=== PATIENT | female | born 1945 | race Caucasian/White ===

== ENCOUNTER → 2019-05-29 | Outpatient (CLI) | payer MEDICARE, BC ==
[~2019-05-29] MED LIST: AMLODIPINE BESY10 MG PO; ASPIRIN325 M2 PO; CALCIUM WITH V PO; CARAFATE; CETIRIZINE HCL10 MG PO; DEXILANT; DEXILANT30 MG PO; ETODOLAC PO; ETODOLAC300 MG PO; EYE PROMISE RESTORE; FIBER PO; FUROSEMIDE 40 MG; FUROSEMIDE40 MG PO; KLOR-CON 88 MEQ PO; LEVOTHYROXINE100 MCG PO; LEVOTHYROXINE88 MCG PO; METOCLOPRAMIDE10 MG PO; OMEPRAZOLE; OMEPRAZOLE40 MG; OMEPRAZOLE40 MG PO; PANTOPRAZOLE SO40 MG PO; TEMAZEPAM15 MG PO; TRIAMTERENE-HC1 EAC3 PO; ULTRAM50 MG PO; VENLAFAXINE HCL75 MG PO; VITAMIN C PO; Z ATROVENT IH; Z IRON PO; Z LEVOXYL PO; Z.0.CHLORDIAZEPOXI1 PO; Z.0.EVISTA60 MG PO; Z.0.GLUCOSAMINE1000 PO; Z.0.LEVOCETIRIZINE D PO; Z.0.LEVOXYL100 MCG PO; Z.0.LOVAZA1 GM PO; Z.0.NEXIUM40 MG PO; Z.0.PRAVASTATIN SOD4 PO; Z.0.VALIUM10 MG PO; Z.0.VESICARE10 MG PO; [UNRECOGNIZED DRUG - OTHER]
--- NOTE | 2019-06-03 08:07 | Diagnostic Imaging Report ---
Exam: Bone mineral density study. History: Osteopenia. Comparison: None Discussion: Evaluation of the left hip was performed utilizing DEXA Hologic bone densitometer. The study is technically adequate. The spine was not imaged due to patient's hardware/postsurgical change in the lumbar spine Left hip total bone mineral density: 0.923gm/cm2, T-score is -0.2, Z-score is 1.7. Left hip femoral neck bone mineral density: 0.758gm/cm2, T-score is -0.8, Z-score is 1.3. Impression: 1. Normal bone mineral density of the left hip, fracture risk is not increased. The BMD change versus baseline is 3.2% and the BMD change versus previous -2.6% . Least significant change (LSC) for bone mineral density as provided by coroner/medical examiner is 0.023 g/cm2 for lumbar spine and 0.027 g/cm2 for total hip. 10 -year fracture risk per WHO Fracture Risk Assessment Tool (FRAX) for: Not reported because all T-scores at or above -1.0. Patient treated for osteoporosis The patient's fracture risk is compared to an age-matched control. Medical evaluation for secondary causes of low bone bone mineral density may be appropriate. Correlate clinically for the necessity and timing of the next bone mineral density study. Signed by: Dr. Sebastián Lynn M.D. on 06/03/2019 8:04 AM
== END ==
LOC: DX 12:50
PROVIDERS: ATTEND Family Medicine
DX: M85.88 Other specified disorders of bone density and structure, other site (principal)
CPT/HCPCS: 77080

== ENCOUNTER 2019-07-25 19:22 | Emergency (ER) | payer MEDICARE, BC ==
[~2019-07-25] VITALS: Ht 144.8 cm; Wt 64.0 kg
--- OUTSIDE RECORDS SUMMARY | 2019-07-25 19:27 | XMS REPORT ---
Author Author [facility] Address Unknown Phone Unavailable Care Team Providers Care Cigarette Making Examiner Name Role Phone Jerry NATHAN Unavailable Unavailable Payers Payer Name Policy Type Policy Number Effective Date Expiration Date Problems This patient has no known problems. Allergies, Adverse Reactions, Alerts Allergy Name Allergy Type Status Severity Reaction(s) Onset Date Inactive Date Treating Clinician Comments codeine DA Active 2018-09-14 00:00:00 hydrocodone DA Active [place] 2018-09-14 00:00:00 acetaminophen DA Active [place] 2018-09-14 00:00:00 hydrocodone DA Active [place] 2018-07-06 00:00:00 acetaminophen DA Active [place] 2018-07-06 00:00:00 codeine DA Active 2017-11-24 00:00:00 Medications This patient has no known medications. Results Test Description Test Time Test Comments Text Results Atomic Results Result Comments BONE DXA DUAL ENERGY 2019-06-03 08:02:00 [facility] [address] [place] [address] Patient Name: CECE CRAMER MR #: [id number] : 1945 Age/Sex: 74/F Req #: [id number] [facility] Physician: Ordered by: MARIUSZ NATHAN MD Report #: [id number] Location: DX Room/Bed: Procedure: [id number] DX/BONE DXA DUAL ENERGY Exam Date: Exam Time: REPORT STATUS: Signed Exam: Bone mineral density study. History: Osteopenia. C omparison: None Discussion: Evaluation of the left hip was performed utilizing DEXA Hologic bone densitometer. The study is technically adequate. The spine was not imaged due to patient's hardware/postsurgical change in the lumbar spine Left hip total bone mineral density: 0.923gm/cm2, T-score is -0.2, Z-score is 1.7. Left hip femoral neck bone mineral density: 0.758gm/cm2, T-score is -0.8, Z-score is 1.3. Impression: 1. Normal bone mineral density of the left hip, fracture risk is not increased. The BMD change versus baseline is 3.2% and the BMD ziegler e versus previous -2.6% . Least significant change (LSC) for bone mineral density as provided by cash management coordinator is 0.023 g/cm2 for lumbar spine and 0.027 g/cm2 for total hip. 10 -year fracture risk per WHO Fracture Risk Assessment Tool (FRAX) for: Not reported because all T-scores at or above - 1.0. Patient treated for osteoporosis The patient's fracture risk is compared to an age-matched control. Medical evaluation for secondary causes of low bone bone mineral density may be appropriate. Correlate clinically for the necessity and timing of the next bone mineral density study. Signed by: Dr. Shell Lynn M.D. on 06/03/2019 8:04 AM Dictated By: SHELL LYNN MD, MD 3 Transcribed By: BELTRAN on 06/03/19803 COPY TO: MARIUSZ NATHAN MD SURGICAL SPECIMENS 2018-09-20 12:29:00 RUN DATE: 09/20/18 [facility] *LIVE* PAGE 1 RUN TIME: 1229 Specimen Inquiry RUN USER: INTERFACE PATIENT: CECE CRAMER LOC: KATIE U #: [id number] AGE/SX: 73/F ROOM: [facility] RE09/15/18REG DR: Oswaldo Kelley MD : 41 BED: 1 DIS: 09/19/18 STATUS: DIS IN TLOC: SPEC #: [id number] RECD: 09/18/18 STATUS: JENA REQ #: [id number] CHANEL: 09/18/[address]: Oswaldo Kelley MD ENTERED: 09/20/18 SP TYPE: SURG SPEC OTHR DR: No Primary or Family Physician Self Referred Carla Diana MD, Altaf MD Rungta, Manish MD Subramanyam, Kalyanam MDORDERED: GM LEVEL 4 CODES: [id number] - STOMACH, NOS COPIES TO: No Primary or Family Physician Self Referred Carla Diana MD [address] [facility] [address] [place] [address] Oswaldo Kelley MD [address] [facility] [address] [place] [address] [place] [address] [place], [place] [id number] [email or web address] Francisco Mckay MD [address] [place] [address] [address] [place] [address] Rajesh Hinojosa MD [address] [place] [address] [address] [place] [address] PROCEDURES: LEVEL 4 (Incomplete) CONTINUED ON NEXT PAGE RUN DATE: 09/20/18 [facility] *LIVE* PAGE 2 RUN TIME: 1229 Specimen Inquiry RUN USER: INTERFACE SPEC #: [id number] PATIENT: CECE CRAMER ZULMA #[id number] (Continued) TISSUES: 1. STOMACH, NOS - Stomach, antrum, bx. FINAL DIAGNOSIS Stomach, antrum, bx.: Mild chronic gastritis, no Helicobacter organisms seen. GROSS AND MICROSCOPIC GROSS EXAMINATION: Received is/are the specimen/s designated with the appropriate dimensions and block designation: 1. Stomach, antrum, bx.: 2 segments of pink-gonzales tissue, measuring up to 0.3 cm. in greatest dimension each. MICROSCOPIC EXAMINATION: Sections of the "Stomach, antrum, bx." reveal changes of mild chronic gastritis. The lamina propria contains a mild inflammatory infiltrate. The Alcian blue/PAS stain does not show goblet cell metaplasia. The immunostain for Helicobacter organisms is negative. (When special stains have been reviewed, the appropriate positive/negative controls have been reviewed and are appropriately positive/negative). POST-OP DIAGNOSIS Grade 4 esophagitis, hiatal hernia, nodular gastropathy antrum PRE-OP DIAGNOSIS Anemia Signed SIGNATURE ON FILE Korin Pang MD 09/20/18 1229 END OF REPORT
[2019-07-25 20:25] LABS: BASOPHILS % 0.6 % (0.0-1.0); EOSINOPHILS % 0.6 % (0.0-6.0); HEMATOCRIT 34.1 % (34.2-44.1); HEMOGLOBIN 11.3 g/dL (12.0-16.0); LYMPHOCYTES # (AUTO) 0.9 (1.0-3.2); LYMPHOCYTES % 19.5 % (18.0-39.1); MEAN CORPUSCULAR HEMOGLOBIN 37.2 pg (28-32); MEAN CORPUSCULAR HGB CONC 33.1 g/dL (31-35); MEAN CORPUSCULAR VOLUME 112.2 fL (81-99); MONOCYTES # (AUTO) 0.3 (0.2-0.8); MONOCYTES % 6.1 % (4.4-11.3); NEUTROPHILS # (AUTO) 3.4 (2.1-6.9); NEUTROPHILS % 72.8 % (38.7-80.0); PLATELET COUNT 417 x10e3/uL (140-360); RED BLOOD COUNT 3.04 x10e6/uL (3.6-5.1); RED CELL DISTRIBUTION WIDTH 16.9 % (11.7-14.4)
[2019-07-25 20:40] LABS: CALCIUM 9.8 mg/dL (8.4-10.2); CREATININE, SERUM 1.14 mg/dL (0.57-1.11)
[2019-07-25 20:43] LABS: BILIRUBIN,URINE NEGATIVE (NEGATIVE); CLARITY,URINE SL CLOUDY (CLEAR); COLOR,URINE YELLOW (YELLOW); KETONES,URINE NEGATIVE (NEGATIVE); LEUKOCYTE ESTERASE ,URINE SMALL (NEGATIVE); NITRITE,URINE NEGATIVE (NEGATIVE); PROTEIN,URINE DIPSTICK TRACE (NEGATIVE); URINE UROBILINOGEN 0.2 mg/dL (0.2 - 1)
[2019-07-25 20:56] LABS: BACTERIA,URINE MANY /HPF; WBC,URINE (MAN) 0-5 /HPF (0-5)
[2019-07-25 21:41] VITALS: BP 124/56
== END 2019-07-25 21:20 | disposition home or self-care (01) ==
LOC: ER 19:22
DX: R30.0 Dysuria (principal); N30.91 Cystitis, unspecified with hematuria; I10 Essential (primary) hypertension; E03.9 Hypothyroidism, unspecified; K21.9 Gastro-esophageal reflux disease without esophagitis; F32.9 Major depressive disorder, single episode, unspecified
CPT/HCPCS: 36415; 80048; 81001; 85025; 99283

== ENCOUNTER 2019-12-02 01:07 | Emergency (ER) | payer MEDICARE, BC ==
[~2019-12-02] VITALS: Ht 144.8 cm; Wt 64.0 kg
[2019-12-02] MEDS ORDERED: SODIUM CHLORIDE 0.9% 1000ML 1,000 ML IV STA ×2 (01:40→01:46)
[2019-12-02] MEDS ORDERED: CALCIUM GLUCONATE 10% INJ 4.65 MEQ in SODIUM CHLORIDE 0.9% 50ML 50 ML IV ONE (01:45)
[2019-12-02] MEDS ORDERED: GLUCAGON FOR INJ 1 MG VIAL IV ONE (01:45)
[2019-12-02 01:54] LABS: ALANINE AMINOTRANSFERASE 14 IU/L (0-55); ALBUMIN 3.1 g/dL (3.5-5.0); ALBUMIN/GLOBULIN RATIO 1.1 (0.8-2.0); ALKALINE PHOSPHATASE 62 IU/L (40-150); ANION GAP 13.9 mmol/L (8-16); BLOOD UREA NITROGEN 18 mg/dL (7-26); BUN/CREATININE RATIO 12 (6-25); CALCIUM 8.7 mg/dL (8.4-10.2); CARBON DIOXIDE 25 mmol/L (22-29); CHLORIDE 103 mmol/L (98-107); CREATINE KINASE 49 IU/L (29-168); EST GLOMERULAR FILTRATION RATE 34 ML/MIN (60-); GLUCOSE 116 mg/dL (74-118); POTASSIUM 4.9 mmol/L (3.5-5.1); SODIUM 137 mmol/L (136-145)
[2019-12-02 02:05] LABS: BASOPHILS % 0.3 % (0.0-1.0); EOSINOPHILS % 0.5 % (0.0-6.0); HEMATOCRIT 28.6 % (34.2-44.1); HEMOGLOBIN 9.3 g/dL (12.0-16.0); LYMPHOCYTES # (AUTO) 0.9 (1.0-3.2); LYMPHOCYTES % 23.4 % (18.0-39.1); MEAN CORPUSCULAR HEMOGLOBIN 39.7 pg (28-32); MEAN CORPUSCULAR HGB CONC 32.5 g/dL (31-35); MEAN CORPUSCULAR VOLUME 122.2 fL (81-99); MONOCYTES # (AUTO) 0.4 (0.2-0.8); MONOCYTES % 9.1 % (4.4-11.3); NEUTROPHILS # (AUTO) 2.6 (2.1-6.9); NEUTROPHILS % 66.4 % (38.7-80.0); PLATELET COUNT 229 x10e3/uL (140-360); RED BLOOD COUNT 2.34 x10e6/uL (3.6-5.1); RED CELL DISTRIBUTION WIDTH 14.6 % (11.7-14.4)
[2019-12-02 02:41] LABS: BILIRUBIN,URINE NEGATIVE (NEGATIVE); CLARITY,URINE CLEAR (CLEAR); COLOR,URINE YELLOW (YELLOW); KETONES,URINE NEGATIVE (NEGATIVE); LEUKOCYTE ESTERASE ,URINE NEGATIVE (NEGATIVE); NITRITE,URINE NEGATIVE (NEGATIVE); PROTEIN,URINE DIPSTICK 1+ (NEGATIVE); URINE UROBILINOGEN 0.2 mg/dL (0.2 - 1)
--- NOTE | 2019-12-02 03:01 | Diagnostic Imaging Report ---
EXAMINATION: Head CT without contrast. HISTORY:Generalized weakness. COMPARISON:None. TECHNIQUE: Multidetector axial images were obtained from the foramen magnum to the vertex without contrast. The images were reconstructed using brain and bone algorithms. Thin section brain images were reformatted into coronal and sagittal planes. Dose modulation, iterative reconstruction, and/or weight based adjustment of the mA/kV was utilized to reduce the radiation dose to as low as reasonably achievable. Intravenous contrast: None IMAGE QUALITY: Suboptimal evaluation particularly at the level of skull base and posterior fossa structures due to streak artifacts. FINDINGS: Skull/scalp: No lytic or blastic. lesions. No surgical changes. Parenchyma: Nonspecific bilateral frontoparietal confluent periventricular, subcortical and deep white matter hypodensities are likely related to small vessel ischemic changes. No acute hemorrhage, mass or acute major vascular territorial infarct. Arteries: No density suggestive of thrombosis. Atherosclerotic calcification in bilateral carotid siphon and V4 segment of left vertebral artery. Dural sinuses: No abnormal density suggestive of thrombosis. Ventricles: No hydrocephalus or displacement. Extra-axial spaces: No abnormal density. Brain volume: Normal for age. Craniocervical junction: No mass, Chiari malformation, or basilar invagination. Sella: No mass. Paranasal/mastoid sinuses: Imaged portions unremarkable. IMPRESSION: No acute intracranial abnormality. Severe supratentorial white matter microvascular ischemic changes. Signed by: Dr. Beverly Díaz M.D. on 12/02/2019 2:58 AM
[2019-12-02 03:06] LABS: BACTERIA,URINE MANY /HPF; EPITHELIAL CELLS,URINE FEW /LPF
[2019-12-02 03:07] LABS: CALCIUM CARBONATE CRYSTALS,UR FEW; CALCIUM OXALATE CRYSTALS,UR FEW (FEW)
[2019-12-02 03:08] LABS: MUCUS,URINE MODERATE (RARE)
--- NOTE | 2019-12-02 03:20 | NUR ---
CENTRAL PLACED TO RT IJ BY ER , DR. WEINBERG AT THIS TIME. PT TOLERATED WELL. NAD NOTED AT THIS TIME.
[2019-12-02] MEDS ORDERED: NOREPINEPHRINE 8 MG/D5W 250 ML 250 ML ONE (03:22)
--- NOTE | 2019-12-02 03:28 | Diagnostic Imaging Report ---
EXAMINATION: CHEST SINGLE (NOT PORTABLE) INDICATION: Pain. Weakness. COMPARISON: None FINDINGS: TUBES and LINES: None. LUNGS: Lungs are well inflated. There are bibasilar atelectasis. There is no evidence of pneumonia or pulmonary edema. PLEURA: No pleural effusion or pneumothorax. HEART AND MEDIASTINUM: Cardiac size is mildly enlarged. There are atherosclerotic calcifications within the aorta. BONES AND SOFT TISSUES: No acute osseous lesion. Soft tissues are unremarkable. UPPER ABDOMEN: No free air under the diaphragm. IMPRESSION: No acute thoracic abnormality. Signed by: Dr. Anne Marie Menjivar M.D. on 12/02/2019 3:24 AM
[2019-12-02] MEDS ORDERED: NOREPINEPHRINE INJ 4MG/4ML 8 MG in DEXTROSE 5% 250ML 250 ML IV SCH (03:45)
--- NOTE | 2019-12-02 04:02 | Diagnostic Imaging Report ---
EXAMINATION: CHEST SINGLE (PORTABLE) INDICATION: CVC placement. COMPARISON: 12/02/2019 at 2:46 AM. FINDINGS: TUBES and LINES: Interval placement of a right internal jugular central venous catheter with distal tip projected on the cavoatrial junction. LUNGS: There are bibasilar atelectasis. There is no evidence of pneumonia or pulmonary edema. PLEURA: No pleural effusion or pneumothorax. HEART AND MEDIASTINUM: Cardiac size is mildly enlarged. There are atherosclerotic calcifications within the aorta. BONES AND SOFT TISSUES: No acute osseous lesion. Soft tissues are unremarkable. UPPER ABDOMEN: No free air under the diaphragm. IMPRESSION: Interval placement of a right internal jugular central venous catheter with distal tip projected on the cavoatrial junction. Signed by: Dr. Anne Marie Menjivar M.D. on 12/02/2019 4:00 AM
[2019-12-02 05:49] VITALS: BP 148/82
[2019-12-02] MEDS ORDERED: PIPER-TAZ 3.375 GM 50 ML IV SCH (06:00)
== END 2019-12-02 04:55 | disposition short-term general hospital (02) ==
LOC: ER 01:07
DX: R53.1 Weakness (principal); R65.21 Severe sepsis with septic shock; I95.0 Idiopathic hypotension; I50.9 Heart failure, unspecified; N17.9 Acute kidney failure, unspecified; N30.90 Cystitis, unspecified without hematuria; R00.1 Bradycardia, unspecified
CPT/HCPCS: 36415; 36555; 70450; 71045 ×2; 80053; 81001; 82550; 82553; 83605; 83880; 84484; 85025; 86850; 86900; 87040; 93005; 99285; J0610; J1610; J2543; J7030

== ENCOUNTER 2020-09-05 20:26 | Inpatient (IN) | payer MEDICARE, BC ==
[~2020-09-05] VITALS: Ht 144.8 cm; Wt 67.9 kg
--- NOTE | 2020-09-05 20:40 | Emergency Department Note ---
History of Present Illnes History of Present Illness Chief Complaint: General Medicine Complaints History of Present Illness This is a 75 year old female presents to the ED for evaluation of dysuria of one week duration with Left facial swelling and dyspnea. Arrival Mode: Car Onset (how long ago): week(s) Radiation: Reports non-radiation Severity: moderate Onset quality: gradual Duration (how long): week(s) (1) Timing of current episode: constant Progression: unchanged Chronicity: new Context: Denies recent illness, Denies recent surgery, Denies recent immobilization, Denies recent travel, Denies trauma/injury, Denies new medications, Denies hx of DVT/PE, Denies non-compliance w/ medications, Denies other Relieving factors: none Exacerbating factors: none Associated symptoms: Reports shortness of breath Treatments prior to arrival: none Past Medical/Family History Physician Review I have reviewed the patient's past medical and family history. Any updates have been documented here. Past Medical History Recent Fever: No Clinical Suspicion of Infectio: No New/Unexplained Change in Ment: No Past Medical History: Hypertension, Hypothyroidism, UTI's, Migraines, Anemia, Depression, GERD, Hyperlipedemia, Chronic Back Pain Other Medical History: HYPOTENTION 2015 - GI BLEED MULTIPLE BLOOD TRANSFUSIONS HIATAL HERNIA NEUROPATHY OVERACTIVE BLADDER Past Surgical History: Cholecysctectomy Other Surgery: BACK SURGERY RIGHT KNEE REPLACEMENT Social History Smoking Cessation: Never Smoker Alcohol Use: None Any Illegal Drug Use: No Other Last Tetanus: Y Review of Systems Review of Systems Constitutional: Reports no symptoms EENTM: Reports no symptoms Cardiovascular: Reports no symptoms Respiratory: Reports no symptoms Gastrointestinal: Reports no symptoms Genitourinary: Reports dysuria Musculoskeletal: Reports no symptoms Integumentary: Reports no symptoms Neurological: Reports weakness Psychological: Reports no symptoms Endocrine: Reports no symptoms Hematological/Lymphatic: Reports no symptoms Physical Exam Related Data Allergies: Coded Allergies: codeine (Verified Allergy, Mild, RASH, 08/10/15) pseudoephedrine (Verified Allergy, Unknown, 07/25/19) Triage Vital Signs Vital Signs Date Time Temp Pulse Resp B/P (MAP) Pulse Ox O2 Delivery O2 Flow Rate FiO2 09/05/20 20:56 98.5 81 24 111/57 100 Room Air 09/07/20 03:05 2.0 Vital signs reviewed: Yes Physical Exam CONSTITUTIONAL Constitutional: Present obese, Present ill appearing HENT HENT: Present normocephalic, Present atraumatic, Present oropharynx clear/moist, Present nose normal HENT L/R: Present left ext ear normal, Present right ext ear normal EYES Eyes: Reports PERRL, Reports conjunctivae normal NECK Neck: Present ROM normal PULMONARY Pulmonary: Present effort normal, Present breath sounds normal CARDIOVASCULAR Cardiovascular: Present regular rhythm, Present heart sounds normal, Present capillary refill normal, Present normal rate GASTROINTESTINAL Abdominal: Present soft, Present nontender, Present bowel sounds normal GENITOURINARY Genitourinary: Present exam deferred SKIN Skin: Present warm, Present dry MUSCULOSKELETAL Musculoskeletal: Present ROM normal NEUROLOGICAL Neurological: Present alert, Present oriented x 3, Present no gross motor or sensory deficits PSYCHOLOGICAL Psychological: Present mood/affect normal, Present judgement normal Results Laboratory Lab results reviewed: Yes Imaging Imaging results reviewed: Yes Procedures 12 Lead ECG Interpretation ECG Interpretation : ECG: ECG 1 Wrapper Hands Sprayer: Interpreted by ED physician Date: Sep 05, 2020 Time: 21:15 Prior ECG tracings: reviewed Rhythm: sinus rhythm Rate: normal BPM: 76 ST segments normal: Yes T waves normal: No T waves flattening: V1, V2 Clinical Impression: non-specific ECG Critical Care Time Total Critical Care Time (min): 31 Critcal care necessary due to: sepsis Critcal care time spent by me: develop tx plan w patient/surrogate, evaluation patient response to tx, examination of patient, obtaining hx from patient/surrogate, order/perform tx or interventions, order/review laboratory studies, order/review radiographic studies, re-evaluation of patient condition Assessment & Plan Medical Decision Making MDM Diff Dx : CVA, ACS ,Sepsis, UTI, electrolyte abl, CHF, PNA, COPD Assessment & Plan Final Impression: (1) Severe sepsis (2) Weakness (3) Anemia (4) UTI (urinary tract infection) Depart Disposition: ADMITTED Home Meds Active Scripts Ferrous Sulfate (FERROUS SULFATE) 325 Mg Tablet, 325 MG PO DAILY for 30 Days Prov:ISHA LEE CHARTING CLERK 09/10/20 Docusate Sodium (COLACE) 100 Mg Cap, 100 MG PO DAILY for 30 Days, CAP Prov:ISHA LEE CHARTING CLERK 09/10/20 Ascorbic Acid (ASCORBIC ACID) 500 Mg Tablet, 500 MG PO DAILY for 30 Days Prov:ISHA LEE CHARTING CLERK 09/10/20 Metoprolol Succinate (TOPROL XL) 25 Mg Tab.er.24h, 50 MG PO Q12H for 30 Days Prov:ISHA LEE CHARTING CLERK 09/09/20 Albuterol Sulf* (PROAIR HFA INHALER*) 8.5 Gm Inh, 2 INH INH Q4HR PRN for WHEEZING, #1 INH Prov:ISHA LEE CHARTING CLERK 09/09/20 Reported Medications Donepezil HCl (Donepezil HCl) 23 Mg Tablet, 23 MG PO HS 09/06/20 Pantoprazole Sodium* (PROTONIX) 40 Mg Tablet.dr, 40 MG PO DAILY 09/06/20 Pramipexole Di-Hcl (PRAMIPEXOLE DIHYDROCHLORIDE) 0.125 Mg Tablet, 0.125 MG PO HS 09/06/20 Hydroxyurea (HYDROXYUREA) 500 Mg Capsule, 1000 MG PO DAILY 09/06/20 Potassium Chloride (K-Tab ER) 8 Meq Tablet.er, 16 MEQ PO BID 09/06/20 Mirabegron (MYRBETRIQ) 25 Mg Tab.er.24h, 25 MG PO DAILY 09/06/20 Venlafaxine Hcl (VENLAFAXINE HCL ER) 75 Mg Cap.er.24h, 225 MG PO DAILY 09/06/20 Sucralfate (SUCRALFATE) 1 Gm Tablet, 1 GM PO TID 09/06/20 Dicyclomine Hcl (DICYCLOMINE HCL) 20 Mg Tablet, 20 MG PO QID 09/06/20 Levothyroxine Sodium (LEVOTHYROXINE SODIUM) 112 Mcg Tablet, 112 MCG PO BROOKS Y@0600 09/06/20 Escitalopram Oxalate (ESCITALOPRAM OXALATE) 20 Mg Tablet, 20 MG PO DAILY 09/06/20 Ondansetron (ONDANSETRON ODT) 8 Mg Tab.rapdis, 8 MG PO Q8H PRN for NAUSEA 09/06/20 Quetiapine Fumarate (QUETIAPINE FUMARATE) 25 Mg Tablet, 25 MG PO HS 09/06/20 Oxycodone Hcl/Acetaminophen (PERCOCET 7.5-325 MG TABLET) 1 Each Tablet, 1 TAB PO Q12H PRN for MODERATE PAIN (4-6), TAB 09/06/20 Tizanidine Hcl (TIZANIDINE HCL) 4 Mg Tablet, 4 MG PO BID PRN for MUSCLE SPASMS 09/06/20 Gabapentin (GABAPENTIN) 300 Mg Capsule, 300 MG PO TID 09/06/20 Bupropion Hcl (BUPROPION XL) 150 Mg Tab.er.24h, 150 MG PO DAILY 09/06/20 Fluticasone/Umeclidin/Vilanter (Trelegy Ellipta 100-62.5-25) 1 Each Blst.w.dev, 1 INH INH DAILY 09/06/20 Pravastatin Sodium (Pravastatin Sodium) 40 Mg Tablet, 40 MG PO BEDTIME 05/16/12 Raloxifene Hcl (Evista) 60 Mg Tablet, 60 MG PO DAILY 05/16/12 Discontinued Reported Medications Metoprolol Succinate (METOPROLOL SUCCINATE) 25 Mg Tab.er.24h, 25 MG PO Q12H 09/06/20 Amlodipine Besylate (AMLODIPINE BESYLATE) 10 Mg Tablet, 10 MG PO DAILY, #30 TAB 09/06/16 Ketoprofen (Frotek) 1 Gm Cream.pack, 1 APPLIC TOP QID PRN for MILD PAIN (1-3) 09/06/20 Clobetasol Propionate (CLOBETASOL PROPIONATE) 15 Gm Oint...g., 1 APPLIC TOP Q12H 09/06/20 Cetirizine Hcl (CETIRIZINE HCL) 10 Mg Tablet, 1 TAB PO DAILY 09/06/16 Venlafaxine Hcl (VENLAFAXINE HCL) 75 Mg Tab, 2 TAB PO HS, #30 TAB 09/06/16 Tramadol Hcl (ULTRAM) 50 Mg Tablet, 50 MG PO Q12H for PAIN, TAB 09/06/16 Potassium Chloride (KLOR-CON 8) 8 Meq Tablet.er, 1 TAB PO DAILY 09/06/16 Metoclopramide Hcl (METOCLOPRAMIDE HCL) 10 Mg Tablet, 10 MG PO TID, TAB 09/06/16 Temazepam (TEMAZEPAM) 15 Mg Capsule, 1 CAP PO HS 09/06/16 Levothyroxine Sodium (LEVOTHYROXINE SODIUM) 88 Mcg Tablet, 88 MCG PO UD, #30 TAB EVERY OTHER DAY ( THREE DAYS A WEEK) - ALTERNATE WITH LEVOTHYROXINE 100MG 09/06/16 Levothyroxine Sodium (LEVOTHYROXINE SODIUM) 100 Mcg Tablet, 100 MCG PO UD EVERY OTHER DAY, ALTERNATE WITH 88MCG LEVOTHYROXINE 08/11/15 Omeprazole (OMEPRAZOLE) 40 Mg Capsule.dr, 40 MG PO QID 08/10/15 [place]-3 Acid Ethyl Esters (Lovaza) 1 Gm Capsule, 1 GM PO BID 05/16/12 Glucosamine Sulfate 2KCL (GLUCOSAMINE) 1,000 Mg Tablet, PO DAILY 05/16/12 DAMARIS WEINBERG DO Sep 05, 2020 20:40
[2020-09-05] MEDS ORDERED: ASPIRIN 81 MG CHEW TAB PO ONE (20:45)
[2020-09-05 21:36] LABS: LYMPHOCYTES # (AUTO) 0.4 (1.0-3.2); LYMPHOCYTES % 7.3 % (18.0-39.1); MEAN CORPUSCULAR HEMOGLOBIN 42.6 pg (28-32); MEAN CORPUSCULAR HGB CONC 32.4 g/dL (31-35); MEAN CORPUSCULAR VOLUME 131.4 fL (81-99); MONOCYTES # (AUTO) 0.3 (0.2-0.8); MONOCYTES % 6.1 % (4.4-11.3); NEUTROPHILS # (AUTO) 4.8 (2.1-6.9); NEUTROPHILS % 86.1 % (38.7-80.0); PLATELET COUNT 345 x10e3/uL (140-360); RED BLOOD COUNT 1.69 x10e6/uL (3.6-5.1); RED CELL DISTRIBUTION WIDTH 15.1 % (11.7-14.4)
[2020-09-05 21:39] LABS: HEMATOCRIT 22.2 % (34.2-44.1)
[2020-09-05 21:41] LABS: HEMOGLOBIN 7.2 g/dL (12.0-16.0)
--- NOTE | 2020-09-05 21:41 | NUR ---
RADIOLOGY AT BEDSIDE FOR PORTABLE CHEST XRAY.
[2020-09-05 21:57] LABS: ALBUMIN 3.5 g/dL (3.5-5.0); ALBUMIN/GLOBULIN RATIO 0.8 (0.8-2.0); ANION GAP 16.9 mmol/L (8-16); CALCIUM 9.6 mg/dL (8.4-10.2); CREATININE, SERUM 1.42 mg/dL (0.57-1.11); POTASSIUM 4.9 mmol/L (3.5-5.1)
[2020-09-05] MEDS ORDERED: SODIUM CHLORIDE 0.9% 1000ML 1,000 ML IV STA (22:00)
--- NOTE | 2020-09-05 22:03 | Diagnostic Imaging Report ---
EXAMINATION: CHEST SINGLE (PORTABLE) INDICATION: Weakness, short of breath COMPARISON: Chest x-ray 12/02/2019 FINDINGS: TUBES and LINES: None. LUNGS: Normal lung volumes. Lungs are clear. No consolidations. PLEURA: No pleural effusion or pneumothorax. HEART AND MEDIASTINUM: The cardiomediastinal silhouette is unremarkable. BONES AND SOFT TISSUES: No acute osseous lesion. Soft tissues are unremarkable. UPPER ABDOMEN: No free air under the diaphragm. Cholecystectomy clips. IMPRESSION: No acute thoracic radiographic abnormality. Signed by: Td Lucas DO on 09/05/2020 10:00 PM
[2020-09-05 22:04] LABS: CREATINE KINASE MB 2.6 ng/mL (0-5.0)
[2020-09-05] MEDS ORDERED: SODIUM CHLORIDE 0.9% 1000ML 2,000 ML ONE (22:09)
[2020-09-05] MEDS ORDERED: SODIUM CHLORIDE 0.9% 250ML 250 ML IV ONE (22:15)
[2020-09-05] MEDS ORDERED: MORPHINE SULFATE INJ 4 MG/ML INJ 1ML IV PRN (22:15)
--- OUTSIDE RECORDS SUMMARY | 2020-09-05 22:50 | XMS REPORT | Clinical Summary ---
Author Author [facility] Address Unknown Phone Unavailable Care Team Providers Care Cattle Sticker Name Role Phone [place] PCP Alvin Barlow 29 Unavailable Allergies Comments Active Allergy Reactions Severity Noted Date Codeine Itching 08/05/2013 Medications End Date Status Medication Sig Dispensed Refills Start Date Active pravastatin (PRAVACHOL) Take 40 mg by 0 10 MG tablet mouth daily . Active potassium chloride Take 10 mEq 0 (KLOR-CON) 10 MEQ CR by mouth tablet daily. Active CYANOCOBALAMIN, VITAMIN Take by mouth 0 B-12, (VITAMIN B-12 ORAL) daily. Active pantoprazole (PROTONIX) Take 20 mg by 0 20 MG tablet mouth 2 (two) times daily . Active ergocalciferol (VITAMIN Take 5,000 0 D2) 1,250 mcg (50,000 Units by unit) capsule mouth nightly. Active melatonin 3 mg Tab tablet Take 5 mg by 0 mouth nightly. Active pramipexole (MIRAPEX) Take 0.125 mg 0 0.125 MG tablet by mouth nightly. Active ondansetron (ZOFRAN) 8 MG Take by mouth 0 tablet daily with dinner. Active sucralfate (CARAFATE) 1 Take 1 g by 0 gram tablet mouth 3 (three) times daily. Active levothyroxine (SYNTHROID, Take 112 mcg 0 LEVOTHROID) 112 MCG by mouth tablet Every morning on an empty stomach. Active amLODIPine (NORVASC) 10 Take 10 mg by 0 MG tablet mouth daily. Active metoprolol (LOPRESSOR) 25 Take 25 mg by 0 MG tablet mouth daily. Active venlafaxine (EFFEXOR-XR) Take 75 mg by 0 75 MG 24 hr capsule mouth daily 3 tablets . Active donepezil (ARICEPT) 10 MG Take 10 mg by 0 tablet mouth every evening. Active escitalopram oxalate Take 1 tablet 30 tablet 1 (LEXAPRO) 10 MG tablet (10 mg total) 0 by mouth nightly. 12/02/2019 Discontinued ( Discontinue d) levothyroxine (SYNTHROID, Take 88 mcg 0 LEVOTHROID) 88 MCG tablet by mouth 3 (three) times a week Thurs, Fri and Sat. 12/02/2019 Discontinued levothyroxine (SYNTHROID, Take 100 mcg 0 LEVOTHROID) 100 MCG by mouth 4 tablet (four) times a week Sun, Mon, and Mon. 12/02/2019 Discontinued omega-3 acid ethyl esters Take 2 g by 0 (LOVAZA) 1 gram capsule mouth 2 (two) times daily. 12/02/2019 Discontinued ( Discontinue d) furosemide (LASIX) 40 MG Take 40 mg by 0 tablet mouth daily. 12/02/2019 Discontinued ( Discontinue d) esomeprazole (NEXIUM) 40 Take 40 mg by 0 MG capsule mouth 2 (two) times daily. 12/02/2019 Discontinued ( Discontinue d) chlordiazePOXIDE Take 10 mg by 0 (LIBRIUM) 10 MG capsule mouth 4 (four) times daily as needed. 12/04/2019 Discontinued (Stop Taking at Discharge) HYDROcodone-acetaminophen Take 1 tablet 60 tablet 0 (NORCO 5-325) 5-325 mg by mouth 3 per tablet every 4 (four) hours as needed. 12/02/2019 Discontinued ( Discontinue d) aspirin 81 MG EC tablet Take 81 mg by 0 mouth daily. 12/02/2019 Discontinued ( Discontinue d) temazepam (RESTORIL) 15 Take 15 mg by 0 mg capsule mouth every night as needed for Sleep. 12/04/2019 Discontinued (Stop Taking at Discharge) levocetirizine (XYZAL) 5 Take 5 mg by 0 MG tablet mouth every evening. 12/04/2019 Discontinued (Stop Taking at Discharge) TiZANidine (ZANAFLEX) 4 Take 2 mg by 0 MG capsule mouth 2 (two) times daily The patient takes an additional 4mg at bedtime reported by the patient's daughter Smiley on 11/08/2020 at 0800am . 12/04/2019 Discontinued (Stop Taking at Discharge) dicyclomine (BENTYL) 20 Take 20 mg by 0 mg tablet mouth every 6 (six) hours. 12/04/2019 Discontinued (Stop Taking at Discharge) raloxifene (EVISTA) 60 mg Take 60 mg by 0 tablet mouth daily. 12/04/2019 Discontinued (Stop Taking at Discharge) hydroxyurea (DROXIA) 500 Take by mouth 0 mg capsule daily 1-2 tablet every other day . 12/05/2019 Discontinued (Reorder) escitalopram oxalate Take 20 mg by 0 (LEXAPRO) 20 MG tablet mouth nightly. 12/08/2019 cefdinir (OMNICEF) 300 MG Take 1 8 capsule 0 capsule capsule (300 0 mg total) by mouth every 12 (twelve) hours for 4 days. 01/03/2020 QUEtiapine (SEROQUEL) 25 Take 1 tablet 30 tablet 1 MG tablet (25 mg total) 0 by mouth nightly for 30 days. Active Problems Problem Noted Date Urinary tract infection 12/02/2019 Cerebral aneurysm 12/15/2015 Lumbar stenosis 08/29/2013 Encounters Care Team Description Date Type Specialty 12/05/2019 Orders Only General Internal Me Caden Rodriguez MD Athreya, Khannan Kameshvaran, MD Severe sepsis (HCC); Acute cystitis without hematuria; Fall, initial encounter; Late onset Alzheimer's disease with behavioral disturbance (HCC); Acute metabolic encephalopathy; Agitation; Memory loss; Dementia with behavioral disturbance, unspecified dementia type (HCC) 12/02/2019 Hospital Cardiology - Encounter 12/05/2019 12/02/2019 Travel Caden Sandoval MD transfer 12/02/2019 Telephone Critical Care Medic ine after 09/05/2019 Social History Date Tobacco Use Types Packs/Day Years Used Never Smoker Drinks/Week oz/Week Comments Alcohol Use No Sex Assigned at Date Recorded Not on file Last Filed Vital Signs Reading Time Taken Comments Vital Sign 137/67 12/05/2019 12:30 PM PARKING LOT MANAGER Blood Pressure 96 12/05/2019 12:30 PM PARKING LOT MANAGER Pulse 36.3 C (97.4 F) 12/05/2019 12:30 PM PARKING LOT MANAGER Temperature 18 12/05/2019 12:30 PM PARKING LOT MANAGER Respiratory Rate 96% 12/05/2019 12:30 PM PARKING LOT MANAGER Oxygen Saturation - - Inhaled Oxygen Concentration 62.6 kg (137 lb 14.4 oz) 12/03/2019 9:00 AM PARKING LOT MANAGER Weight 152.4 cm (5') 12/02/2019 6:00 AM PARKING LOT MANAGER Height 26.93 12/02/2019 6:00 AM PARKING LOT MANAGER Body Mass Index Plan of Treatment Health Maintenance Due Date Last Done Comments PNEUMOCOCCAL 65+ YRS (1 2008 of 1 - [id number]) MEDICARE ANNUAL WELLNESS 03/24/2009 (YEAR 2 or FIRST YEAR if no IPPE) INFLUENZA VACCINE (#1) 2020 Implants Device Identifier Shelf Expiration Date Model / Serial / L ot Implanted Type Area Manufactur er 04/15/2014 [id number] / [id number] / [id number] MarceCarine Bio 5cc - [id number] Bone Left: Spine R TI Implanted: Qty: 1 on 08/29/2013 by Lumbar BI Anibal Escobar MD at [facility] 02/13/2015 [id number] / [id number] / [id number] Dbx Mix,[facility] [id number] Bone N/A: Spine MUSCULOSKE Implanted: Qty: 1 on 08/29/2013 by Lumbar Anibal Reese MD at [facility] TRANSPLANT [facility] 04/13/2015 [id number] / [id number] / [id number] Dbx Mix,[facility] [id number] Bone N/A: Spine MUSCULOSKE Implanted: Qty: 1 on 08/29/2013 by Lumbar Anibal Reese MD at [facility] TRANSPLANT [facility] 10/22/2014 [id number] / / [id number] Sealant,Floseal Hemostatic Matrix Cement/Erasmo N/A: Spine HUFFMAN 10ml - [id number] ler/Adhesi Lumbar BIOSCIENCE Implanted: Qty: 3 on 08/29/2013 by Anibal Ocampo MD at [facility] FUSION [facility] MEDICAL 08/22/2015 [id number] / / [id number] Kit,Hemostasis Gelfoam Plus - Cement/Erasmo N/A: Spine HUFFMAN [id number] ler/Adhesi Lumbar BIOSCIENCE Implanted: Qty: 1 on 08/29/2013 by Anibal Ocampo MD at [facility] MEDICAL 01/20/2015 [id number] / / [id number] Bone Graft,Sub Vitoss Foam Pack Cement/Erasmo N/A: Spine DURAN Bioactive 10cc - [id number] ler/Adhesi Lumbar SPIN E Implanted: Qty: 1 on 08/29/2013 by Anibal Lomeli MD at [facility] [id number] / / [id number] Head,3-D Ti F/Click'X Screws - Spine SYNTHES [id number] [employer] Implanted: Qty: 1 on 08/29/2013 by Anibal Currie MD at [facility] 498.143 / / [id number] Maykel,Soft Curved Ti 6x85mm - Spine SYNTHES [id number] [employer] Implanted: Qty: 2 on 08/29/2013 by Anibal Currie MD at [facility] 04.620.000 / / [id number] Cap,Locking Pangea Ti 16mm - Spine SYNTHES [id number] [employer] Implanted: Qty: 4 on 08/29/2013 by Anibal Currie MD at [facility] 04.620.000 / / [id number] Cap,Locking Pangea Ti 16mm - Spine SYNTHES [id number] [employer] Implanted: Qty: 2 on 08/29/2013 by Anibal Currie MD at [facility] 498.564 / / Screw,Pedicle Click'X Dual Core Ti Spine SYN THES 6.2x50mm - [id number] [employer] Implanted: Qty: 1 on 08/29/2013 at [facility] 487.073 / / Screw,Pedicle Click'X Dual Core Ti Spine SYN THES 5.2x45mm - [id number] [employer] Implanted: Qty: 4 on 08/29/2013 by Anibal Currie MD at [facility] 498.570 / / [id number] Cap,Locking Click'X Ti F/3-D Head - Spine SY NTHES [id number] [employer] Implanted: Qty: 4 on 08/29/2013 by Anibal Currie MD at [facility] 498.571 / / [id number] Head,3-D Ti F/Click'X Screws - Spine SYNTHES [id number] [employer] Implanted: Qty: 3 on 08/29/2013 by Anibal Currie MD at [facility] [id number] / / [id number] Peek Aria Width 10 X 45 X 8 Degrees - 18mm Implanted: Qty: 2 on 08/29/2013 by Anibal Currie MD at [facility] Procedures Comments Procedure Name Priority Date/Time Associated Diag nosis RHYTHM STRIP - SCAN 12/10/2019 4:30 PM PARKING LOT MANAGER RHYTHM STRIP - SCAN 12/09/2019 1:45 PM PARKING LOT MANAGER ECG 12-LEAD Routine 12/05/2019 12:38 PM PARKING LOT MANAGER Procedure Note - Interface, External Ris In - 12/05/2019 12:40 PM PARKING LOT MANAGER Ventricula r Rate 95 BPM Atrial Rate 95 BPM P-R Interval 172 ms QRS Duration 72 ms Q-T Interval 394 ms QTC Calculatio n(Bazett) 495 ms P [place] 56 degrees R [place] 1 degrees T [place] 59 degrees Normal sinus rhythm Possible Left atrial enlargemen t Prolonged QT Abnormal ECG When compared with ECG of 6 07:28, No significan t change was found ECG 12-LEAD Routine 12/05/2019 12:38 PM PARKING LOT MANAGER POCT-GLUCOSE METER Routine 12/04/2019 12:34 PM PARKING LOT MANAGER POCT-GLUCOSE METER Routine 12/04/2019 6:36 AM PARKING LOT MANAGER POCT-GLUCOSE METER Routine 12/03/2019 11:53 PM PARKING LOT MANAGER ECHOCARDIOGRAM REPORT - 12/03/2019 SCAN 9:10 PM PARKING LOT MANAGER POCT-GLUCOSE METER Routine 12/03/2019 5:31 PM PARKING LOT MANAGER COMPREHENSIVE METABOLIC Routine 12/03/2019 PANEL 10:28 AM PARKING LOT MANAGER CBC (HEMOGRAM ONLY) Routine 12/03/2019 10:28 AM PARKING LOT MANAGER FERRITIN Routine 12/03/2019 10:28 AM PARKING LOT MANAGER VITAMIN B12 AND FOLATE Routine 12/03/2019 10:28 AM PARKING LOT MANAGER 2D ECHO W/ DOPPLER STAT 12/02/2019 (CW/PW/COLOR) 5:48 PM PARKING LOT MANAGER BLOOD CULTURE Routine 12/02/2019 10:05 AM PARKING LOT MANAGER BLOOD CULTURE Routine 12/02/2019 9:55 AM PARKING LOT MANAGER URINALYSIS W/ REFLEX Routine 12/02/2019 URINE CULTURE 8:47 AM PARKING LOT MANAGER CBC W/PLT COUNT & AUTO STAT 12/02/2019 DIFFERENTIAL 6:55 AM PARKING LOT MANAGER LIPID PANEL STAT 12/02/2019 6:55 AM PARKING LOT MANAGER HEPATIC FUNCTION PANEL STAT 12/02/2019 6:55 AM PARKING LOT MANAGER PROCALCITONIN STAT 12/02/2019 6:55 AM PARKING LOT MANAGER TSH/FREE T4 IF INDICATED Routine 12/02/2019 6:55 AM PARKING LOT MANAGER LACTIC ACID, VENOUS STAT 12/02/2019 6:55 AM PARKING LOT MANAGER PT/APTT STAT 12/02/2019 6:55 AM PARKING LOT MANAGER BASIC METABOLIC PANEL (7) STAT 12/02/2019 6:55 AM PARKING LOT MANAGER CBC W/PLT COUNT & AUTO STAT 12/02/2019 DIFFERENTIAL 6:55 AM PARKING LOT MANAGER XR CHEST 1 VIEW STAT 12/02/2019 PORTABLE/BEDSIDE 6:20 AM PARKING LOT MANAGER after 09/05/2019 Results * RHYTHM STRIP - SCAN (12/10/2019 4:30 PM PARKING LOT MANAGER) Only the most recent of 2 results within the time period is included. Narrative Performed At This result has an attachment that is n ot available. * ECG 12 lead (12/05/2019 12:38 PM PARKING LOT MANAGER) Specimen Narrative Performed At Ventricular Rate 95 BPM GE MUSE Atrial Rate 95 BPM P-R Interval 172 ms QRS Duration 72 ms Q-T Interval 394 ms QTC Calculation(Bazett) 495 ms P [place] 56 degrees R [place] 1 degrees T [place] 59 degrees Normal sinus rhythm Possible Left atrial enlargement Prolonged QT Abnormal ECG When compared with ECG of 18-DEC-2015 0 7:28, No significant change was found Confirmed by Toyin DREW BASANT ([id number]) on 12/05/2019 5:32:07 PM Procedure Note Interface, External Ris In - 12/05/2019 5:32 PM PARKING LOT MANAGER Ventricular Rate 95 BPM Atrial Rate 95 BPM P-R Interval 172 ms QRS Duration 72 ms Q-T Interval 394 ms QTC Calculation(Bazett) 495 ms P [place] 56 degrees R [place] 1 degrees T [place] 59 degrees Normal sinus rhythm Possible Left atrial enlargement Prolonged QT Abnormal ECG When compared with ECG of 18-DEC-2015 07:28, No significant change was found Confirmed by Toyin DREW, CATALINA ([id number]) on 12/05/2019 5:32:07 PM Performing Organization Address [facility] one Number GE MUSE * POC-Glucose meter (12/04/2019 12:34 PM PARKING LOT MANAGER) Only the most recent of 4 results within the time period is included. POC-Glucose 118 (H)Comment: : TESTED AT 70 - 110 mg/dL [facility] [address] [address]: Ear Machine Operator/Labor Union Business Representative ID [facility] = [id number] for NADINE ARREAGA Specimen Blood Performing Organization Address [facility] Ph one Number [facility] [address] [place], [place] [address] [facility] * ECHOCARDIOGRAM REPORT - SCAN (12/03/2019 9:10 PM PARKING LOT MANAGER) Narrative Performed At This result has an attachment that is n ot available. * Vitamin B12 and Folate (12/03/2019 10:28 AM PARKING LOT MANAGER) Vitamin B12 555 213 - 816 pg/mL [facility] Folate 27.8 >=7.0 ng/mL [facility] Specimen Blood Narrative Performed At Ear Machine Operator AKASH Rangel [facility] Performing Organization Address City/[facility] one Number [place] [address] [facility] * CBC (Hemogram only) (12/03/2019 10:28 AM PARKING LOT MANAGER) WBC 6.1 3.5 - 10.5 K/L [facility] RBC 2.84 (L) 3.93 - 5.22 M/L [facility] Hemoglobin 11.2 11.2 - 15.7 GM/DL [facility] Hematocrit 34.5 34.1 - 44.9 % [facility] MCV 121.5 (H) 79.4 - 94.8 fL [facility] MCH 39.4 (H) 25.6 - 32.2 pg [facility] MCHC 32.5 32.2 - 35.5 GM/DL [facility] RDW 14.3 11.7 - 14.4 % [facility] Platelets 260 150 - 450 K/CU MM [facility] MPV 9.3 (L) 9.4 - 12.3 fL [facility] nRBC 0 0 - 0 /100 WBC [facility] Specimen Blood Performing Organization Address [facility] one Number [place] [address] [facility] * Ferritin (12/03/2019 10:28 AM PARKING LOT MANAGER) Ferritin 376 (H) 5 - 275 ng/mL [facility] Specimen Blood Narrative Performed At Ear Machine Operator ID - ZABRINA Rangel [facility] Performing Organization Address City/State/Zipcode Ph one Number [facility] [address] [place] [id number] [facility] * Comprehensive metabolic panel (12/03/2019 10:28 AM PARKING LOT MANAGER) Protein, Total 7.5Comment: Specimen slightly 6.0 - 8.3 gm/dL [facility] Albumin 4.1Comment: Specimen slightly 3.5 - 5.0 g/dL [facility] Alkaline 75 40 - 150 U/L [facility] Total Bilirubin 0.4Comment: Specimen slightly 0.2 - 1.2 mg/dL [facility] Sodium 137 136 - 145 meq/L [facility] Potassium 4.1Comment: Specimen slightly 3.5 - 5.1 meq/L [facility] Chloride 104 98 - 107 meq/L [facility] CO2 19 (L) 22 - 29 meq/L [facility] BUN 14 7 - 21 mg/dL [facility] Creatinine 1.02Comment: Specimen slightly 0.57 - 1.25 mg/ dL [facility] Glucose 148 (H) 70 - 105 mg/dL [facility] Calcium 9.5 8.4 - 10.2 mg/dL [facility] AST 42 (H)Comment: Specimen 5 - 34 U/L [facility] ALT 50Comment: Specimen slightly 6 - 55 U/L C [facility] EGFR 53Comment: ESTIMATED GFR IS mL/min/1.[address] [facility] NOT ACCURATE CREATININE [facility] CLEARANCE IN PREDICTING MEDICAL CENTER GLOMERULAR FILTRATION RATE. ESTIMATED GFR IS NOT APPLICABLE FOR DIALYSIS PATIENTS. Specimen Blood Narrative Performed At Ear Machine Operator ID - KRISTINA M [facility] Performing Organization Address City/State/Zipcode Ph one Number [facility] [address] [place], [place] [address] MEDICAL CENTER * 2D Echo W/Doppler(CW/PW/Color) (12/02/2019 5:48 PM PARKING LOT MANAGER) Ejection [facility] ECHO Fraction [facility] Specimen Narrative Performed At Transthoracic Echocardiography Report (TTE) [facility] ECH O [facility] Demographics [facility] Patient Name CECE CRAMER Brandon e of Study 12/02/2019 ZULMA Gender Female Visit Number [id number] R tess Unknown Room Number 1046 Number Date of 1945 Kandis Alexander Physician Age 74 year(s) Etymology Teacher Oracio Olmos [facility] Interpreting Derick Thompson, Physician MD Fellow RONNI Mckeon Procedure Type of Study TTE procedure:2DECHO W DOPP LER(CW/PW/COLOR) (STAT) Indications:Syncope. Clinical History Hyperlipidemia Hypertension Hypothyroidism Murmur KENNETH CPAP use Seizures Shortness of Breath Dyspnea on exertion Stroke/TIA HGB 9.4 HCT 28.2 % Height: 60 inches Weight: 68.49 kg (151 lbs) BSA: 1.66 m^2 BMI: 29.49 kg/m^2 HR: 91 bpm BP: 109/66 mmHg Summary Technically limited exam. The LV endocardium is adequately visual ized. The left ventricle is chamber size (by vol index) is normal (female - LVED vol - 29-61ml/m2). LV septal thickness is difficult to ass ess. LV posterior wall thickness is difficult to asses . All of the LV segments contract normall y . LVEF by Truong's method of disk assess ment is normal (>70%) . Degree of diastolic dysfunction (LAP as sessment) is inconclusive due to tachycardia . No significant pericardial effusion is visualized. The estimated RA pressure by IVC dynami cs 0-5mmHg . Unable to estimate peak systolic PA pre ssure; inadequate TR velocity signal. Technically fair exam. Signature Findings Rhythm/BP Sinus tac hycardia during the exam. Left Ventricle The LV endoc ardium is adequately visualized. The left ventricle is chamber size (by vol index) is n ormal (female - LVED vol - 29-61ml/m2). LV s eptal thickness is difficult to assess. LV post erior wall thickness is difficult to asses . All of the LV segments contract normally . LVEF by Truong's method of disk assessment is norm al (>70%) . Degr ee of diastolic dysfunction (LAP assessment) is inco nclusive due to tachycardia . Left Atrium LA is adeq uately visualized. LA s ize is normal (16-34 ml/m2) . Right Ventricle RV chamber s ize is moderately enlarged . Glob al RV systolic function is normal. Right Atrium RA size is probably normal based on available view s. Aortic Valve The aortic valve is not well visualized. Cusps appe ar moderately thickened by limited views. No e vidence of aortic stenosis. Mitral Valve Mild MV sarah flet thickening. Mild mitral annular calcification. Tricuspid Valve The tricuspi d valve is not well visualized. TR s everity is difficult to determine due to inad equate acoustic windows . Unab le to estimate peak systolic PA pressure; inad equate TR velocity signal. Pulmonic Valve PV is not we ll visualized; function appears normal by D oppler visualized. Pericardium No signifi cant pericardial effusion is visualized. IVC/SVC/PA/PV/Pleural The estimated R A pressure by IVC dynamics 0-5mmHg . Chambers/Structures Left Atrium LA Volume: 31.8 ml LA Area: 12.67 cm^2 LA Vol. Index: 19 ml/m^2 Left Ventricle LVEDV Truong's:50.09 ml LVESV Truong's:18.76 ml LVEF Truong's: 62.5 % LVEDVI: 30 ml/m^2 LVESVI: 11 ml/m^2 Right Ventricle TAPSE: 2.5 1 cm Doppler/Quantitative Measurements Mitral Valve MV Peak E-Wave: 1.74 m/s Peak Gradient: 12.15 mmHg Deceleration Time: 119 msec Mean Velocity: 1.23 m/s Mean Gradient: 7.15 mmHg MR Velocity: 1.6 m/s MR VTI: 31.64 cm MV VTI: 37.5 cm MV Willie. Peak: 2.14 m/s Tissue Doppler E' Septal Velocity: 0.16 m/s E/E': 8.95 E' Lateral Velocity: 0.19 m/s Aortic Valve Peak Velocity: 2.76 m/s Mean Velocity: 2.14 m/s Peak Gradient: 30.55 mmHg Mean Gradient: 20.14 mmHg AV VTI: 52.37 cm AV DVI: 0.68 LVOT Peak Velocity: 1.53 m/s Peak Gradient: 9.37 mmHg Mean Velocity: 1.07 m/s Mean Gradient: 5.52 mmHg LVOT VTI: 35.47 cm RVOT RVOT VTI (PW): 20.32 cm Pulmonic Valve Peak Velocity: 1.31 m/s Peak Gradient: 6.81 mmHg Mean Velocity: 0.85 m/s Mean Gradient: 2.9 mmHg Procedure Note Interface, External Ris In - 12/03/2019 6:13 AM PARKING LOT MANAGER Transthoracic Echocardiography Report (TTE) Demographics Patient Name CECE CRAMER Date of Study 12/02/2019 ZULMA Gender Female Visit Number [id number] Race Unknown Room Number 1046 Number Date of 1945 Referring Caden Alexander Physician Age 74 year(s) Etymology Teacher Oracio Olmos [facility] Interpreting Derick Thompson, Physician Fellow RONNI Mckeon Procedure Type of Study TTE procedure:2DECHO W DOPPLER(CW/PW/COLOR) (STAT) Indications:Syncope. Clinical History Hyperlipidemia Hypertension Hypothyroidism Murmur KENNETH CPAP use Seizures Shortness of Breath Dyspnea on exertion Stroke/TIA HGB 9.4 HCT 28.2 % Height: 60 inches Weight: 68.49 kg (151 lbs) BSA: 1.66 m^2 BMI: 29.49 kg/m^2 HR: 91 bpm BP: 109/66 mmHg Summary Technically limited exam. The LV endocardium is adequately visualized. The left ventricle is chamber size (by vol index) is normal (female - LVED vol - 29-61ml/m2). LV septal thickness is difficult to assess. LV posterior wall thickness is difficult to asses . All of the LV segments contract normally . LVEF by Truong's method of disk assessment is normal (>70%) . Degree of diastolic dysfunction (LAP assessment) is inconclusive due to tachycardia . No significant pericardial effusion is visualized. The estimated RA pressure by IVC dynamics 0-5mmHg . Unable to estimate peak systolic PA pressure; inadequate TR velocity signal. Technically fair exam. Signature Findings Rhythm/BP Sinus tachycardia during the exam. Left Ventricle The LV endocardium is adequately visualized. The left ventricle is chamber size (by vol index) is normal (female - LVED vol - 29-61ml/m2). LV septal thickness is difficult to assess. LV posterior wall thickness is difficult to asses . All of the LV segments contract normally . LVEF by Truong's method of disk assessment is normal (>70%) . Degree of diastolic dysfunction (LAP assessment) is inconclusive due to tachycardia . Left Atrium LA is adequately visualized. LA size is normal (16-34 ml/m2) . Right Ventricle RV chamber size is moderately enlarged . Global RV systolic function is normal. Right Atrium RA size is probably normal based on available views. Aortic Valve The aortic valve is not well visualized. Cusps appear moderately thickened by limited views. No evidence of aortic stenosis. Mitral Valve Mild MV leaflet thickening. Mild mitral annular calcification. Tricuspid Valve The tricuspid valve is not well visualized. TR severity is difficult to determine due to inadequate acoustic windows . Unable to estimate peak systolic PA pressure; inadequate TR velocity signal. Pulmonic Valve PV is not well visualized; function appears normal by Doppler visualized. Pericardium No significant pericardial effusion is visualized. IVC/SVC/PA/PV/Pleural The estimated RA pressure by IVC dynamics 0-5mmHg . Chambers/Structures Left Atrium LA Volume: 31.8 ml LA Area: 12.67 cm^2 LA Vol. Index: 19 ml/m^2 Left Ventricle LVEDV Truong's:50.09 ml LVESV Truong's:18.76 ml LVEF Truong's: 62.5 % LVEDVI: 30 ml/m^2 LVESVI: 11 ml/m^2 Right Ventricle TAPSE: 2.51 cm Doppler/Quantitative Measurements Mitral Valve MV Peak E-Wave: 1.74 m/s Peak Gradient: 12.15 mmHg Deceleration Time: 119 msec Mean Velocity: 1.23 m/s Mean Gradient: 7.15 mmHg MR Velocity: 1.6 m/s MR VTI: 31.64 cm MV VTI: 37.5 cm MV Willie. Peak: 2.14 m/s Tissue Doppler E' Septal Velocity: 0.16 m/s E/E': 8.95 E' Lateral Velocity: 0.19 m/s Aortic Valve Peak Velocity: 2.76 m/s Mean Velocity: 2.14 m/s Peak Gradient: 30.55 mmHg Mean Gradient: 20.14 mmHg AV VTI: 52.37 cm AV DVI: 0.68 LVOT Peak Velocity: 1.53 m/s Peak Gradient: 9.37 mmHg Mean Velocity: 1.07 m/s Mean Gradient: 5.52 mmHg LVOT VTI: 35.47 cm RVOT RVOT VTI (PW): 20.32 cm Pulmonic Valve Peak Velocity: 1.31 m/s Peak Gradient: 6.81 mmHg Mean Velocity: 0.85 m/s Mean Gradient: 2.9 mmHg Performing Organization Address City/State/Zipcode Ph one Number [facility] * Blood Culture - Routine (Right Venipuncture) (12/02/2019 10:05 AM PARKING LOT MANAGER) Only the most recent of 2 results within the time period is included. Result No growth in 5 days [facility] Specimen Blood - Entire right upper arm (body structure) Performing Organization Address City/[facility] Ph one Number [place] [address] [facility] * Urinalysis w/Microscopic + Reflex to Culture (12/02/2019 8:47 AM PARKING LOT MANAGER) Color, UA Colorless [facility] Clarity, UA Clear [facility] Specific 1.007 1.001 - 1.035 [facility] [place], [facility] pH, UA 7.0 5.0 - 8.0 [facility] Protein, UA Negative Negative [facility] Glucose, UA 50 mg/dL (A) Negative [facility] Ketones, UA Negative Negative [facility] Bilirubin, UA Negative Negative [facility] Blood, UA Negative Negative [facility] Nitrite, UA Negative Negative [facility] Leukocytes, UA Negative Negative [facility] Urobilinogen, 0.2 0.2 - 1.0 mg/dL [facility] RBC, UA 1 /HPF [facility] WBC, UA <1 /HPF [facility] Bacteria, UA Rare [facility] Squam Epithel, <1 /HPF [facility] Specimen Source [facility] Specimen Urine - Urine (substance) Narrative Performed At Ear Machine Operator ID - [auto] [facility] Ear Machine Operator ID - tech [facility] Performing Organization Address City/[facility]/Zipcode Ph one Number [facility] [address] [place] [address] [facility] * Procalcitonin (12/02/2019 6:55 AM PARKING LOT MANAGER) Procalcitonin <0.05 <0.05 ng/mL [facility] Specimen Blood Narrative Performed At SEPSIS RISK (ng/mL) [facility] Low: 0.05-0.50 [facility] Intermediate: 0.51-2.00 High: >=2.01 Performing Organization Address [facility] one Number [address] [facility] * TSH/Free T4 If Indicated (12/02/2019 6:55 AM PARKING LOT MANAGER) TSH 0.75 0.35 - 4.94 uIU/mL [facility] Specimen Blood Narrative Performed At Ear Machine Operator ID - LM [facility] Performing Organization Address [facility] one Number [address] [phone] [place] [address] * PT/aPTT (12/02/2019 6:55 AM PARKING LOT MANAGER) Protime 13.3 11.9 - 14.2 seconds [facility] INR 1.0 <=5.9 [facility] PTT 26.3 22.5 - 36.0 seconds [facility] Specimen Blood Narrative Performed At Effective 03/20/2019: PT Reference Range Change [facility] New: 11.9-14.2 Previous: 11.7-14.7 [facility] RECOMMENDED COUMADIN/WARFARIN INR THERA PY RANGES STANDARD DOSE: 2.0-3.0 Includes: PROP HYLAXIS for venous thrombosis, systemic embolization; TREATMENT for venous thro mbosis and/or pulmonary embolus. HIGH RISK: Target INR is 2.5-3.5 for pa tients wiht mechanical heart valves. Performing Organization Address [facility] one Number [address] [address] [facility] * CBC with platelet count + automated diff (12/02/2019 6:55 AM PARKING LOT MANAGER) WBC 5.1 3.5 - 10.5 K/L [facility] RBC 2.33 (L) 3.93 - 5.22 M/L [facility] Hemoglobin 9.4 (L) 11.2 - 15.7 GM/DL [facility] Hematocrit 28.2 (L) 34.1 - 44.9 % [facility] MCV 121.0 (H) 79.4 - 94.8 fL [facility] MCH 40.3 (H) 25.6 - 32.2 pg [facility] MCHC 33.3 32.2 - 35.5 GM/DL [facility] RDW 14.8 (H) 11.7 - 14.4 % [facility] Platelets 262 150 - 450 K/CU MM [facility] MPV 10.0 9.4 - 12.3 fL [facility] nRBC 0 0 - 0 /100 WBC [facility] % Neutros 72 % [facility] % Lymphs 21 % [facility] % Monos 6 % [facility] % Eos 1 % [facility] % Baso 0 % [facility] # Neutros 3.65 1.56 - 6.13 K/L [facility] # Lymphs 1.08 (L) 1.18 - 3.74 K/L [facility] # Monos 0.29 0.24 - 0.36 K/L [facility] # Eos 0.03 (L) 0.04 - 0.36 K/L [facility] # Baso 0.01 0.01 - 0.08 K/L [facility] Immature 0 0 - 1 % [facility] Specimen Blood Narrative Performed At No clot [facility] Performing Organization Address [facility] one Number [place] [phone] [place] [address] * Lactic acid, venous (12/02/2019 6:55 AM PARKING LOT MANAGER) Lactate, Venous 1.5 0.5 - 2.2 mmol/L [facility] Specimen Blood Narrative Performed At Ear Machine Operator ID - LM [facility] Performing Organization Address [facility] one Number [place] [address] [facility] * Hepatic function panel (12/02/2019 6:55 AM PARKING LOT MANAGER) Protein, Total 5.6 (L) 6.0 - 8.3 gm/dL [facility] Albumin 3.3 (L) 3.5 - 5.0 g/dL [facility] Total Bilirubin 0.3 0.2 - 1.2 mg/dL [facility] Bilirubin, 0.1 0.1 - 0.5 mg/dL [facility] Alkaline 67 40 - 150 U/L [facility] AST 72 (H) 5 - 34 U/L [facility] ALT 61 (H) 6 - 55 U/L [facility] Specimen Blood Narrative Performed At Ear Machine Operator ID - [facility] Performing Organization Address [facility] Ph one Number [place] [address] [facility] * Lipid panel (12/02/2019 6:55 AM PARKING LOT MANAGER) Triglycerides 90 mg/dL [facility] Cholesterol 158 mg/dL [facility] HDL 56 mg/dL [facility] LDL Calculated 84 mg/dL [facility] Specimen Blood Narrative Performed At Triglyceride Reference Range: [facility] Low Risk <150 [facility] Borderline 150-199 High Risk 200-499 Very High Risk >=500 Cholesterol Reference Range: Low Risk <200 Borderline 200-239 High Risk >240 HDL Cholesterol Reference Range: Low Risk >=60 High Risk <40 LDL Cholesterol Reference Range: Optimal <100 Near Optimal 100-129 Borderline 130-159 High 160-189 Very High >=190 Ear Machine Operator ID - LM Performing Organization Address [facility] Ph one Number [place] [address] [facility] * Basic Metabolic Panel (12/02/2019 6:55 AM PARKING LOT MANAGER) Sodium 138 136 - 145 meq/L [facility] Potassium 3.9 3.5 - 5.1 meq/L [facility] Chloride 110 (H) 98 - 107 meq/L [facility] CO2 23 22 - 29 meq/L [facility] BUN 16 7 - 21 mg/dL [facility] Creatinine 1.06 0.57 - 1.25 mg/dL [facility] Glucose 139 (H) 70 - 105 mg/dL [facility] Calcium 7.8 (L) 8.4 - 10.2 mg/dL [facility] EGFR 50Comment: ESTIMATED GFR IS mL/min/1.[address] [facility] NOT ACCURATE CREATININE [facility] CLEARANCE IN PREDICTING MEDICAL CENTER GLOMERULAR FILTRATION RATE. ESTIMATED GFR IS NOT APPLICABLE FOR DIALYSIS PATIENTS. Specimen Blood Narrative Performed At Ear Machine Operator ID - LM [facility] Performing Organization Address City/[facility]/Zipcode Ph one Number [facility] [address] [place], [place] [address] [facility] * XR chest 1 view portable / bedside (12/02/2019 6:20 AM PARKING LOT MANAGER) Specimen Narrative Performed At FINAL REPORT GE RIS Chest one view. Clinical history: Generalized weakness, hypotension and urinary frequency Comparison: Chest radiograph 08/05/2013 . Technique: A single frontal view of the chest was obtained. Findings: There is a right IJ central venous cath eter with tip in the SVC. The heart is normal in size. The aorta is tortuous and atherosclerotic. There is no focal pulm onary consolidation, pleural effusion or pneumothorax. There is no p ulmonary edema. There is partially imaged lumbar spinal fixation hardware. There are degenerative changes of the visualized cervical spine. Impression: No focal pulmonary consolidation. Signed: Terrence Segura MD Report Verified Date/Time: 12/02/2019 06:42:49 Procedure Note Interface, External Ris In - 12/02/2019 6:45 AM PARKING LOT MANAGER FINAL REPORT Chest one view. Clinical history: Generalized weakness, hypotension and urinary frequency Comparison: Chest radiograph 08/05/2013. Technique: A single frontal view of the chest was obtained. Findings: There is a right IJ central venous catheter with tip in the SVC. The heart is normal in size. The aorta is tortuous and atherosclerotic. There is no focal pulmonary consolidation, pleural effusion or pneumothorax. There is no pulmonary edema. There is partially imaged lumbar spinal fixation hardware. There are degenerative changes of the visualized cervical spine. Impression: No focal pulmonary consolidation. Signed: Terrence Segura MD Report Verified Date/Time: 12/02/2019 06:42:49 Performing Organization Address City/State/Zipcode Ph one Number RIS after 09/05/2019 Insurance Type Payer Benefit Subscriber ID Effective Phone Address Plan / Dates Group Medicare MEDICARE MEDICARE A [id number] 2008-P B resent PPO [employer] BCBS [id number] 2014-P [address] resent [address] [place] [address] Advance Directives For more information, please contact: [phone] Date Inactivated Comments Code Status Date Activated 12/05/2019 3:05 PM Full Code 12/02/2019 5:58 AM This code status was determined by: Patient 12/18/2015 6:36 PM Full Code 12/18/2015 10:33 AM This code status was determined by: Patient 09/03/2013 3:37 PM All possible means of suppor t, including: cardiac massage, mechanical ventilation, and defibrillation will be used to support life. Code ONE 08/29/2013 10:13 PM 08/29/2013 10:13 PM All possible means of suppor t, including: cardiac massage, mechanical ventilation, and defibrillation will be used to support life. Code ONE 08/29/2013 9:06 AM
--- OUTSIDE RECORDS SUMMARY | 2020-09-05 22:51 | XMS REPORT | Continuity of Care Document ---
Author Author [facility] t Organization [facility] Address [address] [place] [address] Phone Unavailable Care Team Providers Care Stone Polisher Name Role Phone NONSTAFF PCP Unavailable DAMARIS WEINBERG Attphys Unavailable KEYSHAWN SANDOVAL Attphys Unavaila ble Claudio Jesus MD, Keyshawn Negrete Attphys [phone] Ozzy Coroan MD Attphys Jerry BROWN Attphys Unavailable KEYSHAWN SANDOVAL Admphys Unavaila ble Payers Payer Name Policy Type Policy Number Effective Date Expiration Date S gerardo MEDICAREMEDICARE A [id number] 2007-PresentMedicare [id number] 2008 00:00:00 [facility]/BLUE SHIELDBCBS [facility] [id number] [facility] [address], [place] [address]QUZ [id number] 2014 00:00:00 [facility] [id number] 2018 00:00:00 [facility] Medicare A & B [id number] 2008 00:00:00 [facility] Problems Condition Name Condition Details Condition Category Status Onset Date Resolution Date Last Treatment Date Treating Clinician Comments Source Urinary tract infection Urinary tract infection Disease Active 2019-12-02 00:00:00 [facility] Cerebral aneurysm Cerebral aneurysm Disease Active 2015-12-15 00:00:00 [facility] Lumbar stenosis Lumbar stenosis Disease Active 2013-08-29 00:00:00 [facility] Allergies, Adverse Reactions, Alerts Allergy Name Allergy Type Status Severity Reaction(s) Onset Date Inacti ve Date Treating Clinician Comments Source Pseudoephedrine Allergy to Substance Active 2019-07-25 00:0 0:00 [facility] codeine DA Active 2018-09-14 00:00:00 [facility] hydrocodone DA Active MA 2018-09-14 00:00:00 [facility] acetaminophen DA Active MA 2018-09-14 00:00:00 [facility] hydrocodone DA Active MA 2018-07-06 00:00:00 [facility] acetaminophen DA Active MA 2018-07-06 00:00:00 [facility] codeine DA Active 2017-11-24 00:00:00 [facility] Codeine Allergy to Substance Active Mild RASH 2015-08-10 00:00:00 [facility] Codeine Drug Allergy Active Itching 2013-08-05 00:00:00 [facility] Social History Social Habit Start Date Stop Date Quantity Comments Source Sex Assigned At [facility] Alcohol intake 2019-12-05 00:00:00 2019-12-05 00:00:00 Current non-drinker of alcohol (finding) [facility] Smoking Status Start Date Stop Date Source Never smoker [facility] Medications Ordered Medication Name Filled Medication Name Start Date Stop Da te Current Medication? Ordering Clinician Indication Dosage Frequency Signature (SIG) Comments Components Source pravastatin (PRAVACHOL) 10 MG tablet 2019-12-05 13:05:38 Ye s 40mg QD Take 40 mg by mouth daily . [facility] potassium chloride (KLOR-CON) 10 MEQ CR tablet 2019-12-05 13:05: 38 Yes 10meq QD Take 10 mEq by mouth daily. [facility] CYANOCOBALAMIN, VITAMIN B-12, (VITAMIN B-12 ORAL) 2019-12-05 13:05:38 Yes QD Take by mouth daily. [facility] pantoprazole (PROTONIX) 20 MG tablet 2019-12-05 13:05:38 Ye s 20mg Q.5D Take 20 mg by mouth 2 (two) times daily . [facility] ergocalciferol (VITAMIN D2) 1,250 mcg (50,000 unit) capsule 2019-12-05 13:05:38 Yes 5000U QD Take 5,000 Units by mouth nig htly. [facility] melatonin 3 mg Tab tablet 2019-12-05 13:05:38 Yes 5mg QD Take 5 mg by mouth nightly. [facility] pramipexole (MIRAPEX) 0.125 MG tablet 2019-12-05 13:05:38 Y es .125mg QD Take 0.125 mg by mouth nightly. [facility] ondansetron (ZOFRAN) 8 MG tablet 2019-12-05 13:05:38 Yes Take by mouth daily with dinner. [facility] sucralfate (CARAFATE) 1 gram tablet 2019-12-05 13:05:38 Yes 1g Q.[id number] Take 1 g by mouth 3 (three) times daily. [facility] levothyroxine (SYNTHROID, LEVOTHROID) 112 MCG tablet 2 13:05:38 Yes 112ug Take 112 mcg by mouth Every morning on a n empty stomach. [facility] amLODIPine (NORVASC) 10 MG tablet 2019-12-05 13:05:38 Yes 10mg QD Take 10 mg by mouth daily. [facility] metoprolol (LOPRESSOR) 25 MG tablet 2019-12-05 13:05:38 Yes 25mg QD Take 25 mg by mouth daily. [facility] venlafaxine (EFFEXOR-XR) 75 MG 24 hr capsule 2019-12-05 13:05:38 Yes 75mg QD Take 75 mg by mouth daily 3 tablets . [facility] donepezil (ARICEPT) 10 MG tablet 2019-12-05 13:05:38 Yes 10mg QD Take 10 mg by mouth every evening. [facility] escitalopram oxalate (LEXAPRO) 20 MG tablet 2019 12:44:23 2019-12-05 00:00:00 No 20mg QD Take 20 mg by mouth nightly. [facility] escitalopram oxalate (LEXAPRO) 10 MG tablet 2019-12-05 00:00:00 Yes 10mg QD Take 1 tablet (10 mg total) by mouth nightly. [facility] levocetirizine (XYZAL) 5 MG tablet 2019-12-04 15:39:41 00:00:00 No 5mg QD Take 5 mg by mouth every evening. [facility] TiZANidine (ZANAFLEX) 4 MG capsule 2019-12-04 15:39:41 202 00:00:00 No 2mg Q.5D Take 2 mg by shaw th 2 (two) times daily The patient takes an additional 4mg at bedtime reported by the patient's daughter Smiley on 11/08/[address] [facility] dicyclom[facility] (BENTYL) 20 mg tablet 2019-12-04 15:39:41 2019 00:00:00 No 20mg Take 20 mg by mouth every 6 (six) hours. [facility] raloxifene (EVISTA) 60 mg tablet 2019-12-04 15:39:41 2019-11 00:00:00 No 60mg QD Take 60 mg by mouth daily. [facility] hydroxyurea (DROXIA) 500 mg capsule 2019-12-04 15:39:4 1 2019-12-04 00:00:00 No QD Take by mouth daily 1-2 tablet every oth er day . [facility] QUEtiapine (SEROQUEL) 25 MG tablet 2019-12-04 00:00:00 23:59:00 No 25mg QD Take 1 tablet (25 mg total) by mouth nig htly for 30 days. [facility] cefdinir (OMNICEF) 300 MG capsule 2019-12-04 00:00:00 2019 23:59:00 No 300mg Take 1 capsule ( 300 mg total) by mouth every 12 (twelve) hours for 4 days. [facility] chlordiazePOXIDE (LIBRIUM) 10 MG capsule 2019-11 21:26:30 2019-12-02 00:00:00 No 10mg Take 10 mg by mouth 4 (four) ti mes daily as needed. [facility] esomeprazole (NEXIUM) 40 MG capsule 2019-12-02 21:25:4 7 2019-12-02 00:00:00 No 40mg Q.5D Take 40 mg by mouth 2 (two) times daily. [facility] furosemide (LASIX) 40 MG tablet 2019-12-02 21:25:16 00:00:00 No 40mg QD Take 40 mg by mouth daily. [facility] levothyroxine (SYNTHROID, LEVOTHROID) 100 MCG tablet 2019-12-02 21:23:42 2019-12-02 00:00:00 No 100ug Q.25W Take 100 mcg by mouth 4 (four) times a week Sun, Mon, Tu and Wed. [facility] levothyroxine (SYNTHROID, LEVOTHROID) 88 MCG tablet 2019-12-02 21:23:21 2019-12-02 00:00:00 No 88ug Q.[id number] 38809I Take 88 mcg by mouth 3 (three) times a week Thurs, Fri and Sat. [facility] omega-3 acid ethyl esters (LOVAZA) 1 gram capsule 2019-12-02 21:22:08 2019-12-02 00:00:00 No 2g Q.5D Take 2 g by mouth 2 (two) times daily. [facility] temazepam (RESTORIL) 15 mg capsule 2019-12-02 21:19:23 202 00:00:00 No 15mg Take 15 mg by mouth every night as neede d for Sleep. [facility] aspirin 81 MG EC tablet 2019-12-02 21:17:13 2019-12-02 00:00:00 No 81mg QD Take 81 mg by mouth daily. [facility] HYDROcodone-acetaminophen (NORCO 5-325) 5-325 mg per tablet 2013-09-03 00:00:00 2019-12-04 00:00:00 No 1{tbl} Take 1 tablet by mouth every 4 (four) hours as needed. [facility] Amlodipine Besylate 10 Mg Tablet Amlodipine Besylate 10 Mg Tablet Yes 10 Daily [facility] Cetirizine Hcl 10 Mg Tablet Cetirizine Hcl 10 Mg Tablet Yes 1 Daily [facility] Glucosamine Sulfate 2KCL (Glucosamine) 1,000 Mg Tablet Glucosamine Sulfate 2KCL (Glucosamine) 1,000 Mg Tablet Yes Daily [facility] Levothyroxine Sodium 88 Mcg Tablet Levothyroxine Sodium 88 Mcg Tablet Yes 88 Use As Directed [facility] Levothyroxine Sodium 100 Mcg Tablet Levothyroxine Sodium 100 Mcg Tabl et Yes 100 Use As Directed [facility] Metoclopramide Hcl 10 Mg Tablet Metoclopramide Hcl 10 Mg Tablet Yes 10 Three Times A Day [facility] Herrick-3 Acid Ethyl Esters (Lovaza) 1 Gm Capsule Herrick- 3 Acid Ethyl Esters (Lovaza) 1 Gm Capsule Yes 1 Twice A Day [facility] Omeprazole 40 Mg Capsule. Omeprazole 40 Mg Capsule. Yes 40 Four Times Daily [facility] Potassium Chloride (Klor-Con 8) 8 Meq Tablet.er Potass ium Chloride (Klor-Con 8) 8 Meq Tablet.er Yes 1 Daily [facility] Pravastatin Sodium 40 Mg Tablet Pravastatin Sodium 40 Mg Tablet Yes 40 Bedtime [facility] Raloxifene Hcl (Evista) 60 Mg Tablet Raloxifene Hcl (Evista) 60 Mg Tablet Yes 60 Daily [facility] Temazepam 15 Mg Capsule Temazepam 15 Mg Capsule Yes 1 Bedtime [facility] Tramadol Hcl (Ultram) 50 Mg Tablet Tramadol Hcl (Ultram) 50 Mg Tablet Yes 50 Every 12 Hours for Pain C HI [facility] Venlafaxine Hcl 75 Mg Tab Venlafaxine Hcl 75 Mg Tab Yes 2 Bedtime [facility] Calcium Carbonate/Vitamin D3 (Calcium Wi th Vitamin D Tablet) 1 Each Tablet, 1 Each Oral Calcium Carbonate/Vitamin D3 (Calcium Wi th Vitamin D Tablet) 1 Each Tablet, 1 Each Oral 2016-09-06 00:00:00 No 1 Augustus y [facility] Chlordiazepoxide/Clidinium Br (Chlordiaz epoxide-Clidinium Cap) 1 Each Capsule, 1 Each Oral Chlordiazepoxide/Clidinium Br (Chlordiaz epoxide-Clidinium Cap) 1 Each Capsule, 1 Each Oral 2016-09-06 00:00:00 No 1 Fou r Times Daily [facility] Dexlansoprazole (Dexilant) 30 Mg Cap., 30 Mg Oral Dexlansoprazole (Dexilant) 30 Mg Cap., 30 Mg Oral 2016-09-06 00:00:00 No 30 Twice A Day [facility] Diazepam (Valium) 10 Mg Tablet, 10 Mg Oral Diazepam (V alium) 10 Mg Tablet, 10 Mg Oral 2016-09-06 00:00:00 No 10 Every 6 Hours as n eeded for Anxiety [facility] Furosemide 40 Mg Tablet, 40 Mg Oral Furosemide 40 Mg Tablet, 40 Mg Oral 2016-09-06 00:00:00 No 40 Daily [facility] Ipratropium Ector (Atrovent Hfa) 12.9 Gm Aer.w.adap, 2 Inh Inhalation Ipratropium Ector (Atrovent Hfa) 12.9 Gm Aer.w.adap, 2 Inh Inhalation 2016-09-06 00:00:00 No 2 Twice A Day as neede d [facility] Pantoprazole Sodium (Protonix) 40 Mg Tablet., 40 Mg Oral Pantoprazole Sodium (Protonix) 40 Mg Tablet., 40 Mg Oral 2016-09-06 00:00:00 No 40 Today At 6:00AM [facility] Levothyroxine Sodium (Levoxyl) 88 Mcg Tablet, 88 Mcg O ral Levothyroxine Sodium (Levoxyl) 88 Mcg Tablet, 88 Mcg Oral 2015-08-14 00:00:00 No 88 Every Other Day [facility] Levothyroxine Sodium (Levoxyl) 100 Mcg Tablet, 100 Mcg Oral Levothyroxine Sodium (Levoxyl) 100 Mcg Tablet, 100 Mcg Oral 2015-08-14 00:00:00 No 100 Every Other Day [facility] Levothyroxine Sodium 88 Mcg Tablet, 88 Mcg Oral Levoth yroxine Sodium 88 Mcg Tablet, 88 Mcg Oral 2015-08-14 00:00:00 No 88 Augustus y [facility] Aspirin 325 Mg Tabec, 325 Mg Oral Aspirin 325 Mg Tabec, 325 Mg O ral 2014-10-27 00:00:00 No 325 Daily [facility] Fiber , Oral Fiber , Oral 2012-05-23 00:00:00 No Daily [facility] Vital Signs Vital Name Observation Time Observation Value Comments Source Systolic blood pressure 2019-12-05 12:30:00 137 mm[Hg] [facility] Diastolic blood pressure 2019-12-05 12:30:00 67 mm[Hg] [facility] Heart rate 2019-12-05 12:30:00 96 /min [facility] Body temperature 2019-12-05 12:30:00 36.33 Ann [facility] Respiratory rate 2019-12-05 12:30:00 18 /min [facility] Oxygen saturation in Arterial blood by Pulse oximetry 12-05 12:30:00 96 /min [facility] Body weight 2019-12-03 09:00:00 62.551 kg [facility] BMI 2019-12-03 09:00:00 26.93 kg/m2 [facility] Body height 2019-12-02 06:00:00 152.4 cm [facility] Procedures Procedure Date / Time Performed Performing Clinician Chanda maldonado RHYTHM STRIP - SCAN 2019-12-10 16:30:55 ProviderHamzah [facility] RHYTHM STRIP - SCAN 2019-12-09 13:45:11 Provider, Hamzah person [facility] ECG 12-LEAD 2019-12-05 12:38:22 Unknown, Hl7 Doctor [facility] POCT-GLUCOSE METER 2019-12-04 12:34:00 Zelda Corona ran [facility] POCT-GLUCOSE METER 2019-12-04 06:36:00 Zelda Corona ran [facility] POCT-GLUCOSE METER 2019-12-03 23:53:00 Zelda Corona [facility] ECHOCARDIOGRAM REPORT - SCAN 2019-12-03 21:10:23 Provider, Jessica Giordano [facility] POCT-GLUCOSE METER 2019-12-03 17:31:00 Zelda Corona [facility] VITAMIN B12 AND FOLATE 2019-12-03 10:28:00 Zelda Corona shvarjose david [facility] FERRITIN 2019-12-03 10:28:00 Zelda Corona [facility] CBC (HEMOGRAM ONLY) 2019-12-03 10:28:00 Zelda Corona [facility] COMPREHENSIVE METABOLIC PANEL 2019-12-03 10:28:00 [facility] 2D ECHO W/ DOPPLER (CW/PW/COLOR) 2019-12-02 17:48:48 Claire Fernández [facility] BLOOD CULTURE 2019-12-02 10:05:00 Lydia Roth [facility] BLOOD CULTURE 2019-12-02 09:55:00 Lydia Roth [facility] URINALYSIS W/ REFLEX URINE CULTURE 2019-12-02 08:47:00 Opal Roth [facility] BASIC METABOLIC PANEL (7) 2019-12-02 06:55:00 Lydia Roth [facility] PT/APTT 2019-12-02 06:55:00 Gonzalez, [place] [facility] LACTIC ACID, VENOUS 2019-12-02 06:55:00 Lydia Roth [facility] TSH/FREE T4 IF INDICATED 2019-12-02 06:55:00 Lydia Roth [facility] PROCALCITONIN 2019-12-02 06:55:00 Lydia Roth [facility] HEPATIC FUNCTION PANEL 2019-12-02 06:55:00 Lydia Roth [facility] LIPID PANEL 2019-12-02 06:55:00 Caden Sandoval ndo [facility] CBC W/PLT COUNT & AUTO DIFFERENTIAL 2019-12-02 06:55:00 Lydia Roth [facility] XR CHEST 1 VIEW PORTABLE/BEDSIDE 2019-12-02 06:20:00 Mile Roth [facility] Computed tomography of brain without radiopaque contrast 00:00:00 DAMARIS WEINBERG [facility] X-ray of chest, single view 2019-12-02 00:00:00 [facility] Plan of Care Planned Activity Planned Date Details Comments Source Future Scheduled Test 2020-06-23 00:00:00 INFLUENZA VACCINE (#1) [code = INFLUENZA VACCINE (#1)] [facility] Future Scheduled Test 2009-03-24 00:00:00 MEDICARE ANNUAL WE LLNESS (YEAR 2 or FIRST YEAR if no IPPE) [code = MEDICARE ANNUAL WELLNESS (YEAR 2 or FIRST YEAR if no IPPE)] [facility] Future Scheduled Test 2008 00:00:00 PNEUMOCOCCAL 65+ Y RS (1 of 1 - [id number] PCV13) [code = PNEUMOCOCCAL 65+ YRS (1 of 1 - [id number] PCV13)] [facility] Encounters Start Date/Time End Date/Time Encounter Type Admission Type Attendi [facility] Care Department Encounter ID Source 2019-12-02 01:07:00 2019-12-02 04:55:00 Departed Emergency Room 1 DAMARIS WEINBERG [facility] [id number] [facility] 2019-07-25 19:22:00 2019-07-25 21:20:00 Departed Emergency Room [facility] [id number] [facility] 2019-05-29 12:50:00 2019-05-29 12:50:00 Registered Clinic 3 MARIUSZ HURST [facility] [id number] [facility] Results Test Description Test Time Test Comments Results Result Comments Source CHEST SINGLE (PORTABLE) 2020-09-05 21:59:00 [facility] 1945 Sex: F [place] [address] Patient Name: CECE CRAMER MR #: [id number] : 1945 Age/Sex: 75/F Req #: [id number] Adm Physician: Ordered by: DAMARIS WEINBERG DO Report #: [id number] Location: ER Room/Bed: Procedure: [id number] DX/CHEST SINGLE (PORTABLE) Exam Date: 09/05/20 Exam Time: 2134 REPORT STATUS: Signed EXAMINATION: CHEST SINGLE (PORTABLE) INDICATION: Weakness, short of breath COMPARISON: Chest x-ray 12/02/2019 FINDINGS: TUBES and LINES: None. LUNGS: Normal lung volumes. Lungs are clear. No consolidations. PLEURA: No pleural effusion or pneumothorax. HEART AND MEDIASTINUM: The cardiomediastinal silhouette is unremarkable. BONES AND SOFT TISSUES: No acute osseous lesion. Soft tissues are unremarkable. UPPER ABDOMEN: No free air under the diaphragm. Cholecystectomy clips. IMPRESSION: No acute thoracic radiographic abnormality. Signed by: Td Kearney DO on 09/05/2020 10:00 PM Dictated By: TD KEARNEY DO 99 Transcribed By: BELTRAN on 09/05/202199 COPY TO: DAMARIS WEINBERG DO Blood Culture - Routine (Right Venipuncture) 2019-12-08 17:0 3:00 Test Item Result (test code = 6463-4) No growth in 5 days [facility] [id number] 17:03:00* Test Item Value Reference Range Interpretation Comments CULTURE (BEAKER) (test code = 1095) No growth in 5 days BLOOD [id number] 17:03:00* Test Item Value Reference Range Interpretation Comments CULTURE (BEAKER) (test code = 1095) No growth in 5 days ECG 12 [id number] 17:32:09Interface, External Ris In - 12/05/2019 5:32 PM CSTVentricular Rate 95 BPMAtrial Rate 95 BPMP-R Interval 172 msQRS Duration 72 msQ-T Interval 394 msQTC Calculation(Bazett) 495 msP Hampton 56 degreesR Hampton 1 degreesT Hampton 59 degreesNormal sinus rhythmPossible Left atrial enlargementProlonged QTAbnormal ECGWhen compared with ECG of 18-DEC-2015 07:28,No significant change was foundConfirmed by Toyin DREW BASANT ([id number]) on 12/05/2019 5:32:07 [facility] [id number] 12:47:00* Test Item Value Reference Range Interpretation Comments POC-Glucose Meter (test code = 1538) 118 mg/dL 70-110 H : TESTED AT [address], [address]: Trimming Cutter Machine/Finance Manager ID = [id number] for NADINE RAREAGA Lab Interpretation (test code = 61510-5) Abnormal [facility] [id number] 12:47:00* Test Item Value Reference Range Interpretation Comments POC-GLUCOSE METER (BEAKER) (test code = 1538) 118 mg/dL 70-110 H : TESTED AT [address], [address]: Trimming Cutter Machine/Finance Manager ID = [id number] for WENDY ARREAGAOMA POCT-GLUCOSE [id number] 06:47:00* Test Item Value Reference Range Interpretation Comments POC-GLUCOSE METER (BEAKER) (test code = 1538) 130 mg/dL 70-110 H : TESTED AT [address], [address]: Trimming Cutter Machine/Finance Manager ID = [id number] for GISSEL CRAMER POCT-GLUCOSE [id number] 00:06:00* Test Item Value Reference Range Interpretation Comments POC-GLUCOSE METER (BEAKER) (test code = 1538) 108 mg/dL 70-110 : TESTED AT [address], [address]: Trimming Cutter Machine/Finance Manager ID = [id number] for GISSEL CRAMER POCT-GLUCOSE [id number] 17:44:00* Test Item Value Reference Range Interpretation Comments POC-GLUCOSE METER (BEAKER) (test code = 1538) 154 mg/dL 70-110 H : TESTED AT [address], [address]: Trimming Cutter Machine/Finance Manager ID = [id number] for GENTRY LONG [id number] 12:14:00* Test Item Value Reference Range Interpretation Comments Ferritin (test code = 2276-4) 376 ng/mL 5-275 H OTF (test code = OTF) Trimming Cutter Machine ID - ZABRINA Rangel Lab Interpretation (test code = 85595-1) Abnormal [facility]it[facility]12 and [id number] 12:14:00* Test Item Value Reference Range Interpretation Comments Vitamin B12 (test code = 2132-9) 555 pg/mL 213-816 Folate (test code = 2284-8) 27.8 ng/mL >=7.0 OTF (test code = OTF) Trimming Cutter Machine ID - ZABRINA C Lab Interpretation (test code = 21475-7) Normal [id number] 12:14:00* Test Item Value Reference Range Interpretation Comments FERRITIN (BEAKER) (test code = 361) 376 ng/mL 5-275 H Trimming Cutter Machine ID - ZABRINA CVITAMIN B12 AND [id number] 12:14:00* Test Item Value Reference Range Interpretation Comments VITAMIN B12 (BEAKER) (test code = 774) 555 pg/mL 213-816 FOLATE (BEAKER) (test code = 362) 27.8 ng/mL >=7.0 Trimming Cutter Machine ID - ZABRINA CComprehensive metabolic [id number] 11:11:00* Test Item Value Reference Range Interpretation Comments Protein, Total (test code = 2885-2) 7.5 6.0- 8.3 gm/dL Specimen slightly hemolyzed Albumin (test code = 46633-0) 4.1 g/dL 3.5-5 Specimen slightly hemolyzed Alkaline Phosphatase (test code = 6768-6) 75 U/L 40-150 Total Bilirubin (test code = 1975-2) 0.4 mg/dL 0.2-1.2 Specimen slightly hemolyzed Sodium (test code = 2951-2) 137 meq/L 136-145 Potassium (test code = 2823-3) 4.1 meq/L 3.5-5.1 Specimen slightly hemolyzed Chloride (test code = 2075-0) 104 meq/L 98-107 CO2 (test code = 8-9) 19 meq/L 22-29 L BUN (test code = 3094-0) 14 mg/dL 7-21 Creatinine (test code = 2160-0) 1.02 mg/dL 0.57-1.25 Specimen slightly hemolyzed Glucose (test code = 2345-7) 148 mg/dL 70-105 H Calcium (test code = 09503-4) 9.5 mg/dL 8.4-10.2 AST (test code = 1920-8) 42 U/L 5-34 H Spe cimen slightly hemolyzed ALT (test code = 1742-6) 50 U/L 6-55 Spe cimen slightly hemolyzed EGFR (test code = 84122-3) 53 mL/min/1.73 sq m ESTIMATED GFR IS NOT ACCURATE CREATININE CLEARANCE IN PREDICTING GLOMERULAR FILTRATION RATE. ESTIMATED GFR IS NOT APPLICABLE FOR DIALYSIS PATIENTS. OTF (test code = OTF) Trimming Cutter Machine AKASH Ivey Lab Interpretation (test code = 50119-0) Abnormal [facility]PREHENSIVE METABOLIC [id number] 11:11:00* Test Item Value Reference Range Interpretation Comments TOTAL PROTEIN (BEAKER) (test code = 770) 7.5 gm/dL 6.0-8.3 Specimen slightly hemolyzed ALBUMIN (BEAKER) (test code = 1145) 4.1 g/dL 3.5-5.0 Specimen slightly hemolyzed ALKALINE PHOSPHATASE (BEAKER) (test code = 346) 75 U/L 40-150 BILIRUBIN TOTAL (BEAKER) (test code = 377) 0.4 mg/dL 0.2-1.2 Specimen slightly hemolyzed SODIUM (BEAKER) (test code = 381) 137 meq/L 136-145 POTASSIUM (BEAKER) (test code = 379) 4.1 meq/L 3.5-5.1 Specimen slightly hemolyzed CHLORIDE (BEAKER) (test code = 382) 104 meq/L 98-107 CO2 (BEAKER) (test code = 355) 19 meq/L 22-29 L BLOOD UREA NITROGEN (BEAKER) (test code = 354) 14 mg/dL 7-21 CREATININE (BEAKER) (test code = 358) 1.02 mg/dL 0.57-1.25 Specimen slightly hemolyzed GLUCOSE RANDOM (BEAKER) (test code = 652) 148 mg/dL 70-105 H CALCIUM (BEAKER) (test code = 697) 9.5 mg/dL 8.4-10.2 AST (SGOT) (BEAKER) (test code = 353) 42 U/L 5-34 H Specimen slightly hemolyzed ALT (SGPT) (BEAKER) (test code = 347) 50 U/L 6-55 Specimen slightly hemolyzed EGFR (BEAKER) (test code = 1092) 53 mL/min/1.73 sq m ESTIMATED GFR IS NOT ACCURATE CREATININE CLEARANCE IN PREDICTING GLOMERULAR FILTRATION RATE. ESTIMATED GFR IS NOT APPLICABLE FOR DIALYSIS PATIENTS. Trimming Cutter Machine AKASH ACEVEDO [facility] (Hemogram only)2019-12-03 10:46:00* Test Item Value Reference Range Interpretation Comments WBC (test code = 6690-2) 6.1 3.5- 10.5 K/L RBC (test code = 789-8) 2.84 3.93- 5.22 M/L L MCHC (test code = 786-4) 32.5 32.2- 35.5 GM/DL Hematocrit (test code = 4544-3) 34.5 % 34.1-44.9 MCV (test code = 787-2) 121.5 fL 79.4-94.8 H MCH (test code = 785-6) 39.4 pg 25.6-32.2 H RDW (test code = 788-0) 14.3 % 11.7-14.4 Platelets (test code = 777-3) 260 150- 450 K/CU MM MPV (test code = 28863-6) 9.3 fL 9.4-12.3 L nRBC (test code = 413) 0 0- 0 /100 WBC Lab Interpretation (test code = 86550-5) Abnormal [facility]2019-12-03 10:46:00* Test Item Value Reference Range Interpretation Comments WHITE BLOOD CELL COUNT (BEAKER) (test code = 775) 6.1 K/ L 3.5- 10.5 RED BLOOD CELL COUNT (BEAKER) (test code = 761) 2.84 M/ L 3.93-5 .22 L HEMOGLOBIN (BEAKER) (test code = 410) 11.2 GM/DL 11.2-15.7 HEMATOCRIT (BEAKER) (test code = 411) 34.5 % 34.1-44.9 MEAN CORPUSCULAR VOLUME (BEAKER) (test code = 753) 121.5 fL 79. 4-94.8 H MEAN CORPUSCULAR HEMOGLOBIN (BEAKER) (test code = 751) 39.4 pg 25.6-32.2 H MEAN CORPUSCULAR HEMOGLOBIN CONC (BEAKER) (test code = 752) 32.5 GM/DL 32.2-35.5 RED CELL DISTRIBUTION WIDTH (BEAKER) (test code = 412) 14.3 % 11.7-14.4 PLATELET COUNT (BEAKER) (test code = 756) 260 K/CU MM 150-450 MEAN PLATELET VOLUME (BEAKER) (test code = 754) 9.3 fL 9.4-12 .3 L NUCLEATED RED BLOOD CELLS (BEAKER) (test code = 413) 0 /100 WBC 0 -0 2D Echo W/Doppler(CW/PW/Color)2019-12-03 06:13:08Ejection FractionSLEH ECHO HEARTLAB MKCKESSON CPACSInterface, External Ris In - 12/03/2019 6:13 AM CSTTransthoracic Echocardiography Report (TTE) Demographics Patient Name CECE CRAMER Date of Study 12/02/2019 ZULMA Gender Female Visit Number [id number] Race Unknown Room Number 1046 Number Date of 1945 Referring Caden Alexander Physician Age 74 year(s) Global Chief Experience Officer Oracio Olmos [facility] Interpreting Derick Thompson, Physician MD Fellow RONNI Mckeon Procedure Type of Study TTE procedure:2DECHO W DOPPLER(CW/PW/COLOR) (STAT) I ndications:Syncope.Clinical HistoryHyperlipidemiaHypertensionHypothyroidismMurmu rOSACPAP useSeizuresShortness of BreathDyspnea on exertionStroke/TIAHGB 9.4HCT 2 8.2 %Height: 60 inches Weight: 68.49 kg (151 lbs) BSA: 1.66 m^2 BMI: 29.49 kg/m^ 2HR: 91 bpm BP: 109/66 mmHg Summary Technically [...] dysfunction (LAP assessment) is inconclusive due to t achycardia . No significant pericardial effusion is visualized. The estimated RA pressure by IVC dynamics 0-5mmHg . Unable to estimate peak systolic PA pressure; inadequate TR velocity signal. Technically fair exam. Signature Findings Rhythm/BP Sinus tachycardia during the exam. Left Ventricle The LV endoc ardium is adequately visualized. The left ventricle is ch suzanna size (by vol index) is normal (female - LVED vol - 29-61ml/m2). LV septal thickness is difficult to assess. LV posterior wall thickness is difficult to asses . All of the LV segments contract normally . LVEF by Truong's method of disk assessment is normal ( >70%) . Degree of diastolic dysfunction (LAP assessment) is inconclusive due to tachycardia . Left Atrium LA is adequately visualized. LA size is normal (16-34 ml/m2) . Right Ventricle RV chamber size is moderately enlarged . Global RV systolic function is normal. Right Atrium RA size is probably normal based on available views. Aor tic Valve The aortic valve is not well [...] not well visualized; function appears normal by Dopple r visualized. Pericardium No significant pericardial effusion is vis ualized. IVC/SVC/PA/PV/Pleural The estimated RA pressure by IVC dynamics 0-5mm Hg . Chambers/Structures Left Atrium LA Volume: 31.8 [...] E/E': 8.95 E' Lateral Velocity: 0.19 m/s A ortic Valve Peak Velocity: 2.76 m/s Mean Velocity: 2.14 m/s Peak G radient: 30.55 mmHg Mean Gradient: 20.14 mmHg AV VTI: 52.37 cm AV D : 0.68 LVOT Peak Velocity: 1.53 m/s Peak Gradient: 9.37 mmHg Bhavna n Velocity: 1.07 m/s Mean Gradient: 5.52 mmHg LVOT VTI: 35.47 cm RVOT RVOT VTI (PW): 20.32 cm Pulmonic Valve Peak Velocity: 1.31 m/s Peak Gradient: 6.81 mmHg Mean Velocity: 0.85 m/s Mean Gradient: 2.9 mmHg [facility]/Microscopic + Reflex to [id number] 09:47:00* Test Item Value Reference Range Interpretation Comments Color, UA (test code = 5778-6) Colorless Clarity, UA (test code = 5767-9) Clear Specific Trinity, UA (test code = 5811-5) 1.007 1.001-1.035 pH, UA (test code = 5803-2) 7.0 5.0-8.0 Protein, UA (test code = 15196-9) Negative Negative Glucose, UA (test code = 365) 50 mg/dL Negative A Ketones, UA (test code = 2514-8) Negative Negative Bilirubin, UA (test code = 71333-2) Negative Negative Blood, UA (test code = 24745-7) Negative Negative Nitrite, UA (test code = 5802-4) Negative Negative Leukocytes, UA (test code = 5799-2) Negative Negative Urobilinogen, UA (test code = 39050-8) 0.2 mg/dL 0.2-1 RBC, UA (test code = 46676-6) 1 /HPF WBC, UA (test code = 5821-4) <1 /HPF Bacteria, UA (test code = 10621-9) Rare Squam Epithel, UA (test code = 27629-6) <1 /HPF Specimen Source (test code = 2795) OTF (test code = OTF) Trimming Cutter Machine ID - [auto]Trimming Cutter Machine ID - tech Lab Interpretation (test code = 62308-9) Abnormal [facility]/ REFLEX URINE [id number] 09:47:00* Test Item Value Reference Range Interpretation Comments COLOR (BEAKER) (test code = 470) Colorless CLARITY (BEAKER) (test code = 469) Clear SPECIFIC GRAVITY UA (BEAKER) (test code = 468) 1.007 1.001-1 .035 PH UA (BEAKER) (test code = 467) 7.0 5.0-8.0 PROTEIN UA (BEAKER) (test code = 464) Negative Negative GLUCOSE UA (BEAKER) (test code = 365) 50 mg/dL Negative A KETONES UA (BEAKER) (test code = 371) Negative Negative BILIRUBIN UA (BEAKER) (test code = 462) Negative Negative BLOOD UA (BEAKER) (test code = 461) Negative Negative NITRITE UA (BEAKER) (test code = 465) Negative Negative LEUKOCYTE ESTERASE UA (BEAKER) (test code = 466) Negative Negat frank UROBILINOGEN UA (BEAKER) (test code = 463) 0.2 mg/dL 0.2-1.0 RBC UA (BEAKER) (test code = 519) 1 /HPF WBC UA (BEAKER) (test code = 520) < /HPF BACTERIA (BEAKER) (test code = 517) Rare SQUAMOUS EPITHELIAL (BEAKER) (test code = 516) < /HPF SOURCE(BEAKER) (test code = 2795) Trimming Cutter Machine ID - [auto]Trimming Cutter Machine ID - [id number] 08:17:00* Test Item Value Reference Range Interpretation Comments Procalcitonin (test code = 97132-5) <0.05 <0.05 ng/mL OTF (test code = OTF) SEPSIS RISK (ng/mL)Low: 0.05-0.50Intermediate: 0.51-2.00High: >=2.01 Lab Interpretation (test code = 26883-0) Normal [facility] HospitalPROCALCITONIN2020-02-10 08:17:00* Test Item Value Reference Range Interpretation Comments PROCALCITONIN (BEAKER) (test code = 3036) < ng/mL <0.05 SEPSIS RISK (ng/mL)Low: 0.05-0.50Intermediate: 0.51-2.00High: > =2.01TSH/Free T4 If [id number] 07:57:00* Test Item Value Reference Range Interpretation Comments TSH (test code = 90446-0) 0.75 0.35- 4.94 uIU/mL OTF (test code = OTF) Trimming Cutter Machine ID - LM Lab Interpretation (test code = 62760-9) Normal [facility] HospitalTSH/FREE T4 IF [id number] 07:57:00* Test Item Value Reference Range Interpretation Comments THYROID STIMULATING HORMONE (BEAKER) (test code = 772) 0.75 uIU/mL 0.35-4.94 Trimming Cutter Machine ID - LMBasi Metabolic [id number] 07:43:00* Test Item Value Reference Range Interpretation Comments Sodium (test code = 2951-2) 138 meq/L 136-145 Potassium (test code = 2823-3) 3.9 meq/L 3.5-5.1 Chloride (test code = 2075-0) 110 meq/L 98-107 H CO2 (test code = 8-9) 23 meq/L 22-29 BUN (test code = 3094-0) 16 mg/dL 7-21 Creatinine (test code = 2160-0) 1.06 mg/dL 0.57-1.25 Glucose (test code = 2345-7) 139 mg/dL 70-105 H Calcium (test code = 67228-5) 7.8 mg/dL 8.4-10.2 L EGFR (test code = 69917-4) 50 mL/min/1.73 sq m ESTIMATED GFR IS NOT ACCURATE CREATININE CLEARANCE IN PREDICTING GLOMERULAR FILTRATION RATE. ESTIMATED GFR IS NOT APPLICABLE FOR DIALYSIS PATIENTS. OTF (test code = OTF) Trimming Cutter Machine ID - LM Lab Interpretation (test code = 61970-3) Abnormal [facility] HospitalBASIC METABOLIC [id number] 07:43:00* Test Item Value Reference Range Interpretation Comments SODIUM (BEAKER) (test code = 381) 138 meq/L 136-145 POTASSIUM (BEAKER) (test code = 379) 3.9 meq/L 3.5-5.1 CHLORIDE (BEAKER) (test code = 382) 110 meq/L 98-107 H CO2 (BEAKER) (test code = 355) 23 meq/L 22-29 BLOOD UREA NITROGEN (BEAKER) (test code = 354) 16 mg/dL 7-21 CREATININE (BEAKER) (test code = 358) 1.06 mg/dL 0.57-1.25 GLUCOSE RANDOM (BEAKER) (test code = 652) 139 mg/dL 70-105 H CALCIUM (BEAKER) (test code = 697) 7.8 mg/dL 8.4-10.2 L EGFR (BEAKER) (test code = 1092) 50 mL/min/1.73 sq m ESTIMATED GFR IS NOT ACCURATE CREATININE CLEARANCE IN PREDICTING GLOMERULAR FILTRATION RATE. ESTIMATED GFR IS NOT APPLICABLE FOR DIALYSIS PATIENTS. Trimming Cutter Machine ID - LMLipid [id number] 07:40:00* Test Item Value Reference Range Interpretation Comments Triglycerides (test code = 2571-8) 90 mg/dL Cholesterol (test code = 3-3) 158 mg/dL HDL (test code = 5-9) 56 mg/dL LDL Calculated (test code = 99107-8) 84 mg/dL OTF (test code = OTF) Triglyceride Reference Range : Low Risk <150 Borderline 150-199 High Risk 200-499 Very High Risk >=500 Cholesterol Reference Range: Low Risk <200 Borderline 200-239 High Risk >240 HDL Cholesterol Reference Range: Low Risk >=60 High Risk <40 LDL Cholesterol Reference Range: Optimal <100 Near Optimal 100-129 Borderline 130-159 High 160-189 Very High >=190 Trimming Cutter Machine ID - LM [facility] HospitalHepatic function [id number] 07:40:00* Test Item Value Reference Range Interpretation Comments Protein, Total (test code = 2885-2) 5.6 6.0- 8.3 gm/dL L Albumin (test code = 47663-7) 3.3 g/dL 3.5-5 L Total Bilirubin (test code = 1975-2) 0.3 mg/dL 0.2-1.2 Bilirubin, Direct (test code = 1968-7) 0.1 mg/dL 0.1-0.5 Alkaline Phosphatase (test code = 6768-6) 67 U/L 40-150 AST (test code = 1920-8) 72 U/L 5-34 H ALT (test code = 1742-6) 61 U/L 6-55 H OTF (test code = OTF) Trimming Cutter Machine ID - LM Lab Interpretation (test code = 92884-6) Abnormal [facility] PeninsulaLIPID [id number] 07:40:00* Test Item Value Reference Range Interpretation Comments TRIGLYCERIDES (BEAKER) (test code = 540) 90 mg/dL CHOLESTEROL (BEAKER) (test code = 631) 158 mg/dL HDL CHOLESTEROL (BEAKER) (test code = 976) 56 mg/dL LDL CHOLESTEROL CALCULATED (BEAKER) (test code = 633) 84 mg/dL Triglyceride Reference Range: Low Risk <150 Borderline 150-199 High Risk 200-499 Very High Risk >=500Cholesterol Reference Range: Low Risk <200 Borderline 200-239 High Risk >240HDL Cholesterol Reference Range: Low Risk >=60 High Risk <40LDL Cholesterol Reference Range: Optimal <100 Near Optimal 100-129 Borderline 130-159 High 160-189 Very High >=190 Trimming Cutter Machine ID - LMHEPATIC FUNCTION [id number] 07:40:00* Test Item Value Reference Range Interpretation Comments TOTAL PROTEIN (BEAKER) (test code = 770) 5.6 gm/dL 6.0-8.3 L ALBUMIN (BEAKER) (test code = 1145) 3.3 g/dL 3.5-5.0 L BILIRUBIN TOTAL (BEAKER) (test code = 377) 0.3 mg/dL 0.2-1.2 BILIRUBIN DIRECT (BEAKER) (test code = 706) 0.1 mg/dL 0.1-0.5 ALKALINE PHOSPHATASE (BEAKER) (test code = 346) 67 U/L 40-150 AST (SGOT) (BEAKER) (test code = 353) 72 U/L 5-34 H ALT (SGPT) (BEAKER) (test code = 347) 61 U/L 6-55 H Trimming Cutter Machine ID - LMLactic acid, [id number] 07:31:00* Test Item Value Reference Range Interpretation Comments Lactate, Venous (test code = 2872) 1.5 mmol/L 0.5-2.2 OTF (test code = OTF) Trimming Cutter Machine ID - LM Lab Interpretation (test code = 18426-3) Normal [facility] HospitalLACTIC ACID, [id number] 07:31:00* Test Item Value Reference Range Interpretation Comments LACTATE BLOOD VENOUS (2) (BEAKER) (test code = 2872) 1.5 mmol/L 0 .5-2.2 Trimming Cutter Machine ID - [id number] 07:26:00* Test Item Value Reference Range Interpretation Comments Protime (test code = 5902-2) 13.3 11.9- 14.2 seconds INR (test code = 6301-6) 1.0 <=5.9 PTT (test code = 54279-0) 26.3 22.5- 36.0 seconds OTF (test code = OTF) Effective 03/20/2019: PT Refe rence Range ChangeNew: 11.9- 14.2 Previous: 11.7-14.7 RECOMMENDED COUMADIN/WARFARIN INR THERAPY RANGESSTANDARD DOSE: 2.0-3.0 Includes: PROPHYLAXIS for venous thrombosis, sys temic embolization; TREATMENT for venous thrombosis and/or pulmonary embolus.HIGH RISK: Target INR is 2.5-3.5 for patients wiht mechanical heart valves. Lab Interpretation (test code = 21648-1) Normal [facility] HospitalPT/[id number] 07:26:00* Test Item Value Reference Range Interpretation Comments PROTIME (BEAKER) (test code = 759) 13.3 seconds 11.9-14.2 INR (BEAKER) (test code = 370) 1.0 <=5.9 PARTIAL THROMBOPLASTIN TIME (BEAKER) (test code = 760) 26.3 seconds 22.5-36.0 Effective 03/20/2019: PT Reference Range ChangeNew: 11.9-14.2 Previous: 11.7-14. 7RECOMMENDED COUMADIN/WARFARIN INR THERAPY RANGESSTANDARD DOSE: 2.0-3.0 Include s: PROPHYLAXIS for venous thrombosis, systemic embolization; TREATMENT for venou s thrombosis and/or pulmonary embolus.HIGH RISK: Target INR is 2.5-3.5 for patie nts wiht mechanical heart valves.CBC with platelet count + automated diff 2019-12-02 07:24:00* Test Item Value Reference Range Interpretation Comments WBC (test code = 6690-2) 5.1 3.5- 10.5 K/L RBC (test code = 789-8) 2.33 3.93- 5.22 M/L L MCHC (test code = 786-4) 33.3 32.2- 35.5 GM/DL L Hematocrit (test code = 4544-3) 28.2 % 34.1-44.9 L MCV (test code = 787-2) 121.0 fL 79.4-94.8 H MCH (test code = 785-6) 40.3 pg 25.6-32.2 H RDW (test code = 788-0) 14.8 % 11.7-14.4 H Platelets (test code = 777-3) 262 150- 450 K/CU MM MPV (test code = 15440-8) 10.0 fL 9.4-12.3 nRBC (test code = 413) 0 0- 0 /100 WBC % Neutros (test code = 429) 72 % % Lymphs (test code = 430) 21 % % Monos (test code = 431) 6 % % Eos (test code = 432) 1 % % Baso (test code = 437) 0 % # Neutros (test code = 670) 3.65 1.56- 6.13 K/L # Lymphs (test code = 414) 1.08 1.18- 3.74 K/L L # Monos (test code = 415) 0.29 0.24- 0.36 K/L # Eos (test code = 416) 0.03 0.04- 0.36 K/L L # Baso (test code = 417) 0.01 0.01- 0.08 K/L Immature Granulocytes-Relative (test code = 2801) 0 % 0-1 OTF (test code = OTF) No clot Lab Interpretation (test code = 61051-1) Abnormal [facility] W/PLT COUNT & AUTO [id number] 07:24:00* Test Item Value Reference Range Interpretation Comments WHITE BLOOD CELL COUNT (BEAKER) (test code = 775) 5.1 K/ L 3.5- 10.5 RED BLOOD CELL COUNT (BEAKER) (test code = 761) 2.33 M/ L 3.93-5 .22 L HEMOGLOBIN (BEAKER) (test code = 410) 9.4 GM/DL 11.2-15.7 L HEMATOCRIT (BEAKER) (test code = 411) 28.2 % 34.1-44.9 L MEAN CORPUSCULAR VOLUME (BEAKER) (test code = 753) 121.0 fL 79. 4-94.8 H MEAN CORPUSCULAR HEMOGLOBIN (BEAKER) (test code = 751) 40.3 pg 25.6-32.2 H MEAN CORPUSCULAR HEMOGLOBIN CONC (BEAKER) (test code = 752) 33.3 GM/DL 32.2-35.5 RED CELL DISTRIBUTION WIDTH (BEAKER) (test code = 412) 14.8 % 11.7-14.4 H PLATELET COUNT (BEAKER) (test code = 756) 262 K/CU MM 150-450 MEAN PLATELET VOLUME (BEAKER) (test code = 754) 10.0 fL 9.4-12 .3 NUCLEATED RED BLOOD CELLS (BEAKER) (test code = 413) 0 /100 WBC 0 -0 NEUTROPHILS RELATIVE PERCENT (BEAKER) (test code = 429) 72 % LYMPHOCYTES RELATIVE PERCENT (BEAKER) (test code = 430) 21 % MONOCYTES RELATIVE PERCENT (BEAKER) (test code = 431) 6 % EOSINOPHILS RELATIVE PERCENT (BEAKER) (test code = 432) 1 % BASOPHILS RELATIVE PERCENT (BEAKER) (test code = 437) 0 % NEUTROPHILS ABSOLUTE COUNT (BEAKER) (test code = 670) 3.65 K/ L 1.56-6.13 LYMPHOCYTES ABSOLUTE COUNT (BEAKER) (test code = 414) 1.08 K/ L 1.18-3.74 L MONOCYTES ABSOLUTE COUNT (BEAKER) (test code = 415) 0.29 K/ L 0. 24-0.36 EOSINOPHILS ABSOLUTE COUNT (BEAKER) (test code = 416) 0.03 K/ L 0.04-0.36 L BASOPHILS ABSOLUTE COUNT (BEAKER) (test code = 417) 0.01 K/ L 0. 01-0.08 IMMATURE GRANULOCYTES-RELATIVE PERCENT (BEAKER) (test code = 2801) 0 % 0-1 No clotRAD, CHEST, 1 VIEW, NON [id number] 06:42:00Reason for exam:->r/o pneumoniaShould this be performed at the bedside?->YesFINAL REPORT Chest one view. Clinical history: Generalized weakness, hypotension and urinary frequency Comparison: Chest radiograph 08/05/2013. Technique: A single frontal view of the chest was obtained. Findings:There is a right IJ central venous catheter with tip in the SVC.The heart is normal in size. The aorta is tortuous and atherosclerotic. There is no focal pulmonary consolidation, pleural effusion or pneumothorax. There is no pulmonary edema. There is partially imaged lumbar spinal fixation hardware. There are degenerativ e changes of the visualized cervical spine. Impression: No focal pulmonary conso lidation. Signed: Terrence Segura Verified Date/Time: 12/02/2019 06 :42:49 06:4 2 AM XR chest 1 view portable / [id number] 06:42:00Interface, External Ris In - 12/02/2019 6:45 AM CSTFINAL REPORT Chest one view. Clinical history: Generalized weakness, hypotension and urinary frequency Comparison: Chest radiograph 08/05/2013. Technique: A single frontal view of the chest was obtained. Findings:There is a right IJ central venous catheter with tip in the SVC.The heart is normal in size. The aorta is tortuous and atherosclerotic. There is no focal pulmonary consolidation, pleural effusion or pneumothorax. There is no pulmonary edema. There is partially imaged lumbar spinal fixation hardware. There are degenerative changes of the visualized cervical spine. Impression: No focal pulmonary consolidation. Signed: Terrence Segura Verified Date/Time: 12/02/2019 06:42:49 Electronically si gned by: TERRENCE SEGURA MD on 12/02/2019 06:42 AM [facility] HospitalLactic Acid [id number] 05:03:00* Test Item Value Reference Range Interpretation Comments Lactic Acid Level (test code = Lactic Acid Level) 2.6 0.5- 2.0 HH Results repeated and called to DAMARIS WEINBERG DO at 0503 on 12/02/19 by Tala chirinos. Read back and verified.[facility] SINGLE (PORTABLE)2019-12-02 03:58:00 [facility] [address] [place], [place] [address] Patient Name: CECE CRAMER MR #: [id number] : 1945 Age/Sex: 74/F Req #: [id number] Adm Physician: Ordered by: DAMARIS WEINBERG DO Report #: [id number] Location: ER Room/Bed: Procedure: [id number] DX/ CHEST SINGLE (PORTABLE) Exam Date: 12/02/19 Exam Simba e: 0333 REPORT STATUS: Signed EX AMINATION: CHEST SINGLE (PORTABLE) INDICATION: CVC placement. COM PARISON: 12/02/2019 at 2:46 AM. FINDINGS: TUBES and LINES: Interval placement of a right internal jugular central venous catheter with distal tip projected on the cavoatrial junction. LUNGS: There are bibasilar atelecta sis. There is no evidence of pneumonia or pulmonary edema. PLEURA: No pleural effusion or pneumothorax. HEART AND MEDIASTINUM: Cardiac size is m ildly enlarged. There are atherosclerotic calcifications within the aorta. BONES AND SOFT TISSUES: No acute osseous lesion. Soft tissues are unremark able. UPPER ABDOMEN: No free air under the diaphragm. IMPRESSION: Interval placement of a right internal jugular central venous catheter with distal tip projected on the cavoatrial junction. Signed by: Dr. Anne Marie Calderón M.D. on 12/02/2019 4:00 AM Dictated By: ABHISHEK CALDERÓN MD, MD 9 Transcribed By: BELTRAN on 12/02/19399 COPY TO: DAMARIS WEINBERG DO CHEST SINGLE (NOT PORTABLE)2019-12-02 03:23:00 [place] [address] Patient Name: CECE CRAMER MR #: [id number] : 1945 Age/Sex: 74/F Req #: [id number] Adm Physician: Ordered by: DAMARIS WEINBERG DO Report #: [id number] Location: ER Room/Bed: Procedure: [id number] DX/ CHEST SINGLE (NOT PORTABLE) Exam Date: Exam Time: REPORT STATUS: Signed EXAMINATIO N: CHEST SINGLE (NOT PORTABLE) INDICATION: Pain. Weakness. COMPAR KELLI: None FINDINGS: TUBES and LINES: None. LUNGS: Lungs are well inflated. There are bibasilar atelectasis. There is no evidence of pn eumonia or pulmonary edema. PLEURA: No pleural effusion or pneumothorax. HEART AND MEDIASTINUM: Cardiac size is mildly enlarged. There are atheros clerotic calcifications within the aorta. BONES AND SOFT TISSUES: No acute osseous lesion. Soft tissues are unremarkable. UPPER ABDOMEN: No free a ir under the diaphragm. IMPRESSION: No acute thoracic abnormality. Signed by: Dr. Anne Marie Calderón M.D. on 12/02/2019 3:24 AM Dic tated By: ABHISHEK CALDERÓN MD, MD Electronically Signed By: ABHISHEK CALDERÓN MD, MD o n 12/02/19323 Transcribed By: BELTRAN on 12/02/19323 COPY TO: DAMARIS WEINBERG DO Urine [id number] 03:08:00* Test Item Value Reference Range Interpretation Comments Urine WBC (test code = 5821-4) 6-10 0-5 [facility] [id number] 03:08:00* Test Item Value Reference Range Interpretation Comments Urine RBC (test code = 94198-1) 6-10 0-5 [facility] [id number] 03:08:00* Test Item Value Reference Range Interpretation Comments Urine Bacteria (test code = 83653-3) MANY NONE [facility] Epithelial [id number] 03:08:00 * Test Item Value Reference Range Interpretation Comments Urine Epithelial Cells (test code = 60839-0) FEW NONE [facility] Calcium Carbonate Crystals 2019-12-02 03:08:00* Test Item Value Reference Range Interpretation Comments Urine Calcium Carbonate Crystals (test code = 5773-7) FEW NONE [facility] Calcium Oxalate [id number] 03:08:00* Test Item Value Reference Range Interpretation Comments Urine Calcium Oxalate Crystals (test code = 5774-5) FEW FE W [facility] Hyaline [id number] 03:08:00* Test Item Value Reference Range Interpretation Comments Urine Hyaline Casts (test code = 75095-3) 6-10 0-1 H [facility] [id number] 03:08:00* Test Item Value Reference Range Interpretation Comments Urine Mucus (test code = 8247-9) MODERATE RARE [facility] BRAIN [id number] 02:54:00 [facility] [address] [place] [address] Patient Name: CECE CRAMER MR #: [id number] : 1945 Age/Sex: 74/F Req #: [id number] Adm Physician: Ordered by: DAMARIS WEINBERG DO Report #: [id number] Location: ER Room/Bed: Procedure: [id number] CT/ CT BRAIN WO Exam Date: Exam Time: REPORT STATUS: Signed EXAMINATION: Head CT witho ut contrast. HISTORY:Generalized weakness. COMPARISON:None. JEOVANNY HNIQUE: Multidetector axial images were obtained from the foramen magnum to th e vertex without contrast. The images were reconstructed using brain and bone algorithms. Thin section brain images were reformatted into coronal and sagit dk planes. Dose modulation, iterative reconstruction, and/or weight based adj ustment of the mA/kV was utilized to reduce the radiation dose to as low as re asonably achievable. Intravenous contrast: None IMAGE QUALITY: Sub optimal evaluation particularly at the level of skull base and posterior fossa structures due to streak artifacts. FINDINGS: Skull/scalp: No lytic or blastic. lesions. No surgical changes. Parenchyma: Nonspecific bilater al frontoparietal confluent periventricular, subcortical and deep white matter hypodensities are likely related to small vessel ischemic changes. No acute hemorrhage, mass or acute major vascular territorial infarct. Arteries: N o density suggestive of thrombosis. Atherosclerotic calcification in bilateral carotid siphon and V4 segment of left vertebral artery. Dural sinuse s: No abnormal density suggestive of thrombosis. Ventricles: No hydroceph alus or displacement. Extra-axial spaces: No abnormal density. Bra in volume: Normal for age. Craniocervical junction: No mass, Chiari malfor mation, or basilar invagination. Sella: No mass. Paranasal/mastoi d sinuses: Imaged portions unremarkable. IMPRESSION: No acute intracra nial abnormality. Severe supratentorial white matter microvascular ischemic changes. Signed by: Dr. Tammy Díaz M.D. on 12/02/2019 2:58 AM Dictated By: TAMMY DÍAZ MD 7 Transcribed By: BELTRAN on 12/02/19257 COPY TO: Claire WEINBERG DO Urine Jatne7263-73-36 02:42:00* Test Item Value Reference Range Interpretation Comments Urine Color (test code = 5778-6) YELLOW YELLOW [facility] Aqbgbfb8562-46-26 02:42:00* Test Item Value Reference Range Interpretation Comments Urine Clarity (test code = 36522-2) CLEAR CLEAR [facility]ville[facility] Specific Ixtptwd4501-76-19 02:42:00 * Test Item Value Reference Range Interpretation Comments Urine Specific Trinity (test code = 5811-5) 1.025 1.010-1.02 5 [facility]villeU[facility] lO6634-54-04 02:42:00* Test Item Value Reference Range Interpretation Comments Urine pH (test code = 32317-3) 7 5-7 [facility] Leukocyte Oefuasql7901-01-35 02:42:00* Test Item Value Reference Range Interpretation Comments Urine Leukocyte Esterase (test code = 5799-2) NEGATIVE NEGATIVE [facility] Cyblcxr4339-81-70 02:42:00* Test Item Value Reference Range Interpretation Comments Urine Nitrite (test code = 51704-8) NEGATIVE NEGATIVE [facility]ville[facility] Xgwnixl3504-64-22 02:42:00* Test Item Value Reference Range Interpretation Comments Urine Protein (test code = 5804-0) 1+ NEGATIVE H [facility]villeU[facility] Glucose (UA)2019-12-02 02:42:00* Test Item Value Reference Range Interpretation Comments Urine Glucose (UA) (test code = 2349-9) 1+ NEGATIVE H [facility]villeU[facility] Skneowy5125-21-69 02:42:00* Test Item Value Reference Range Interpretation Comments Urine Ketones (test code = 11884-2) NEGATIVE NEGATIVE [facility]ville[facility] Gaymmaytlprk3191-31-46 02:42:00* Test Item Value Reference Range Interpretation Comments Urine Urobilinogen (test code = 61106-6) 0.2 0.2-1 [facility]villeU[facility] Afwllmewt8263-64-36 02:42:00* Test Item Value Reference Range Interpretation Comments Urine Bilirubin (test code = 1978-6) NEGATIVE NEGATIVE [facility]villeU[facility] Sokeb9330-72-49 02:42:00* Test Item Value Reference Range Interpretation Comments Urine Blood (test code = 24628-6) NEGATIVE NEGATIVE [facility]villeB-Type Natriuretic Mkumblb6311-99-43 02:38:00* Test Item Value Reference Range Interpretation Comments B-Type Natriuretic Peptide (test code = 37603-2) 85.1 0-100 [facility]villeCreatine Kinase XM8061-87-02 02:38:00* Test Item Value Reference Range Interpretation Comments Creatine Kinase MB (test code = 91718-5) 1.20 0-5.0 [facility]villeTroponin L1125-27-39 02:38:00* Test Item Value Reference Range Interpretation Comments Troponin I (test code = KSZ2863) < 0.001 0-0.300 [facility]villeWhite Blood Areaj7205-12-63 02:12:00* Test Item Value Reference Range Interpretation Comments White Blood Count (test code = 6690-2) 3.85 4.8-10.8 L [facility]villeRed Blood Jpydo5638-53-55 02:12:00* Test Item Value Reference Range Interpretation Comments Red Blood Count (test code = 789-8) 2.34 3.6-5.1 L [facility]villeHemoglobin2020-02-10 02:12:00* Test Item Value Reference Range Interpretation Comments Hemoglobin (test code = 45181-1) 9.3 12.0-16.0 L [facility]villeHematocrit2020-02-10 02:12:00* Test Item Value Reference Range Interpretation Comments Hematocrit (test code = 4544-3) 28.6 34.2-44.1 L [facility]villeMean Corpuscular Rgqwit0419-31-21 02:12:00* Test Item Value Reference Range Interpretation Comments Mean Corpuscular Volume (test code = 787-2) 122.2 81-99 H [facility]villeMean Corpuscular Lwppqncfnx5833-65-72 02:12:00* Test Item Value Reference Range Interpretation Comments Mean Corpuscular Hemoglobin (test code = 785-6) 39.7 28-32 H [facility]villeMean Corpuscular Hemoglobin Concent 2019-12-02 02:12:00* Test Item Value Reference Range Interpretation Comments Mean Corpuscular Hemoglobin Concent (test code = 786-4) 32.5 31-35 [facility]villeRed Cell Distribution Zvzjf4102-06-44 02:12:00* Test Item Value Reference Range Interpretation Comments Red Cell Distribution Width (test code = 88490-2) 14.6 11.7 -14.4 H [facility]villePlatelet Vhaxk8888-71-93 02:12:00* Test Item Value Reference Range Interpretation Comments Platelet Count (test code = 777-3) 229 140-360 [facility]villeNeutrophils (%) (Auto)2019-12-02 02:12:00 * Test Item Value Reference Range Interpretation Comments Neutrophils (%) (Auto) (test code = 11782-6) 66.4 38.7-80.0 [facility]villeLymphocytes (%) (Auto)2019-12-02 02:12:00 * Test Item Value Reference Range Interpretation Comments Lymphocytes (%) (Auto) (test code = 736-9) 23.4 18.0-39.1 [facility]villeMonocytes (%) (Auto)2019-12-02 02:12:00* Test Item Value Reference Range Interpretation Comments Monocytes (%) (Auto) (test code = 5905-5) 9.1 4.4-11.3 [facility]villeEosinophils (%) (Auto)2019-12-02 02:12:00 * Test Item Value Reference Range Interpretation Comments Eosinophils (%) (Auto) (test code = 713-8) 0.5 0.0-6.0 [facility]villeBasophils (%) (Auto)2019-12-02 02:12:00* Test Item Value Reference Range Interpretation Comments Basophils (%) (Auto) (test code = 706-2) 0.3 0.0-1.0 [facility]villeIM GRANULOCYTES %2019-12-02 02:12:00* Test Item Value Reference Range Interpretation Comments IM GRANULOCYTES % (test code = IM GRANULOCYTES %) 0.3 0.0- 1.0 [facility]villeNeutrophils # (Auto)2019-12-02 02:12:00* Test Item Value Reference Range Interpretation Comments Neutrophils # (Auto) (test code = 751-8) 2.6 2.1-6.9 [facility]villeLymphocytes # (Auto)2019-12-02 02:12:00* Test Item Value Reference Range Interpretation Comments Lymphocytes # (Auto) (test code = 41284-9) 0.9 1.0-3.2 L [facility]villeMonocytes # (Auto)2019-12-02 02:12:00* Test Item Value Reference Range Interpretation Comments Monocytes # (Auto) (test code = 742-7) 0.4 0.2-0.8 [facility]villeEosinophils # (Auto)2019-12-02 02:12:00* Test Item Value Reference Range Interpretation Comments Eosinophils # (Auto) (test code = 711-2) 0.0 0.0-0.4 [facility]villeBasophils # (Auto)2019-12-02 02:12:00* Test Item Value Reference Range Interpretation Comments Basophils # (Auto) (test code = 704-7) 0.0 0.0-0.1 [facility]villeAbsolute Immature Granulocyte (auto 2019-12-02 02:12:00* Test Item Value Reference Range Interpretation Comments Absolute Immature Granulocyte (auto (omayra t code = Absolute Immature Granulocyte (auto) 0.01 0-0.1 [facility]odium Fwrtn9846-89-45 02:02:00* Test Item Value Reference Range Interpretation Comments Sodium Level (test code = 2951-2) 137 136-145 [facility]villePotassium Xzqvv2239-25-72 02:02:00* Test Item Value Reference Range Interpretation Comments Potassium Level (test code = 2823-3) 4.9 3.5-5.1 [facility]villeChloride Zvlun1978-54-89 02:02:00* Test Item Value Reference Range Interpretation Comments Chloride Level (test code = 2075-0) 103 98-107 [facility] BrownsvilleCarbon Dioxide Iqadc8479-51-00 02:02:00* Test Item Value Reference Range Interpretation Comments Carbon Dioxide Level (test code = 2028-9) 25 22-29 [facility] BrownsvilleAnion Exg5799-71-05 02:02:00* Test Item Value Reference Range Interpretation Comments Anion Gap (test code = 01109-0) 13.9 8-16 [facility]villeBlood Urea Lblcrnhz6944-76-70 02:02:00* Test Item Value Reference Range Interpretation Comments Blood Urea Nitrogen (test code = 3094-0) 18 7-26 [facility]villeCreatinine2020-02-10 02:02:00* Test Item Value Reference Range Interpretation Comments Creatinine (test code = 2160-0) 1.50 0.57-1.11 H [facility]villeBUN/Creatinine Lhmub5804-55-86 02:02:00* Test Item Value Reference Range Interpretation Comments BUN/Creatinine Ratio (test code = 3097-3) 12 6-25 [facility] BrownsvilleEstimat Glomerular Filtration Rate 2019-12-02 02:02:00* Test Item Value Reference Range Interpretation Comments Estimat Glomerular Filtration Rate (test code = 054932548) 34 >60 L Ranges were taken from the National Kidney Disease Education Program and the [facility] [facility] [employer] Kid[employer] literature.Reference ranges:60 or greater: Wnmnmw28-63 ( for 3 consecutive months): Chronic kidney disease 15 or less: Kidney failureVal[facility] – BrownsvilleGlucose Ubodv6507-06-40 02:02:00* Test Item Value Reference Range Interpretation Comments Glucose Level (test code = AGL3702) 116 74-118 [facility]villeCalcium Zoeza5339-05-01 02:02:00* Test Item Value Reference Range Interpretation Comments Calcium Level (test code = 01200-6) 8.7 8.4-10.2 [facility] BrownsvilleTotal Wplaigzev4111-32-73 02:02:00* Test Item Value Reference Range Interpretation Comments Total Bilirubin (test code = 1975-2) 0.3 0.2-1.2 [facility] BrownsvilleAspartate Amino Transf (AST/SGOT) 2019-12-02 02:02:00* Test Item Value Reference Range Interpretation Comments Aspartate Amino Transf (AST/SGOT) (test code = Aspartate Amino Transf (AST/SGOT)) 16 5-34 [facility]villeAlanine Aminotransferase (ALT/SGPT) 2019-12-02 02:02:00* Test Item Value Reference Range Interpretation Comments Alanine Aminotransferase (ALT/SGPT) (test code = 1742-6) 14 0-55 [facility] BrownsvilleTotal Jxihjnl8272-12-30 02:02:00* Test Item Value Reference Range Interpretation Comments Total Protein (test code = 2885-2) 6.0 6.5-8.1 L [facility] BrownsvilleAlbumin2020-02-10 02:02:00* Test Item Value Reference Range Interpretation Comments Albumin (test code = 1751-7) 3.1 3.5-5.0 L [facility] BrownsvilleGlobulin2020-02-10 02:02:00* Test Item Value Reference Range Interpretation Comments Globulin (test code = 64035-9) 2.9 2.3-3.5 [facility] BrownsvilleAlbumin/Globulin Ekxet0305-63-97 02:02:00 * Test Item Value Reference Range Interpretation Comments Albumin/Globulin Ratio (test code = 1759-0) 1.1 0.8-2.0 [facility]villeAlkaline Biiqkrmvunk6862-89-58 02:02:00* Test Item Value Reference Range Interpretation Comments Alkaline Phosphatase (test code = 6768-6) 62 40-150 [facility]villeCreatine Qlunzo7589-75-73 02:02:00* Test Item Value Reference Range Interpretation Comments Creatine Kinase (test code = 2157-6) 49 29-168 [facility] BrownsvilleCREATININE W ESTIMATED VRU5504-64-64 11:28:00* Test Item Value Reference Range Interpretation Comments BEDSIDE CREATININE (test code = CREATBED) 1.4 MG/DL 0.6-1.3 H GLOMERULAR FILTRATION RATE POC (test code = GFRBED) 39 ML/MIN ENTER BEDSIDE CREATININE RESULT: 1.37Serial Number: [id number] Name of User Perfo rming Test: MIESHA LEONARD- MRI BRAIN W/O JGJX5882-38-77 07:05:00 FAX: Mariusz Chaudhary MD [phone] [place]: St: DEP Name: [facility] : [birth year] Age/S: 74/F [address] [place] [address] Unit #: [id number] Loc: [place] [address] Phys: Mariusz Brown MD Acct: [id number] Dis Date: Status: DEP CLI PHONE #: [phone] Exam Date: 08/05/2019 1843 FAX #: [phone] Reason: DEMENTIA W/O BEHAVIORAL DISTURBANCE, UNSP DEMEN EXAMS: CPT CODE: [id number] MRI BRAIN W/O CONT 83661 MRI brain without contrast 019 HISTORY: Dementia with behavioral disturbance [place] OCEDURE: Multiplanar multisequence imaging of the brain was performed with out contrast Comparison is made to CT performed 09/27/2017 FINDINGS: There is moderate atrophy. There are moderate areas of in creased FLAIR signal in the cerebral white matter. No acute intracranial hemorrhage, midline shift, extra-axial fluid collection, or hydrocephalus is present. There is no blooming artifact on the heme sequence to suggest remote hemorrhage. Craniocervical junction and corpus callosum are withi n normal limits. 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 Diffusion-monique ghted imaging demonstrate no acute ischemic event. No evidence for acute infarct is present. There is mild bilateral mastoid fluid. There is mild bilateral ethmoid mucosal thickening IMPRESSION: 1. No acute intracranial abnormality. No abnormal enhancement. 2. Mod erate atrophy and moderate chronic microvascular ischemic changes. 3. 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 SL: [id number] at 0705 Reported and signed by: Oracio Barroso M.D. CC: Mariusz Brown MD Technologist: Miesha Leonard RT(R)(MRI) Trnscrd Date/Time/By: 08/06/2019 (704) : By: [email or web address] Orig Print D/T: S: 08/06/2019 (708) PAGE 1 Signed Report Urine [id number] 20:56:00* Test Item Value Reference Range Interpretation Comments Urine WBC (test code = 5821-4) 0-5 0-5 [facility]villeUrine HQK2131-59-67 20:56:00* Test Item Value Reference Range Interpretation Comments Urine RBC (test code = 39137-7) 6-10 0-5 H [facility]villeUrine Kvjqvapp6202-79-45 20:56:00* Test Item Value Reference Range Interpretation Comments Urine Bacteria (test code = 09863-9) MANY NONE H [facility]villeUrine Epithelial Ibprx7822-69-87 20:56:00 * Test Item Value Reference Range Interpretation Comments Urine Epithelial Cells (test code = 90043-1) NONE NONE [facility]villeUrine Vuydu4423-19-51 20:43:00* Test Item Value Reference Range Interpretation Comments Urine Color (test code = 5778-6) YELLOW YELLOW [facility]villeUrine Ccrtvlb9056-53-77 20:43:00* Test Item Value Reference Range Interpretation Comments Urine Clarity (test code = 91352-4) SL CLOUDY CLEAR [facility]villeUrine Specific Ymkzixz9506-97-05 20:43:00 * Test Item Value Reference Range Interpretation Comments Urine Specific Trinity (test code = 5811-5) 1.020 1.010-1.02 5 [facility]villeUrine sI3058-34-39 20:43:00* Test Item Value Reference Range Interpretation Comments Urine pH (test code = 49186-1) 6 5-7 [facility]villeUrine Leukocyte Qfirkkyu7594-56-13 20:43:00* Test Item Value Reference Range Interpretation Comments Urine Leukocyte Esterase (test code = 98647-8) SMALL NEGATIV E [facility] Hhbafut8965-61-64 20:43:00* Test Item Value Reference Range Interpretation Comments Urine Nitrite (test code = 36236-5) NEGATIVE NEGATIVE [facility]villeUrine Xwghguw5479-81-65 20:43:00* Test Item Value Reference Range Interpretation Comments Urine Protein (test code = 26830-2) TRACE NEGATIVE H [facility] Glucose (UA)2019-07-25 20:43:00* Test Item Value Reference Range Interpretation Comments Urine Glucose (UA) (test code = 93413-6) NEGATIVE NEGATIVE [facility] Pcomcvu1481-36-12 20:43:00* Test Item Value Reference Range Interpretation Comments Urine Ketones (test code = 24971-9) NEGATIVE NEGATIVE [facility] Uzwbnpduxjuo8839-44-85 20:43:00* Test Item Value Reference Range Interpretation Comments Urine Urobilinogen (test code = 81098-8) 0.2 0.2-1 [facility] Qntwnaimg6799-48-28 20:43:00* Test Item Value Reference Range Interpretation Comments Urine Bilirubin (test code = 1977-8) NEGATIVE NEGATIVE [facility] Gqqux9842-59-50 20:43:00* Test Item Value Reference Range Interpretation Comments Urine Blood (test code = 68880-2) 3+ NEGATIVE [facility]odium Xbsbl6485-62-74 20:42:00* Test Item Value Reference Range Interpretation Comments Sodium Level (test code = 2951-2) 137 136-145 [facility]villePotassium Jbtpr1110-21-33 20:42:00* Test Item Value Reference Range Interpretation Comments Potassium Level (test code = 2823-3) 4.0 3.5-5.1 [facility]villeChloride Wyjwl2744-40-85 20:42:00* Test Item Value Reference Range Interpretation Comments Chloride Level (test code = 2075-0) 104 98-107 [facility] BrownsvilleCarbon Dioxide Wduak2628-35-22 20:42:00* Test Item Value Reference Range Interpretation Comments Carbon Dioxide Level (test code = 2028-9) 25 22-29 [facility] BrownsvilleAnion Cne5195-72-51 20:42:00* Test Item Value Reference Range Interpretation Comments Anion Gap (test code = 94163-4) 12.0 8-16 [facility]villeBlood Urea Julmkred7377-37-74 20:42:00* Test Item Value Reference Range Interpretation Comments Blood Urea Nitrogen (test code = 3094-0) 26 7- [facility]villeCreatinine2019-10-03 20:42:00* Test Item Value Reference Range Interpretation Comments Creatinine (test code = 2160-0) 1.14 0.57-1.11 H [facility]villeBUN/Creatinine Zlwfb0868-29-59 20:42:00* Test Item Value Reference Range Interpretation Comments BUN/Creatinine Ratio (test code = 3097-3) 23 6- [facility] BrownsvilleEstimat Glomerular Filtration Rate 2019-07-25 20:42:00* Test Item Value Reference Range Interpretation Comments Estimat Glomerular Filtration Rate (test code = 353306617) 46 >60 L Ranges were taken from the National Kidney Disease Education Program and the [employer] [facility] [employer] Kidney Foundation literature.Reference ranges:60 or greater: Fcldmo49-58 ( for 3 consecutive months): Chronic kidney disease 15 or less: Kidney failureVal[facility] Center – BrownsvilleGlucose Zcqvf5915-63-18 20:42:00* Test Item Value Reference Range Interpretation Comments Glucose Level (test code = LIS3987) 159 74-118 H [facility]villeCalcium Ykqbg9192-94-97 20:42:00* Test Item Value Reference Range Interpretation Comments Calcium Level (test code = 72397-3) 9.8 8.4-10.2 [facility]villeWhite Blood Mqjgz5324-75-66 20:30:00* Test Item Value Reference Range Interpretation Comments White Blood Count (test code = 6690-2) 4.72 4.8-10.8 L [facility] BrownsvilleRed Blood Wnhln8680-60-11 20:30:00* Test Item Value Reference Range Interpretation Comments Red Blood Count (test code = 789-8) 3.04 3.6-5.1 L [facility]villeHemoglobin2019-10-03 20:30:00* Test Item Value Reference Range Interpretation Comments Hemoglobin (test code = 79592-1) 11.3 12.0-16.0 L [facility] BrownsvilleHematocrit2019-10-03 20:30:00* Test Item Value Reference Range Interpretation Comments Hematocrit (test code = 4544-3) 34.1 34.2-44.1 L [facility] BrownsvilleMean Corpuscular Olwczk1796-85-68 20:30:00* Test Item Value Reference Range Interpretation Comments Mean Corpuscular Volume (test code = 787-2) 112.2 81-99 H [facility]villeMean Corpuscular Xihlflkgwr9362-21-73 20:30:00* Test Item Value Reference Range Interpretation Comments Mean Corpuscular Hemoglobin (test code = 785-6) 37.2 28-32 H [facility] BrownsvilleMean Corpuscular Hemoglobin Concent 2019-07-25 20:30:00* Test Item Value Reference Range Interpretation Comments Mean Corpuscular Hemoglobin Concent (test code = 786-4) 33.1 31-35 [facility]villeRed Cell Distribution Jygwd9071-49-23 20:30:00* Test Item Value Reference Range Interpretation Comments Red Cell Distribution Width (test code = 38197-4) 16.9 11.7 -14.4 H [facility] BrownsvillePlatelet Kuxay3424-06-80 20:30:00* Test Item Value Reference Range Interpretation Comments Platelet Count (test code = 777-3) 417 140-360 H [facility] BrownsvilleNeutrophils (%) (Auto)2019-07-25 20:30:00 * Test Item Value Reference Range Interpretation Comments Neutrophils (%) (Auto) (test code = 56153-5) 72.8 38.7-80.0 [facility] BrownsvilleLymphocytes (%) (Auto)2019-07-25 20:30:00 * Test Item Value Reference Range Interpretation Comments Lymphocytes (%) (Auto) (test code = 736-9) 19.5 18.0-39.1 [facility]villeMonocytes (%) (Auto)2019-07-25 20:30:00* Test Item Value Reference Range Interpretation Comments Monocytes (%) (Auto) (test code = 5905-5) 6.1 4.4-11.3 [facility]villeEosinophils (%) (Auto)2019-07-25 20:30:00 * Test Item Value Reference Range Interpretation Comments Eosinophils (%) (Auto) (test code = 713-8) 0.6 0.0-6.0 [facility]villeBasophils (%) (Auto)2019-07-25 20:30:00* Test Item Value Reference Range Interpretation Comments Basophils (%) (Auto) (test code = 706-2) 0.6 0.0-1.0 [facility] BrownsvilleIM GRANULOCYTES %2019-07-25 20:30:00* Test Item Value Reference Range Interpretation Comments IM GRANULOCYTES % (test code = IM GRANULOCYTES %) 0.4 0.0- 1.0 [facility] BrownsvilleNeutrophils # (Auto)2019-07-25 20:30:00* Test Item Value Reference Range Interpretation Comments Neutrophils # (Auto) (test code = 751-8) 3.4 2.1-6.9 [facility] BrownsvilleLymphocytes # (Auto)2019-07-25 20:30:00* Test Item Value Reference Range Interpretation Comments Lymphocytes # (Auto) (test code = 44228-4) 0.9 1.0-3.2 L [facility]villeMonocytes # (Auto)2019-07-25 20:30:00* Test Item Value Reference Range Interpretation Comments Monocytes # (Auto) (test code = 742-7) 0.3 0.2-0.8 [facility]villeEosinophils # (Auto)2019-07-25 20:30:00* Test Item Value Reference Range Interpretation Comments Eosinophils # (Auto) (test code = 711-2) 0.0 0.0-0.4 [facility]villeBasophils # (Auto)2019-07-25 20:30:00* Test Item Value Reference Range Interpretation Comments Basophils # (Auto) (test code = 704-7) 0.0 0.0-0.1 [facility] BrownsvilleAbsolute Immature Granulocyte (auto 2019-07-25 20:30:00* Test Item Value Reference Range Interpretation Comments Absolute Immature Granulocyte (auto (omayra t code = Absolute Immature Granulocyte (auto) 0.02 0-0.1 [facility] BrownsvilleBONE DXA DUAL TLCVIF0326-07-07 08:02:00 [place] [address] Patient Name: CECE CRAMER MR #: [id number] : 943 Age/Sex: 74/F Req #: [id number] Adm Physician: Ordered by: MARIUSZ BROWN MD Report #: [id number] Location: DX Room/Bed: Procedure: [id number] DX/ BONE DXA DUAL ENERGY Exam Date: Exam Time: REPORT STATUS: Signed Exam: Bone minera l density study. History: Osteopenia. Comparison: None Discussi on: Evaluation of the left hip was performed utilizing DEXA Hologic bone densi tometer. The study is technically adequate. The spine was not imaged due t o patient's hardware/postsurgical change in the lumbar spine Left hip tot al bone mineral density: 0.923gm/cm2, T-score is -0.2, Z-score is 1.7. Left hip femoral neck bone mineral density: 0.758gm/cm2, T-score is -0.8, Z-score is 1.3. Impression: 1. Normal bone mineral density of the left hip, f racture risk is not increased. The BMD change versus baseline is 3.2% a nd the BMD change versus previous -2.6% . Least significant change (LS C) for bone mineral density as provided by paint technician is 0.023 g/cm2 for lum bar spine and 0.027 g/cm2 for total hip. 10 -year fracture risk per WHO Fra cture Risk Assessment Tool (FRAX) for: Not reported because all T-scores at or above -1.0. Patient treated for osteoporosis The patient's fracture r isk is compared to an age-matched control. Medical evaluation for secondary causes of low bone bone mineral density may be appropriate. Correlate cl inically for the necessity and timing of the next bone mineral density study. Signed by: Dr. Shell Lynn M.D. on 06/03/2019 8:04 AM Dicta ramsey By: SHELL LYNN MD, MD 3 COPY TO: HEATHER BROWN MD SURGICAL [id number] 12:29:00 RUN DATE: 09/20/18 [facility] *LIVE* PAGE 1 RUN TIME: 1229 Specimen Inqui ry RUN USER: INTERFACE PATIENT: CECE CRAMER ACCT #: [id number] LOC: [facility]ATIE U #: [id number] AGE/SX: 73/F ROOM: [facility] RE09/15/18REG DR: Oswaldo Kelley : 41 BED: 1 DIS: 09/19/18 STATUS: DIS IN TLOC: SPEC #: [id number] RECD: 09/18/18 STATUS: SOUElizabeth REQ #: [id number] CHANEL: 09/18/[address]: Oswaldo Kelley ENTERED: 09/20/18 SP TYPE: SURG SPEC OTHR DR: No Celine sean or Family Physician Self Referred Carla Diana MD, Alta f MD Rungta, Manish MD Subramanyam, Kalyan am MDORDERED: GM LEVEL 4 CODES: [id number] - STOMACH, NOS COPIES TO: No Primary or Famil y Physician Self Referred Carla Diana MD [address] [place] [address] [address] [place] [address] Oswaldo Kelley MD [id number] [facility] [address] [place], [place] [id number] [place] [id number] [place] [address] Kofi Mckay MD [address] [place] [address] [address] [place], [place] [address] S Rajesh whittington MD [address] [place] [address] [address] [place] [address] 2 [phone] PROCEDURES: GM LEVEL 4 (Incomplete) CONTINUED ON NEXT PAGE RUN DATE: 09/20/18 [facility] *LIVE* PAGE 2 RUN TIME: 1229 Specimen Inquiry RUN USER: INTERFACE SPEC #: [id number] PATIENT: CECE CRAMER ZULMA #[id number] (Continued)------- ----- TISSUES: 1. STOMACH, NOS - Stomach, antrum, bx. FINAL DI AGNOSIS Stomach, antrum, bx.: Mild chronic gastritis, no Helicobacter organi sms seen. GROSS AND MICROSCOPIC GROSS EXAMINATION: Received is/are th e specimen/s designated with the appropriate dimensions and block design ation: 1. Stomach, antrum, bx.: 2 segments of pink -gonzales tissue, measuring up to 0.3 cm. in greatest dimension each. MICROSCOPIC EXAMINATION: Sections of the "Stomach , antrum, bx." reveal changes of mild chronic gastritis. The lamina propr ia contains a mild inflammatory infiltrate. The Alcian blue/PAS stain d oes not show goblet cell metaplasia. The immunostain for Helicobacter orga [facility] is negative. (When special stains have been reviewed, the appropriate positive/negative controls have been reviewed and are appropriately positive/ negative). POST-OP DIAGNOSIS Grade 4 esophagitis, hiatal hernia, nodular gastropathy antrum PRE-OP DIAGNOSIS Anemia Mary SPICER ON FILE Korin Pang MD 09/20/18 1229 -- END OF REPORT
--- OUTSIDE RECORDS SUMMARY | 2020-09-05 22:53 | XMS REPORT | Continuity of Care Document ---
Author Author [facility] t Organization [facility] Address [address] [place] [address] Phone Unavailable Care Team Providers Care Repairer Engine Production Name Role Phone NONSTAFF PCP Unavailable DAMARIS WEINBERG Attphys Unavailable KEYSHAWN SANDOVAL Attphys Unavaila ble Claudio Jesus MD, Keyshawn Negrete Attphys Ozzy Corona MD Attphys Jerry BROWN Attphys Unavailable KEYSHAWN SANDOVAL Admphys Unavaila ble Payers Payer Name Policy Type Policy Number Effective Date Expiration Date S gerardo MEDICAREMEDICARE A [id number] 2007-PresentMedicare [id number] 2008 00:00:00 [facility]/BLUE SHIELDBCBS [facility] [id number] [facility] [id number], [place] [address]HAC [id number] 2014 00:00:00 [facility] [id number] 2018 00:00:00 [facility] Medicare A & B [id number] 2008 00:00:00 [facility] Problems Condition Name Condition Details Condition Category Status Onset Date Resolution Date Last Treatment Date Treating Clinician Comments Source Urinary tract infection Urinary tract infection Disease Active 2019-12-02 00:00:00 [facility] Cerebral aneurysm Cerebral aneurysm Disease Active 2015-12-15 00:00:00 [facility] Lumbar stenosis Lumbar stenosis Disease Active 2013-08-29 00:00:00 [facility] Allergies, Adverse Reactions, Alerts Allergy Name Allergy Type Status Severity Reaction(s) Onset Date Inacti ve Date Treating Clinician Comments Source Pseudoephedrine Allergy to Substance Active 2019-07-25 00:0 0:00 [facility] codeine DA Active 2018-09-14 00:00:00 [facility] hydrocodone DA Active CO 2018-09-14 00:00:00 [facility] acetaminophen DA Active CO 2018-09-14 00:00:00 [facility] hydrocodone DA Active CO 2018-07-06 00:00:00 [facility] acetaminophen DA Active CO 2018-07-06 00:00:00 [facility] codeine DA Active 2017-11-24 00:00:00 [facility] Codeine Allergy to Substance Active Mild RASH 2015-08-10 00:00:00 [facility] Codeine Drug Allergy Active Itching 2013-08-05 00:00:00 [facility] Social History Social Habit Start Date Stop Date Quantity Comments Source Sex Assigned At [facility] Alcohol intake 2019-12-05 00:00:00 2019-12-05 00:00:00 [facility] Status Start Date Stop Date Source Never smoker [facility] Medications Ordered Medication Name Filled Medication Name Start Date Stop Da te Current Medication? Ordering Clinician Indication Dosage Frequency Signature (SIG) Comments Components Source pravastatin (PRAVACHOL) 10 MG tablet 2019-12-05 13:05:38 Ye s 40mg QD Take 40 mg by mouth daily . [facility] potassium chloride (KLOR-CON) 10 MEQ CR tablet 2019-12-05 13:05: 38 Yes 10meq QD Take 10 mEq by mouth daily. [facility] CYANOCOBALAMIN, VITAMIN B-12, (VITAMIN B-12 ORAL) 2019-12-05 13:05:38 Yes QD Take by mouth daily. [facility] pantoprazole (PROTONIX) 20 MG tablet 2019-12-05 13:05:38 Ye s 20mg Q.5D Take 20 mg by mouth 2 (two) times daily . [facility] ergocalciferol (VITAMIN D2) 1,250 mcg (50,000 unit) capsule 2019-12-05 13:05:38 Yes 5000U QD Take 5,000 Units by mouth nig htly. [facility] melatonin 3 mg Tab tablet 2019-12-05 13:05:38 Yes 5mg QD Take 5 mg by mouth nightly. [facility] pramipexole (MIRAPEX) 0.125 MG tablet 2019-12-05 13:05:38 Y es .125mg QD Take 0.125 mg by mouth nightly. [facility] ondansetron (ZOFRAN) 8 MG tablet 2019-12-05 13:05:38 Yes Take by mouth daily with dinner. [facility] sucralfate (CARAFATE) 1 gram tablet 2019-12-05 13:05:38 Yes 1g Q.[id number] Take 1 g by mouth 3 (three) times daily. [facility] levothyroxine (SYNTHROID, LEVOTHROID) 112 MCG tablet 2 13:05:38 Yes 112ug Take 112 mcg by mouth Every morning on a n empty stomach. [facility] amLODIPine (NORVASC) 10 MG tablet 2019-12-05 13:05:38 Yes 10mg QD Take 10 mg by mouth daily. [facility] metoprolol (LOPRESSOR) 25 MG tablet 2019-12-05 13:05:38 Yes 25mg QD Take 25 mg by mouth daily. [facility] venlafaxine (EFFEXOR-XR) 75 MG 24 hr capsule 2019-12-05 13:05:38 Yes 75mg QD Take 75 mg by mouth daily 3 tablets . [facility] donepezil (ARICEPT) 10 MG tablet 2019-12-05 13:05:38 Yes 10mg QD Take 10 mg by mouth every evening. [facility] escitalopram oxalate (LEXAPRO) 20 MG tablet 2019 12:44:23 2019-12-05 00:00:00 No 20mg QD Take 20 mg by mouth nightly. [facility] escitalopram oxalate (LEXAPRO) 10 MG tablet 2019-12-05 00:00:00 Yes 10mg QD Take 1 tablet (10 mg total) by mouth nightly. [facility] levocetirizine (XYZAL) 5 MG tablet 2019-12-04 15:39:41 00:00:00 No 5mg QD Take 5 mg by mouth every evening. [facility] TiZANidine (ZANAFLEX) 4 MG capsule 2019-12-04 15:39:41 202 00:00:00 No 2mg Q.5D Take 2 mg by shaw th 2 (two) times daily The patient takes an additional 4mg at bedtime reported by the patient's daughter Smiley on 11/08/[address] [facility] dicyclomine (BENTYL) 20 mg tablet 2019-12-04 15:39:41 2019 00:00:00 No 20mg Take 20 mg by mouth every 6 (six) hours. [facility] raloxifene (EVISTA) 60 mg tablet 2019-12-04 15:39:41 2019-11 00:00:00 No 60mg QD Take 60 mg by mouth daily. [facility] hydroxyurea (DROXIA) 500 mg capsule 2019-12-04 15:39:4 1 2019-12-04 00:00:00 No QD Take by mouth daily 1-2 tablet every oth er day . [facility] QUEtiapine (SEROQUEL) 25 MG tablet 2019-12-04 00:00:00 23:59:00 No 25mg QD Take 1 tablet (25 mg total) by mouth nig htly for 30 days. [facility] cefdinir (OMNICEF) 300 MG capsule 2019-12-04 00:00:00 2019 23:59:00 No 300mg Take 1 capsule ( 300 mg total) by mouth every 12 (twelve) hours for 4 days. [facility] chlordiazePOXIDE (LIBRIUM) 10 MG capsule 2019-11 21:26:30 2019-12-02 00:00:00 No 10mg Take 10 mg by mouth 4 (four) ti mes daily as needed. [facility] esomeprazole (NEXIUM) 40 MG capsule 2019-12-02 21:25:4 7 2019-12-02 00:00:00 No 40mg Q.5D Take 40 mg by mouth 2 (two) times daily. [facility] furosemide (LASIX) 40 MG tablet 2019-12-02 21:25:16 00:00:00 No 40mg QD Take 40 mg by mouth daily. [facility] levothyroxine (SYNTHROID, LEVOTHROID) 100 MCG tablet 2019-12-02 21:23:42 2019-12-02 00:00:00 No 100ug Q.25W Take 100 mcg by mouth 4 (four) times a week Sun, Mon, Tu and Wed. [facility] levothyroxine (SYNTHROID, LEVOTHROID) 88 MCG tablet 2019-12-02 21:23:21 2019-12-02 00:00:00 No 88ug Q.[id number] 46336U Take 88 mcg by mouth 3 (three) times a week Thurs, Fri and Sat. [facility] omega-3 acid ethyl esters (LOVAZA) 1 gram capsule 2019-12-02 21:22:08 2019-12-02 00:00:00 No 2g Q.5D Take 2 g by mouth 2 (two) times daily. [facility] temazepam (RESTORIL) 15 mg capsule 2019-12-02 21:19:23 202 00:00:00 No 15mg Take 15 mg by mouth every night as neede d for Sleep. [facility] aspirin 81 MG EC tablet 2019-12-02 21:17:13 2019-12-02 00:00:00 No 81mg QD Take 81 mg by mouth daily. [facility] HYDROcodone-acetaminophen (NORCO 5-325) 5-325 mg per tablet 2013-09-03 00:00:00 2019-12-04 00:00:00 No 1{tbl} Take 1 tablet by mouth every 4 (four) hours as needed. [facility] Amlodipine Besylate 10 Mg Tablet Amlodipine Besylate 10 Mg Tablet Yes 10 Daily [facility] Cetirizine Hcl 10 Mg Tablet Cetirizine Hcl 10 Mg Tablet Yes 1 Daily [facility] Glucosamine Sulfate 2KCL (Glucosamine) 1,000 Mg Tablet Glucosamine Sulfate 2KCL (Glucosamine) 1,000 Mg Tablet Yes Daily [facility] Levothyroxine Sodium 88 Mcg Tablet Levothyroxine Sodium 88 Mcg Tablet Yes 88 Use As Directed [facility] Levothyroxine Sodium 100 Mcg Tablet Levothyroxine Sodium 100 Mcg Tabl et Yes 100 Use As Directed [facility] Metoclopramide Hcl 10 Mg Tablet Metoclopramide Hcl 10 Mg Tablet Yes 10 Three Times A Day [facility] [place]-3 Acid Ethyl Esters (Lovaza) 1 Gm Capsule [place]- 3 Acid Ethyl Esters (Lovaza) 1 Gm Capsule Yes 1 Twice A Day [facility] Omeprazole 40 Mg Capsule. Omeprazole 40 Mg Capsule. Yes 40 Four Times Daily [facility] Potassium Chloride (Klor-Con 8) 8 Meq Tablet.er Potass ium Chloride (Klor-Con 8) 8 Meq Tablet.er Yes 1 Daily [facility] Pravastatin Sodium 40 Mg Tablet Pravastatin Sodium 40 Mg Tablet Yes 40 Bedtime [facility] Raloxifene Hcl (Evista) 60 Mg Tablet Raloxifene Hcl (Evista) 60 Mg Tablet Yes 60 Daily [facility] Temazepam 15 Mg Capsule Temazepam 15 Mg Capsule Yes 1 Bedtime [facility] Tramadol Hcl (Ultram) 50 Mg Tablet Tramadol Hcl (Ultram) 50 Mg Tablet Yes 50 Every 12 Hours for Pain C HI [facility] Venlafaxine Hcl 75 Mg Tab Venlafaxine Hcl 75 Mg Tab Yes 2 Bedtime [facility] Calcium Carbonate/Vitamin D3 (Calcium Wi th Vitamin D Tablet) 1 Each Tablet, 1 Each Oral Calcium Carbonate/Vitamin D3 (Calcium Wi th Vitamin D Tablet) 1 Each Tablet, 1 Each Oral 2016-09-06 00:00:00 No 1 Augustus y [facility] Chlordiazepoxide/Clidinium Br (Chlordiaz epoxide-Clidinium Cap) 1 Each Capsule, 1 Each Oral Chlordiazepoxide/Clidinium Br (Chlordiaz epoxide-Clidinium Cap) 1 Each Capsule, 1 Each Oral 2016-09-06 00:00:00 No 1 Fou r Times Daily [facility] Dexlansoprazole (Dexilant) 30 Mg Cap., 30 Mg Oral Dexlansoprazole (Dexilant) 30 Mg Cap., 30 Mg Oral 2016-09-06 00:00:00 No 30 Twice A Day [facility] Diazepam (Valium) 10 Mg Tablet, 10 Mg Oral Diazepam (V alium) 10 Mg Tablet, 10 Mg Oral 2016-09-06 00:00:00 No 10 Every 6 Hours as n eeded for Anxiety [facility] Furosemide 40 Mg Tablet, 40 Mg Oral Furosemide 40 Mg Tablet, 40 Mg Oral 2016-09-06 00:00:00 No 40 Daily [facility] Ipratropium [place] (Atrovent Hfa) 12.9 Gm Aer.w.adap, 2 Inh Inhalation Ipratropium [place] (Atrovent Hfa) 12.9 Gm Aer.w.adap, 2 Inh Inhalation 2016-09-06 00:00:00 No 2 Twice A Day as neede d [facility] Pantoprazole Sodium (Protonix) 40 Mg Tablet., 40 Mg Oral Pantoprazole Sodium (Protonix) 40 Mg Tablet., 40 Mg Oral 2016-09-06 00:00:00 No 40 Today At 6:00AM [facility] Levothyroxine Sodium (Levoxyl) 88 Mcg Tablet, 88 Mcg O ral Levothyroxine Sodium (Levoxyl) 88 Mcg Tablet, 88 Mcg Oral 2015-08-14 00:00:00 No 88 Every Other Day [facility] Levothyroxine Sodium (Levoxyl) 100 Mcg Tablet, 100 Mcg Oral Levothyroxine Sodium (Levoxyl) 100 Mcg Tablet, 100 Mcg Oral 2015-08-14 00:00:00 No 100 Every Other Day [facility] Levothyroxine Sodium 88 Mcg Tablet, 88 Mcg Oral Levoth yroxine Sodium 88 Mcg Tablet, 88 Mcg Oral 2015-08-14 00:00:00 No 88 Augustus y [facility] Aspirin 325 Mg Tabec, 325 Mg Oral Aspirin 325 Mg Tabec, 325 Mg O ral 2014-10-27 00:00:00 No 325 Daily [facility] Fiber , Oral Fiber , Oral 2012-05-23 00:00:00 No Daily [facility] Vital Signs Vital Name Observation Time Observation Value Comments Source Systolic blood pressure 2019-12-05 12:30:00 137 mm[Hg] [facility] Diastolic blood pressure 2019-12-05 12:30:00 67 mm[Hg] [facility] Heart rate 2019-12-05 12:30:00 96 /min [facility] Body temperature 2019-12-05 12:30:00 36.33 Ann [facility] Respiratory rate 2019-12-05 12:30:00 18 /min [facility] Oxygen saturation in Arterial blood by Pulse oximetry 12-05 12:30:00 96 /min [facility] Body weight 2019-12-03 09:00:00 62.551 kg [facility] BMI 2019-12-03 09:00:00 26.93 kg/m2 [facility] Body height 2019-12-02 06:00:00 152.4 cm [facility] Procedures Procedure Date / Time Performed Performing Clinician Chanda maldonado RHYTHM STRIP - SCAN 2019-12-10 16:30:55 ProviderHamzah [facility] RHYTHM STRIP - SCAN 2019-12-09 13:45:11 Provider, Hamzah person [facility] ECG 12-LEAD 2019-12-05 12:38:22 Unknown, Hl7 Doctor [facility] POCT-GLUCOSE METER 2019-12-04 12:34:00 Zelda Corona ran [facility] POCT-GLUCOSE METER 2019-12-04 06:36:00 Zleda Corona ran [facility] POCT-GLUCOSE METER 2019-12-03 23:53:00 Zelda Corona [facility] ECHOCARDIOGRAM REPORT - SCAN 2019-12-03 21:10:23 Provider, Jessica Giordano [facility] POCT-GLUCOSE METER 2019-12-03 17:31:00 Zelda Corona [facility] VITAMIN B12 AND FOLATE 2019-12-03 10:28:00 Zelda Corona shvarjose david [facility] FERRITIN 2019-12-03 10:28:00 Zelda Corona [facility] CBC (HEMOGRAM ONLY) 2019-12-03 10:28:00 Zelda Corona [facility] COMPREHENSIVE METABOLIC PANEL 2019-12-03 10:28:00 [facility] 2D ECHO W/ DOPPLER (CW/PW/COLOR) 2019-12-02 17:48:48 Claire Fernández [facility] BLOOD CULTURE 2019-12-02 10:05:00 Lydia Rtoh [facility] BLOOD CULTURE 2019-12-02 09:55:00 Lydia Roth [facility] URINALYSIS W/ REFLEX URINE CULTURE 2019-12-02 08:47:00 Opal Roth [facility] BASIC METABOLIC PANEL (7) 2019-12-02 06:55:00 Lydia Roth [facility] PT/APTT 2019-12-02 06:55:00 Gonzalez, [place] [facility] LACTIC ACID, VENOUS 2019-12-02 06:55:00 Lydia Roth [facility] TSH/FREE T4 IF INDICATED 2019-12-02 06:55:00 Lydia Roth [facility] PROCALCITONIN 2019-12-02 06:55:00 Lydia Roth [facility] HEPATIC FUNCTION PANEL 2019-12-02 06:55:00 Lydia Roth [facility] LIPID PANEL 2019-12-02 06:55:00 Caden Sandoval ndo [facility] CBC W/PLT COUNT & AUTO DIFFERENTIAL 2019-12-02 06:55:00 Lydia Roth [facility] XR CHEST 1 VIEW PORTABLE/BEDSIDE 2019-12-02 06:20:00 Mile Roth [facility] Computed tomography of brain without radiopaque contrast 00:00:00 DAMARIS WEINBERG [facility] X-ray of chest, single view 2019-12-02 00:00:00 [facility] Plan of Care Planned Activity Planned Date Details Comments Source Future Scheduled Test 2020-06-23 00:00:00 INFLUENZA VACCINE (#1) [code = INFLUENZA VACCINE (#1)] [facility] Future Scheduled Test 2009-03-24 00:00:00 MEDICARE ANNUAL WE LLNESS (YEAR 2 or FIRST YEAR if no IPPE) [code = MEDICARE ANNUAL WELLNESS (YEAR 2 or FIRST YEAR if no IPPE)] [facility] Future Scheduled Test 2008 00:00:00 PNEUMOCOCCAL 65+ Y RS (1 of 1 - [id number] PCV13) [code = PNEUMOCOCCAL 65+ YRS (1 of 1 - [id number] PCV13)] [facility] Encounters Start Date/Time End Date/Time Encounter Type Admission Type [facility] Care Department Encounter ID Source 2019-12-02 01:07:00 2019-12-02 04:55:00 Departed Emergency Room [address] [facility] [id number] [facility] 2019-07-25 19:22:00 2019-07-25 21:20:[address] [facility] [id number] [facility] 2019-05-29 12:50:00 2019-05-29 12:50:00 Registered Clinic [address] [facility] [id number] [facility] Results Test Description Test Time Test Comments Results Result Comments Source CHEST SINGLE (PORTABLE) 2020-09-05 21:59:00 [facility] : 1945 Sex: F [place] [address] Patient Name: CECE CRAMER MR #: [id number] : 1945 Age/Sex: 75/F Req #: [id number] Adm Physician: Ordered by: DAMARIS WEINBERG DO Report #: [id number] Location: ER Room/Bed: Procedure: [id number] DX/CHEST SINGLE (PORTABLE) Exam Date: 09/05/20 Exam [...] 6463-4) No growth in 5 days [facility] [id number] 17:03:00* Test Item Value Reference Range Interpretation Comments CULTURE (BEAKER) (test code = 1095) No growth in 5 days BLOOD [id number] 17:03:00* Test Item Value Reference Range Interpretation Comments CULTURE (BEAKER) (test code = 1095) No growth in 5 days ECG 12 [id number] 17:32:09Interface, External Ris In - 12/05/2019 5:32 PM CSTVentricular Rate 95 BPMAtrial Rate 95 BPMP-R Interval 172 msQRS Duration 72 msQ-T Interval 394 msQTC Calculation(Bazett) 495 msP [place] 56 degreesR [place] 1 degreesT [place] 59 degreesNormal sinus rhythmPossible Left atrial enlargementProlonged QTAbnormal ECGWhen compared with ECG of 18-DEC-2015 07:28,No significant change was foundConfirmed by Toyin DREW BASANT ([id number]) on 12/05/2019 5:32:07 [facility] [id number] 12:47:00* Test Item Value Reference Range Interpretation Comments POC-Glucose Meter (test code = 1538) 118 mg/dL 70-110 H : TESTED AT [address], [address]: Rhinestone Setter/Auto Tire Recapper ID = [id number] for NADINE ARREAGA Lab Interpretation (test code = 65242-8) Abnormal [facility] [id number] 12:47:00* Test Item Value Reference Range Interpretation Comments POC-GLUCOSE METER (BEAKER) (test code = 1538) 118 mg/dL 70-110 H : TESTED AT [address], [address]: Rhinestone Setter/Auto Tire Recapper ID = [id number] for WENDY ARREAGAOMA POCT-GLUCOSE [id number] 06:47:00* Test Item Value Reference Range Interpretation Comments POC-GLUCOSE METER (BEAKER) (test code = 1538) 130 mg/dL 70-110 H : TESTED AT [address], [address]: Rhinestone Setter/Auto Tire Recapper ID = [id number] for GISSEL CRAMER POCT-GLUCOSE [id number] 00:06:00* Test Item Value Reference Range Interpretation Comments POC-GLUCOSE METER (BEAKER) (test code = 1538) 108 mg/dL 70-110 : TESTED AT [address], [address]: Rhinestone Setter/Auto Tire Recapper ID = [id number] for GISSEL CRAMER POCT-GLUCOSE [id number] 17:44:00* Test Item Value Reference Range Interpretation Comments POC-GLUCOSE METER (BEAKER) (test code = 1538) 154 mg/dL 70-110 H : TESTED AT [address], [address]: Rhinestone Setter/Auto Tire Recapper ID = [id number] for GENTRY LONG [id number] 12:14:00* Test Item Value Reference Range Interpretation Comments Ferritin (test code = 2276-4) 376 ng/mL 5-275 H OTF (test code = OTF) Rhinestone Setter ID - ZABRINA Rangel Lab Interpretation (test code = 82586-6) Abnormal [facility]itamin B12 and [id number] 12:14:00* Test Item Value Reference Range Interpretation Comments Vitamin B12 (test code = 2132-9) 555 pg/mL 213-816 Folate (test code = 2284-8) 27.8 ng/mL >=7.0 OTF (test code = OTF) Rhinestone Setter ID - ZABRINA C Lab Interpretation (test code = 39625-8) Normal [facility]2020-02-11 12:14:00* Test Item Value Reference Range Interpretation Comments FERRITIN (BEAKER) (test code = 361) 376 ng/mL 5-275 H Rhinestone Setter ID - ZABRINA CVITAMIN B12 AND [id number] 12:14:00* Test Item Value Reference Range Interpretation Comments VITAMIN B12 (BEAKER) (test code = 774) 555 pg/mL 213-816 FOLATE (BEAKER) (test code = 362) 27.8 ng/mL >=7.0 [employer]inestone Setter ID - ZABRINA CComprehensive metabolic [id number] 11:11:00* Test Item Value Reference Range Interpretation Comments Protein, Total (test code = 2885-2) 7.5 6.0- 8.3 gm/dL Specimen slightly hemolyzed Albumin (test code = 36078-8) 4.1 g/dL 3.5-5 Specimen slightly hemolyzed Alkaline [...] mg/dL 70-105 H Calcium (test code = 62552-9) 9.5 mg/dL 8.4-10.2 AST (test code = 1920-8) 42 U/L 5-34 H Spe cimen slightly hemolyzed ALT (test code = 1742-6) 50 U/L 6-55 Spe cimen slightly hemolyzed EGFR (test code = 29315-0) 53 mL/min/1.73 sq m ESTIMATED GFR IS NOT ACCURATE CREATININE CLEARANCE IN PREDICTING GLOMERULAR FILTRATION RATE. ESTIMATED GFR IS NOT APPLICABLE FOR DIALYSIS PATIENTS. OTF (test code = OTF) Rhinestone Setter AKASH Ivey Lab Interpretation (test code = 32329-3) Abnormal [facility] Hospital[facility]PREHENSIVE METABOLIC [id number] 11:11:00* Test Item Value Reference Range Interpretation [...] GFR IS NOT APPLICABLE FOR DIALYSIS PATIENTS. Rhinestone Setter AKASH ACEVEDO [facility] (Hemogram only)2019-12-03 10:46:00* Test [...] 450 K/CU MM MPV (test code = 12768-6) 9.3 fL 9.4-12.3 L nRBC (test code = 413) 0 0- 0 /100 WBC Lab Interpretation (test code = 32482-2) Abnormal [facility]2019-12-03 10:46:00* Test Item Value Reference [...] Study 12/02/2019 ZULMA Gender Female Visit Number [id number] Race Unknown Room Number 1046 Number Date of 1945 Referring Caden Alexander Physician Age 74 year(s) Manager Story Oracio Olmos [facility] Interpreting Derick Thompson, Physician MD Fellow RONNI [...] Velocity: 0.85 m/s Mean Gradient: 2.9 mmHg [facility]ium[facility]inal[facility] w/Microscopic + Reflex to [id number] 09:47:00* Test Item Value Reference Range Interpretation Comments Color, UA (test code = 5778-6) Colorless Clarity, UA (test code = 5767-9) Clear Specific [place], UA (test code = 5811-5) 1.007 1.001-1.035 pH, UA (test code = 5803-2) 7.0 5.0-8.0 Protein, UA (test code = 18715-3) Negative Negative Glucose, UA (test code = 365) 50 mg/dL Negative A Ketones, UA (test code = 2514-8) Negative Negative Bilirubin, UA (test code = 85088-7) Negative Negative Blood, UA (test code = 60711-7) Negative Negative Nitrite, UA (test code = 5802-4) Negative Negative Leukocytes, UA (test code = 5799-2) Negative Negative Urobilinogen, UA (test code = 92689-6) 0.2 mg/dL 0.2-1 RBC, UA (test code = 76781-1) 1 /HPF WBC, UA (test code = 5821-4) <1 /HPF Bacteria, UA (test code = 60330-7) Rare Squam Epithel, UA (test code = 81443-2) <1 /HPF Specimen Source (test code = 2795) OTF (test code = OTF) Rhinestone Setter ID - [auto]Rhinestone Setter ID - tech Lab Interpretation (test code = 81653-6) Abnormal [facility]/ REFLEX URINE [id number] 09:47:00* Test Item Value Reference Range Interpretation [...] < /HPF SOURCE(BEAKER) (test code = 2795) Rhinestone Setter ID - [auto]Rhinestone Setter ID - [id number] 08:17:00* Test Item Value Reference Range Interpretation Comments Procalcitonin (test code = 53242-8) <0.05 <0.05 ng/mL OTF (test code = OTF) SEPSIS RISK (ng/mL)Low: 0.05-0.50Intermediate: 0.51-2.00High: >=2.01 Lab Interpretation (test code = 97863-3) Normal [facility]iumPROCAL[facility]ONIN2020-02-10 08:17:00* Test Item Value Reference Range Interpretation Comments PROCALCITONIN (BEAKER) (test code = 3036) < ng/mL <0.05 SEPSIS RISK (ng/mL)Low: 0.05-0.50Intermediate: 0.51-2.00High: > =2.01TSH/Free T4 If [id number] 07:57:00* Test Item Value Reference Range Interpretation Comments TSH (test code = 86181-9) 0.75 0.35- 4.94 uIU/mL OTF (test code = OTF) Rhinestone Setter ID - LM Lab Interpretation (test code = 20288-3) Normal [facility]iumTSH/FREE T4 IF [id number] 07:57:00* Test Item Value Reference Range Interpretation Comments THYROID STIMULATING HORMONE (BEAKER) (test code = 772) 0.75 uIU/mL 0.35-4.94 Rhinestone Setter ID - LMBasi Metabolic [id number] 07:43:00* Test Item Value Reference Range Interpretation [...] mg/dL 70-105 H Calcium (test code = 62654-3) 7.8 mg/dL 8.4-10.2 L EGFR (test code = 29860-6) 50 mL/min/1.73 sq m ESTIMATED GFR IS NOT ACCURATE CREATININE CLEARANCE IN PREDICTING GLOMERULAR FILTRATION RATE. ESTIMATED GFR IS NOT APPLICABLE FOR DIALYSIS PATIENTS. OTF (test code = OTF) Rhinestone Setter ID - LM Lab Interpretation (test code = 22884-1) Abnormal [facility]iumBASIC METABOLIC [id number] 07:43:00* Test Item Value Reference Range Interpretation [...] GFR IS NOT APPLICABLE FOR DIALYSIS PATIENTS. Rhinestone Setter ID - LMLipid [id number] 07:40:00* Test Item Value Reference Range Interpretation Comments Triglycerides (test code = 2571-8) 90 mg/dL Cholesterol (test code = 3-3) 158 mg/dL HDL (test code = 5-9) 56 mg/dL LDL Calculated (test code = 47458-8) 84 mg/dL OTF (test code = OTF) Triglyceride Reference Range : Low Risk <150 Borderline 150-199 High Risk 200-499 Very High Risk >=500 Cholesterol Reference Range: Low Risk <200 Borderline 200-239 High Risk >240 HDL Cholesterol Reference Range: Low Risk >=60 High Risk <40 LDL Cholesterol Reference Range: Optimal <100 Near Optimal 100-129 Borderline 130-159 High 160-189 Very High >=190 Rhinestone Setter ID - LM [facility] function oscfo1425-97-06 07:40:00* Test Item Value Reference Range Interpretation Comments Protein, Total (test code = 2885-2) 5.6 6.0- 8.3 gm/dL L Albumin (test code = 76332-9) 3.3 g/dL 3.5-5 L Total Bilirubin (test code = 1975-2) 0.3 mg/dL 0.2-1.2 Bilirubin, Direct (test code = 1968-7) 0.1 mg/dL 0.1-0.5 Alkaline Phosphatase (test code = 6768-6) 67 U/L 40-150 AST (test code = 1920-8) 72 U/L 5-34 H ALT (test code = 1742-6) 61 U/L 6-55 H OTF (test code = OTF) Rhinestone Setter ID - LM Lab Interpretation (test code = 25252-1) [facility]normal [facility] BVIHP4464-21-45 07:40:00* Test Item Value Reference Range Interpretation [...] Borderline 130-159 High 160-189 Very High >=190 Rhinestone Setter ID - LMHEPATIC FUNCTION EAEQF7301-52-00 07:40:00* Test Item Value Reference Range Interpretation [...] code = 347) 61 U/L 6-55 H Rhinestone Setter ID - LMLactic acid, yzrlct3708-92-77 07:31:00* Test Item Value Reference Range Interpretation Comments Lactate, Venous (test code = 2872) 1.5 mmol/L 0.5-2.2 OTF (test code = OTF) Rhinestone Setter ID - LM Lab Interpretation (test code = 37281-2) Normal [facility]LACT[facility] ACID, DTOLKX2714-73-46 07:31:00* Test Item Value Reference Range Interpretation Comments LACTATE BLOOD VENOUS (2) (BEAKER) (test code = 2872) 1.5 mmol/L 0 .5-2.2 Rhinestone Setter ID - LMPT/uVTL8764-23-05 07:26:00* Test Item Value Reference Range Interpretation Comments Protime (test code = 5902-2) 13.3 11.9- 14.2 seconds INR (test code = 6301-6) 1.0 <=5.9 PTT (test code = 39564-4) 26.3 22.5- 36.0 seconds OTF (test code = OTF) Effective 03/20/2019: PT Refe rence Range ChangeNew: 11.9- 14.2 Previous: 11.7-14.7 RECOMMENDED COUMADIN/WARFARIN INR THERAPY RANGESSTANDARD DOSE: 2.0-3.0 Includes: PROPHYLAXIS for venous thrombosis, sys temic embolization; TREATMENT for venous thrombosis and/or pulmonary embolus.HIGH RISK: Target INR is 2.5-3.5 for patients wiht mechanical heart valves. Lab Interpretation (test code = 15195-1) Normal [facility]iumPT/TNMH7142-08-15 07:26:00* Test Item Value Reference Range Interpretation [...] 450 K/CU MM MPV (test code = 59428-5) 10.0 fL 9.4-12.3 nRBC (test code = [...] No clot Lab Interpretation (test code = 39737-8) Abnormal [facility] HospitalCBC W/PLT COUNT & AUTO VHYUFRZSZSGN8529-74-40 07:24:00* Test Item Value Reference Range Interpretation [...] 0-1 No clotRAD, CHEST, 1 VIEW, NON YQJA7249-91-55 06:42:00Reason for exam:->r/o pneumoniaShould this be performed [...] AM XR chest 1 view portable / mcntswi7298-50-31 06:42:00Interface, External Ris In - 12/02/2019 6:45 [...] TERRENCE SEGURA MD on 12/02/2019 06:42 AM [facility]iumL[facility] Acid Cqgrw7948-95-63 05:03:00* Test Item Value Reference Range Interpretation Comments Lactic Acid Level (test code = Lactic Acid Level) 2.6 0.5- 2.0 HH Results repeated and called to DAMARIS WEINBERG DO at 0503 on 12/02/19 by Tala chirinos. Read back and verified.[facility] SINGLE (PORTABLE)2019-12-02 03:58:00 [facility] [address], [place] [address] Patient Name: CECE CRAMER MR #: [id number] : 1945 Age/Sex: 74/F Req #: [id number] Adm Physician: Ordered by: DAMARIS WEINBERG DO Report #: [id number] Location: ER Room/Bed: Procedure: [id number] DX/ CHEST SINGLE (PORTABLE) Exam Date: 12/02/19 [...] WEINBERG DO CHEST SINGLE (NOT PORTABLE)2019-12-02 03:23:00 [place] [address] Patient Name: CECE CRAMER MR #: [id number] : 1945 Age/Sex: 74/F Req #: [id number] Adm Physician: Ordered by: DAMARIS WEINBERG DO Report #: [id number] Location: ER Room/Bed: Procedure: [id number] DX/ CHEST SINGLE (NOT PORTABLE) Exam Date: [...] 12/02/19323 COPY TO: DAMARIS WEINBERG DO Urine RHE8699-96-19 03:08:00* Test Item Value Reference Range Interpretation Comments Urine WBC (test code = 5821-4) 6-10 0-5 H [facility] OSS6509-29-64 03:08:00* Test Item Value Reference Range Interpretation Comments Urine RBC (test code = 43372-6) 6-10 0-5 H [facility] CenterU[facility] Domjkkne0414-13-89 03:08:00* Test Item Value Reference Range Interpretation Comments Urine Bacteria (test code = 20148-8) MANY NONE H [facility] CenterU[facility] Epithelial Ybmda9523-15-25 03:08:00 * Test Item Value Reference Range Interpretation Comments Urine Epithelial Cells (test code = 85096-8) FEW NONE [facility] Center[facility] Calcium Carbonate Crystals 2019-12-02 03:08:00* Test Item Value Reference Range Interpretation Comments Urine Calcium Carbonate Crystals (test code = 5773-7) FEW NONE H [facility] CenterUrine Calcium Oxalate Kvcbjsso6477-60-36 03:08:00* Test Item Value Reference Range Interpretation Comments Urine Calcium Oxalate Crystals (test code = 5774-5) FEW FE W [facility] CenterU[facility] Hyaline Wlacd1721-66-12 03:08:00* Test Item Value Reference Range Interpretation Comments Urine Hyaline Casts (test code = 40691-0) 6-10 0-1 H [facility] CenterU[facility] Feeyz0163-89-93 03:08:00* Test Item Value Reference Range Interpretation Comments Urine Mucus (test code = 8247-9) MODERATE RARE H [facility] CenterCT BRAIN PJ8207-94-38 02:54:00 [facility] [address] [place] [address] Patient Name: CECE CRAMER MR #: [id number] : 1945 Age/Sex: 74/F Req #: [id number] Adm Physician: Ordered by: DAMARIS WEINBERG DO Report #: [id number] Location: ER Room/Bed: Procedure: [id number] CT/ CT BRAIN WO Exam Date: Exam [...] 12/02/19257 COPY TO: Claire WEINBERG DO Urine Dgbbr1285-48-82 02:42:00* Test Item Value Reference Range Interpretation Comments Urine Color (test code = 5778-6) YELLOW YELLOW [facility] Center[facility] Hvnwkem4834-29-63 02:42:00* Test Item Value Reference Range Interpretation Comments Urine Clarity (test code = 30495-5) CLEAR CLEAR [facility] CenterU[facility] Specific Qphtkru6111-17-42 02:42:00 * Test Item Value Reference Range Interpretation Comments Urine Specific [place] (test code = 5811-5) 1.025 1.010-1.02 5 [facility] CenterU[facility] hN6915-72-48 02:42:00* Test Item Value Reference Range Interpretation Comments Urine pH (test code = 85188-3) 7 5-7 [facility] Leukocyte Ycibqkmw4739-79-10 02:42:00* Test Item Value Reference Range Interpretation Comments Urine Leukocyte Esterase (test code = 5799-2) NEGATIVE NEGATIVE [facility] Feykecr5181-21-73 02:42:00* Test Item Value Reference Range Interpretation Comments Urine Nitrite (test code = 48523-8) NEGATIVE NEGATIVE [facility] CenterU[facility] Rwhcgpz1806-74-43 02:42:00* Test Item Value Reference Range Interpretation Comments Urine Protein (test code = 5804-0) 1+ NEGATIVE H [facility] CenterU[facility] Glucose (UA)2019-12-02 02:42:00* Test Item Value Reference Range Interpretation Comments Urine Glucose (UA) (test code = 2349-9) 1+ NEGATIVE H [facility] CenterUrine Dpgolgw0989-87-18 02:42:00* Test Item Value Reference Range Interpretation Comments Urine Ketones (test code = 33692-8) NEGATIVE NEGATIVE [facility] Center[facility] Bwzprekyzwbj3419-78-84 02:42:00* Test Item Value Reference Range Interpretation Comments Urine Urobilinogen (test code = 69741-0) 0.2 0.2-1 [facility] CenterU[facility] Jgsocmect1718-45-45 02:42:00* Test Item Value Reference Range Interpretation Comments Urine Bilirubin (test code = 1978-6) NEGATIVE NEGATIVE [facility] CenterU[facility] Kxivw5190-22-41 02:42:00* Test Item Value Reference Range Interpretation Comments Urine Blood (test code = 45886-8) NEGATIVE NEGATIVE [facility] CenterB-Type Natriuretic Cizhtci2285-99-99 02:38:00* Test Item Value Reference Range Interpretation Comments B-Type Natriuretic Peptide (test code = 44209-8) 85.1 0-100 [facility] CenterCreatine Kinase UG7545-38-35 02:38:00* Test Item Value Reference Range Interpretation Comments Creatine Kinase MB (test code = 44117-1) 1.20 0-5.0 [facility] CenterTroponin Q1927-08-82 02:38:00* Test Item Value Reference Range Interpretation Comments Troponin I (test code = YQC0155) < 0.001 0-0.300 [facility] CenterWhite Blood Lglmm9969-82-26 02:12:00* Test Item Value Reference Range Interpretation Comments White Blood Count (test code = 6690-2) 3.85 4.8-10.8 L [facility] CenterRed Blood Vqavk6221-14-94 02:12:00* Test Item Value Reference Range Interpretation Comments Red Blood Count (test code = 789-8) 2.34 3.6-5.1 L [facility] CenterHemoglobin2020-02-10 02:12:00* Test Item Value Reference Range Interpretation Comments Hemoglobin (test code = 15826-5) 9.3 12.0-16.0 L [facility] CenterHematocrit2020-02-10 02:12:00* Test Item Value Reference Range Interpretation Comments Hematocrit (test code = 4544-3) 28.6 34.2-44.1 L [facility] CenterMean Corpuscular Prsaom4586-19-08 02:12:00* Test Item Value Reference Range Interpretation Comments Mean Corpuscular Volume (test code = 787-2) 122.2 81-99 H [facility] CenterMean Corpuscular Rkoexxvlkw5952-61-09 02:12:00* Test Item Value Reference Range Interpretation Comments Mean Corpuscular Hemoglobin (test code = 785-6) 39.7 28-32 H [facility] CenterMean Corpuscular Hemoglobin Concent 2019-12-02 02:12:00* Test Item Value Reference Range Interpretation Comments Mean Corpuscular Hemoglobin Concent (test code = 786-4) 32.5 31-35 [facility] CenterRed Cell Distribution Eduer3125-79-87 02:12:00* Test Item Value Reference Range Interpretation Comments Red Cell Distribution Width (test code = 01473-8) 14.6 11.7 -14.4 H [facility] CenterPlatelet Pkihh7544-20-67 02:12:00* Test Item Value Reference Range Interpretation Comments Platelet Count (test code = 777-3) 229 140-360 [facility] CenterNeutrophils (%) (Auto)2019-12-02 02:12:00 * Test Item Value Reference Range Interpretation Comments Neutrophils (%) (Auto) (test code = 44118-0) 66.4 38.7-80.0 [facility] CenterLymphocytes (%) (Auto)2019-12-02 02:12:00 * Test Item Value Reference Range Interpretation Comments Lymphocytes (%) (Auto) (test code = 736-9) 23.4 18.0-39.1 [facility] CenterMonocytes (%) (Auto)2019-12-02 02:12:00* Test Item Value Reference Range Interpretation Comments Monocytes (%) (Auto) (test code = 5905-5) 9.1 4.4-11.3 [facility] CenterEosinophils (%) (Auto)2019-12-02 02:12:00 * Test Item Value Reference Range Interpretation Comments Eosinophils (%) (Auto) (test code = 713-8) 0.5 0.0-6.0 [facility] CenterBasophils (%) (Auto)2019-12-02 02:12:00* Test Item Value Reference Range Interpretation Comments Basophils (%) (Auto) (test code = 706-2) 0.3 0.0-1.0 [facility] CenterIM GRANULOCYTES %2019-12-02 02:12:00* Test Item Value Reference Range Interpretation Comments IM GRANULOCYTES % (test code = IM GRANULOCYTES %) 0.3 0.0- 1.0 [facility] CenterNeutrophils # (Auto)2019-12-02 02:12:00* Test Item Value Reference Range Interpretation Comments Neutrophils # (Auto) (test code = 751-8) 2.6 2.1-6.9 [facility] CenterLymphocytes # (Auto)2019-12-02 02:12:00* Test Item Value Reference Range Interpretation Comments Lymphocytes # (Auto) (test code = 87338-3) 0.9 1.0-3.2 L [facility] CenterMonocytes # (Auto)2019-12-02 02:12:00* Test Item Value Reference Range Interpretation Comments Monocytes # (Auto) (test code = 742-7) 0.4 0.2-0.8 [facility] CenterEosinophils # (Auto)2019-12-02 02:12:00* Test Item Value Reference Range Interpretation Comments Eosinophils # (Auto) (test code = 711-2) 0.0 0.0-0.4 [facility] CenterBasophils # (Auto)2019-12-02 02:12:00* Test Item Value Reference Range Interpretation Comments Basophils # (Auto) (test code = 704-7) 0.0 0.0-0.1 [facility] CenterAbsolute Immature Granulocyte (auto 2019-12-02 02:12:00* Test Item Value Reference Range Interpretation Comments Absolute Immature Granulocyte (auto (omayra t code = Absolute Immature Granulocyte (auto) 0.01 0-0.1 [facility] Myhzp1883-10-84 02:02:00* Test Item Value Reference Range Interpretation Comments Sodium Level (test code = 2951-2) 137 136-145 [facility] CenterPotassium Iinji0089-87-09 02:02:00* Test Item Value Reference Range Interpretation Comments Potassium Level (test code = 2823-3) 4.9 3.5-5.1 [facility] CenterChloride Mocvo1963-91-94 02:02:00* Test Item Value Reference Range Interpretation Comments Chloride Level (test code = 2075-0) 103 98-107 [facility] CenterCarbon Dioxide Zhwhs2487-08-64 02:02:00* Test Item Value Reference Range Interpretation Comments Carbon Dioxide Level (test code = 2028-9) 25 22-29 [facility] CenterAnion Ren3804-05-37 02:02:00* Test Item Value Reference Range Interpretation Comments Anion Gap (test code = 30750-9) 13.9 8-16 [facility] CenterBlood Urea Cvtyubfk4764-29-79 02:02:00* Test Item Value Reference Range Interpretation Comments Blood Urea Nitrogen (test code = 3094-0) 18 7-26 [facility] CenterCreatinine2020-02-10 02:02:00* Test Item Value Reference Range Interpretation Comments Creatinine (test code = 2160-0) 1.50 0.57-1.11 H [facility] CenterBUN/Creatinine Kbnms9883-99-42 02:02:00* Test Item Value Reference Range Interpretation Comments BUN/Creatinine Ratio (test code = 3097-3) 12 6-25 [facility] CenterEstimat Glomerular Filtration Rate 2019-12-02 02:02:00* Test Item Value Reference Range Interpretation Comments Estimat Glomerular Filtration Rate (test code = 429819545) 34 >60 L Ranges were taken from the National Kidney Disease Education Program and the [facility] Foundation literature.Reference ranges:60 or greater: Dunkjk84-43 ( for 3 consecutive months): Chronic kidney disease 15 or less: Kidney failurePermian Regional Medical CenterGlucose Ugwov1291-87-13 02:02:00* Test Item Value Reference Range Interpretation Comments Glucose Level (test code = KHD0162) 116 74-118 [facility] CenterCalcium Dteyc0499-12-66 02:02:00* Test Item Value Reference Range Interpretation Comments Calcium Level (test code = 39583-1) 8.7 8.4-10.2 [facility] CenterTotal Udpnlhopg8007-33-91 02:02:00* Test Item Value Reference Range Interpretation Comments Total Bilirubin (test code = 1975-2) 0.3 0.2-1.2 [facility] CenterAspartate Amino Transf (AST/SGOT) 2019-12-02 02:02:00* Test Item Value Reference Range Interpretation Comments Aspartate Amino Transf (AST/SGOT) (test code = Aspartate Amino Transf (AST/SGOT)) 16 5-34 [facility] CenterAlanine Aminotransferase (ALT/SGPT) 2019-12-02 02:02:00* Test Item Value Reference Range Interpretation Comments Alanine Aminotransferase (ALT/SGPT) (test code = 1742-6) 14 0-55 [facility] CenterTotal Krnrdpr8794-55-44 02:02:00* Test Item Value Reference Range Interpretation Comments Total Protein (test code = 2885-2) 6.0 6.5-8.1 L [facility] CenterAlbumin2020-02-10 02:02:00* Test Item Value Reference Range Interpretation Comments Albumin (test code = 1751-7) 3.1 3.5-5.0 L [facility] CenterGlobulin2020-02-10 02:02:00* Test Item Value Reference Range Interpretation Comments Globulin (test code = 88025-1) 2.9 2.3-3.5 [facility] CenterAlbumin/Globulin Tnndh3651-46-17 02:02:00 * Test Item Value Reference Range Interpretation Comments Albumin/Globulin Ratio (test code = 1759-0) 1.1 0.8-2.0 [facility] CenterAlkaline Unwdarjufpc2514-66-41 02:02:00* Test Item Value Reference Range Interpretation Comments Alkaline Phosphatase (test code = 6768-6) 62 40-150 [facility] CenterCreatine Gnjdit4508-26-16 02:02:00* Test Item Value Reference Range Interpretation Comments Creatine Kinase (test code = 2157-6) 49 29-168 [facility] CenterCREATININE W ESTIMATED MHJ4460-76-51 11:28:00* Test Item Value Reference Range Interpretation Comments BEDSIDE CREATININE (test code = CREATBED) 1.4 MG/DL 0.6-1.3 H GLOMERULAR FILTRATION RATE POC (test code = GFRBED) 39 ML/MIN ENTER BEDSIDE CREATININE RESULT: 1.37Serial Number: [id number] Name of User Perfo rming Test: MIESHA LEONARD- MRI BRAIN W/O LAMX8771-97-17 07:05:00 FAX: Mariusz Chaudhary MD [phone] [place]: St: DEP Name: CECE RUSHING [facility] : [birth year] Age/S: 74/F [address] [place] [address] Unit #: [id number] Loc: [place] [address] Phys: Mariusz Brown MD Acct: [id number] Dis Date: Status: DEP CLI PHONE #: [phone] Exam Date: 08/05/2019 1843 FAX #: [phone] Reason: DEMENTIA W/O BEHAVIORAL DISTURBANCE, UNSP DEMEN EXAMS: CPT CODE: [id number] MRI BRAIN W/O CONT 43686 MRI brain without contrast 019 HISTORY: Dementia with behavioral disturbance NE OCEDURE: Multiplanar multisequence imaging of the brain [...] 3. 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 SL: [id number] at 0705 Reported and signed by: Oracio Barroso M.D. CC: Mariusz Brown MD Technologist: Miesha Leonard RT(R)(MRI) Trnscrd Date/Time/By: 08/06/2019 (704) : By: [email or web address] Orig Print D/T: S: 08/06/2019 (708) PAGE 1 Signed Report Urine [id number] 20:56:00* Test Item Value Reference Range Interpretation Comments Urine WBC (test code = 5821-4) 0-5 0-5 [facility] CenterUrine GMU5965-33-71 20:56:00* Test Item Value Reference Range Interpretation Comments Urine RBC (test code = 70617-5) 6-10 0-5 H [facility] CenterUrine Hyetrnth1394-27-57 20:56:00* Test Item Value Reference Range Interpretation Comments Urine Bacteria (test code = 44804-7) MANY NONE H [facility] CenterUrine Epithelial Fhjvb6426-59-06 20:56:00 * Test Item Value Reference Range Interpretation Comments Urine Epithelial Cells (test code = 93316-5) NONE NONE [facility] CenterUrine Tpmoo2324-17-49 20:43:00* Test Item Value Reference Range Interpretation Comments Urine Color (test code = 5778-6) YELLOW YELLOW [facility] CenterUrine Cfcggft5524-63-93 20:43:00* Test Item Value Reference Range Interpretation Comments Urine Clarity (test code = 41324-9) SL CLOUDY CLEAR [facility] CenterUrine Specific Fntxpjz9106-72-78 20:43:00 * Test Item Value Reference Range Interpretation Comments Urine Specific [place] (test code = 5811-5) 1.020 1.010-1.02 5 [facility] CenterUrine wI6469-08-67 20:43:00* Test Item Value Reference Range Interpretation Comments Urine pH (test code = 64455-0) 6 5-7 [facility] CenterUrine Leukocyte Nnswosxf3033-54-93 20:43:00* Test Item Value Reference Range Interpretation Comments Urine Leukocyte Esterase (test code = 28254-3) SMALL NEGATIV E [facility] Kwctoul4735-52-92 20:43:00* Test Item Value Reference Range Interpretation Comments Urine Nitrite (test code = 00999-3) NEGATIVE NEGATIVE [facility] CenterUrine Afdvgdp3769-63-96 20:43:00* Test Item Value Reference Range Interpretation Comments Urine Protein (test code = 81287-3) TRACE NEGATIVE H [facility] Glucose (UA)2019-07-25 20:43:00* Test Item Value Reference Range Interpretation Comments Urine Glucose (UA) (test code = 72624-4) NEGATIVE NEGATIVE [facility] Faoobhf7130-37-67 20:43:00* Test Item Value Reference Range Interpretation Comments Urine Ketones (test code = 00720-8) NEGATIVE NEGATIVE [facility] Dobzpdrzdzti2606-98-94 20:43:00* Test Item Value Reference Range Interpretation Comments Urine Urobilinogen (test code = 75339-9) 0.2 0.2-1 [facility] Qdijkawlk8432-39-23 20:43:00* Test Item Value Reference Range Interpretation Comments Urine Bilirubin (test code = 1977-8) NEGATIVE NEGATIVE [facility] Lqzfh4821-15-14 20:43:00* Test Item Value Reference Range Interpretation Comments Urine Blood (test code = 95154-0) 3+ NEGATIVE [facility]odium Ydstg2457-11-17 20:42:00* Test Item Value Reference Range Interpretation Comments Sodium Level (test code = 2951-2) 137 136-145 [facility] CenterPotassium Bbtzc4883-45-29 20:42:00* Test Item Value Reference Range Interpretation Comments Potassium Level (test code = 2823-3) 4.0 3.5-5.1 [facility] CenterChloride Dzozn9999-44-38 20:42:00* Test Item Value Reference Range Interpretation Comments Chloride Level (test code = 2075-0) 104 98-107 [facility] CenterCarbon Dioxide Kkzrv9483-53-69 20:42:00* Test Item Value Reference Range Interpretation Comments Carbon Dioxide Level (test code = 2028-9) 25 22-29 [facility] CenterAnion Eob9506-60-69 20:42:00* Test Item Value Reference Range Interpretation Comments Anion Gap (test code = 90728-2) 12.0 8-16 [facility] CenterBlood Urea Oleevuqh5972-14-22 20:42:00* Test Item Value Reference Range Interpretation Comments Blood Urea Nitrogen (test code = 3094-0) 26 7- [facility] CenterCreatinine2019-10-03 20:42:00* Test Item Value Reference Range Interpretation Comments Creatinine (test code = 2160-0) 1.14 0.57-1.11 H [facility] CenterBUN/Creatinine Ayhga7384-91-45 20:42:00* Test Item Value Reference Range Interpretation Comments BUN/Creatinine Ratio (test code = 3097-3) 23 6- [facility] CenterEstimat Glomerular Filtration Rate 2019-07-25 20:42:00* Test Item Value Reference Range Interpretation Comments Estimat Glomerular Filtration Rate (test code = 212063102) 46 >60 L Ranges were taken from the National Kidney Disease Education Program and the [facility] literature.Reference ranges:60 or greater: Mplbrj99-57 ( for 3 consecutive months): Chronic kidney disease 15 or less: Kidney failurePermian Regional Medical CenterGlucose Bdpap8131-62-19 20:42:00* Test Item Value Reference Range Interpretation Comments Glucose Level (test code = WFW7333) 159 74-118 H [facility] CenterCalcium Rthyk2021-05-73 20:42:00* Test Item Value Reference Range Interpretation Comments Calcium Level (test code = 22734-0) 9.8 8.4-10.2 [facility] CenterWhite Blood Bksux0387-71-26 20:30:00* Test Item Value Reference Range Interpretation Comments White Blood Count (test code = 6690-2) 4.72 4.8-10.8 L [facility] CenterRed Blood Okgha6924-84-91 20:30:00* Test Item Value Reference Range Interpretation Comments Red Blood Count (test code = 789-8) 3.04 3.6-5.1 L [facility] CenterHemoglobin2019-10-03 20:30:00* Test Item Value Reference Range Interpretation Comments Hemoglobin (test code = 00500-9) 11.3 12.0-16.0 L [facility] CenterHematocrit2019-10-03 20:30:00* Test Item Value Reference Range Interpretation Comments Hematocrit (test code = 4544-3) 34.1 34.2-44.1 L [facility] CenterMean Corpuscular Yypdhi8634-50-52 20:30:00* Test Item Value Reference Range Interpretation Comments Mean Corpuscular Volume (test code = 787-2) 112.2 81-99 H [facility] CenterMean Corpuscular Jcikswbpgo8275-52-00 20:30:00* Test Item Value Reference Range Interpretation Comments Mean Corpuscular Hemoglobin (test code = 785-6) 37.2 28-32 H [facility] CenterMean Corpuscular Hemoglobin Concent 2019-07-25 20:30:00* Test Item Value Reference Range Interpretation Comments Mean Corpuscular Hemoglobin Concent (test code = 786-4) 33.1 31-35 [facility] CenterRed Cell Distribution [id number] 20:30:00* Test Item Value Reference Range Interpretation Comments Red Cell Distribution Width (test code = 45155-9) 16.9 11.7 -14.4 H [facility] CenterPlatelet [id number] 20:30:00* Test Item Value Reference Range Interpretation Comments Platelet Count (test code = 777-3) 417 140-360 H [facility] CenterNeutrophils (%) (Auto)2019-07-25 20:30:00 * Test Item Value Reference Range Interpretation Comments Neutrophils (%) (Auto) (test code = 84196-6) 72.8 38.7-80.0 [facility] CenterLymphocytes (%) (Auto)2019-07-25 20:30:00 * Test Item Value Reference Range Interpretation Comments Lymphocytes (%) (Auto) (test code = 736-9) 19.5 18.0-39.1 [facility] CenterMonocytes (%) (Auto)2019-07-25 20:30:00* Test Item Value Reference Range Interpretation Comments Monocytes (%) (Auto) (test code = 5905-5) 6.1 4.4-11.3 [facility] CenterEosinophils (%) (Auto)2019-07-25 20:30:00 * Test Item Value Reference Range Interpretation Comments Eosinophils (%) (Auto) (test code = 713-8) 0.6 0.0-6.0 [facility] CenterBasophils (%) (Auto)2019-07-25 20:30:00* Test Item Value Reference Range Interpretation Comments Basophils (%) (Auto) (test code = 706-2) 0.6 0.0-1.0 [facility] CenterIM GRANULOCYTES %2019-07-25 20:30:00* Test Item Value Reference Range Interpretation Comments IM GRANULOCYTES % (test code = IM GRANULOCYTES %) 0.4 0.0- 1.0 [facility] CenterNeutrophils # (Auto)2019-07-25 20:30:00* Test Item Value Reference Range Interpretation Comments Neutrophils # (Auto) (test code = 751-8) 3.4 2.1-6.9 [facility] CenterLymphocytes # (Auto)2019-07-25 20:30:00* Test Item Value Reference Range Interpretation Comments Lymphocytes # (Auto) (test code = 87548-5) 0.9 1.0-3.2 L [facility] CenterMonocytes # (Auto)2019-07-25 20:30:00* Test Item Value Reference Range Interpretation Comments Monocytes # (Auto) (test code = 742-7) 0.3 0.2-0.8 [facility] CenterEosinophils # (Auto)2019-07-25 20:30:00* Test Item Value Reference Range Interpretation Comments Eosinophils # (Auto) (test code = 711-2) 0.0 0.0-0.4 [facility] CenterBasophils # (Auto)2019-07-25 20:30:00* Test Item Value Reference Range Interpretation Comments Basophils # (Auto) (test code = 704-7) 0.0 0.0-0.1 [facility] CenterAbsolute Immature Granulocyte (auto 2019-07-25 20:30:00* Test Item Value Reference Range Interpretation Comments Absolute Immature Granulocyte (auto (omayra t code = Absolute Immature Granulocyte (auto) 0.02 0-0.1 [facility] CenterBONE DXA DUAL [id number] 08:02:00 [place] [address] Patient Name: CECE CRAMER MR #: [id number] : 943 Age/Sex: 74/F Req #: [id number] Adm Physician: Ordered by: MARIUSZ BROWN MD Report #: [id number] Location: DX Room/Bed: Procedure: [id number] DX/ BONE DXA DUAL ENERGY Exam Date: [...] for bone mineral density as provided by energy economist is 0.023 g/cm2 for lum bar spine [...] 3 COPY TO: HEATHER BROWN MD SURGICAL [id number] 12:29:00 RUN DATE: 09/20/18 [facility] *LIVE* PAGE 1 RUN TIME: 1229 Specimen Inqui ry RUN USER: INTERFACE PATIENT: CECE CRAMER ACCT #: [id number] LOC: KATIE U #: [id number] AGE/SX: 73/F ROOM: [facility] RE09/15/18REG DR: Oswaldo Kelley : 43 BED: 1 DIS: 09/19/18 STATUS: DIS IN TLOC: SPEC #: [id number] RECD: 09/18/18 STATUS: SOUElizabeth REQ #: [id number] CHANEL: 09/18/[address]: Oswaldo Kelley ENTERED: 09/20/18 SP TYPE: SURG SPEC OTHR DR: No Celine sean or Family Physician Self Referred Carla Diana MD, Alta f MD Rungta, Manish MD Subramanyam, Kalyan am MDORDERED: GM LEVEL 4 CODES: [id number] - STOMACH, NOS COPIES TO: No Primary or Famil y Physician Self Referred Carla Diana MD [address] [place] [address] [address] [place] [address] Oswaldo Kelley MD [address] [facility] [address] [place], [place] [id number] [place] [address] [place] [address] Kofi Mckay MD [address] [place] [address] [address] [place], [place] [address] S Rajesh whittington MD [address] [place] [address] [address] [place] [address] PROCEDURES: GM LEVEL 4 (Incomplete) CONTINUED ON NEXT PAGE RUN DATE: 09/20/18 [facility] *LIVE* PAGE 2 RUN TIME: 1229 Specimen Inquiry RUN USER: INTERFACE SPEC #: [id number] PATIENT: CECE CRAMER ZULMA #[id number] (Continued)------- ----- TISSUES: 1. STOMACH, NOS - [...] cell metaplasia. The immunostain for Helicobacter [facility] is negative. (When special stains have been reviewed, the appropriate positive/negative controls have been reviewed and are appropriately positive/ negative). POST-OP DIAGNOSIS Grade 4 esophagitis, hiatal hernia, nodular gastropathy antrum PRE-OP DIAGNOSIS Anemia Mary SPICER ON FILE Korin Pang MD 09/20/18 1229 -- END OF REPORT
[2020-09-05] MEDS: PIPER-TAZ 3.375 GM 50 ML IV SCH (23:12)
[2020-09-05 23:33] LABS: CLARITY,URINE CLEAR (CLEAR); COLOR,URINE YELLOW (YELLOW); KETONES,URINE NEGATIVE (NEGATIVE); LEUKOCYTE ESTERASE ,URINE TRACE (NEGATIVE); NITRITE,URINE NEGATIVE (NEGATIVE); PROTEIN,URINE DIPSTICK NEGATIVE (NEGATIVE)
[2020-09-05 23:34] LABS: BACTERIA,URINE MODERATE /HPF; BILIRUBIN,URINE NEGATIVE (NEGATIVE); EPITHELIAL CELLS,URINE MANY /LPF; RENAL EPITHELIAL CELLS,URINE MANY; URINE UROBILINOGEN 0.2 mg/dL (0.2 - 1)
[2020-09-06] VITALS (8 sets, daily range): BP systolic 93–124; BP diastolic 44–82
--- NOTE | 2020-09-06 00:19 | NUR ---
TELE BOX #34 ATTACHED TO PATIENT
[2020-09-06] MEDS: ONDANSETRON HCL INJ 2MG/ML 2ML 2 MG/ML VIAL IV PRN (01:24)
[2020-09-06] MEDS ORDERED: QUETIAPINE FUMA25 MG PO (02:17)
[2020-09-06] MEDS ORDERED: BUPROPION XL150 MG PO (02:17)
[2020-09-06] MEDS ORDERED: GABAPENTIN300 MG PO (02:17)
[2020-09-06] MEDS ORDERED: TIZANIDINE HCL4 MG PO (02:17)
[2020-09-06] MEDS ORDERED: PERCOCET 7.5-31 EACH PO (02:17)
[2020-09-06] MEDS ORDERED: TRELEGY ELLIPT1 EACH INH (02:17)
[2020-09-06] MEDS ORDERED: [UNRECOGNIZED DRUG - OTHER] TOP (02:51)
[2020-09-06] MEDS ORDERED: VENLAFAXINE HCL75 M1 PO (02:51)
[2020-09-06] MEDS ORDERED: K-TAB ER8 MEQ PO (02:51)
[2020-09-06] MEDS ORDERED: PRAMIPEXOLE0.125 MG PO (02:51)
[2020-09-06] MEDS ORDERED: LEVOTHYROXINE112 MCG PO (02:51)
[2020-09-06] MEDS ORDERED: HYDROXYUREA500 MG PO (02:51)
[2020-09-06] MEDS ORDERED: DICYCLOMINE HCL20 MG PO (02:51)
[2020-09-06] MEDS ORDERED: DONEPEZIL HCL23 MG PO (02:51)
[2020-09-06] MEDS ORDERED: CLOBETASOL PROP15 GM TOP (02:51)
[2020-09-06] MEDS ORDERED: SUCRALFATE1 GM PO (02:51)
[2020-09-06] MEDS ORDERED: METOPROLOL SUCC25 MG PO (02:51)
[2020-09-06] MEDS ORDERED: MYRBETRIQ25 MG PO (02:51)
[2020-09-06] MEDS ORDERED: PANTOPRAZOLE SO40 MG PO (02:51)
[2020-09-06] MEDS ORDERED: PROAIR HFA INH8.5 GM INH (02:51)
[2020-09-06] MEDS ORDERED: ESCITALOPRAM OX20 MG PO (02:51)
[2020-09-06] MEDS ORDERED: ONDANSETRON ODT8 MG PO (02:51)
[2020-09-06] MEDS ORDERED: SODIUM CHLORIDE 0.9% 250ML 250 ML ONE (03:17)
--- NOTE | 2020-09-06 03:25 | NUR ---
1st unit of prbcs started, no reactions.
[2020-09-06] MEDS ORDERED: POLYETHYLENE GLYCOL 3350 17 GM PACK PO PRN (04:15)
[2020-09-06] MEDS ORDERED: METOPROLOL SUCCINATE 25 MG TAB XL PO SCH (04:15)
[2020-09-06] MEDS ORDERED: TEMAZEPAM 7.5 MG CAP PO PRN (04:15)
[2020-09-06] MEDS ORDERED: KETOPROFEN TOP PRN ×2 (04:15→09:00)
[2020-09-06] MEDS ORDERED: ONDANSETRON HCL 4 MG ORAL DISINTEGRATING TAB PO PRN (04:15)
[2020-09-06] MEDS ORDERED: HYDRALAZINE HCL 20 MG/ML VIAL IV PRN (04:15)
[2020-09-06] MEDS ORDERED: TIZANIDINE HCL 4 MG TAB PO PRN (04:15)
[2020-09-06] MEDS ORDERED: PRAVASTATIN 20 MG TAB PO SCH (04:15)
[2020-09-06] MEDS ORDERED: CLOBETASOL PROPIONATE TOP SCH (04:15)
[2020-09-06] MEDS ORDERED: OXYCODONE/ACETAMINOPHEN 5-325 1 EACH TABLET PO PRN (04:15)
[2020-09-06] MEDS ORDERED: ALBUTEROL SULFATE HFA 8GM INHALATION AEROSOL INH PRN (04:15)
[2020-09-06] MEDS: PIPER-TAZ 3.375 GM 50 ML IV SCH ×7 (06:00→23:29)
[2020-09-06] MEDS: LEVOTHYROXINE SODIUM 112 MCG TAB PO SCH (06:30)
--- NOTE | 2020-09-06 06:31 | NUR ---
1st unit of prbcs completed, no reaction. patient tolerated well.
--- NOTE | 2020-09-06 07:10 | NUR ---
RCD PT AT BED PT IS ALERT AND ORIENTED PT RESTING ON BED IV PATENT BED LOW AND LOCKED CALL LIGHT IN REACH
[2020-09-06] MEDS ORDERED: FAMOTIDINE 20 MG TAB PO SCH (07:30)
[2020-09-06] MEDS: DICYCLOMINE HCL 20 MG TAB PO SCH ×4 (08:39→19:21)
[2020-09-06] MEDS: HYDROXYUREA 500 MG CAPSULE PO SCH (08:40)
[2020-09-06] MEDS: DOCUSATE SODIUM 100 MG CAP PO SCH ×2 (08:40→17:00)
[2020-09-06] MEDS: SUCRALFATE 1 GM TAB PO SCH ×3 (08:40→19:21)
[2020-09-06] MEDS: GABAPENTIN 300 MG CAP PO SCH ×3 (08:41→19:22)
[2020-09-06] MEDS: PANTOPRAZOLE SOD 40 MG TABEC PO SCH (08:41)
[2020-09-06] MEDS: AMLODIPINE BESYLATE 10 MG TAB PO SCH (08:41)
[2020-09-06] MEDS: METOPROLOL SUCCINATE 25 MG TAB XL PO SCH ×2 (08:41→19:22)
[2020-09-06] MEDS ORDERED: ESCITALOPRAM OXALATE 10 MG TAB PO SCH (09:00)
[2020-09-06] MEDS ORDERED: BUPROPION HCL 150 MG TABCR PO SCH (09:00)
[2020-09-06] MEDS: POTASSIUM CHLORIDE 20 MEQ TAB CR PO SCH ×2 (09:00→17:00)
[2020-09-06] MEDS: RALOXIFENE HCL 60 MG TAB PO SCH (09:00)
[2020-09-06] MEDS: CLOBETASOL PROPIONATE 0.05% CRM 15 GM TUBE TOP SCH ×2 (09:00→21:00)
[2020-09-06] MEDS ORDERED: VENLAFAXINE HCL 75 MG CAPCR PO SCH (09:00)
[2020-09-06] MEDS: NON-FORMULARY MEDICATION (Mirabegron (Myrbetriq) 25 MG) PO SCH (09:00)
[2020-09-06] MEDS: NON-FORMULARY MEDICATION (Fluticasone/Umeclidin/Vilanter (Trelegy Ellipta 100-62.5-25) 1 I INH SCH (09:00)
--- NOTE | 2020-09-06 09:00 | NUR ---
BLOOD TRANSFUSION STARTED AFTER VERIFIED WITH ANOTHER RN AND VITALS
[2020-09-06] MEDS: SODIUM CHLORIDE 0.9% 1000ML 1,000 ML IV SCH (13:30)
[2020-09-06] MEDS ORDERED: ACETAMIN/BUTALBITAL/CAFFEINE TAB PO PRN (14:15)
[2020-09-06 14:54] LABS: EOSINOPHILS % 0.2 % (0.0-6.0); HEMATOCRIT 26.3 % (34.2-44.1); HEMOGLOBIN 8.7 g/dL (12.0-16.0); LYMPHOCYTES # (AUTO) 0.7 (1.0-3.2); LYMPHOCYTES % 13.9 % (18.0-39.1); MEAN CORPUSCULAR HEMOGLOBIN 35.8 pg (28-32); MEAN CORPUSCULAR HGB CONC 33.1 g/dL (31-35); MONOCYTES # (AUTO) 0.4 (0.2-0.8); MONOCYTES % 8.4 % (4.4-11.3); NEUTROPHILS # (AUTO) 3.7 (2.1-6.9); NEUTROPHILS % 77.1 % (38.7-80.0); PLATELET COUNT 280 x10e3/uL (140-360); RED BLOOD COUNT 2.43 x10e6/uL (3.6-5.1)
[2020-09-06 14:56] LABS: MEAN CORPUSCULAR VOLUME 108.2 fL (81-99)
[2020-09-06 15:21] LABS: ALBUMIN 2.8 g/dL (3.5-5.0); ALBUMIN/GLOBULIN RATIO 0.8 (0.8-2.0); ANION GAP 14.7 mmol/L (8-16); CALCIUM 8.6 mg/dL (8.4-10.2); CREATININE, SERUM 0.96 mg/dL (0.57-1.11); POTASSIUM 3.7 mmol/L (3.5-5.1)
[2020-09-06] MEDS ORDERED: CHOLESTYRAMINE 4 GM PACKET PO PRN (15:30)
[2020-09-06 15:31] LABS: CREATINE KINASE MB 4.1 ng/mL (0-5.0)
--- NOTE | 2020-09-06 16:38 | History and Physical ---
PCP: Dr. Estrada. OUTPATIENT ENT: Dr. Carlos Moreno. OUTPATIENT SUPERVISOR CHEMICAL: Dr. Burnette. OUTPATIENT TOBACCO SAMPLE PULLER: None. CHIEF COMPLAINT: Frequency and painful urination. HISTORY OF PRESENT ILLNESS: The patient is a 75-year-old female, who presented to the emergency department on 09/05 with one week duration of dysuria, left facial swelling, and dyspnea. Per the emergency department physician note admitting diagnoses included, weakness and anemia as well as severe sepsis and UTI. She used to get blood transfusions about every three months prior to 2019 per the daughter who is available at the bedside. PAST MEDICAL HISTORY: 1. Hypertension. 2. Hypothyroidism. 3. UTIs. 4. Migraines. 5. Anemia, requiring multiple previous blood transfusions. 6. Depression. 7. Hyperlipidemia. 8. GERD. 9. Chronic back pain. 10. Neuropathy. 11. Hiatal hernia. 12. In 2014, she had upper GI bleed. 13. COPD. 14. Ulcer in distal esophagus. 15. Osteoarthritis. 16. Seasonal allergies. 17. Overactive bladder. PAST SURGICAL HISTORY: 1. Cholecystectomy. 2. Three back surgeries. 3. Right knee replacement on 08/11/2015. 4. EGD by Dr. Grove. FAMILY HISTORY: Father had low back pain and osteoarthritis. Mother had severe stroke. SOCIAL HISTORY: The patient lives alone. She is retired teacher. She denies any use of tobacco, alcohol, or illicit drug use. She has Rollator at home. ALLERGIES: PSEUDOEPHEDRINE AND CODEINE. REVIEW OF SYSTEMS: CONSTITUTIONAL: The patient denies chills. She has had a low-grade fever off and on. Denies weight loss or weight gain. HEENT: Eyes: Blurry vision, which she attributes to migraines. Ears, nose, and throat: Left jaw swelling for about a week, which she attributes to seasonal allergies. RESPIRATORY: Dyspnea. GENITOURINARY: States that urination has not been severely painful, but she has been having frequency. PSYCHIATRIC: History of depression. INTEGUMENTARY: No complaints. CARDIOVASCULAR: No complaints of chest pain or palpitations. States she has a history of heart murmur. GASTROINTESTINAL: No complaints, nausea, vomiting, diarrhea, or constipation. Her last bowel movement was today. MUSCULOSKELETAL: She has had generalized weakness. NEUROLOGIC: States she has a current migraine headache, rated 5/10 on a 0-10 ang pain scale. ENDOCRINE: Denies any history of diabetes. ALLERGIC/IMMUNOLOGICAL: Left facial swelling. HEMATOLOGIC/LYMPHATIC: Denies any bleeding or bruising anywhere. OBJECTIVE: VITAL SIGNS: Temperature 98.5, pulse 81, blood pressure 111/57, respirations 24, oxygen saturation 100% on room air, height 4 feet 9 inches, weight 141 pounds, BMI 30.5. GENERAL: Supine in bed. No acute distress. Pleasant, good mood. LUNGS: Clear to auscultation. RESPIRATORY PATTERN: Even and unlabored. No supplemental oxygen. HEENT: EOMI. Oropharynx clear. Left jaw swelling and tenderness to gentle palpation noted. NECK: Supple. No lymphadenopathy, thyromegaly, or JVD. CARDIOVASCULAR: Regular rate and rhythm. No murmur appreciated. ABDOMEN: Bowel sounds positive. Soft, nontender. EXTREMITIES: No pitting edema. No clubbing, cyanosis, or signs of DVT. NEUROLOGICAL: GCS 15. Nonfocal. LABORATORY DATA: WBCs 5.59, hemoglobin 7.2, hematocrit 22.2. Mean corpuscular volume 131.4, MCH 42.6, neutrophils 86.1%. Sodium 133, potassium 4.9, chloride 97, CO2 of 24, anion gap 16.9, BUN 30, creatinine 1.42, estimated GFR 36, glucose 154. Lactic acid 3.2 and subsequently 0.7, calcium 9.6, total bilirubin 0.2, AST 18, ALT 16, alkaline phosphatase 66. Creatine kinase 71, CK-MB 2.6, troponin I 0.004. B-type natriuretic peptide 133.4, total protein 7.9, albumin 3.5, globulin 4.4. Urinalysis showed a specific gravity greater than or equal to 1.030. Trace amount of leukocyte esterase, negative for nitrites. WBC 6-10, many renal epithelial cell, moderate urine bacteria. Coronavirus PCR collected and pending. Blood cultures x2 are pending. All these aforementioned labs were collected 09/05. PROCEDURES: Two units of blood given today. IMAGING/OTHER: A 12-lead EKG showed sinus rhythm with a heart rate of 76. Echocardiogram has been ordered and the results are pending. Ultrasound of the head and neck has been ordered. Chest x-ray on 09/05 showed no acute thoracic radiographic abnormality. ASSESSMENT/PLAN: 1. Acute on chronic anemia, requiring blood transfusion with dyspnea on exertion. The patient received 2 units of blood for hemoglobin 7.2, hematocrit 22.2. Reassess H and H in the morning. The patient follows Hematology on an outpatient basis. Monitor CBC results. 2. Acute urinary tract infection, POA with history UTIs and overactive bladder. Normal saline at 75 mL an hour. Continue Zosyn. Follow up on final results of urine culture and sensitivity. Resume home medication for overactive bladder. 3. Acute left facial/jaw swelling of one week duration, history seasonal allergies. Dr. Moreno with ENT follows on an outpatient basis. We will ask him to see and evaluate the patient. Follow up on ultrasound of the head, neck, soft tissues and pain control. 4. Migraines. The patient's daughter states the patient does not take any specific medication for migraines at home, we will start with Fioricet p.r.n. 5. Severe sepsis, POA, due to UTI. Lactic acid was 3.2 and is improved to 0.7. WBCs 5.59, afebrile. Continue Zosyn. 6. Acute kidney injury (versus acute kidney injury on chronic kidney disease stage 3). BUN 30, creatinine 1.42. The estimated GFR 36. Continue normal saline at 75 mL an hour for gentle hydration. We will assess an echocardiogram, determine heart function and any underlying congestive heart failure, monitor renal function. 7. Controlled hypertension. Blood pressure 111/57. Resume any home antihypertensives. Monitor BP. 8. Acute hyponatremia, mild. Sodium level 133. Continue normal saline. Monitor sodium level. 9. Hypothyroidism, will check TSH in the morning. Resume home dose of levothyroxine 112 mcg daily. 10. Chronic obstructive pulmonary disease without exacerbation. This is per history documented in patient's chart previously. No history of smoking. Chest x-ray was negative. 11. Hyperlipidemia, resume home dose of pravastatin. 12. Ambulatory dysfunction with generalized weakness and osteoarthritis, physical therapy to eval and treat. 13. Obesity with BMI of 30.6, dietary restrictions. 14. Prophylaxis, Protonix, SCDs. 15. Inpatient, billing code [id number]. TIME SPENT: Greater than 60 minutes. Dictated by Mason Diggs, ADÁN MD JYOTI Enriquez/ABDULKADIRL /[id number]
[2020-09-06] MEDS: CHOLESTYRAMINE 4 GM PACKET PO SCH (17:00)
[2020-09-06 17:47] LABS: CHOL/HDL RATIO 2.8 (3.0-3.6); MAGNESIUM 2.1 MG/DL (1.3-2.1); PHOSPHORUS 3.2 MG/DL (2.3-4.7)
--- NOTE | 2020-09-06 17:50 | NUR ---
HOME MEDS RENEWED AC TO HER DAUGHTER SHE SEND THE MEDICATION LIST AND NOTIFIED VONNIE MCCAIN
[2020-09-06 18:06] LABS: THYROID STIMULATING HORMONE 2.027 uIU/mL (0.350-4.940)
--- NOTE | 2020-09-06 18:42 | NUR ---
PT RESTING ON BED BED SIDE REPORT GIVEN TO ONCOMING NURSE
[2020-09-06] MEDS: QUETIAPINE FUMARATE 25 MG TAB PO SCH (19:22)
[2020-09-06] MEDS: PRAVASTATIN 20 MG TAB PO SCH (19:22)
[2020-09-06] MEDS: PRAMIPEXOLE DIHYDROCHLORIDE 0.25 MG TAB PO SCH (19:22)
[2020-09-06] MEDS ORDERED: DONEPEZIL HCL 5 MG TAB PO SCH (21:00)
[2020-09-07] VITALS (12 sets, daily range): BP systolic 98–165; BP diastolic 52–100
--- NOTE | 2020-09-07 00:13 | NUR ---
patient extremely thirsty. assisted patient with drinking water. patient choking on water, coughing after each sip. gurgling and wheezing heard in patients throat. attempted to thicken liquids with nectar thick, patient continued to choke. water removed from patient. attempted to educated patient on aspiration, patient not cooperative attempting to continue to drink water. educated patient on beside swallow evaluation in the AM. patient continues to complain about throat and needing water, educated patient on ENT doctoring consulted and will see her in am.
--- NOTE | 2020-09-07 01:42 | NUR ---
walked patient to restroom, patient SOB. Checked patients SPO2 88%. 2 L NC applied to patient per o2 protocol. sats 94%.
--- NOTE | 2020-09-07 02:42 | NUR ---
SPOKE TO ISHA [employer]AP[employer] OFF[employer] REGARDING O2 SATURATION CONTINUING TO DROP. 89% ON 3L, ORDER FOR DUONEBS Q4 PRN ORDERED.
[2020-09-07] MEDS: SODIUM CHLORIDE 0.9% 1000ML 1,000 ML IV SCH ×2 (02:50→16:59)
[2020-09-07 05:28] LABS: BASOPHILS % 0.3 % (0.0-1.0); EOSINOPHILS % 0.6 % (0.0-6.0); HEMATOCRIT 27.1 % (34.2-44.1); HEMOGLOBIN 8.9 g/dL (12.0-16.0); LYMPHOCYTES # (AUTO) 0.6 (1.0-3.2); LYMPHOCYTES % 18.8 % (18.0-39.1); MEAN CORPUSCULAR HEMOGLOBIN 36.2 pg (28-32); MEAN CORPUSCULAR HGB CONC 32.8 g/dL (31-35); MEAN CORPUSCULAR VOLUME 110.2 fL (81-99); MONOCYTES # (AUTO) 0.2 (0.2-0.8); NEUTROPHILS # (AUTO) 2.5 (2.1-6.9); PLATELET COUNT 302 x10e3/uL (140-360); RED BLOOD COUNT 2.46 x10e6/uL (3.6-5.1)
[2020-09-07 05:33] LABS: BLOOD UREA NITROGEN 16 mg/dL (7-26); BUN/CREATININE RATIO 19 (6-25); CALCIUM 8.3 mg/dL (8.4-10.2); CARBON DIOXIDE 24 mmol/L (22-29); CHLORIDE 108 mmol/L (98-107); CREATININE, SERUM 0.85 mg/dL (0.57-1.11); EST GLOMERULAR FILTRATION RATE > 60 ML/MIN (60-); GLUCOSE 97 mg/dL (74-118); SODIUM 138 mmol/L (136-145)
--- NOTE | 2020-09-07 06:07 | NUR ---
PATIENT DESATING TO 86% ON 3 L NC, PATIENT PLACED ON NONREBREATHER 15 L, SATS 100%.
[2020-09-07] MEDS: LEVOTHYROXINE SODIUM 112 MCG TAB PO SCH (06:12)
[2020-09-07] MEDS: PIPER-TAZ 3.375 GM 50 ML IV SCH (06:12)
--- NOTE | 2020-09-07 06:19 | NUR ---
SPOKE TO ISHA VP [employer] WITH AN UPDATE ON PATIENT, NO NEW ORDERS. LEAVE PATIENT ON A NONREBREATHER 15 L.
--- NOTE | 2020-09-07 07:00 | NUR ---
BEDSIDE SHIFT REPORT RECEIVED FROM THE EVENTS AND PROMOTIONS ASSISTANT RN. PT IS AAOX2. EDUCATED PT ABOUT FALL PRECAUTIONS. PT VERBALIZED UNDERSTANDING. CALL LIGHT WITH IN EASY REACH. INSTRUCTED PT TO USE CALL LIGHT FOR ALL THE NEEDS. BED IS LOW AND LOCKED. SIDE RAILS X2. BED ALARM IS ON. ALL SAFETY MEASURES IN PLACE. PT DENIES NEEDS AT THIS TIME.
--- NOTE | 2020-09-07 07:01 | NUR ---
PT IS ON 15L NON REBREATHER MASK AT THE TIME OF SHIFT REPORT.
[2020-09-07 07:03] LABS: POLYCHROMASIA FEW
[2020-09-07 07:05] LABS: PLATELET ESTIMATE ADEQUATE; PLATELET MORPHOLOGY COMMENT RARE EDTA CLUMPING; RBC MORPHOLOGY COMMENT ABNORMAL
--- NOTE | 2020-09-07 07:50 | Consultation ---
DATE OF CONSULTATION: 09/07/2020 Hospital Consultation HISTORY OF PRESENT ILLNESS: I was kindly asked to see this 75-year-old woman known to me from outpatient evaluation and treatment. She presents with shortness of breath and a 1-week history of swelling of her left face. She was followed by me as an outpatient for chronic allergic rhinosinusitis and reports that her nasal and sinus symptoms have been adequately controlled. She reports the swelling began in front of her ear and progressed over her entire face. Her history of present illness, past medical history, and past surgical history was reviewed in detail in the chart. PHYSICAL EXAMINATION: The right pinna was normal. Right external auditory canal was normal. Right tympanic membrane was normal. There was no postauricular pain swelling, erythema, or tenderness. The left pinna was normal. Left external auditory canal was normal. Left tympanic membrane was normal. There was no postauricular pain, swelling, erythema, or tenderness. Intranasal examination showed dry mucous membranes. A mild S shaped nasal septal deviation. Oral cavity examination was unremarkable. Pharyngeal examination was normal. There was no palpable cervical adenopathy. She had mild swelling of the entire left parotid gland. There was no areas of fluctuance. There was no drainage from Stensen's duct. However, there was edema of the punctum. ASSESSMENT: Left parotiditis. PLAN: No otolaryngology changes. I would anticipate the parotiditis would respond to current antibiotic therapy. MD ANICETO Hooks/IFEANYI /[id number]
--- NOTE | 2020-09-07 08:00 | NUR ---
WALKING ROUNDS MADE. PT FOUND HAVING TACHYPNEA 32 PER MIN. TEMP 99.1 BP 124/80 OS2 SAT 100 PERCENT WITH NRB 15 L. SINUS TACHY 115 PER TELE. PT IS AAOX3. PAGED RESPIRATORY REGARDING PT BREATHING. PAGED VONNIE LAMP TESTER AND INSPECTOR AND REPORTED THE SAME. NEW CONSULT RECEIVED. PAGED DR. PEDRO AND INFORMED THE NEW CONSULT.
--- NOTE | 2020-09-07 08:30 | NUR ---
DR. PEDRO AT BEDSIDE. NEW VITALS TEMP 103, HR 127 O2 SAT 100 PERCENT NRB 15L, BP 129/52 RESPIRATION 32. RESPIRATORY AT BEDSIDE. DR. PEDRO NOTIFIED OF SEPSIS SCREEN RESULTS. PT REFUSED CHEST X RAY AND ABG.
--- NOTE | 2020-09-07 08:40 | NUR ---
DR PEDRO NOTIFIED PT TEMP 103 AND HR 127.
--- NOTE | 2020-09-07 08:55 | Diagnostic Imaging Report ---
Soft tissue neck ultrasound. History: Left jaw swelling and tenderness. Comparison: None available. Discussion: Transverse and longitudinal images of the region of interest of the neck were obtained. Targeted ultrasound of the region of interest was performed of the left jaw/submental region. No suspicious mass or fluid collection. Normal-appearing lymph nodes are identified measuring up to 0.9 cm in largest diameter with intact normal shape and vascularity. IMPRESSION: No suspicious mass or fluid collection within the region of interest. No suspicious lymph node. Signed by: Rikki Simmons MD on 09/07/2020 8:52 AM
[2020-09-07] MEDS: DOCUSATE SODIUM 100 MG CAP PO SCH ×2 (09:00→16:59)
[2020-09-07] MEDS: METOPROLOL SUCCINATE 25 MG TAB XL PO SCH ×3 (09:00→22:42)
[2020-09-07] MEDS: RALOXIFENE HCL 60 MG TAB PO SCH (09:00)
[2020-09-07] MEDS: CHOLESTYRAMINE 4 GM PACKET PO SCH ×2 (09:00→17:00)
[2020-09-07] MEDS: HYDROXYUREA 500 MG CAPSULE PO SCH ×2 (09:00→16:26)
[2020-09-07] MEDS: CLOBETASOL PROPIONATE 0.05% CRM 15 GM TUBE TOP SCH ×2 (09:00→22:42)
[2020-09-07] MEDS: POTASSIUM CHLORIDE 20 MEQ TAB CR PO SCH ×2 (09:00→17:00)
[2020-09-07] MEDS: SUCRALFATE 1 GM TAB PO SCH ×3 (09:00→22:45)
[2020-09-07] MEDS: DICYCLOMINE HCL 20 MG TAB PO SCH ×4 (09:00→22:41)
[2020-09-07] MEDS: NON-FORMULARY MEDICATION (Mirabegron (Myrbetriq) 25 MG) PO SCH (09:00)
[2020-09-07] MEDS: PANTOPRAZOLE SOD 40 MG TABEC PO SCH (09:00)
[2020-09-07] MEDS: NON-FORMULARY MEDICATION (Fluticasone/Umeclidin/Vilanter (Trelegy Ellipta 100-62.5-25) 1 I INH SCH (09:00)
[2020-09-07] MEDS: AMLODIPINE BESYLATE 10 MG TAB PO SCH (09:00)
--- NOTE | 2020-09-07 09:40 | NUR ---
PAGED DR. HILLS AND DR. HOGAN REGARDING NEW CONSULTS.
--- NOTE | 2020-09-07 09:55 | NUR ---
Pt. expressed no spiritual or emotional concerns at this time. Digital Circuit Designer provided hospitality and information on how to reach corporate responsibility officer, if needed. KAYLAN ROSALES Digital Circuit Designer Spiritual Care Department O: [phone]
--- NOTE | 2020-09-07 09:55 | NUR ---
DESTINEE SHANKAR NP AND DR. HILLS AND REPORTED PT TEMPERATURE 102.9
--- NOTE | 2020-09-07 10:01 | Consultation ---
DATE OF CONSULTATION: Pulmonary Critical Care Consultation. CHIEF COMPLAINT: Confusion and fever. HISTORY OF PRESENT ILLNESS: The patient is a 75-year-old woman. She has a history of some prior dementia and hematologic disorder requiring hydroxyurea. She came in the hospital with dysuria and facial swelling. She had some disorientation. She was started on antibiotics for sepsis and UTI. She was also evaluated by ENT and felt to have parotiditis. The patient received blood transfusion. This morning, she has a fever of 103. She has increased confusion and she is requiring more oxygen. PAST SURGICAL HISTORY: 1. Status post cholecystectomy. 2. Status post back surgeries. 3. Status post right knee replacements. 4. EGD. PAST MEDICAL HISTORY: 1. Hypertension. 2. Hypothyroidism. 3. 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 She has required prior blood transfusions. 4. COPD. 5. Ulcer in distal esophagus. 6. Dementia. 7. Neuropathy. SOCIAL HISTORY: The patient does not smoke or drink. She lives alone. She has support of her family. FAMILY HISTORY: There is a history of stroke in the past. ALLERGIES: SUDAFED AND CODEINE. RADIOGRAPHIC DATA: Ultrasound of the neck shows no suspicious mass or fluid collection. Chest x-ray shows no acute thoracic abnormality from the . IMPRESSION: 1. Fever and sepsis of unclear etiology, present on admission. 2. Urinary tract infection. 3. Acute kidney injury that is improved. 4. Metabolic encephalopathy. 5. Hypothyroidism. 6. Chronic obstructive pulmonary disease. PLAN: 1. Repeat chest x-ray. 2. Swallowing evaluation. 3. Infectious Disease consultation. 4. Stop some of the patient's serotonin agonists. She is on multiple serotonin agonists, which could lead to serotonin syndrome. 5. Consult Psychiatry for medication adjustment. 6. Case discussed with family, nursing, and administration. MD SCOTT Michelle/IFEANYI /[id number]
--- NOTE | 2020-09-07 10:30 | NUR ---
HALI HOGAN AT BEDSIDE. PT IS UNABLE TO MAKE TREATMENT DECISIONS DUE TO CONFUSION PER HALI WATKINS. PAGED DR. PEDRO AND REPORTED THE SAME. NEW ORDER FOR STAT CXR, EKG AND ABG DRAW PER DR. PEDRO. PAGED RADIOLOGY AND RESPIRATORY REGARDING SAME.
--- NOTE | 2020-09-07 10:45 | NUR ---
MERARI PACE AT BEDSIDE.
[2020-09-07] MEDS ORDERED: HALOPERIDOL LACTATE 5 MG/ML VIAL IM PRN (11:00)
[2020-09-07] MEDS ORDERED: QUETIAPINE FUMARATE 25 MG TAB PO PRN (11:00)
[2020-09-07 11:09] LABS: ABG HCO3 28 mmol/L (22-26); ABG PCO2 44 mmHg (35-45); ABG PH 7.42 (7.35-7.45); ABG PO2 302 mmHg (80-105); ABG TCO2 29
--- NOTE | 2020-09-07 11:10 | Diagnostic Imaging Report ---
TECHNIQUE: Frontal view of the chest. INDICATION: ^fever ^[id number] ^1045 COMPARISON: 09/05/2020 DISCUSSION: Limited evaluation due to portable technique. Lines and hardware: Overlying EKG leads are noted. Heart and mediastinum: Stable. Lungs and pleura: There is a new patchy airspace opacity at the left lung base. Central vascular congestion is noted. Prominent interstitial markings are noted. Negative for large effusion or pneumothorax. Soft tissues and bones: No acute abnormality. IMPRESSION: New patchy airspace opacity at the left lung bases concerning for developing pneumonia. Signed by: Rikki Simmons MD on 09/07/2020 11:06 AM
--- NOTE | 2020-09-07 11:15 | NUR ---
ABG COMPLETED. CHANGED 15 L NRB TO [address] PEDRO. PT IS ALERT BUT PERIODS OF CONFUSION NOTED. DAUGHTER AT BEDSIDE.
--- NOTE | 2020-09-07 11:40 | NUR ---
BEDSIDE SWALLOW EVAL COMPLETED. OKAY TO SWALLOW REGULAR TEXTURE PER SPEECH PATHOLOGIST. PAGED VONNIE MCCAIN AND REPORTED THE SAME.
[2020-09-07] MEDS: ACETAMINOPHEN 325 MG TAB PO PRN ×2 (11:53→17:33)
--- NOTE | 2020-09-07 12:03 | NUR ---
INFECTIOUS DISEASE CONSULT NOTE DR. ALIN HILLS CHIEF COMPLAINT: Frequency and painful urination. HISTORY OF PRESENT ILLNESS: The patient is a 75-year-old female, who presented to the emergency department on 09/05 with one week duration of dysuria, left facial swelling, and dyspnea. Per the emergency department physician note admitting diagnoses included, weakness and anemia as well as severe sepsis and UTI. She used to get blood transfusions about every three months prior to 2019 per the daughter who is available at the bedside. PAST MEDICAL HISTORY: HTN, HLD, Obesity, COPD, Anemia, GRD PAST SURGICAL HISTORY: back surgeries, TKR FAMILY HISTORY: Father had low back pain and osteoarthritis. Mother had severe stroke. SOCIAL HISTORY: The patient lives alone with caregivers. She is retired teacher. She denies any use of tobacco, alcohol, or illicit drug use. ALLERGIES: PSEUDOEPHEDRINE AND CODEINE. REVIEW OF SYSTEMS: unable to obtain, confused d/w daughter PHYSICAL EXAM OBJECTIVE: VITAL SIGNS: per chart GENERAL: awake, alert HEENT: normocephalic, atraumatic LUNGS: Clear to auscultation. symmetric expansion, on oxygen NECK: Supple. No JVD. CARDIOVASCULAR: s1, s2, no s3, s4 ABDOMEN: Bowel sounds positive. Soft, nontender. EXTREMITIES: No pitting edema. No clubbing, cyanosis NEUROLOGICAL: unable to obtain LABORATORY DATA: reviewed IMAGING/OTHER: echo pending, CT ordered ASSESSMENT/PLAN: Acute on chronic anemia UTI Acute left facial/jaw swelling of one week duration Sepsis present on admission COPD Early dementia according to family will place the pt on merrem, move the pt to IMCU per primary team will get CT get urine cultures Echo results pending goals of care d/w daughter, pt is a DNR Veronica Deal MSN, IRRIGATION TEACHER, AGACNP-BC lea Hills
--- NOTE | 2020-09-07 12:15 | NUR ---
PT REFUSED MORNING PO MEDS.
[2020-09-07] MEDS ORDERED: SODIUM CHLORIDE 0.9% 50ML 50 ML ONE ×2 (12:22→14:43)
[2020-09-07] MEDS ORDERED: IOPAMIDOL 370 MG/ML 200 ML INFUS..BTL INJ ONE ×2 (12:22→14:43)
[2020-09-07] MEDS: LORAZEPAM INJ 2 MG/ML VIAL IM PRN (13:23)
[2020-09-07] MEDS: MEROPENEM 500MG/ NS 50ML 50 ML IV SCH ×2 (13:40→22:42)
--- NOTE | 2020-09-07 13:52 | NUR ---
PT OFF UNIT FOR CT IN SAFE CONDITION. DAUGHTER AT BEDSIDE.
--- NOTE | 2020-09-07 14:10 | NUR ---
PT IS BACK TO UNIT FROM RADIOLOGY. DAUGHTER AT BEDSIDE.
--- NOTE | 2020-09-07 14:43 | Consultation ---
DATE OF CONSULTATION: Psychiatric Consultation ADDENDUM: The patient was seen, met me and Dr. Sierra over telemedicine. The patient was found to not have capacity to make decision regarding the treatment at this time. I spoke to the family members, agree with plan. Dictated by Miya Soto PA-C Mian Sierra MD QTV/MODL /[id number]
[2020-09-07] MEDS ORDERED: GABAPENTIN 100 MG CAP PO SCH (15:00)
--- NOTE | 2020-09-07 15:00 | NUR ---
DURING THE ROUNDING WITH VONNIE THIRD RIGGER, PT DAUGHTER INFORMED PT NEEDS TO BE ON DNR STATUS TO VONNIE THIRD RIGGER.
--- NOTE | 2020-09-07 16:15 | NUR ---
PT IS AAOX2. DAUGHTER AT BEDSIDE. PT DENIES NEEDS AT THIS TIME.
--- NOTE | 2020-09-07 16:58 | Consultation ---
DATE OF CONSULTATION: 09/07/2020 Psychiatric Consultation REASON FOR CONSULTATION: To evaluate the patient's psychosis and capacity. HISTORY OF PRESENT ILLNESS: The patient was seen by me today and also by Dr. Sierra via telemedicine today. The patient is found to be lying on the bed in her room. She is breathless. She is on oxygen. She is confused. She does not know where she is. She thinks she is at home. She to believe that she is in the hospital. She claims that she does not want the medical procedure namely ABG and also the chest x-ray because "Medicare does not pay for it." She also claims that ABG lab is the first two letters of the alphabet. The patient appears do not know what medical issues she has. She denies any depression, anxiety. She denies any suicidal ideation. She denies any hallucination. She denies any thoughts of hurting herself. She wants to get better, but at same time refuses medical treatment because she does not believe she is at hospital. As per the nurse, the patient was oriented x4 yesterday, however overnight she became . Attending ordered ABG and also chest x-ray for her to aspiration and pneumonia, but because she refused this morning, they consulted Psychiatry for capacity. Later, I spoke to the daughter who reports the patient has early onset of dementia for about one year. She does not sleep much at home. Daughter is in agreement with the current psych findings and agrees to work with treatment team to help make best decision for the patient. PAST PSYCHIATRIC HISTORY: Patient apparently has history of early onset of dementia. She also takes some SSRI and SNRI for the mood. She has never attempted suicide in the past. FAMILY HISTORY: As per patient, family history unknown. SOCIAL HISTORY: Unknown. MENTAL STATUS EXAM: The patient is an elderly female. She is alert, awake, and oriented to self. Mood is anxious, confuse, irritable. Affect is congruent with mood. Psychomotor state is restless. Denies suicidal or homicidal ideation. Denies any hallucination. Thought process is loose. Thought content is confused. Memory appears to be grossly impaired. CURRENT MEDICATION: 1. Synthroid. 2. Zosyn. 3. Toprol. 4. Mirapex. 5. Seroquel 25 h.s. 6. Temazepam h.s. as needed. 7. Aricept 20 h.s. 8. Carafate. 9. Bentyl. 10. Questran. 11. Potassium chloride. 12. Evista. 13. Protonix. 14. Norvasc. 15. Hydroxyurea. 16. Zofran. 17. Sodium chloride. 18. Temovate. 19. Docusate sodium. 20. Effexor XR 75 mg daily. 21. Neurontin 200 mg three times a day. 22. DuoNeb. 23. Questran. 24. Percocet as needed. 25. Zofran. 26. Albuterol. 27. Hydralazine. 28. MiraLAX. 29. Tylenol. CURRENT LABORATORIES: WBC 3.35, RBC 2.46, hemoglobin 8.9, hematocrit 27.1, and platelets 302. Sodium 138, potassium 4, chloride 108, CO2 24, BUN 16, creatinine 0.85. AST 19, ALT 15. ASSESSMENT: 1. Unspecified psychosis/delirium (multifactorial). 2. History of early-onset dementia as per family. 3. History of depression. PLAN: 1. Add Seroquel 25 mg p.o. q.6 hours as needed. 2. Continue Seroquel 25 mg p.o. at bedtime. 3. Discontinue temazepam as needed. 4. Reduce Aricept to 10 mg p.o. at bedtime. 5. Discontinue Effexor. 6. Discontinue Neurontin. 7. Add Haldol p.r.n. IM. 8. Ativan p.r.n. IM. 9. Monitor for agitation. Thank you for this consultation. Dictated by Miya Soto PA-C Mian Sierra MD QTV/MODL /[id number]
--- NOTE | 2020-09-07 17:06 | Diagnostic Imaging Report ---
History: Facial swelling. Comparison studies: Included paranasal sinuses from brain MRI of 02/23/2015. Technique: Axial images were obtained through the paranasal sinuses. Coronal and sagittal images reconstructed from the axial data. Dose modulation, iterative reconstruction, and/or weight based adjustment of the mA/kV was utilized to reduce the radiation dose to as low as reasonably achievable. Radiation dose: Total DLP: 351 mGy*cm. Estimated effective dose: DLP x 0.015 Intravenous contrast: 100 cc of Isovue-370. Findings: Exam is limited due to artifacts related to patient motion and patient position. Additionally, artifact from dental amalgam also limits evaluation. In spite of these limitations: Soft tissues: Questionable mild swelling in the left paramedian annular soft tissues. No mass or fluid collection. A 10 mm left submandibular lymph node is most likely reactive. Evaluation both parotid glands are somewhat limited by artifacts. Both parotid glands are otherwise grossly normal in size and without gross abnormalities Bones: No fractures or bony abnormalities. Orbits: No gross abnormalities. Nasal cavity: The anterior nasal septum is perforated and with defect which measures up to approximate 2.0 cm in greatest anterior-posterior dimension. The nasal septum is deviated to the patient's left and there is a small leftward projecting nasal septal bone spur. No mass or other abnormalities. Paranasal sinuses: The bilateral frontal sinuses, maxillary sinuses, ethmoid air cells and sphenoid sinuses are clear. The bilateral ostiomeatal units, frontoethmoidal recesses and sphenoethmoidal recesses are patent. Middle ear mastoid cavities: Bilateral middle ear cavities are clear. Both mastoids are partially opacified bilaterally. Partially imaged brain: There is generalized brain volume loss with mild compensatory ventricular dilatation. Ill-defined and confluent hypodensities in the supratentorial white matter are nonspecific but may be chronic microvascular ischemic changes. Chronic right frontal subcortical and juxtacortical insult is with hypodense gliotic changes. All these findings were present on the prior brain MRI of 02/23/2015. Dentition: Multiple dental caries with prior dental fillings. Critical lucency present at tooth #20. Incidental findings: Scattered calcified atherosclerosis in the carotid bulbs, carotid siphons and left intradural vertebral artery. IMPRESSION: Limited exam as described. In spite of limitations: 1. Possible odontogenic infection secondary to a periapical abscess at tooth #20. Can correlate with dental exam. No gross soft tissue abscess. 2. Incidental perforated nasal septum. 3. Generalized parenchymal volume loss and chronic ischemic changes in the partially imaged brain. Signed by: Dr. Ibrahima Ashby M.D. on 09/07/2020 5:03 PM
--- NOTE | 2020-09-07 19:00 | NUR ---
BEDSIDE SHIFT REPORT GIVEN TO THE RESTRIKE HAMMER OPERATOR RN. PT DENIED FURTHER NEEDS.
--- NOTE | 2020-09-07 22:37 | Diagnostic Imaging Report ---
EXAM: CT Chest WITHOUT contrast INDICATION: sob COMPARISON: None TECHNIQUE: Chest was scanned utilizing a multidetector helical scanner from the lung apex through the level of the adrenal glands without administration of IV contrast. Absence of intravenous contrast decreases sensitivity for detection of lymphadenopathy and vascular pathology. Coronal and sagittal reformations were obtained. Routine protocol was performed. IV CONTRAST: None COMPLICATIONS: None FINDINGS: LINES/ TUBES: None. LUNGS AND AIRWAYS: Consolidative opacities in the left lower lobe. Scattered patchy and tree-in-bud opacities throughout the right lung. Bronchial wall thickening. PLEURA: The pleural spaces are clear. HEART AND MEDIASTINUM: Heart is nonenlarged. Scattered coronary artery calcifications. Thoracic aorta and pulmonary artery are nonenlarged. Scattered fluid within the esophagus. Large hiatal hernia containing mediastinal fat and the gastric body. UPPER ABDOMEN: Cholecystectomy. BONES: There are degenerative changes in the thoracic spine. IMPRESSION: Findings concerning for multifocal pneumonia. Given large hiatal hernia and fluid within the esophagus, aspiration is considered as an etiology. Signed by: Alvin Patterson MD on 09/07/2020 10:33 PM
[2020-09-07] MEDS: DONEPEZIL HCL 5 MG TAB PO SCH (22:41)
[2020-09-07] MEDS: QUETIAPINE FUMARATE 25 MG TAB PO SCH (22:41)
[2020-09-07] MEDS: PRAVASTATIN 20 MG TAB PO SCH (22:41)
[2020-09-07] MEDS: PRAMIPEXOLE DIHYDROCHLORIDE 0.25 MG TAB PO SCH (22:41)
[2020-09-08] VITALS (9 sets, daily range): BP systolic 108–135; BP diastolic 54–110
[2020-09-08 05:08] LABS: BASOPHILS % 0.5 % (0.0-1.0); EOSINOPHILS % 0.1 % (0.0-6.0); HEMATOCRIT 27.7 % (34.2-44.1); HEMOGLOBIN 8.9 g/dL (12.0-16.0); LYMPHOCYTES # (AUTO) 0.4 (1.0-3.2); LYMPHOCYTES % 5.8 % (18.0-39.1); MEAN CORPUSCULAR HEMOGLOBIN 35.9 pg (28-32); MEAN CORPUSCULAR HGB CONC 32.1 g/dL (31-35); MEAN CORPUSCULAR VOLUME 111.7 fL (81-99); MONOCYTES # (AUTO) 0.2 (0.2-0.8); MONOCYTES % 3.1 % (4.4-11.3); NEUTROPHILS # (AUTO) 6.5 (2.1-6.9); NEUTROPHILS % 87.9 % (38.7-80.0); PLATELET COUNT 347 x10e3/uL (140-360); RED BLOOD COUNT 2.48 x10e6/uL (3.6-5.1)
[2020-09-08 05:30] LABS: ALANINE AMINOTRANSFERASE 17 IU/L (0-55); ALBUMIN 2.6 g/dL (3.5-5.0); ALBUMIN/GLOBULIN RATIO 0.7 (0.8-2.0); ALKALINE PHOSPHATASE 51 IU/L (40-150); ANION GAP 12.6 mmol/L (8-16); BLOOD UREA NITROGEN 13 mg/dL (7-26); BUN/CREATININE RATIO 17 (6-25); CALCIUM 8.9 mg/dL (8.4-10.2); CARBON DIOXIDE 23 mmol/L (22-29); CHLORIDE 106 mmol/L (98-107); CREATININE, SERUM 0.78 mg/dL (0.57-1.11); EST GLOMERULAR FILTRATION RATE > 60 ML/MIN (60-); GLUCOSE 68 mg/dL (74-118); POTASSIUM 3.6 mmol/L (3.5-5.1); SODIUM 138 mmol/L (136-145)
[2020-09-08] MEDS: MEROPENEM 500MG/ NS 50ML 50 ML IV SCH ×3 (05:49→22:26)
[2020-09-08] MEDS: LEVOTHYROXINE SODIUM 112 MCG TAB PO SCH (05:49)
[2020-09-08 06:38] LABS: BAND NEUTROPHILS % (MANUAL) 10 %; LYMPHOCYTES % (MANUAL) 9 % (19-48); MONOCYTES % (MANUAL) 2 % (3.4-9.0); NEUTROPHILS % (MANUAL) 79 % (40-74)
[2020-09-08 06:39] LABS: OVALOCYTES FEW
[2020-09-08 06:40] LABS: POLYCHROMASIA FEW
[2020-09-08 06:41] LABS: PLATELET ESTIMATE ADEQUATE; PLATELET MORPHOLOGY COMMENT RARE EDTA CLUMPING; RBC MORPHOLOGY COMMENT ABNORMAL
--- NOTE | 2020-09-08 07:00 | NUR ---
BEDSIDE SHIFT REPORT RECEIVED FROM THE LENS BLANK GAUGER RN. CALL LIGHT WITH IN EASY REACH. BED IS LOW AND LOCKED. SIDE RAILS X2. BED ALARM IS ON. ALL SAFETY MEASURES IN PLACE. PT DENIES NEEDS AT THIS TIME.
--- NOTE | 2020-09-08 07:26 | Progress Note ---
DATE: CONSULTING PHYSICIANS: 1. Dr. Josie Knight with Infectious Disease. 2. Dr. Mian Sierra with Psychiatry. 3. Dr. Slava Valente with Pulmonology/Critical Care Medicine. 4. Dr. Carlos Moreno with Otolaryngology. SUBJECTIVE/EVENTS OVERNIGHT: Received a call this morning from the nurse stating that the patient's respiratory rate was 30 to 34 with shortness of breath, tachypnea and hypoxia noted this morning. The patient was placed on non-rebreather mask. Pulmonology consult was obtained and a stat chest x-ray done as the patient stabilizes. She was weaned to 6 L/minute and then subsequently weaned again as tolerated to 5 L/minute via nasal cannula. The patient is confused and is unable to give an accurate ROS. Per documentation, the patient claimed that she did not want medical procedures, ABG, or chest x-ray because "Medicare does not pay for it." The patient was apparently refusing medical treatment because she does not believe that she is at the hospital. OBJECTIVE: VITAL SIGNS: Temperature 102.9, pulse 105, blood pressure 155/100, respirations 32, oxygen saturation 100% about 09:45 in the morning. GENERAL: Supine in mild to moderate respiratory distress. LUNGS: Sounds diminished at the time of encounter. The patient is on oxygen at 5 L/minute via nasal cannula, humidified. HEENT: EOMI. Oropharynx clear. Left jaw swelling and tenderness to gentle palpation noted. NECK: Supple. No lymphadenopathy, thyromegaly, or JVD. CARDIOVASCULAR: Regular rate and rhythm without murmur. ABDOMEN: Soft, obese. Bowel sounds positive. Nontender. EXTREMITIES: No pitting edema. No clubbing, cyanosis, or signs of DVT. NEUROLOGICAL: Confused with known underlying dementia. Follow some simple commands. LABORATORY DATA: ABG was done, pH 7.42, pCO2 44, PO2 302, HC03 28, oxygen saturation 100%. Base excess pending. FiO2 of 100%. WBCs 3.35, hemoglobin 8.9, hematocrit 27.1, platelets 302. D-dimer 1.7, which is elevated. Sodium 138, potassium 4.0, chloride 108, CO2 24, BUN 16, creatinine 0.85, estimated GFR greater than 60, glucose 97, calcium 8.3, creatine kinase 97, CK-MB 5, troponin I 0.012, free T4 1.09, total T3 pending. Ammonia level 60. Coronavirus PCR collected on 09/05 is still pending. Urine culture is pending. Blood cultures x2 show no growth after 48 hours. Chest x-ray showed new patchy airspace opacity at the left lung bases concerning for developing pneumonia. Soft tissue ultrasound of the neck and head showed no suspicious mass or fluid collection within the region of interest. No suspicious lymph node. CT maxillofacial/paranasal sinuses according to the interpreting radiologist showed possible odontogenic infection secondary to a periapical abscess at tooth #20. Incidental perforated nasal septum generalized parenchymal volume loss and chronic ischemic changes in the partially imaged brain. CT of the chest showed findings concerning for multifocal pneumonia. Given large hiatal hernia and fluid within the esophagus, aspiration is considered as an etiology. On 09/06, echocardiogram preliminary results show ejection fraction 55% to 60%. A 12-lead EKG today showed normal sinus rhythm with a ventricular rate of 97 beats per minute. ASSESSMENT/PLAN: 1. Acute hypoxic respiratory failure. The patient has been weaned from non-rebreather mass to nasal cannula. Pulmonology following. Zosyn has been discontinued and meropenem ordered. Consideration was made to transfer the patient to intermediate care unit. However, she did improve as the day progressed in regard to her respiratory rate and oxygen saturation. 2. Severe sepsis of unclear etiology, possibly multifactorial. WBCs 3.35 (4.76), temperature 102.9 this morning. Infectious Disease was consulted and the patient was placed on Merrem. Continue to monitor WBCs. Lactic acid was initially 3.2 and improved to 0.7. 3. Acute urinary tract infection, POA with history of UTIs and overactive bladder. Continue IV fluids of normal saline at 75 mL an hour. Continue Merrem. 4. Multifocal pneumonia. Monitor chest x-ray results. Pulmonology and Infectious Disease following. Continue IV antibiotics per Infectious Disease recommendations. Bronchodilators. 5. Acute left parotiditis, possible odontogenic infection, chronic allergic rhinosinusitis, acute left facial/jaw swelling/pain. ENT following. Continue current antibiotics. Monitor for improvement. Continue Zosyn. 6. Acute on chronic anemia, requiring blood transfusion with dyspnea on exertion. The patient received 2 units of blood. Hemoglobin 8.8 (8.7). Hematology following. Monitor CBC results. 7. Metabolic encephalopathy, unspecified psychosis/delirium (multifactorial), history of early onset dementia as per family, history of depression, possible serotonin syndrome. Psychiatry has been consulted. Continue specific medication adjustments as outlined in psychiatric progress note. Serotonin agonists. 8. Acute kidney injury. BUN 16, creatinine 0.86. Continue IV fluids. Improvement noted. Monitor renal labs. 9. Uncontrolled hypertension. Blood pressure 155/100. Resume any home antihypertensives and monitor blood pressure. 10. Hypothyroidism. TSH 2.027, free T4 1.09, total T3 pending. Home dose of levothyroxine 112 mcg daily resumed. 11. Chronic obstructive pulmonary disease without exacerbation, onset of respiratory distress was sudden. The patient was not in exacerbation of her COPD upon admission. 12. Hyperlipidemia. Continue home dose of pravastatin. 13. Ambulatory dysfunction with generalized weakness and osteoarthritis. Physical therapy to evaluate and treat. 14. Obesity with BMI of 30.6. Dietary restrictions. 15. Prophylaxis, Protonix, SCDs. 16. Resuscitation code status: DNAR. Inpatient, billing code [id number], time spent 60 minutes. Dictated by Mason Diggs NP Raulito Dunbar MD HWP/MODL /[id number]
[2020-09-08] MEDS: ALBUTEROL/IPRATROPIUM 3 ML NEB NEB PRN ×3 (07:30→15:30)
--- NOTE | 2020-09-08 08:00 | NUR ---
PT REFUSING MORNING MEDS AT THIS TIME.
[2020-09-08] MEDS: NON-FORMULARY MEDICATION (Mirabegron (Myrbetriq) 25 MG) PO SCH (08:53)
[2020-09-08] MEDS: NON-FORMULARY MEDICATION (Fluticasone/Umeclidin/Vilanter (Trelegy Ellipta 100-62.5-25) 1 I INH SCH (08:53)
[2020-09-08] MEDS: CHOLESTYRAMINE 4 GM PACKET PO SCH ×2 (09:00→18:01)
[2020-09-08] MEDS ORDERED: VENLAFAXINE HCL 75 MG CAPCR PO SCH (09:00)
[2020-09-08] MEDS: CLOBETASOL PROPIONATE 0.05% CRM 15 GM TUBE TOP SCH ×2 (09:00→22:26)
--- NOTE | 2020-09-08 10:27 | Progress Note ---
DATE: 09/08/2020 Psychiatric Progress Note SUBJECTIVE: The patient was found to be in the room. She is lying in the bed. She is sleeping, but easily arousable. She wakes up, open her eyes, not answering any questions . She did not receive any p.r.n. IM medication. The patient is very lethargic since today as per the nurse. No reports regarding agitation last night. The patient refused p.r.n. Ativan yesterday at around 1 p.m. ASSESSMENT: 1. Unspecified psychosis/delirium, multifactorial. 2. History of early-onset dementia. 3. History of depression. PLAN: 1. Seroquel at bedtime. 2. Continue Seroquel as needed. 3. Continue with . 4. Continue with p.r.n. Haldol and p.r.n. Ativan IM. 5. Monitor for agitation. Dictated by Miya Soto PA-C Mian Sierra MD QTV/MODL /[id number]
--- NOTE | 2020-09-08 10:30 | NUR ---
PT IS AAOX2. REFUSED PT AT THIS TIME.
--- NOTE | 2020-09-08 10:32 | Progress Note ---
DATE: SUBJECTIVE: The patient is doing better. She is now on nasal cannula. Her T-max is 99.8. PHYSICAL EXAMINATION: VITAL SIGNS: The blood pressure is 118/70 and saturation is 97% on 5 L. The pulse is 93. Respiratory rate is 24. HEENT: Shows no facial swelling or erythema. LYMPHATIC: Shows no submandibular, cervical, or supraclavicular adenopathy. CARDIAC: Reveals regular rate and rhythm with normal S1 and S2. LUNGS: Auscultation of lungs reveals decreased breath sounds at the bases. There is no wheezing. ABDOMEN: Soft and nontender. There is no rebound or guarding. EXTREMITIES: Show no leg edema or calf tenderness. There is no cyanosis or clubbing. SKIN: Shows no rashes. NEUROLOGICAL: Shows no focal abnormalities. LABORATORY DATA: White blood cell count is 7.36, hemoglobin is 8.9, and platelet count is 347. The BUN to creatinine ratio is 13 to 0.78. Other electrolytes are within normal limits. The albumin is 2.6. RADIOGRAPHIC DATA: Chest x-ray shows multifocal pneumonia. IMPRESSION: 1. Multifocal pneumonia with sepsis, present on admission. 2. Acute kidney injury that has improved. 3. Metabolic encephalopathy. 4. Hypothyroidism. 5. Parotiditis. 6. Anemia secondary to chronic blood loss. 7. Hypertension. PLAN: 1. Continue current antibiotics. 2. Continue to wean oxygen as tolerated. 3. Speech therapy evaluation. 4. Physical therapy. 5. DVT prophylaxis. MD SCOTT Michelle/IFEANYI /[id number]
[2020-09-08] MEDS: POTASSIUM CHLORIDE 20 MEQ TAB CR PO SCH ×2 (10:55→16:09)
[2020-09-08] MEDS: METOPROLOL SUCCINATE 25 MG TAB XL PO SCH ×2 (10:55→22:26)
[2020-09-08] MEDS: ACETAMINOPHEN 325 MG TAB PO PRN ×2 (10:56→22:26)
[2020-09-08] MEDS: DOCUSATE SODIUM 100 MG CAP PO SCH ×2 (10:57→16:08)
[2020-09-08] MEDS: SUCRALFATE 1 GM TAB PO SCH ×3 (10:57→22:25)
[2020-09-08] MEDS: RALOXIFENE HCL 60 MG TAB PO SCH (10:58)
[2020-09-08] MEDS: DICYCLOMINE HCL 20 MG TAB PO SCH ×4 (10:58→22:25)
[2020-09-08] MEDS: HYDROXYUREA 500 MG CAPSULE PO SCH (10:58)
[2020-09-08] MEDS: PANTOPRAZOLE SOD 40 MG TABEC PO SCH (10:58)
[2020-09-08] MEDS: AMLODIPINE BESYLATE 10 MG TAB PO SCH (10:58)
[2020-09-08] MEDS: SODIUM CHLORIDE 0.9% 1000ML 1,000 ML IV SCH (11:22)
[2020-09-08] MEDS ORDERED: FUROSEMIDE INJ 10 MG/ML 4 ML VIAL IV ONE (12:45)
[2020-09-08] MEDS ORDERED: SODIUM CHLORIDE 0.9% 50ML 50 ML ONE (14:00)
[2020-09-08] MEDS ORDERED: IOPAMIDOL 370 MG/ML 200 ML INFUS..BTL INJ ONE (14:00)
[2020-09-08] MEDS: ENOXAPARIN SOD INJ 40 MG/0.4 ML SYR SC SCH (16:08)
--- NOTE | 2020-09-08 16:09 | Diagnostic Imaging Report ---
CT of the chest, PE protocol, with contrast. History: Dyspnea, elevated D dimer. Comparison: CT chest without contrast from 09/07/2020. Technique: Multidetector thin collimation CT scanning of the chest was performed from the level of the apices to the upper abdomen during the pulmonary arterial phase, after intravenous administration of contrast. Coronal and sagittal reformations were obtained. RADIATION DOSE: Total DLP: 498.24 mGy*cm Dose modulation, iterative reconstruction, and/or weight based adjustment of the mA/kV was utilized to reduce the radiation dose to as low as reasonably achievable. FINDINGS: There is adequate opacification of the pulmonary arteries which distribute normally. The main pulmonary artery measures 2.6 cm in maximal diameter, within normal limits. There is no evidence of filling defect or vessel cut off to suggest pulmonary thromboembolism. The appearance of the chest is otherwise unchanged from the prior examination from 09/07/2020. The visualized structures within the base the neck to demonstrate no significant abnormalities. The thoracic aorta is normal in course and caliber with mild atherosclerotic calcifications. The heart is not enlarged. No abnormal pericardial fluid is present. Atherosclerotic calcifications are noted within the coronary arteries. Normal size mediastinal lymph nodes are noted. There is no abnormal lymph node enlargement identified within the chest. The trachea and proximal airways are patent. Again identified are stable appearing consolidative opacities within the left lower lobe. Additional areas of patchy ground glass and tree-in-bud opacities noted bilaterally. There is no evidence for pneumothorax or pleural effusion. There is a large hiatal hernia with herniation of the gastric body and mediastinal fat. Fluid noted within the mid and distal esophagus which may reflect reflux. Limited views of the upper abdomen otherwise demonstrate no significant abnormalities. The osseous structures demonstrate stable degenerative changes without evidence for acute fracture or destructive process. The extrathoracic soft tissues are unremarkable. IMPRESSION: No evidence for pulmonary thromboembolus. No significant change in appearance of the chest from the recent prior examination from 09/07/2020. Consolidative opacities noted within the left lower lobe with additional areas of scattered ground glass and tree-in-bud opacities concerning for a multifocal infectious process. Given presence of large hiatal hernia, findings may reflect aspiration pneumonitis. Signed by: Dr. Juwan Bose MD on 09/08/2020 4:06 PM
--- NOTE | 2020-09-08 19:05 | NUR ---
BEDSIDE SHIFT REPORT GIVEN TO THE DOCK LOADER RN. PT DENIED FURTHER NEEDS
[2020-09-08] MEDS: PRAMIPEXOLE DIHYDROCHLORIDE 0.25 MG TAB PO SCH (22:25)
[2020-09-08] MEDS: DONEPEZIL HCL 5 MG TAB PO SCH (22:25)
[2020-09-08] MEDS: PRAVASTATIN 20 MG TAB PO SCH (22:25)
[2020-09-08] MEDS: ONDANSETRON HCL INJ 2MG/ML 2ML 2 MG/ML VIAL IV PRN (22:26)
[2020-09-09] VITALS (9 sets, daily range): BP systolic 81–142; BP diastolic 49–80
[2020-09-09 04:58] LABS: BASOPHILS # (AUTO) 0.1 (0.0-0.1); BASOPHILS % 0.8 % (0.0-1.0); EOSINOPHILS % 0.1 % (0.0-6.0); HEMOGLOBIN 9.1 g/dL (12.0-16.0); LYMPHOCYTES # (AUTO) 0.4 (1.0-3.2); LYMPHOCYTES % 4.4 % (18.0-39.1); MEAN CORPUSCULAR HEMOGLOBIN 36.8 pg (28-32); MEAN CORPUSCULAR HGB CONC 33.7 g/dL (31-35); MEAN CORPUSCULAR VOLUME 109.3 fL (81-99); MONOCYTES # (AUTO) 0.3 (0.2-0.8); MONOCYTES % 3.2 % (4.4-11.3); NEUTROPHILS # (AUTO) 8.5 (2.1-6.9); NEUTROPHILS % 90.1 % (38.7-80.0); PLATELET COUNT 405 x10e3/uL (140-360); RED BLOOD COUNT 2.47 x10e6/uL (3.6-5.1)
[2020-09-09 05:16] LABS: ANION GAP 10.2 mmol/L (8-16); BLOOD UREA NITROGEN 13 mg/dL (7-26); BUN/CREATININE RATIO 18 (6-25); CALCIUM 8.8 mg/dL (8.4-10.2); CARBON DIOXIDE 25 mmol/L (22-29); CHLORIDE 105 mmol/L (98-107); CREATININE, SERUM 0.72 mg/dL (0.57-1.11); EST GLOMERULAR FILTRATION RATE > 60 ML/MIN (60-); GLUCOSE 112 mg/dL (74-118); POTASSIUM 3.2 mmol/L (3.5-5.1); SODIUM 137 mmol/L (136-145)
[2020-09-09] MEDS: MEROPENEM 500MG/ NS 50ML 50 ML IV SCH ×3 (05:18→21:13)
[2020-09-09] MEDS: LEVOTHYROXINE SODIUM 112 MCG TAB PO SCH (05:18)
[2020-09-09 05:37] LABS: BAND NEUTROPHILS % (MANUAL) 5 %; LYMPHOCYTES % (MANUAL) 3 % (19-48); MONOCYTES % (MANUAL) 2 % (3.4-9.0); NEUTROPHILS % (MANUAL) 90 % (40-74); TOXIC GRANULATION FEW
[2020-09-09 05:39] LABS: ANISOCYTOSIS MOD; POLYCHROMASIA FEW; RBC MORPHOLOGY COMMENT ABNORMAL
[2020-09-09 05:40] LABS: ELLIPTOCYTE, RBC FEW; PLATELET ESTIMATE ADEQUATE; PLATELET MORPHOLOGY COMMENT NORMAL
--- NOTE | 2020-09-09 07:00 | NUR ---
BEDSIDE SHIFT REPORT RECEIVED FROM THE ETYMOLOGY PROFESSOR RN. EDUCATED PT ABOUT FALL PRECAUTIONS. PT VERBALIZED UNDERSTANDING. CALL LIGHT WITH IN EASY REACH. INSTRUCTED PT TO USE CALL LIGHT FOR ALL THE NEEDS. BED IS LOW AND LOCKED. SIDE RAILS X2. BED ALARM IS ON. ALL SAFETY MEASURES IN PLACE. PT DENIES NEEDS AT THIS TIME.
[2020-09-09] MEDS: ALBUTEROL/IPRATROPIUM 3 ML NEB NEB PRN (07:15)
[2020-09-09] MEDS ORDERED: PROAIR HFA INH8.5 GM INH (07:50)
[2020-09-09] MEDS: NON-FORMULARY MEDICATION (Fluticasone/Umeclidin/Vilanter (Trelegy Ellipta 100-62.5-25) 1 I INH SCH (08:05)
[2020-09-09] MEDS: NON-FORMULARY MEDICATION (Mirabegron (Myrbetriq) 25 MG) PO SCH (08:05)
[2020-09-09] MEDS: POTASSIUM CHLORIDE 20 MEQ TAB CR PO SCH ×2 (08:28→16:13)
[2020-09-09] MEDS: SUCRALFATE 1 GM TAB PO SCH ×3 (08:29→21:09)
[2020-09-09] MEDS: HYDROXYUREA 500 MG CAPSULE PO SCH (08:29)
[2020-09-09] MEDS: AMLODIPINE BESYLATE 10 MG TAB PO SCH (08:29)
[2020-09-09] MEDS: PANTOPRAZOLE SOD 40 MG TABEC PO SCH (08:29)
[2020-09-09] MEDS: METOPROLOL SUCCINATE 25 MG TAB XL PO SCH (08:29)
[2020-09-09] MEDS: DOCUSATE SODIUM 100 MG CAP PO SCH ×2 (08:29→16:13)
[2020-09-09] MEDS: DICYCLOMINE HCL 20 MG TAB PO SCH ×4 (08:29→21:09)
[2020-09-09] MEDS: CLOBETASOL PROPIONATE 0.05% CRM 15 GM TUBE TOP SCH ×2 (08:30→21:00)
[2020-09-09] MEDS: RALOXIFENE HCL 60 MG TAB PO SCH (08:30)
--- NOTE | 2020-09-09 08:30 | NUR ---
NEWLY REPORTED AFIB FOR PT PER TELE. ASSESSED PT. PT IS RESTING ON BED. NO DISTRESS NOTED. CONTINUE MONITOR ON TELE. CONT PULSE OX ON. STAT EKG ORDERED. REPORTED THE SAME TO ISHA MCCAIN.
[2020-09-09] MEDS ORDERED: FUROSEMIDE INJ 10 MG/ML 2 ML VIAL IV ONE (09:00)
[2020-09-09] MEDS ORDERED: POTASSIUM CHLORIDE 20 MEQ TAB CR PO ONE (09:00)
[2020-09-09] MEDS ORDERED: TOPROL XL25 MG PO (09:17)
--- NOTE | 2020-09-09 09:52 | Consultation ---
DATE OF CONSULTATION: 09/09/2020 CARDIOLOGY CONSULTATION: REASON FOR CONSULTATION: Atrial fibrillation. HISTORY OF PRESENT ILLNESS: A 75-year-old woman with a history of dyslipidemia, hypertension, hypothyroidism, esophageal ulcer with remote GI bleed in 2015 and COPD as well as history of arrhythmia, unspecified, presents with pneumonia in the setting of underlying COPD. She has been receiving antibiotic therapy for several days in-house. She was noted to go into atrial fibrillation with rapid ventricular response recent while we were consulted to further assess. Ayala reports persistent dyspnea and occasional palpitations. She denies lightheadedness or chest pain. She has no reports of gross bleeding recently. She remains weak and frail. REVIEW OF SYSTEMS: A 12-system review negative except for as noted above. PAST MEDICAL HISTORY: As per HPI. SOCIAL HISTORY: No active smoking, alcohol, or drugs reported. FAMILY HISTORY: Noncontributory. PHYSICAL EXAMINATION: VITAL SIGNS: Currently afebrile, tachypneic, respiratory rate 25. Heart rate currently in the 80s on pulse exam in regular rhythm earlier today. Atrial fibrillation in the 120s to 130s, RVR, blood pressure 124/78 on high-flow nasal cannula. GENERAL: Chronically ill-appearing and frail. NECK: Supple. No JVD. CHEST: Decreased breath sounds and scattered rales. CARDIOVASCULAR: Regular rate and rhythm. Normal S1, S2. No S3. No S4. No murmurs. ABDOMEN: Soft. Bowel sounds positive. EXTREMITIES: Trace edema. CARDIOVASCULAR MEDICATIONS: Reviewed. Include amlodipine 10 mg daily, metoprolol succinate 25 mg every 12 hours, Lovenox 40 mg subcu daily. LABORATORY DATA: Studies reviewed. EKG, atrial fibrillation with rapid ventricular response. Creatinine 1, potassium 3.2, hemoglobin 7. ASSESSMENT AND PLAN: 1. Atrial fibrillation, paroxysmal with episodes of rapid ventricular response. 2. Pneumonia. 3. Chronic obstructive pulmonary disease. 4. History of esophageal varices and GI bleed, presenting with anemia of unclear etiology. 5. Hypertension. 6. Urinary tract infection. 7. Sepsis present on admission, now improved. 8. Dyslipidemia and hypertension. 9. Hypothyroidism. RECOMMENDATIONS: Continue current cardiovascular medications with the following changes: 1. Discontinue amlodipine. 2. Up titrate metoprolol to 50 mg every 12 hours. 3. Anemia workup advised. Consider FOBT and ferritin, TIBC, percent iron saturation, iron level to further assess. Given ongoing respiratory issues requiring high-flow nasal cannula FiO2 supplementation, would suggest postponing potential GI workup if necessary to once this is better resolved. For now, not a candidate for anticoagulation given significant concern for iron deficiency anemia of GI source. On echocardiogram, has preserved ventricular systolic function and no significant valvular abnormalities. Therefore, this is nonvalvular atrial fibrillation. Thank you for the opportunity to participate in the care of Ms Saucedo. Please call with any questions [phone]. Armando Lehman MD AFV/MODL /[id number]
[2020-09-09 10:01] LABS: FERRITIN 559.91 ng/mL (4.63-204.00)
--- NOTE | 2020-09-09 11:53 | Progress Note ---
DATE: SUBJECTIVE: The patient is feeling better. She has less dyspnea and cough. She is eager to go home. PHYSICAL EXAMINATION: VITAL SIGNS: Blood pressure is 127/80, saturation is 98% on 5 L. The pulse is 103. HEENT: Shows no facial swelling or erythema. LYMPHATIC: Shows no submandibular, cervical, or supraclavicular adenopathy. CARDIAC: Reveals regular rate and rhythm. Normal S1 and S2. LUNGS: Auscultation of lungs shows clear breath sounds at the bases. There is no wheezing. ABDOMEN: Soft, nontender. There is no rebound or guarding. EXTREMITIES: Shows no leg edema or calf tenderness. LABORATORY DATA: White blood cell count is 9.46, hemoglobin 9.1, platelet count is 405. The BUN to creatinine ratio is 13 to 0.72 and the potassium is 3.2. Other electrolytes within normal limits. IMPRESSION: 1. Multifocal pneumonia with sepsis present on admission. 2. Acute kidney injury that is improved. 3. Metabolic encephalopathy. 4. Hypothyroidism. 5. Anemia secondary to chronic blood loss. 6. Hypertension. PLAN: 1. Continue current antibiotics. 2. Wean oxygen as tolerated. 3. Speech therapy evaluation is complete. 4. Physical therapy. Slava Valente MD [facility]/MODL /[id number]
--- NOTE | 2020-09-09 12:02 | NUR ---
Called and spoke to pt's daughter Smiley Saucedo [phone]. States family will be arranging for providers to come stay with pt when she discharges. Informed her of anticipated dc for tomorrow. Spoke to her about HH. She is agreeable and said pt had home health previously but she does not remember the name of the company. Would like for CM to use any company that takes insurance. Choice letter for [facility], [facility], and [facility] placed in front of chart. Discussed need for home O2. She is also agreeable to use any company that takes pt's insurance. Choice letter for [facility] placed in chart. Discussed IMM letter with daughter. She verbalized understanding. Informed her that copy will be placed in pt's room. Signed IMM placed in chart. CM will call Smiley back with company that accepts pt. Gave CM's contact information to Smiley for any questions/concerns. HH referral sent to [facility]. Evette benavides/ Melissa was informed and verified that she received clinicals. Home oxygen order / clinical faxed to [employer]. Bobby benavides/ [facility] was notified of referral and will let CM know once approved to deliver portable oxygen.
--- NOTE | 2020-09-09 12:39 | Progress Note ---
DATE: 09/09/2020 Psychiatric Progress Note SUBJECTIVE: The patient evaluated and events noted. The patient is in the room. She is more alert. She is calm. She denies any depression or anxiety. She denies any suicidal thoughts. She denies any hallucination. She denies any side effects to medications. She is not getting any p.r.n. IM medication. Last night, . ASSESSMENT: 1. Unspecified psychosis/delirium, multifactorial, improved. 2. History of dementia. 3. History of depression. PLAN: 1. To discontinue Seroquel as needed. 2. Continue with Haldol and p.r.n. Ativan IM. 3. Continue with Aricept at nighttime. 4. Add Ativan 0.25 p.o. q.6 hours as needed. 5. Monitor for mood. 6. Supportive therapy. Thank you for this consultation. Dictated by Miya Soto PA-C Mian Sierra MD [facility]/MODL /[id number]
[2020-09-09] MEDS: LORAZEPAM 0.5 MG TAB PO PRN ×2 (13:37→21:48)
--- NOTE | 2020-09-09 15:56 | NUR ---
Spoke with Bobby with [facility]. States pt has been approved and that CM can deliver portable tank. Portable oxygen tank delivered to bedside. Also spoke with Evette with [facility]. Said they will be accepting pt. Will call pt's daughter to schedule admit when pt discharges. LEANA spoke with pt's daughter Smiley. Gave her [facility] contact information. LEANA asked that she call them within 24 hrs of discharge if she does not hear from them. She also stated that [facility] has already called her and asked her to call them when pt discharges for delivery of concentrator. LEANA also received approved from KEELY Whitney for pt's caregiver Estela to come tomorrow when/if pt discharges. resort desk clerk notified.
[2020-09-09] MEDS: ENOXAPARIN SOD INJ 40 MG/0.4 ML SYR SC SCH (16:13)
--- NOTE | 2020-09-09 16:54 | NUR ---
PAST MEDICAL HISTORY: 1. Hypertension. 2. Hypothyroidism. 3. UTIs. 4. Migraines. 5. Anemia, requiring multiple previous blood transfusions. 6. Depression. 7. Hyperlipidemia. 8. GERD. 9. Chronic back pain. 10. Neuropathy. 11. Hiatal hernia. 12. In 2014, she had upper GI bleed. 13. COPD. 14. Ulcer in distal esophagus. 15. Osteoarthritis. 16. Seasonal allergies. 17. Overactive bladder. PAST SURGICAL HISTORY: 1. Cholecystectomy. 2. Three back surgeries. 3. Right knee replacement on 08/11/2015. 4. EGD by Dr. Grove. FAMILY HISTORY: Father had low back pain and osteoarthritis. Mother had severe stroke. SOCIAL HISTORY: The patient lives alone. She is retired teacher. She denies any use of tobacco, alcohol, or illicit drug use. She has Rollator at home. ALLERGIES: PSEUDOEPHEDRINE AND CODEINE. [id number]
--- NOTE | 2020-09-09 18:35 | Consultation ---
DATE OF CONSULTATION: HISTORY OF PRESENT ILLNESS: Ayala Saucedo is a 75-year-old, who was admitted on September 06. The patient, who comes in with urgency and frequency. The patient is a 75-year-old female, who has history of hypertension, hypothyroidism, UTI, migraine, anemia, depression, hyperlipidemia, GERD, chronic back pain, COPD, ulcer in esophagus, cholecystectomy, and back surgery, comes in with urgency and frequency. The patient was admitted back on September 07. I was asked to see her today to make recommendation in terms of antibiotic. The patient was feeling better. She would like to go home, but she has little bit short of breath and cough. The patient comes in with multifocal pneumonia, acute kidney injury, anemia. I was asked to see her. LABORATORY DATA: Her blood cultures and urine cultures are negative. Her white count is 9.46 and hemoglobin 9.1. Her COVID-19 was negative. Sodium 137 and potassium 3.2. MEDICATIONS: The patient, who is currently on Lovenox, Carafate, and Ativan. She was given meropenem and DuoNeb. REVIEW OF SYSTEMS: At present time, besides the fatigue, she denies any. HEENT: Negative. PULMONARY: Negative. CARDIAC: Negative. The patient continued to have consolidation opacities in the left lower lobe. PHYSICAL EXAMINATION: GENERAL: Currently alert. VITAL SIGNS: Stable, currently afebrile. HEENT: She is not icteric. NECK: Supple. CHEST: Few rhonchi. HEART: S1 and S2. ABDOMEN: Soft. Bowel sounds present. EXTREMITIES: No edema. SKIN: No rash. IMPRESSION: 1. Pneumonia, concerned about aspiration. 2. History of chronic obstructive pulmonary disease. 3. Atrial fibrillation. 4. Hypertension. 5. Sepsis, on admission, resolved. Her blood culture is negative. Her urine culture is negative. I think we can discontinue antibiotic. Swallow evaluation. Obtain TSH. PT/OT. We will follow. MD FAVIO Bradford/MODL /[id number]
--- NOTE | 2020-09-09 19:00 | NUR ---
BEDSIDE SHIFT REPORT GIVEN TO THE HIDE HOUSE SUPERVISOR RN. PT DENIED FURTHER NEEDS.
[2020-09-09] MEDS: PRAMIPEXOLE DIHYDROCHLORIDE 0.25 MG TAB PO SCH (21:09)
[2020-09-09] MEDS: DONEPEZIL HCL 5 MG TAB PO SCH (21:09)
[2020-09-09] MEDS: METOPROLOL SUCCINATE 50 MG TAB XL PO SCH (21:09)
[2020-09-09] MEDS: PRAVASTATIN 20 MG TAB PO SCH (21:09)
--- NOTE | 2020-09-09 21:30 | NUR ---
patient extremely agitated, verbally abuse to nurse. attempting to get out of bed, demanding her migraine medication. educated patient on reasons why fioricet was dc'd by dr nicholson. patient not response to explanation. offered tylenol, patient agreed to take tylenol. prn ativan given as well.
[2020-09-09] MEDS: ACETAMINOPHEN 325 MG TAB PO PRN (21:48)
--- NOTE | 2020-09-09 22:45 | NUR ---
spoke to daughter mimi about patient continuing to be agitated and verbally abuse to staff. daughter called and spoke to patient.
[2020-09-10 00:15] VITALS: BP 130/59
[2020-09-10 05:08] LABS: BASOPHILS # (AUTO) 0.1 (0.0-0.1); BASOPHILS % 0.7 % (0.0-1.0); EOSINOPHILS % 0.4 % (0.0-6.0); HEMATOCRIT 28.6 % (34.2-44.1); HEMOGLOBIN 9.4 g/dL (12.0-16.0); LYMPHOCYTES # (AUTO) 0.4 (1.0-3.2); LYMPHOCYTES % 4.6 % (18.0-39.1); MEAN CORPUSCULAR HEMOGLOBIN 36.6 pg (28-32); MEAN CORPUSCULAR HGB CONC 32.9 g/dL (31-35); MEAN CORPUSCULAR VOLUME 111.3 fL (81-99); MONOCYTES # (AUTO) 0.3 (0.2-0.8); MONOCYTES % 3.4 % (4.4-11.3); NEUTROPHILS # (AUTO) 8.8 (2.1-6.9); NEUTROPHILS % 90.6 % (38.7-80.0); PLATELET COUNT 436 x10e3/uL (140-360); RED BLOOD COUNT 2.57 x10e6/uL (3.6-5.1)
[2020-09-10 05:33] LABS: ANION GAP 11.2 mmol/L (8-16); BLOOD UREA NITROGEN 14 mg/dL (7-26); BUN/CREATININE RATIO 19 (6-25); CALCIUM 9.2 mg/dL (8.4-10.2); CARBON DIOXIDE 26 mmol/L (22-29); CHLORIDE 104 mmol/L (98-107); CREATININE, SERUM 0.75 mg/dL (0.57-1.11); EST GLOMERULAR FILTRATION RATE > 60 ML/MIN (60-); GLUCOSE 108 mg/dL (74-118); POTASSIUM 4.2 mmol/L (3.5-5.1); SODIUM 137 mmol/L (136-145)
[2020-09-10 05:52] VITALS: BP 144/78
[2020-09-10 05:58] LABS: BAND NEUTROPHILS % (MANUAL) 2 %; LYMPHOCYTES % (MANUAL) 3 % (19-48); MONOCYTES % (MANUAL) 1 % (3.4-9.0); NEUTROPHILS % (MANUAL) 94 % (40-74)
[2020-09-10 05:59] LABS: ANISOCYTOSIS MODERATE; PLATELET ESTIMATE ADEQUATE; PLATELET MORPHOLOGY COMMENT FEW LARGE; RBC MORPHOLOGY COMMENT ABNORMAL
[2020-09-10 06:00] LABS: HYPOCHROMASIA SLIGHT
[2020-09-10] MEDS: LEVOTHYROXINE SODIUM 112 MCG TAB PO SCH (06:18)
[2020-09-10] MEDS: MEROPENEM 500MG/ NS 50ML 50 ML IV SCH ×2 (06:18→14:00)
--- NOTE | 2020-09-10 07:00 | NUR ---
BEDSIDE SHIFT REPORT RECEIVED FROM THE PONY EDGER RN. PT IS SLEEPING ON BED COMFORTABLY. CALL LIGHT WITH IN EASY REACH. BED IS LOW AND LOCKED. SIDE RAILS X2. BED ALARM IS ON. ALL SAFETY MEASURES IN PLACE.
[2020-09-10] MEDS ORDERED: PANTOPRAZOLE SOD 40 MG TABEC PO SCH (07:30)
--- NOTE | 2020-09-10 08:03 | NUR ---
SPOKE WITH DAUGHTER HAL, SHE STATES SHE HAS CHANGED HER PROVIDERS TO STAY WITH HER AT NIGHT, SHE GOES ON TO STATE HER MOTHER JUST DOES NOT DO WELL UNLESS SHE IS AT HOME. SHE DECLINES THE SNF AND WANTS TO PROCEED HOME WITH HOME HEALTH.
[2020-09-10] MEDS: NON-FORMULARY MEDICATION (Fluticasone/Umeclidin/Vilanter (Trelegy Ellipta 100-62.5-25) 1 I INH SCH (08:24)
[2020-09-10] MEDS: NON-FORMULARY MEDICATION (Mirabegron (Myrbetriq) 25 MG) PO SCH (08:24)
[2020-09-10 08:29] VITALS: BP 125/68
--- NOTE | 2020-09-10 08:30 | NUR ---
WALKING ROUNDS MADE. PT IS VERY AGITATED . REFUSED MEDS AT THIS TIME.
[2020-09-10 08:53] VITALS: BP 125/68
[2020-09-10] MEDS: CLOBETASOL PROPIONATE 0.05% CRM 15 GM TUBE TOP SCH (09:00)
[2020-09-10] MEDS ORDERED: FERROUS SULFATE 325 MG TAB PO SCH (09:00)
[2020-09-10] MEDS ORDERED: DOCUSATE SODIUM 100 MG CAP PO SCH (09:00)
[2020-09-10] MEDS ORDERED: ASCORBIC ACID 500 MG TAB PO SCH (09:00)
[2020-09-10] MEDS ORDERED: COLACE100 MG PO (09:12)
[2020-09-10] MEDS ORDERED: FERROUS SULFAT325 MG PO (09:12)
[2020-09-10] MEDS ORDERED: ASCORBIC ACID500 MG PO (09:12)
[2020-09-10] MEDS: LORAZEPAM INJ 2 MG/ML VIAL IM PRN (09:44)
[2020-09-10] MEDS ORDERED: LORAZEPAM 0.5 MG TAB PO PRN ×2 (09:45)
[2020-09-10] MEDS: HYDROXYUREA 500 MG CAPSULE PO SCH (09:45)
[2020-09-10] MEDS: METOPROLOL SUCCINATE 50 MG TAB XL PO SCH (09:45)
[2020-09-10] MEDS ORDERED: OLANZAPINE 5 MG TAB PO PRN (09:45)
[2020-09-10] MEDS: SUCRALFATE 1 GM TAB PO SCH ×2 (09:46→14:46)
[2020-09-10] MEDS: RALOXIFENE HCL 60 MG TAB PO SCH (09:46)
[2020-09-10] MEDS: POTASSIUM CHLORIDE 20 MEQ TAB CR PO SCH (09:47)
[2020-09-10] MEDS: DICYCLOMINE HCL 20 MG TAB PO SCH ×2 (09:47→13:00)
--- NOTE | 2020-09-10 10:07 | Progress Note ---
DATE: 09/10/2020 Psychiatric Progress Note SUBJECTIVE: The patient evaluated and events noted. The patient is in the room. She is eating breakfast. She is irritable, frustrated. She complained of migraine. She is happy with her hospital stay. She denies any suicidal thoughts or hallucination. She denies any side effects of medications. As per nurse, the patient has been very verbally abusive towards the staff. She is restless. ASSESSMENT: 1. Unspecified psychosis/delirium, multifactorial, improved. 2. History of dementia. 3. History of depression. PLAN: 1. Continue with Haldol p.r.n. IM. 2. Continue p.r.n. Ativan IM. 3. Continue with Ativan 0.25 p.o. q.6 hours as needed. 4. Continue Aricept 10 mg p.o. at bedtime. 5. Restart low-dose of Effexor XR 37.5 mg p.o. daily. 6. Monitor for mood. 7. Supportive therapy. 8. The patient is cleared from psych standpoint. 9. Recommend follow up with a psychiatrist upon discharge. Dictated by Miya Soto PA-C MD [facility]/IFEANYI /[id number]
--- NOTE | 2020-09-10 10:21 | Progress Note ---
DATE: SUBJECTIVE: The patient is currently afebrile. She is on nasal cannula at 4 L. PHYSICAL EXAMINATION: VITAL SIGNS: Blood pressure is 125/60, saturation is 100%. The pulse is 86, respiratory rate is 23. HEENT: Shows no facial swelling or erythema. LYMPHATIC: Shows no submandibular, cervical, or supraclavicular adenopathy. CARDIAC: Reveals regular rate and rhythm with normal S1 and S2. LUNGS: Auscultation of lungs shows decreased breath sounds at the bases. There is no wheezing. ABDOMEN: Soft and nontender. There is no rebound or guarding. EXTREMITIES: Shows no leg edema or calf tenderness. There is no cyanosis or clubbing. SKIN: Shows no rashes. NEUROLOGICAL: Shows no focal abnormalities. LABORATORY DATA: White blood cell count is 9.67, hemoglobin is 9.4, and the platelet count is 436. BUN to creatinine ratio is 14 to 0.75. Other electrolytes are within normal limits. IMPRESSION: 1. Multifocal pneumonia with sepsis, present on admission. 2. Acute kidney injury that is improved. 3. Metabolic encephalopathy. 4. Hypothyroidism. 5. Anemia secondary to chronic blood loss. 6. Hypertension. PLAN: 1. Complete current antibiotics. 2. Wean oxygen as tolerated. 3. Physical therapy. 4. Discussed disposition with Dr. Dunbar and Case Management. Slava Valente MD [facility]/MODL /[id number]
--- NOTE | 2020-09-10 10:48 | Progress Note ---
DATE: 09/10/2020 Cardiology Progress Note SUBJECTIVE: Tired, wants to go home. Denies chest pain. Has stable shortness of breath. OBJECTIVE: VITAL SIGNS: Temperature 97.8, heart rate 86, respiratory rate 23, blood pressure 125/68, and O2 saturation 100% on nasal cannula. GENERAL: Chronically ill-appearing, frail. NECK: Supple. No JVD. CHEST: With decreased breath sounds and scattered rales. CARDIOVASCULAR: Regular rate and rhythm. Normal S1 and S2. No S3. No S4. No murmurs or rubs. ABDOMEN: Soft. Bowel sounds positive. EXTREMITIES: Trace edema. CARDIOVASCULAR MEDICATIONS: Reviewed. Ferrous sulfate 325 mg daily, metoprolol succinate 50 mg every 12 hours, Lovenox 40 mg subcutaneous daily, and hydralazine 10 q.4 hours p.r.n. STUDIES: Reviewed. White blood cells 9.6, hemoglobin 9.4, and platelets 436. Sodium 137, potassium 4.2, chloride 104, bicarbonate 26, BUN 14, creatinine 0.7, and glucose 108. Stool occult positive. Coronavirus PCR negative. Telemetry, episodes of atrial fibrillation with rapid ventricular response. ASSESSMENT: 1. A 75-year-old woman with paroxysmal atrial fibrillation, pneumonia, chronic obstructive pulmonary disease, history of esophageal varices and gastrointestinal bleed, now presenting with anemia and positive fecal occult blood test, hypertension, urinary tract infection, sepsis, present on admission, now improved. 2. Dyslipidemia. 3. Hypertension. 4. Hypothyroidism. RECOMMEND: 1. Given fecal occult blood test positive and anemia with a history of gastrointestinal bleed at this point, not a candidate for anticoagulation or antiplatelet therapy. GI evaluation advised once acute respiratory issues have resolved. If necessary, this can be done as outpatient at the discretion of primary service. 2. Uptitrated metoprolol to 50 mg every 12 hours and discontinued amlodipine with improvement in rate control as well as stable blood pressure rates today. This is nonvalvular atrial fibrillation. We will follow closely with you. Thank you for the opportunity to participate in the care of Ms. Saucedo. Please call with any questions, . Armando Lehman MD [facility]/MODL /[id number]
--- NOTE | 2020-09-10 11:00 | NUR ---
PAGED PT DAUGHTER HAL CRAMER AND UPDATED THE D/C PLAN. PT IS GOING HOME WITH HH. PT AND DAUGHTER VERBALIZED UNDERSTANDING. PT ARCHITECTURAL INTERN WILL [place] PHOTOGRAPHER THE PT AFTER 1230 PER THE DAUGHTER. PT AND DAUGHTER DENIED FURTHER NEEDS.
--- NOTE | 2020-09-10 11:24 | NUR ---
Notified Evette with [facility] that pt will be discharging home today. She will let office know and they will contact family.
[2020-09-10 12:00] VITALS: BP 118/60
--- NOTE | 2020-09-10 13:00 | NUR ---
PER HAL CRAMER PT DAUGHTER, PT CAREGIVER JOHNATHON WILL SCREED OPERATOR THE PT AFTER 2 PM.
--- NOTE | 2020-09-10 14:32 | NUR ---
PT CAREGIVER AT BEDSIDE TO SOIL FERTILITY EXTENSION SPECIALIST THE PT.
--- NOTE | 2020-09-10 15:00 | NUR ---
D/C INSTRUCTIONS GIVEN TO THE PT, CAREGIVER AT BEDSIDE AND DAUGHTER HAL CRAMER.
[2020-09-10 16:10] VITALS: BP 102/77
[2020-09-11] MEDS ORDERED: VENLAFAXINE HCL 37.5MG XR CAP PO SCH (08:00)
--- NOTE | 2020-09-12 06:16 | Discharge Summary ---
ADMISSION DIAGNOSES: Acute on chronic anemia requiring transfusions with dyspnea on exertion, acute blood loss anemia secondary to gastrointestinal bleed, acute urinary tract infection with history of urinary tract infections and overactive bladder, present on admission, acute left facial/jaw swelling of one week's duration, migraine, severe sepsis, present on admission due to urinary tract infection, acute kidney injury, hypertension, acute hyponatremia, hypothyroidism, chronic obstructive pulmonary disease without exacerbation, hyperlipidemia, ambulatory dysfunction with generalized weakness and osteoarthritis, obesity with a BMI of 30.6. DISCHARGE DIAGNOSES: Acute on chronic anemia requiring transfusions with dyspnea on exertion, acute blood loss anemia secondary to gastrointestinal bleed, acute urinary tract infection with history of urinary tract infections and overactive bladder, present on admission, acute left facial/jaw swelling of one week's duration, migraine, severe sepsis, present on admission due to urinary tract infection, acute kidney injury, hypertension, acute hyponatremia, hypothyroidism, chronic obstructive pulmonary disease without exacerbation, hyperlipidemia, ambulatory dysfunction with generalized weakness and osteoarthritis, obesity with a BMI of 30.6 plus rule out urinary tract infection plus acute on chronic respiratory failure with hypoxia due to chronic obstructive pulmonary disease, rule out pulmonary embolism, rule out coronavirus. HISTORY: Hypertension, hypothyroidism, frequent urinary tract infections, migraine, anemia due to gastrointestinal bleed, depression, hyperlipidemia, gastroesophageal reflux disease, chronic back pain, neuropathy, large hiatal hernia, chronic obstructive pulmonary disease, osteoarthritis, overactive bladder. SURGICAL HISTORY: Cholecystectomy, back surgery x3, right knee replacement. FAMILY HISTORY: Mother had a stroke. SOCIAL HISTORY: The patient has a Rollator at home. She denies tobacco, alcohol, and drug use. HOSPITAL COURSE: A 75-year-old female presents to the ER with one week duration of dysuria, left facial swelling, and dyspnea. On admission, the patient's hemoglobin was 7.2, 2 PRBCs were ordered and transfused. Following that the hemoglobin remained stable. Later on the admission, the patient gave us a stool for blood, which was positive. No GI workup was indicated at that time, as the hemoglobin was already stable for many days. The patient was presumed to have a UTI and started on Zosyn. The urine culture came back negative, so UTI was ruled out. ENT was consulted due to left facial swelling and she was diagnosed with parotitis, which again resolved prior to discharge. The patient's creatinine on admission was 1.42, which trended down during hospitalization. Chest x-ray showed no acute abnormalities. Ultrasound of the neck showed no suspicious mass or fluid collection. CT of the face showed possible odontogenic infection secondary to periapical abscess of tooth #20. CT of the chest was ordered due to elevated D-dimer, which showed no PE, but did show findings concerning for multifocal pneumonia and a large hiatal hernia. Coronavirus was negative. Blood culture and urine culture negative. Echo showed an EF of 55% to 60%. Home O2 evaluation was done, which showed the patient desaturated to 88% and needed 4 L oxygen to bring her back up. Stool for blood was ordered, which came back positive and her iron lab showed low iron, low TIBC, low transferrin, high B12, and high ferritin. She was given prescriptions for ascorbic acid, ferrous sulfate, and docusate. Before discharging she also went into atrial fibrillation, RVR, which apparently was new onset, so her discharge was held an additional day and Cardiology was consulted. Her metoprolol was increased from 25 q.12 to 50 q.12 per Cardiology recommendation. Due to the GI bleed, she is not a candidate for anticoagulation. She will discharge home, as her daughter refuses the placement. Home O2 was arranged prior to discharge. She will follow up with Primary Care and Cardiology in 1 to 2 weeks. The patient and daughter understand discharge instructions and agrees to plan. Dictated by Keyonna Welch NP MD GÓMEZ Enriquez/MODL /[id number]
== END 2020-09-10 15:19 | disposition home health service (06) | DRG 871 ==
LOC: ER 20:40 → ERHOLD 22:50 → MED/SURG2 09-06 00:48
PROVIDERS: ADMIT Internal Medicine; ATTEND Internal Medicine
PROC: 30233N1 Transfusion of Nonautologous Red Blood Cells into Peripheral Vein, Percutaneous Approach (ICD-10-PCS; principal; 2020-09-06)
DX: A41.9 Sepsis, unspecified organism (principal); G93.41 Metabolic encephalopathy; J96.01 Acute respiratory failure with hypoxia; J18.9 Pneumonia, unspecified organism; E87.1 Hypo-osmolality and hyponatremia; N17.9 Acute kidney failure, unspecified; F05 Delirium due to known physiological condition; D62 Acute posthemorrhagic anemia; K92.2 Gastrointestinal hemorrhage, unspecified; R65.20 Severe sepsis without septic shock; I12.9 Hypertensive chronic kidney disease with stage 1 through stage 4 chronic kidney disease, or unspecified chronic kidney disease; N18.30 Chronic kidney disease, stage 3 unspecified; E66.9 Obesity, unspecified; E03.9 Hypothyroidism, unspecified; E78.5 Hyperlipidemia, unspecified; K21.9 Gastro-esophageal reflux disease without esophagitis; G62.9 Polyneuropathy, unspecified; Z96.651 Presence of right artificial knee joint; Z90.49 Acquired absence of other specified parts of digestive tract; Z88.5 Allergy status to narcotic agent; Z88.8 Allergy status to other drugs, medicaments and biological substances; Z87.440 Personal history of urinary (tract) infections; D64.9 Anemia, unspecified; N32.81 Overactive bladder; G43.909 Migraine, unspecified, not intractable, without status migrainosus; J44.9 Chronic obstructive pulmonary disease, unspecified; Z68.30 Body mass index [BMI] 30.0-30.9, adult; R53.1 Weakness; M19.90 Unspecified osteoarthritis, unspecified site; K11.21 Acute sialoadenitis; Z82.3 Family history of stroke; Z82.61 Family history of arthritis; F03.90 Unspecified dementia, unspecified severity, without behavioral disturbance, psychotic disturbance, mood disturbance, and anxiety; J30.89 Other allergic rhinitis; I48.0 Paroxysmal atrial fibrillation; K04.7 Periapical abscess without sinus; K44.9 Diaphragmatic hernia without obstruction or gangrene; Z20.828 Contact with and (suspected) exposure to other viral communicable diseases
CPT/HCPCS: 36415; 36600; 70487; 71045; 71250; 71260; 76536; 80048; 80053; 80061; 81001; 82140; 82270; 82550; 82553; 82607; 82728; 82746; 82805; 83036; 83540; 83605; 83735; 83880; 84100; 84439; 84443; 84466; 84480; 84484; 85025; 85379; 86850; 86900; 86920; 87040; 87086; 93005; 93306; 94640; 97139; 99284; J0360; J1650; J1940; J2060; J2270; J2405; J2543; J7030; J7050; P9016; Q9967; U0002

== ENCOUNTER 2021-02-11 21:55 | Inpatient (IN) | payer MEDICARE, BC ==
[~2021-02-11] VITALS: Ht 175.3 cm; Wt 79.4 kg
[~2021-02-11 21:55] MED LIST changes: +ASCORBIC ACID500 MG PO; +BUPROPION XL150 MG PO; +CLOBETASOL PROP15 GM TOP; +COLACE100 MG PO; +DICYCLOMINE HCL20 MG PO; +DONEPEZIL HCL23 MG PO; +ESCITALOPRAM OX20 MG PO; +FERROUS SULFAT325 MG PO; +GABAPENTIN300 MG PO; +HYDROXYUREA500 MG PO; +K-TAB ER8 MEQ PO; +LEVOTHYROXINE112 MCG PO; +METOPROLOL SUCC25 MG PO; +MYRBETRIQ25 MG PO; +ONDANSETRON ODT8 MG PO; +PERCOCET 7.5-31 EACH PO; +PRAMIPEXOLE0.125 MG PO; +PROAIR HFA INH8.5 GM INH; +QUETIAPINE FUMA25 MG PO; +SUCRALFATE1 GM PO; +TIZANIDINE HCL4 MG PO; +TOPROL XL25 MG PO; +TRELEGY ELLIPT1 EACH INH; +VENLAFAXINE HCL75 M1 PO; +[UNRECOGNIZED DRUG - OTHER] TOP
[2021-02-11] MEDS ORDERED: SODIUM CHLORIDE 0.9% 1000ML 1,000 ML IV STA (22:03)
[2021-02-11 22:34] LABS: BASOPHILS % 0.3 % (0.0-1.0); CLARITY,URINE CLEAR (CLEAR); COLOR,URINE YELLOW (YELLOW); EOSINOPHILS % 0.3 % (0.0-6.0); KETONES,URINE NEGATIVE (NEGATIVE); LEUKOCYTE ESTERASE ,URINE NEGATIVE (NEGATIVE); LYMPHOCYTES # (AUTO) 0.9 (1.0-3.2); LYMPHOCYTES % 30.4 % (18.0-39.1); MEAN CORPUSCULAR HEMOGLOBIN 41.1 pg (28-32); MEAN CORPUSCULAR HGB CONC 31.8 g/dL (31-35); MEAN CORPUSCULAR VOLUME 129.1 fL (81-99); MONOCYTES # (AUTO) 0.2 (0.2-0.8); MONOCYTES % 6.1 % (4.4-11.3); NEUTROPHILS # (AUTO) 1.9 (2.1-6.9); NEUTROPHILS % 62.9 % (38.7-80.0); NITRITE,URINE NEGATIVE (NEGATIVE); PLATELET COUNT 321 x10e3/uL (140-360); PROTEIN,URINE DIPSTICK NEGATIVE (NEGATIVE); RED BLOOD COUNT 1.51 x10e6/uL (3.6-5.1); RED CELL DISTRIBUTION WIDTH 16.2 % (11.7-14.4); URINE UROBILINOGEN 0.2 mg/dL (0.2 - 1)
[2021-02-11 22:39] LABS: HEMATOCRIT 19.5 % (34.2-44.1); HEMOGLOBIN 6.2 g/dL (12.0-16.0)
[2021-02-11 22:43] LABS: BACTERIA,URINE FEW /HPF; EPITHELIAL CELLS,URINE FEW /LPF; RBC,URINE 0-5 /HPF (0-5); WBC,URINE (MAN) 0-5 /HPF (0-5)
[2021-02-11] MEDS ORDERED: SODIUM CHLORIDE 0.9% 250ML 250 ML IV ONE (22:45)
[2021-02-11 22:53] LABS: ALBUMIN 3.2 g/dL (3.5-5.0); ALBUMIN/GLOBULIN RATIO 0.9 (0.8-2.0); CALCIUM 8.6 mg/dL (8.4-10.2); CREATININE, SERUM 1.08 mg/dL (0.57-1.11)
[2021-02-11] MEDS ORDERED: PIPER-TAZ 3.375 GM 50 ML IV SCH (23:30)
[2021-02-11] MEDS: PIPERACILLIN/TAZOBAC 3.375 GM in SODIUM CHLORIDE 0.9% 50ML 50 ML IV SCH (23:38)
[2021-02-12] MEDS: PIPERACILLIN/TAZOBAC 3.375 GM in SODIUM CHLORIDE 0.9% 50ML 50 ML IV SCH ×5 (00:35→21:46)
[2021-02-12] MEDS ORDERED: ACETAMINOPHEN 325 MG TAB PO PRN (01:15)
[2021-02-12] MEDS: MORPHINE SULFATE INJ 4 MG/ML INJ 1ML IV PRN ×2 (01:30→18:30)
[2021-02-12] MEDS: METRONIDAZOLE 500 MG TAB PO SCH ×3 (06:11→21:46)
[2021-02-12] MEDS: LEVOTHYROXINE SODIUM 112 MCG TAB PO SCH (06:11)
[2021-02-12] MEDS: PANTOPRAZOLE SOD 40 MG TABEC PO SCH (06:11)
[2021-02-12] MEDS ORDERED: LEVOTHYROXINE SODIUM 100 MCG TAB ONE (06:18)
[2021-02-12] MEDS ORDERED: LEVOTHYROXINE SODIUM 50 MCG TAB ONE (06:18)
[2021-02-12 07:48] LABS: BASOPHILS % 0.4 % (0.0-1.0); EOSINOPHILS % 1.1 % (0.0-6.0); HEMATOCRIT 31.2 % (34.2-44.1); HEMOGLOBIN 10.7 g/dL (12.0-16.0); LYMPHOCYTES # (AUTO) 0.9 (1.0-3.2); LYMPHOCYTES % 31.1 % (18.0-39.1); MEAN CORPUSCULAR HEMOGLOBIN 34.7 pg (28-32); MEAN CORPUSCULAR HGB CONC 34.3 g/dL (31-35); MEAN CORPUSCULAR VOLUME 101.3 fL (81-99); MONOCYTES # (AUTO) 0.2 (0.2-0.8); MONOCYTES % 7.4 % (4.4-11.3); NEUTROPHILS # (AUTO) 1.7 (2.1-6.9); NEUTROPHILS % 59.6 % (38.7-80.0); PLATELET COUNT 207 x10e3/uL (140-360); RED BLOOD COUNT 3.08 x10e6/uL (3.6-5.1)
[2021-02-12 08:18] LABS: ALBUMIN/GLOBULIN RATIO 0.9 (0.8-2.0); ANION GAP 14.9 mmol/L (8-16); CREATININE, SERUM 0.95 mg/dL (0.57-1.11); POTASSIUM 3.9 mmol/L (3.5-5.1)
[2021-02-12 11:18] LABS: BASOPHILS % 0.3 % (0.0-1.0); EOSINOPHILS % 0.9 % (0.0-6.0); HEMATOCRIT 33.5 % (34.2-44.1); HEMOGLOBIN 11.4 g/dL (12.0-16.0); LYMPHOCYTES # (AUTO) 0.9 (1.0-3.2); LYMPHOCYTES % 26.6 % (18.0-39.1); MEAN CORPUSCULAR HEMOGLOBIN 34.8 pg (28-32); MEAN CORPUSCULAR VOLUME 102.1 fL (81-99); MONOCYTES # (AUTO) 0.3 (0.2-0.8); MONOCYTES % 9.6 % (4.4-11.3); NEUTROPHILS # (AUTO) 2.1 (2.1-6.9); NEUTROPHILS % 62.3 % (38.7-80.0); PLATELET COUNT 217 x10e3/uL (140-360); RED BLOOD COUNT 3.28 x10e6/uL (3.6-5.1)
[2021-02-12] MEDS ORDERED: SODIUM CHLORIDE 0.9% 250ML 250 ML ONE (14:39)
[2021-02-12 15:03] VITALS: BP 129/74
[2021-02-12 15:57] VITALS: BP 129/74
[2021-02-12] MEDS: ONDANSETRON HCL INJ 2MG/ML 2ML 2 MG/ML VIAL IV PRN (18:30)
[2021-02-12 20:00] VITALS: BP 127/63
[2021-02-12] MEDS ORDERED: IOPAMIDOL 370 MG/ML 200 ML INFUS..BTL INJ ONE (20:26)
[2021-02-12] MEDS ORDERED: SODIUM CHLORIDE 0.9% 50ML 50 ML ONE (20:26)
[2021-02-12] MEDS: DONEPEZIL HCL 5 MG TAB PO SCH (21:46)
[2021-02-13] VITALS (8 sets, daily range): BP systolic 127–156; BP diastolic 65–89
[2021-02-13] MEDS: PIPERACILLIN/TAZOBAC 3.375 GM in SODIUM CHLORIDE 0.9% 50ML 50 ML IV SCH ×3 (04:00→15:00)
[2021-02-13] MEDS: METRONIDAZOLE 500 MG TAB PO SCH ×3 (05:14→20:13)
[2021-02-13] MEDS: LEVOTHYROXINE SODIUM 112 MCG TAB PO SCH (05:14)
[2021-02-13 06:33] LABS: BASOPHILS % 0.3 % (0.0-1.0); HEMATOCRIT 31.9 % (34.2-44.1); HEMOGLOBIN 10.7 g/dL (12.0-16.0); LYMPHOCYTES # (AUTO) 0.8 (1.0-3.2); LYMPHOCYTES % 26.6 % (18.0-39.1); MEAN CORPUSCULAR HEMOGLOBIN 34.7 pg (28-32); MEAN CORPUSCULAR HGB CONC 33.5 g/dL (31-35); MEAN CORPUSCULAR VOLUME 103.6 fL (81-99); MONOCYTES # (AUTO) 0.3 (0.2-0.8); MONOCYTES % 9.8 % (4.4-11.3); NEUTROPHILS # (AUTO) 1.8 (2.1-6.9); NEUTROPHILS % 61.6 % (38.7-80.0); PLATELET COUNT 213 x10e3/uL (140-360); RED BLOOD COUNT 3.08 x10e6/uL (3.6-5.1); RED CELL DISTRIBUTION WIDTH 26.8 % (11.7-14.4)
[2021-02-13 06:55] LABS: ALANINE AMINOTRANSFERASE 13 IU/L (0-55); ALBUMIN 3.1 g/dL (3.5-5.0); ALBUMIN/GLOBULIN RATIO 0.9 (0.8-2.0); ALKALINE PHOSPHATASE 57 IU/L (40-150); ANION GAP 12.6 mmol/L (8-16); BLOOD UREA NITROGEN 14 mg/dL (7-26); BUN/CREATININE RATIO 17 (6-25); CALCIUM 8.6 mg/dL (8.4-10.2); CARBON DIOXIDE 21 mmol/L (22-29); CHLORIDE 110 mmol/L (98-107); CREATININE, SERUM 0.81 mg/dL (0.57-1.11); EST GLOMERULAR FILTRATION RATE > 60 ML/MIN (60-); GLUCOSE 94 mg/dL (74-118); MAGNESIUM 1.9 MG/DL (1.3-2.1); POTASSIUM 3.6 mmol/L (3.5-5.1); SODIUM 140 mmol/L (136-145)
[2021-02-13] MEDS: PANTOPRAZOLE SOD 40 MG TABEC PO SCH (08:30)
[2021-02-13 08:53] LABS: BAND NEUTROPHILS % (MANUAL) 3 %; EOSINOPHILS % (MANUAL) 1 % (0-7); LYMPHOCYTES % (MANUAL) 25 % (19-48); METAMYELOCYTES % (MANUAL) 2 % (0-0); MONOCYTES % (MANUAL) 6 % (3.4-9.0); NEUTROPHILS % (MANUAL) 60 % (40-74); PROMYELOCYTES % (MANUAL) 1 % (0-0)
[2021-02-13 08:54] LABS: HYPOCHROMASIA MARKED; POIKILOCYTOSIS MODERATE; RBC MORPHOLOGY COMMENT ABNORMAL
[2021-02-13 08:55] LABS: ANISOCYTOSIS MODE; MICROCYTOSIS SLIGHT
[2021-02-13] MEDS: MORPHINE SULFATE INJ 4 MG/ML INJ 1ML IV PRN (14:30)
[2021-02-13] MEDS: ONDANSETRON HCL INJ 2MG/ML 2ML 2 MG/ML VIAL IV PRN (14:30)
[2021-02-13] MEDS: DONEPEZIL HCL 5 MG TAB PO SCH (20:13)
[2021-02-14] VITALS (8 sets, daily range): BP systolic 105–163; BP diastolic 58–87
[2021-02-14] MEDS: LEVOTHYROXINE SODIUM 112 MCG TAB PO SCH (05:51)
[2021-02-14] MEDS: METRONIDAZOLE 500 MG TAB PO SCH (05:51)
[2021-02-14] MEDS: PANTOPRAZOLE SOD 40 MG TABEC PO SCH (08:30)
[2021-02-14] MEDS ORDERED: CEFUROXIME AXETIL 250 MG TAB PO SCH ×2 (09:00)
[2021-02-14] MEDS: DONEPEZIL HCL 5 MG TAB PO SCH (21:43)
[2021-02-14] MEDS: MORPHINE SULFATE INJ 4 MG/ML INJ 1ML IV PRN (21:58)
[2021-02-14] MEDS: ONDANSETRON HCL INJ 2MG/ML 2ML 2 MG/ML VIAL IV PRN (22:01)
[2021-02-15] VITALS (9 sets, daily range): BP systolic 96–142; BP diastolic 61–84
[2021-02-15] MEDS: LEVOTHYROXINE SODIUM 112 MCG TAB PO SCH (06:00)
[2021-02-15 06:19] LABS: BASOPHILS % 0.4 % (0.0-1.0); EOSINOPHILS % 1.1 % (0.0-6.0); HEMATOCRIT 32.2 % (34.2-44.1); HEMOGLOBIN 10.6 g/dL (12.0-16.0); LYMPHOCYTES % 37.9 % (18.0-39.1); MEAN CORPUSCULAR HEMOGLOBIN 34.8 pg (28-32); MEAN CORPUSCULAR HGB CONC 32.9 g/dL (31-35); MEAN CORPUSCULAR VOLUME 105.6 fL (81-99); MONOCYTES # (AUTO) 0.3 (0.2-0.8); MONOCYTES % 10.7 % (4.4-11.3); NEUTROPHILS # (AUTO) 1.3 (2.1-6.9); NEUTROPHILS % 49.9 % (38.7-80.0); PLATELET COUNT 247 x10e3/uL (140-360); RED BLOOD COUNT 3.05 x10e6/uL (3.6-5.1); RED CELL DISTRIBUTION WIDTH 24.7 % (11.7-14.4)
[2021-02-15 06:37] LABS: ALANINE AMINOTRANSFERASE 11 IU/L (0-55); ALBUMIN 2.8 g/dL (3.5-5.0); ALBUMIN/GLOBULIN RATIO 0.8 (0.8-2.0); ALKALINE PHOSPHATASE 46 IU/L (40-150); ANION GAP 14.4 mmol/L (8-16); BLOOD UREA NITROGEN 10 mg/dL (7-26); BUN/CREATININE RATIO 13 (6-25); CALCIUM 8.6 mg/dL (8.4-10.2); CARBON DIOXIDE 23 mmol/L (22-29); CHLORIDE 105 mmol/L (98-107); EST GLOMERULAR FILTRATION RATE > 60 ML/MIN (60-); GLUCOSE 109 mg/dL (74-118); MAGNESIUM 1.9 MG/DL (1.3-2.1); POTASSIUM 3.4 mmol/L (3.5-5.1); SODIUM 139 mmol/L (136-145)
[2021-02-15 07:47] LABS: PLATELET ESTIMATE ADEQUATE; PLATELET MORPHOLOGY COMMENT NORMAL
[2021-02-15 07:48] LABS: ANISOCYTOSIS MODERATE; RBC MORPHOLOGY COMMENT ABNORMAL
[2021-02-15] MEDS: PANTOPRAZOLE SOD 40 MG TABEC PO SCH (08:44)
[2021-02-15] MEDS ORDERED: POTASSIUM CHLORIDE 20 MEQ TAB CR PO STA (13:23)
[2021-02-15] MEDS: LORAZEPAM INJ 2 MG/ML VIAL IV PRN (17:29)
[2021-02-15] MEDS: DONEPEZIL HCL 5 MG TAB PO SCH (21:00)
[2021-02-16] VITALS: BP 155/82
[2021-02-16 04:00] VITALS: BP 140/76
[2021-02-16] MEDS: LORAZEPAM INJ 2 MG/ML VIAL IV PRN (04:46)
[2021-02-16 05:15] LABS: BASOPHILS % 0.3 % (0.0-1.0); EOSINOPHILS % 1.2 % (0.0-6.0); HEMATOCRIT 30.6 % (34.2-44.1); HEMOGLOBIN 10.1 g/dL (12.0-16.0); LYMPHOCYTES # (AUTO) 0.9 (1.0-3.2); LYMPHOCYTES % 27.9 % (18.0-39.1); MEAN CORPUSCULAR HEMOGLOBIN 34.6 pg (28-32); MEAN CORPUSCULAR VOLUME 104.8 fL (81-99); MONOCYTES # (AUTO) 0.4 (0.2-0.8); MONOCYTES % 10.8 % (4.4-11.3); NEUTROPHILS # (AUTO) 1.9 (2.1-6.9); NEUTROPHILS % 59.5 % (38.7-80.0); PLATELET COUNT 252 x10e3/uL (140-360); RED BLOOD COUNT 2.92 x10e6/uL (3.6-5.1); RED CELL DISTRIBUTION WIDTH 23.8 % (11.7-14.4)
[2021-02-16 05:53] LABS: ALANINE AMINOTRANSFERASE 11 IU/L (0-55); ALBUMIN 2.8 g/dL (3.5-5.0); ALBUMIN/GLOBULIN RATIO 0.8 (0.8-2.0); ALKALINE PHOSPHATASE 48 IU/L (40-150); ANION GAP 13.9 mmol/L (8-16); BLOOD UREA NITROGEN 10 mg/dL (7-26); BUN/CREATININE RATIO 13 (6-25); CALCIUM 8.8 mg/dL (8.4-10.2); CARBON DIOXIDE 25 mmol/L (22-29); CHLORIDE 106 mmol/L (98-107); CREATININE, SERUM 0.78 mg/dL (0.57-1.11); EST GLOMERULAR FILTRATION RATE > 60 ML/MIN (60-); GLUCOSE 117 mg/dL (74-118); POTASSIUM 3.9 mmol/L (3.5-5.1); SODIUM 141 mmol/L (136-145)
[2021-02-16] MEDS: LEVOTHYROXINE SODIUM 112 MCG TAB PO SCH ×2 (06:00→13:07)
[2021-02-16 07:39] VITALS: BP 110/77
[2021-02-16 08:29] VITALS: BP 110/77
[2021-02-16 08:34] VITALS: BP 110/77
[2021-02-16] MEDS: PANTOPRAZOLE SOD 40 MG TABEC PO SCH (08:40)
[2021-02-16 12:03] VITALS: BP 138/65
== END 2021-02-16 16:20 | disposition home health service (06) | DRG 391 ==
LOC: ER 22:06 → ERHOLD 23:26 → MED/SURG2 02-12 14:12
PROVIDERS: ADMIT Internal Medicine; ATTEND Internal Medicine
PROC: 30233N1 Transfusion of Nonautologous Red Blood Cells into Peripheral Vein, Percutaneous Approach (ICD-10-PCS; principal; 2021-02-12)
DX: K52.9 Noninfective gastroenteritis and colitis, unspecified (principal); J18.9 Pneumonia, unspecified organism; D61.818 Other pancytopenia; E03.9 Hypothyroidism, unspecified; I10 Essential (primary) hypertension; G40.909 Epilepsy, unspecified, not intractable, without status epilepticus; Z09 Encounter for follow-up examination after completed treatment for conditions other than malignant neoplasm; Z87.440 Personal history of urinary (tract) infections; K21.9 Gastro-esophageal reflux disease without esophagitis; F03.90 Unspecified dementia, unspecified severity, without behavioral disturbance, psychotic disturbance, mood disturbance, and anxiety; Z88.5 Allergy status to narcotic agent; Z88.8 Allergy status to other drugs, medicaments and biological substances; D72.819 Decreased white blood cell count, unspecified; E66.9 Obesity, unspecified; Z68.25 Body mass index [BMI] 25.0-25.9, adult; Z20.822 Contact with and (suspected) exposure to COVID-19; Z96.651 Presence of right artificial knee joint; D53.1 Other megaloblastic anemias, not elsewhere classified; D70.9 Neutropenia, unspecified; E88.09 Other disorders of plasma-protein metabolism, not elsewhere classified; K44.9 Diaphragmatic hernia without obstruction or gangrene; N26.1 Atrophy of kidney (terminal); D46.9 Myelodysplastic syndrome, unspecified
CPT/HCPCS: 36415; 71045; 74177; 80053; 81001; 82607; 83605; 83735; 85025; 86850; 86900; 86920; 87040; 87493; 99285; J2060; J2270; J2405; J2543; J7030; J7050; P9016; Q9967; U0002

== ENCOUNTER 2021-12-05 13:48 | Inpatient (IN) | payer MEDICARE, BC ==
[~2021-12-05] VITALS: Ht 157.5 cm; Wt 63.5 kg
[2021-12-05] MEDS ORDERED: SODIUM CHLORIDE 0.9% 1000ML 1,000 ML IV STA (14:21)
[2021-12-05] MEDS ORDERED: CEFTRIAXONE 1 GM VIAL ONE (14:59)
[2021-12-05] MEDS ORDERED: SODIUM CHLORIDE 0.9% 1000ML 1,000 ML ONE (14:59)
[2021-12-05] MEDS ORDERED: CEFTRIAXONE 1 GM VIAL IV ONE (15:00)
[2021-12-05] MEDS ORDERED: LACTULOSE SYRUP 20 GM/30 ML UDC PO PRN (17:15)
[2021-12-05] MEDS ORDERED: ONDANSETRON HCL INJ 2MG/ML 2ML 2 MG/ML VIAL IV PRN (17:15)
[2021-12-05] MEDS ORDERED: DIPHENHYDRAMINE HCL INJ 50 MG/ML VIAL IV PRN (17:15)
[2021-12-05 17:31] VITALS: BP 119/68
[2021-12-05] MEDS: SODIUM CHLORIDE 0.9% 1000ML 1,000 ML IV SCH (17:44)
[2021-12-05 17:45] VITALS: BP 119/68
[2021-12-05] MEDS ORDERED: AMLODIPINE BESY10 MG PO (17:50)
[2021-12-05 18:38] LABS: CREATINE KINASE 81 IU/L (29-168)
[2021-12-05 20:00] VITALS: BP 91/57
[2021-12-05] MEDS ORDERED: DONEPEZIL HCL 5 MG TAB PO SCH (21:00)
[2021-12-05] MEDS: ACETAMINOPHEN 325 MG TAB PO PRN (21:09)
[2021-12-05] MEDS ORDERED: ROPINIROLE HCL1 MG PO (21:44)
[2021-12-05] MEDS ORDERED: ZIPRASIDONE 20 MG VIAL IM STA (22:51)
[2021-12-06] VITALS: BP 108/52
[2021-12-06] MEDS ORDERED: SODIUM CHLORIDE 0.9% 50ML 50 ML ONE (02:09)
[2021-12-06] MEDS: SODIUM CHLORIDE 0.9% 1000ML 1,000 ML IV SCH ×3 (02:11→20:23)
[2021-12-06] MEDS ORDERED: CEFTRIAXONE 1 GM VIAL IV SCH (03:00)
[2021-12-06 04:00] VITALS: BP 123/71
[2021-12-06 06:34] LABS: BASOPHILS # (AUTO) 0.1 (0.0-0.1); BASOPHILS % 1.2 % (0.0-1.0); EOSINOPHILS # (AUTO) 0.2 (0.0-0.4); EOSINOPHILS % 2.2 % (0.0-6.0); HEMATOCRIT 25.9 % (34.2-44.1); HEMOGLOBIN 7.5 g/dL (12.0-16.0); LYMPHOCYTES # (AUTO) 1.2 (1.0-3.2); LYMPHOCYTES % 16.4 % (18.0-39.1); MEAN CORPUSCULAR HEMOGLOBIN 23.4 pg (28-32); MEAN CORPUSCULAR VOLUME 80.9 fL (81-99); MONOCYTES # (AUTO) 0.7 (0.2-0.8); MONOCYTES % 9.2 % (4.4-11.3); NEUTROPHILS # (AUTO) 5.2 (2.1-6.9); NEUTROPHILS % 70.3 % (38.7-80.0); PLATELET COUNT 688 x10e3/uL (140-360); RED CELL DISTRIBUTION WIDTH 16.4 % (11.7-14.4)
[2021-12-06 06:42] LABS: ANION GAP 12.9 mmol/L (8-16); CALCIUM 8.3 mg/dL (8.4-10.2); CREATININE, SERUM 0.91 mg/dL (0.57-1.11); POTASSIUM 3.9 mmol/L (3.5-5.1)
[2021-12-06 06:50] LABS: CREATINE KINASE MB 4.4 ng/mL (0-5.0)
[2021-12-06] MEDS: ACETAMINOPHEN 325 MG TAB PO PRN ×2 (06:50→20:23)
[2021-12-06] MEDS ORDERED: FAMOTIDINE 20 MG TAB PO SCH (07:30)
[2021-12-06 09:11] LABS: THYROID STIMULATING HORMONE 4.457 uIU/mL (0.350-4.940)
[2021-12-06] MEDS: ENOXAPARIN SOD INJ 40 MG/0.4 ML SYR SC SCH (09:17)
[2021-12-06] MEDS: MEMANTINE 10 MG TAB PO SCH ×2 (09:17→16:15)
[2021-12-06] MEDS ORDERED: TIZANIDINE HCL 4 MG TAB PO PRN (10:00)
[2021-12-06] MEDS ORDERED: NON-FORMULARY MEDICATION (Oxycodone Hcl/Acetaminophen (Percocet 7.5-325 Mg Tablet) 1 TAB) PO PRN (10:00)
[2021-12-06 10:56] VITALS: BP 123/71
[2021-12-06] MEDS ORDERED: ZIPRASIDONE 20 MG VIAL IM ONE (13:15)
[2021-12-06] MEDS: DICYCLOMINE HCL 20 MG TAB PO SCH ×3 (13:21→20:23)
[2021-12-06] MEDS: CEFTRIAXONE 1 GM in SODIUM CHLORIDE 0.9% 50ML 50 ML IV SCH (13:21)
[2021-12-06] MEDS: GABAPENTIN 300 MG CAP PO SCH ×2 (13:22→20:23)
[2021-12-06 13:26] LABS: CREATINE KINASE MB 4.1 ng/mL (0-5.0)
[2021-12-06] MEDS: METOPROLOL SUCCINATE 50 MG TAB XL PO SCH ×2 (13:40→22:12)
[2021-12-06 16:40] VITALS: BP 139/90
[2021-12-06 20:00] VITALS: BP 137/66
[2021-12-06] MEDS: ROPINIROLE HCL 1 MG TAB PO SCH (20:23)
[2021-12-06] MEDS: QUETIAPINE FUMARATE 25 MG TAB PO SCH (20:23)
[2021-12-06] MEDS: DONEPEZIL HCL 5 MG TAB PO SCH (20:23)
[2021-12-06] MEDS ORDERED: FUROSEMIDE INJ 10 MG/ML 4 ML VIAL IV ONE (23:45)
[2021-12-07] VITALS (8 sets, daily range): BP systolic 88–135; BP diastolic 54–73
[2021-12-07] MEDS: ACETAMINOPHEN 325 MG TAB PO PRN (03:50)
[2021-12-07] MEDS: LEVOTHYROXINE SODIUM 112 MCG TAB PO SCH (05:34)
[2021-12-07] MEDS ORDERED: BENZONATATE 100 MG CAP PO PRN (06:00)
[2021-12-07] MEDS: PANTOPRAZOLE SOD 40 MG TABEC PO SCH (09:45)
[2021-12-07] MEDS: ENOXAPARIN SOD INJ 40 MG/0.4 ML SYR SC SCH (10:19)
[2021-12-07] MEDS: VENLAFAXINE HCL 75 MG CAPCR PO SCH (10:20)
[2021-12-07] MEDS: GABAPENTIN 300 MG CAP PO SCH ×3 (10:20→20:38)
[2021-12-07] MEDS: MEMANTINE 10 MG TAB PO SCH ×2 (10:20→16:37)
[2021-12-07] MEDS: DICYCLOMINE HCL 20 MG TAB PO SCH ×4 (10:20→20:38)
[2021-12-07] MEDS: BUPROPION HCL 150 MG TABCR PO SCH (10:20)
[2021-12-07] MEDS: METOPROLOL SUCCINATE 50 MG TAB XL PO SCH ×2 (10:21→22:35)
[2021-12-07] MEDS ORDERED: IRON SUCROSE 100 MG in SODIUM CHLORIDE 0.9% 100 ML 100 ML IV SCH (12:00)
[2021-12-07] MEDS ORDERED: IOPAMIDOL 370 MG/ML 200 ML INFUS..BTL INJ ONE ×2 (12:03→13:23)
[2021-12-07] MEDS ORDERED: SODIUM CHLORIDE 0.9% 50ML 50 ML ONE ×2 (12:03→13:23)
[2021-12-07] MEDS: CEFTRIAXONE 1 GM in SODIUM CHLORIDE 0.9% 50ML 50 ML IV SCH (15:03)
[2021-12-07] MEDS: AZITHROMYCIN 250 MG TAB PO SCH (16:37)
[2021-12-07] MEDS: ROPINIROLE HCL 1 MG TAB PO SCH (20:38)
[2021-12-07] MEDS: QUETIAPINE FUMARATE 25 MG TAB PO SCH (20:38)
[2021-12-07] MEDS: DONEPEZIL HCL 5 MG TAB PO SCH (20:38)
[2021-12-07] MEDS: ACETAMIN/BUTALBITAL/CAFFEINE TAB PO PRN (20:38)
[2021-12-08] VITALS (9 sets, daily range): BP systolic 93–105; BP diastolic 38–70
[2021-12-08] MEDS: LEVOTHYROXINE SODIUM 112 MCG TAB PO SCH (05:36)
[2021-12-08 07:55] LABS: BASOPHILS # (AUTO) 0.1 (0.0-0.1); BASOPHILS % 0.3 % (0.0-1.0); EOSINOPHILS # (AUTO) 0.3 (0.0-0.4); EOSINOPHILS % 1.4 % (0.0-6.0); HEMATOCRIT 24.5 % (34.2-44.1); LYMPHOCYTES % 4.6 % (18.0-39.1); MEAN CORPUSCULAR HEMOGLOBIN 23.2 pg (28-32); MEAN CORPUSCULAR HGB CONC 28.6 g/dL (31-35); MEAN CORPUSCULAR VOLUME 81.1 fL (81-99); MONOCYTES # (AUTO) 0.7 (0.2-0.8); MONOCYTES % 3.1 % (4.4-11.3); NEUTROPHILS # (AUTO) 19.8 (2.1-6.9); NEUTROPHILS % 90.1 % (38.7-80.0); PLATELET COUNT 604 x10e3/uL (140-360); RED BLOOD COUNT 3.02 x10e6/uL (3.6-5.1); RED CELL DISTRIBUTION WIDTH 16.5 % (11.7-14.4)
[2021-12-08 08:20] LABS: ANION GAP 13.2 mmol/L (8-16); CREATININE, SERUM 1.2 mg/dL (0.57-1.11); POTASSIUM 4.2 mmol/L (3.5-5.1)
[2021-12-08] MEDS: PANTOPRAZOLE SOD 40 MG TABEC PO SCH (08:39)
[2021-12-08] MEDS: GABAPENTIN 300 MG CAP PO SCH ×3 (08:39→20:55)
[2021-12-08] MEDS: BUPROPION HCL 150 MG TABCR PO SCH (08:39)
[2021-12-08] MEDS: MEMANTINE 10 MG TAB PO SCH ×2 (08:39→16:51)
[2021-12-08] MEDS: VENLAFAXINE HCL 75 MG CAPCR PO SCH (08:39)
[2021-12-08] MEDS: DICYCLOMINE HCL 20 MG TAB PO SCH ×4 (08:39→20:55)
[2021-12-08] MEDS: ACETAMINOPHEN 325 MG TAB PO PRN ×2 (08:40→08:41)
[2021-12-08] MEDS: ONDANSETRON HCL 4 MG ORAL DISINTEGRATING TAB PO PRN (10:09)
[2021-12-08 10:24] LABS: EOSINOPHILS % (MANUAL) 1 % (0-7); LYMPHOCYTES % (MANUAL) 5 % (19-48); MONOCYTES % (MANUAL) 1 % (3.4-9.0); NEUTROPHILS % (MANUAL) 93 % (40-74)
[2021-12-08 10:25] LABS: ANISOCYTOSIS SLIGHT; HYPOCHROMASIA SLIGHT; PLATELET ESTIMATE SLIGHTLY INCREASED; PLATELET MORPHOLOGY COMMENT NORMAL; RBC MORPHOLOGY COMMENT NORMAL
[2021-12-08] MEDS: METOPROLOL SUCCINATE 50 MG TAB XL PO SCH ×2 (11:00→23:00)
[2021-12-08] MEDS ORDERED: SODIUM CHLORIDE 0.9% 250ML 250 ML IV ONE (11:30)
[2021-12-08] MEDS: ACETAMIN/BUTALBITAL/CAFFEINE TAB PO PRN (12:49)
[2021-12-08] MEDS: CEFTRIAXONE 1 GM in SODIUM CHLORIDE 0.9% 50ML 50 ML IV SCH (15:07)
[2021-12-08] MEDS: AZITHROMYCIN 250 MG TAB PO SCH (16:51)
[2021-12-08] MEDS: PIPERACILLIN/TAZOBACTAM 3.375 GM in SODIUM CHLORIDE 0.9% 50ML 50 ML IV SCH (18:10)
[2021-12-08] MEDS: DONEPEZIL HCL 5 MG TAB PO SCH (20:55)
[2021-12-08] MEDS: ROPINIROLE HCL 1 MG TAB PO SCH (20:55)
[2021-12-08] MEDS: QUETIAPINE FUMARATE 25 MG TAB PO SCH (20:55)
[2021-12-08] MEDS ORDERED: SODIUM CHLORIDE 0.9% 250ML 250 ML ONE (21:00)
[2021-12-09] VITALS (8 sets, daily range): BP systolic 97–131; BP diastolic 41–70
[2021-12-09] MEDS ORDERED: ZIPRASIDONE 20 MG VIAL IM ONE (01:00)
[2021-12-09] MEDS: PIPERACILLIN/TAZOBACTAM 3.375 GM in SODIUM CHLORIDE 0.9% 50ML 50 ML IV SCH ×3 (01:47→17:20)
[2021-12-09 06:14] LABS: BASOPHILS # (AUTO) 0.1 (0.0-0.1); BASOPHILS % 0.5 % (0.0-1.0); EOSINOPHILS # (AUTO) 0.4 (0.0-0.4); EOSINOPHILS % 2.4 % (0.0-6.0); HEMATOCRIT 27.5 % (34.2-44.1); HEMOGLOBIN 7.9 g/dL (12.0-16.0); LYMPHOCYTES # (AUTO) 1.1 (1.0-3.2); LYMPHOCYTES % 7.4 % (18.0-39.1); MEAN CORPUSCULAR HEMOGLOBIN 23.2 pg (28-32); MEAN CORPUSCULAR HGB CONC 28.7 g/dL (31-35); MEAN CORPUSCULAR VOLUME 80.6 fL (81-99); MONOCYTES # (AUTO) 1.1 (0.2-0.8); MONOCYTES % 7.3 % (4.4-11.3); NEUTROPHILS # (AUTO) 12.5 (2.1-6.9); NEUTROPHILS % 82.1 % (38.7-80.0); PLATELET COUNT 632 x10e3/uL (140-360); RED BLOOD COUNT 3.41 x10e6/uL (3.6-5.1)
[2021-12-09 06:49] LABS: CREATININE, SERUM 1.08 mg/dL (0.57-1.11)
[2021-12-09 07:08] LABS: CLARITY,URINE CLEAR (CLEAR); COLOR,URINE YELLOW (YELLOW); KETONES,URINE NEGATIVE (NEGATIVE); LEUKOCYTE ESTERASE ,URINE SMALL (NEGATIVE); NITRITE,URINE NEGATIVE (NEGATIVE); PROTEIN,URINE DIPSTICK NEGATIVE (NEGATIVE); URINE UROBILINOGEN 0.2 mg/dL (0.2 - 1)
[2021-12-09 07:11] LABS: BACTERIA,URINE FEW /HPF; EPITHELIAL CELLS,URINE MODERATE /LPF; RBC,URINE 0-5 /HPF (0-5); TRANSITIONAL EPI CELLS,URINE FEW; URIC ACID CRYSTALS,URINE MODERATE (FEW)
[2021-12-09] MEDS: PANTOPRAZOLE SOD 40 MG TABEC PO SCH (07:30)
[2021-12-09] MEDS: LEVOTHYROXINE SODIUM 112 MCG TAB PO SCH (08:00)
[2021-12-09] MEDS: VENLAFAXINE HCL 75 MG CAPCR PO SCH (09:24)
[2021-12-09] MEDS: MEMANTINE 10 MG TAB PO SCH ×2 (09:24→17:20)
[2021-12-09] MEDS: GABAPENTIN 300 MG CAP PO SCH ×3 (09:24→20:37)
[2021-12-09] MEDS: BUPROPION HCL 150 MG TABCR PO SCH (09:24)
[2021-12-09] MEDS: DICYCLOMINE HCL 20 MG TAB PO SCH ×4 (09:24→20:37)
[2021-12-09] MEDS: METOPROLOL SUCCINATE 50 MG TAB XL PO SCH ×2 (12:04→20:38)
[2021-12-09] MEDS ORDERED: QUETIAPINE FUMARATE 25 MG TAB PO SCH (17:00)
[2021-12-09] MEDS: AZITHROMYCIN 250 MG TAB PO SCH (17:20)
[2021-12-09] MEDS: QUETIAPINE FUMARATE 25 MG TAB PO SCH (20:37)
[2021-12-09] MEDS: DONEPEZIL HCL 5 MG TAB PO SCH (20:37)
[2021-12-09] MEDS: ROPINIROLE HCL 1 MG TAB PO SCH (20:37)
[2021-12-09] MEDS: OXYCODONE/ACETAMINOPHEN 5-325 1 EACH TABLET PO PRN (20:38)
[2021-12-09] MEDS: ZIPRASIDONE 20 MG VIAL IM PRN (23:20)
[2021-12-10] VITALS (8 sets, daily range): BP systolic 93–145; BP diastolic 40–84
[2021-12-10] MEDS: PIPERACILLIN/TAZOBACTAM 3.375 GM in SODIUM CHLORIDE 0.9% 50ML 50 ML IV SCH ×3 (03:22→17:10)
[2021-12-10] MEDS: LEVOTHYROXINE SODIUM 112 MCG TAB PO SCH (05:50)
[2021-12-10] MEDS: PANTOPRAZOLE SOD 40 MG TABEC PO SCH (08:40)
[2021-12-10] MEDS: VENLAFAXINE HCL 75 MG CAPCR PO SCH (08:40)
[2021-12-10] MEDS: DICYCLOMINE HCL 20 MG TAB PO SCH ×4 (08:40→20:07)
[2021-12-10] MEDS: OXYCODONE/ACETAMINOPHEN 5-325 1 EACH TABLET PO PRN (08:41)
[2021-12-10] MEDS: MEMANTINE 10 MG TAB PO SCH ×2 (08:41→15:40)
[2021-12-10] MEDS: GABAPENTIN 300 MG CAP PO SCH ×3 (08:41→20:07)
[2021-12-10] MEDS: BUPROPION HCL 150 MG TABCR PO SCH (08:41)
[2021-12-10] MEDS: METOPROLOL SUCCINATE 50 MG TAB XL PO SCH ×2 (08:42→23:39)
[2021-12-10] MEDS: SODIUM FERRIC GLUCONATE COMPLX 125 MG in SODIUM CHLORIDE 0.9% 100 ML 100 ML IV SCH (08:43)
[2021-12-10 12:22] LABS: BAND NEUTROPHILS % (MANUAL) 2 %; EOSINOPHILS % (MANUAL) 1 % (0-7); LYMPHOCYTES % (MANUAL) 7 % (19-48); MONOCYTES % (MANUAL) 4 % (3.4-9.0); NEUTROPHILS % (MANUAL) 86 % (40-74)
[2021-12-10 12:23] LABS: ANISOCYTOSIS SLIG; BURR CELLS SLIGHT; HYPOCHROMASIA MODERATE; POIKILOCYTOSIS SLIGHT; POLYCHROMASIA FEW; RBC MORPHOLOGY COMMENT ABNORMAL
[2021-12-10 12:24] LABS: PLATELET ESTIMATE SLIGHTLY INCREASED; PLATELET MORPHOLOGY COMMENT FEW LARGE
[2021-12-10] MEDS: AZITHROMYCIN 250 MG TAB PO SCH (15:40)
[2021-12-10] MEDS: ACETAMIN/BUTALBITAL/CAFFEINE TAB PO PRN (16:11)
[2021-12-10] MEDS: ONDANSETRON HCL 4 MG ORAL DISINTEGRATING TAB PO PRN (17:10)
[2021-12-10] MEDS: DONEPEZIL HCL 5 MG TAB PO SCH (20:07)
[2021-12-10] MEDS: QUETIAPINE FUMARATE 25 MG TAB PO SCH (20:07)
[2021-12-10] MEDS: ROPINIROLE HCL 1 MG TAB PO SCH (20:07)
[2021-12-10] MEDS: ALBUTEROL/IPRATROPIUM 3 ML NEB NEB PRN (21:45)
[2021-12-11] VITALS (8 sets, daily range): BP systolic 119–131; BP diastolic 57–71
[2021-12-11] MEDS: PIPERACILLIN/TAZOBACTAM 3.375 GM in SODIUM CHLORIDE 0.9% 50ML 50 ML IV SCH ×3 (02:11→17:02)
[2021-12-11] MEDS: LEVOTHYROXINE SODIUM 112 MCG TAB PO SCH (05:44)
[2021-12-11] MEDS: ALBUTEROL/IPRATROPIUM 3 ML NEB NEB PRN (05:45)
[2021-12-11 06:44] LABS: BASOPHILS # (AUTO) 0.1 (0.0-0.1); BASOPHILS % 0.5 % (0.0-1.0); EOSINOPHILS # (AUTO) 0.3 (0.0-0.4); EOSINOPHILS % 2.3 % (0.0-6.0); HEMATOCRIT 27.3 % (34.2-44.1); HEMOGLOBIN 7.8 g/dL (12.0-16.0); LYMPHOCYTES % 7.5 % (18.0-39.1); MEAN CORPUSCULAR HEMOGLOBIN 23.5 pg (28-32); MEAN CORPUSCULAR HGB CONC 28.6 g/dL (31-35); MEAN CORPUSCULAR VOLUME 82.2 fL (81-99); MONOCYTES # (AUTO) 1.5 (0.2-0.8); MONOCYTES % 11.4 % (4.4-11.3); NEUTROPHILS % 77.5 % (38.7-80.0); PLATELET COUNT 599 x10e3/uL (140-360); RED BLOOD COUNT 3.32 x10e6/uL (3.6-5.1); RED CELL DISTRIBUTION WIDTH 16.7 % (11.7-14.4)
[2021-12-11 07:05] LABS: ANION GAP 13.9 mmol/L (8-16); CREATININE, SERUM 0.84 mg/dL (0.57-1.11); POTASSIUM 3.9 mmol/L (3.5-5.1)
[2021-12-11] MEDS: PANTOPRAZOLE SOD 40 MG TABEC PO SCH (07:41)
[2021-12-11] MEDS: BUPROPION HCL 150 MG TABCR PO SCH (08:52)
[2021-12-11] MEDS: MEMANTINE 10 MG TAB PO SCH ×2 (08:52→17:02)
[2021-12-11] MEDS: VENLAFAXINE HCL 75 MG CAPCR PO SCH (08:52)
[2021-12-11] MEDS: GABAPENTIN 300 MG CAP PO SCH ×3 (08:52→20:39)
[2021-12-11] MEDS: SODIUM FERRIC GLUCONATE COMPLX 125 MG in SODIUM CHLORIDE 0.9% 100 ML 100 ML IV SCH (08:52)
[2021-12-11] MEDS: DICYCLOMINE HCL 20 MG TAB PO SCH ×4 (08:52→20:39)
[2021-12-11] MEDS: METOPROLOL SUCCINATE 50 MG TAB XL PO SCH ×2 (11:20→20:39)
[2021-12-11] MEDS: AZITHROMYCIN 250 MG TAB PO SCH (17:02)
[2021-12-11] MEDS: ROPINIROLE HCL 1 MG TAB PO SCH (20:39)
[2021-12-11] MEDS: QUETIAPINE FUMARATE 25 MG TAB PO SCH (20:39)
[2021-12-11] MEDS: DONEPEZIL HCL 5 MG TAB PO SCH (20:39)
[2021-12-11] MEDS: ZIPRASIDONE 20 MG VIAL IM PRN (20:40)
[2021-12-12] VITALS (9 sets, daily range): BP systolic 90–144; BP diastolic 52–85
[2021-12-12] MEDS: PIPERACILLIN/TAZOBACTAM 3.375 GM in SODIUM CHLORIDE 0.9% 50ML 50 ML IV SCH ×3 (02:00→17:28)
[2021-12-12] MEDS: LEVOTHYROXINE SODIUM 112 MCG TAB PO SCH (06:00)
[2021-12-12] MEDS: PANTOPRAZOLE SOD 40 MG TABEC PO SCH (07:29)
[2021-12-12] MEDS: GABAPENTIN 300 MG CAP PO SCH ×3 (08:41→21:03)
[2021-12-12] MEDS: DICYCLOMINE HCL 20 MG TAB PO SCH ×4 (08:41→21:03)
[2021-12-12] MEDS: MEMANTINE 10 MG TAB PO SCH ×2 (08:41→16:19)
[2021-12-12] MEDS: SODIUM FERRIC GLUCONATE COMPLX 125 MG in SODIUM CHLORIDE 0.9% 100 ML 100 ML IV SCH (08:41)
[2021-12-12] MEDS: BUPROPION HCL 150 MG TABCR PO SCH (08:41)
[2021-12-12] MEDS: VENLAFAXINE HCL 75 MG CAPCR PO SCH (08:41)
[2021-12-12] MEDS: METOPROLOL SUCCINATE 50 MG TAB XL PO SCH ×2 (10:43→23:00)
[2021-12-12] MEDS: AZITHROMYCIN 250 MG TAB PO SCH (16:19)
[2021-12-12] MEDS: OXYCODONE/ACETAMINOPHEN 5-325 1 EACH TABLET PO PRN (16:19)
[2021-12-12] MEDS: ROPINIROLE HCL 1 MG TAB PO SCH (21:03)
[2021-12-12] MEDS: DONEPEZIL HCL 5 MG TAB PO SCH (21:03)
[2021-12-12] MEDS: QUETIAPINE FUMARATE 25 MG TAB PO SCH (21:03)
[2021-12-12] MEDS: ACETAMIN/BUTALBITAL/CAFFEINE TAB PO PRN (21:30)
[2021-12-13] VITALS (7 sets, daily range): BP systolic 117–158; BP diastolic 70–81
[2021-12-13] MEDS: PIPERACILLIN/TAZOBACTAM 3.375 GM in SODIUM CHLORIDE 0.9% 50ML 50 ML IV SCH ×3 (03:08→16:32)
[2021-12-13] MEDS: LEVOTHYROXINE SODIUM 112 MCG TAB PO SCH (05:28)
[2021-12-13 06:27] LABS: BASOPHILS # (AUTO) 0.1 (0.0-0.1); BASOPHILS % 0.8 % (0.0-1.0); EOSINOPHILS # (AUTO) 0.3 (0.0-0.4); EOSINOPHILS % 2.6 % (0.0-6.0); HEMATOCRIT 27.4 % (34.2-44.1); LYMPHOCYTES % 9.5 % (18.0-39.1); MEAN CORPUSCULAR HEMOGLOBIN 23.7 pg (28-32); MEAN CORPUSCULAR HGB CONC 29.2 g/dL (31-35); MEAN CORPUSCULAR VOLUME 81.1 fL (81-99); MONOCYTES % 9.5 % (4.4-11.3); NEUTROPHILS # (AUTO) 7.7 (2.1-6.9); NEUTROPHILS % 76.7 % (38.7-80.0); PLATELET COUNT 695 x10e3/uL (140-360); RED BLOOD COUNT 3.38 x10e6/uL (3.6-5.1); RED CELL DISTRIBUTION WIDTH 17.5 % (11.7-14.4)
[2021-12-13] MEDS: OXYCODONE/ACETAMINOPHEN 5-325 1 EACH TABLET PO PRN (06:49)
[2021-12-13] MEDS: PANTOPRAZOLE SOD 40 MG TABEC PO SCH (08:56)
[2021-12-13] MEDS: SODIUM FERRIC GLUCONATE COMPLX 125 MG in SODIUM CHLORIDE 0.9% 100 ML 100 ML IV SCH (08:56)
[2021-12-13] MEDS: DICYCLOMINE HCL 20 MG TAB PO SCH ×4 (08:56→20:30)
[2021-12-13] MEDS: MEMANTINE 10 MG TAB PO SCH ×2 (08:57→16:31)
[2021-12-13] MEDS: BUPROPION HCL 150 MG TABCR PO SCH (08:57)
[2021-12-13] MEDS: GABAPENTIN 300 MG CAP PO SCH ×3 (08:57→20:30)
[2021-12-13] MEDS: VENLAFAXINE HCL 75 MG CAPCR PO SCH (08:57)
[2021-12-13] MEDS: METOPROLOL SUCCINATE 50 MG TAB XL PO SCH ×2 (08:58→20:30)
[2021-12-13] MEDS: ACETAMIN/BUTALBITAL/CAFFEINE TAB PO PRN (13:21)
[2021-12-13] MEDS ORDERED: IOPAMIDOL 370 MG/ML 200 ML INFUS..BTL INJ ONE (13:48)
[2021-12-13] MEDS ORDERED: SODIUM CHLORIDE 0.9% 50ML 50 ML ONE (13:48)
[2021-12-13] MEDS: AZITHROMYCIN 250 MG TAB PO SCH (16:32)
[2021-12-13] MEDS: QUETIAPINE FUMARATE 25 MG TAB PO SCH (20:30)
[2021-12-13] MEDS: ROPINIROLE HCL 1 MG TAB PO SCH (20:30)
[2021-12-13] MEDS: DONEPEZIL HCL 5 MG TAB PO SCH (20:30)
[2021-12-14] MEDS: PIPERACILLIN/TAZOBACTAM 3.375 GM in SODIUM CHLORIDE 0.9% 50ML 50 ML IV SCH ×2 (03:30→08:21)
[2021-12-14 05:41] VITALS: BP 145/74
[2021-12-14] MEDS: LEVOTHYROXINE SODIUM 112 MCG TAB PO SCH (06:26)
[2021-12-14 07:49] VITALS: BP 160/75
[2021-12-14] MEDS: SODIUM FERRIC GLUCONATE COMPLX 125 MG in SODIUM CHLORIDE 0.9% 100 ML 100 ML IV SCH (08:20)
[2021-12-14] MEDS: DICYCLOMINE HCL 20 MG TAB PO SCH ×4 (08:20→20:43)
[2021-12-14] MEDS: PANTOPRAZOLE SOD 40 MG TABEC PO SCH (08:20)
[2021-12-14] MEDS: VENLAFAXINE HCL 75 MG CAPCR PO SCH (08:20)
[2021-12-14] MEDS: BUPROPION HCL 150 MG TABCR PO SCH (08:21)
[2021-12-14] MEDS: MEMANTINE 10 MG TAB PO SCH ×2 (08:21→16:22)
[2021-12-14] MEDS: GABAPENTIN 300 MG CAP PO SCH ×3 (08:21→20:43)
[2021-12-14] MEDS: METOPROLOL SUCCINATE 50 MG TAB XL PO SCH ×2 (08:24→20:43)
[2021-12-14] MEDS ORDERED: PROPOFOL IV EMULSION 10 MG/ML 20 ML VIAL ONE (12:23)
[2021-12-14] MEDS ORDERED: LIDOCAINE HCL 2% LOCAL INJ 5 ML SDV VIAL INJ ONE (12:23)
[2021-12-14] MEDS ORDERED: FENTANYL CITRATE/PF 100MCG/2 ML INJ ONE (12:43)
[2021-12-14] MEDS: ACETAMIN/BUTALBITAL/CAFFEINE TAB PO PRN (18:41)
[2021-12-14 19:50] VITALS: BP 160/80
[2021-12-14 20:06] VITALS: BP 160/80
[2021-12-14] MEDS: QUETIAPINE FUMARATE 25 MG TAB PO SCH (20:43)
[2021-12-14] MEDS: DONEPEZIL HCL 5 MG TAB PO SCH (20:43)
[2021-12-14] MEDS: ROPINIROLE HCL 1 MG TAB PO SCH (20:43)
[2021-12-15 00:35] VITALS: BP 166/91
[2021-12-15] MEDS: ACETAMIN/BUTALBITAL/CAFFEINE TAB PO PRN (01:59)
[2021-12-15] MEDS: ACETAMINOPHEN 325 MG TAB PO PRN (03:11)
[2021-12-15] MEDS: ZIPRASIDONE 20 MG VIAL IM PRN (03:19)
[2021-12-15] MEDS: LEVOTHYROXINE SODIUM 112 MCG TAB PO SCH (05:14)
[2021-12-15 05:56] VITALS: BP 125/86
[2021-12-15 06:11] LABS: ANION GAP 16.2 mmol/L (8-16); CALCIUM 8.8 mg/dL (8.4-10.2); CREATININE, SERUM 0.86 mg/dL (0.57-1.11); POTASSIUM 4.2 mmol/L (3.5-5.1)
[2021-12-15 06:39] LABS: BASOPHILS # (AUTO) 0.2 (0.0-0.1); BASOPHILS % 1.4 % (0.0-1.0); EOSINOPHILS # (AUTO) 0.5 (0.0-0.4); EOSINOPHILS % 4.3 % (0.0-6.0); HEMATOCRIT 33.5 % (34.2-44.1); HEMOGLOBIN 9.5 g/dL (12.0-16.0); LYMPHOCYTES # (AUTO) 1.5 (1.0-3.2); LYMPHOCYTES % 13.6 % (18.0-39.1); MEAN CORPUSCULAR HEMOGLOBIN 23.7 pg (28-32); MEAN CORPUSCULAR HGB CONC 28.4 g/dL (31-35); MEAN CORPUSCULAR VOLUME 83.5 fL (81-99); MONOCYTES # (AUTO) 0.8 (0.2-0.8); MONOCYTES % 6.9 % (4.4-11.3); PLATELET COUNT 742 x10e3/uL (140-360); RED BLOOD COUNT 4.01 x10e6/uL (3.6-5.1); RED CELL DISTRIBUTION WIDTH 19.8 % (11.7-14.4)
[2021-12-15 08:04] VITALS: BP 161/78
[2021-12-15 08:18] VITALS: BP 161/78
[2021-12-15] MEDS: DICYCLOMINE HCL 20 MG TAB PO SCH (08:30)
[2021-12-15] MEDS: MEMANTINE 10 MG TAB PO SCH (08:30)
[2021-12-15] MEDS: VENLAFAXINE HCL 75 MG CAPCR PO SCH (08:30)
[2021-12-15] MEDS: GABAPENTIN 300 MG CAP PO SCH (08:30)
[2021-12-15] MEDS: PANTOPRAZOLE SOD 40 MG TABEC PO SCH (08:30)
[2021-12-15] MEDS: BUPROPION HCL 150 MG TABCR PO SCH (08:31)
[2021-12-15] MEDS: METOPROLOL SUCCINATE 50 MG TAB XL PO SCH (08:31)
[2021-12-15] MEDS ORDERED: AMLODIPINE BESYLATE 10 MG TAB PO ONE (09:15)
[2021-12-15] MEDS: SODIUM FERRIC GLUCONATE COMPLX 125 MG in SODIUM CHLORIDE 0.9% 100 ML 100 ML IV SCH (10:28)
[2021-12-15 11:03] VITALS: BP 126/82
== END 2021-12-15 15:17 | disposition home health service (06) | DRG 193 ==
LOC: FSED 14:16 → ERHOLD 15:10 → MED/SURG3 17:10
PROVIDERS: ADMIT Internal Medicine; ATTEND Internal Medicine
PROC: 0DB68ZX Excision of Stomach, Via Natural or Artificial Opening Endoscopic, Diagnostic (ICD-10-PCS; 2021-12-14)
PROC: 0DB18ZX Excision of Upper Esophagus, Via Natural or Artificial Opening Endoscopic, Diagnostic (ICD-10-PCS; 2021-12-14)
PROC: 0DB78ZX Excision of Stomach, Pylorus, Via Natural or Artificial Opening Endoscopic, Diagnostic (ICD-10-PCS; principal; 2021-12-14 14:30)
DX: J18.9 Pneumonia, unspecified organism (principal); K55.21 Angiodysplasia of colon with hemorrhage; J96.01 Acute respiratory failure with hypoxia; G92.8 Other toxic encephalopathy; G93.41 Metabolic encephalopathy; N39.0 Urinary tract infection, site not specified; K22.10 Ulcer of esophagus without bleeding; G93.49 Other encephalopathy; F02.81 Dementia in other diseases classified elsewhere, unspecified severity, with behavioral disturbance; F05 Delirium due to known physiological condition; N17.9 Acute kidney failure, unspecified; K44.9 Diaphragmatic hernia without obstruction or gangrene; D46.9 Myelodysplastic syndrome, unspecified; G30.9 Alzheimer's disease, unspecified; F02.80 Dementia in other diseases classified elsewhere, unspecified severity, without behavioral disturbance, psychotic disturbance, mood disturbance, and anxiety; K57.90 Diverticulosis of intestine, part unspecified, without perforation or abscess without bleeding; K76.0 Fatty (change of) liver, not elsewhere classified; Z99.81 Dependence on supplemental oxygen; F32.A Depression, unspecified; K29.70 Gastritis, unspecified, without bleeding
CPT/HCPCS: 36415; 43239; 70450; 71045; 71260; 74177; 80048; 80053; 81001; 81003; 82270; 82550; 82553; 82607; 82728; 82746; 83540; 83605; 84443; 84466; 84484; 85025; 85045; 85651; 86850; 86900; 86920; 87040; 87086; 88305; 88312; 93005; 94640; 94799; 97139; 99251; 99284; J0456; J0696; J1200; J1650; J1756; J1940; J2001; J2543; J2916; J3010; J3486; J7030; J7050; P9016; Q0162; Q9967; U0002

== ENCOUNTER 2022-02-05 20:12 | Emergency (ER) | payer MEDICARE, BC ==
[~2022-02-05] VITALS: Ht 157.5 cm; Wt 63.5 kg
[~2022-02-05 20:12] MED LIST changes: +ROPINIROLE HCL1 MG PO
[2022-02-05] MEDS ORDERED: CEPHALEXIN500 MG PO ×2 (20:41→21:00)
[2022-02-05] MEDS ORDERED: MUPIROCIN22 GM TOP ×2 (20:43→21:00)
== END 2022-02-05 21:04 | disposition home or self-care (01) ==
LOC: FSED 20:19
DX: L03.211 Cellulitis of face (principal); I10 Essential (primary) hypertension; E78.5 Hyperlipidemia, unspecified; E03.9 Hypothyroidism, unspecified; G40.909 Epilepsy, unspecified, not intractable, without status epilepticus; K21.9 Gastro-esophageal reflux disease without esophagitis; D64.9 Anemia, unspecified; F32.A Depression, unspecified; M54.9 Dorsalgia, unspecified; G89.29 Other chronic pain
CPT/HCPCS: 99282

== ENCOUNTER 2022-02-20 17:19 | Inpatient (IN) | payer MEDICARE, BC ==
[~2022-02-20] VITALS: Ht 144.8 cm; Wt 65.9 kg
[~2022-02-20 17:19] MED LIST changes: +CEPHALEXIN500 MG PO; +MUPIROCIN22 GM TOP
[2022-02-20] MEDS ORDERED: KETOROLAC TROMETHAMINE 30 MG/ML VIAL IV ONE (17:45)
[2022-02-20] MEDS ORDERED: ONDANSETRON HCL INJ 2MG/ML 2ML 2 MG/ML VIAL IV ONE (17:45)
[2022-02-20] MEDS ORDERED: DEXAMETHASONE SOD PHOS INJ 4 MG/ML SDV IV ONE (17:45)
[2022-02-20] MEDS ORDERED: ONDANSETRON HCL INJ 2MG/ML 2ML 2 MG/ML VIAL ONE (18:06)
[2022-02-20] MEDS ORDERED: KETOROLAC TROMETHAMINE 30 MG/ML VIAL ONE (18:07)
[2022-02-20] MEDS ORDERED: DEXAMETHASONE SOD PHOS INJ 4 MG/ML SDV ONE (18:07)
[2022-02-20] MEDS ORDERED: Vancomycin IV 1.25 GM in SODIUM CHLORIDE 0.9% 250ML 250 ML IV ONE (18:45)
[2022-02-20] MEDS ORDERED: SODIUM CHLORIDE FLUSH 10 ML SYR INJ PRN (19:15)
[2022-02-20] MEDS ORDERED: LEVOFLOXACIN 750MG/D5W 150ML IV SCH (19:30)
[2022-02-20] MEDS ORDERED: Vancomycin IV 1 GM VIAL ONE (20:03)
[2022-02-20] MEDS ORDERED: PIPERACILLIN/TAZOBACTAM 3.375 GM VIAL ONE (20:03)
[2022-02-20] MEDS ORDERED: SODIUM CHLORIDE 0.9% 250ML 250 ML ONE (22:25)
[2022-02-20] MEDS ORDERED: METOPROLOL SUCC25 MG PO (23:17)
[2022-02-21] VITALS (10 sets, daily range): BP systolic 100–130; BP diastolic 54–92
[2022-02-21] MEDS ORDERED: TIZANIDINE HCL 4 MG TAB PO PRN (00:15)
[2022-02-21] MEDS ORDERED: ALBUTEROL SULFATE HFA 8GM INHALATION AEROSOL INH PRN (00:15)
[2022-02-21] MEDS ORDERED: ONDANSETRON HCL 4 MG ORAL DISINTEGRATING TAB PO PRN ×2 (00:15→09:15)
[2022-02-21] MEDS ORDERED: QUETIAPINE FUMARATE 25 MG TAB PO STA (00:33)
[2022-02-21] MEDS ORDERED: GABAPENTIN 300 MG CAP PO ONE (00:45)
[2022-02-21] MEDS: PRAVASTATIN 20 MG TAB PO SCH ×2 (00:54→20:37)
[2022-02-21] MEDS: ACETAMINOPHEN 325 MG TAB PO PRN ×2 (04:38→22:10)
[2022-02-21] MEDS: TRAMADOL HCL 50 MG TAB PO PRN ×2 (05:41→22:00)
[2022-02-21] MEDS: LEVOTHYROXINE SODIUM 112 MCG TAB PO SCH (06:00)
[2022-02-21 08:38] LABS: BASOPHILS % 0.1 % (0.0-1.0); HEMATOCRIT 35.8 % (34.2-44.1); HEMOGLOBIN 11.5 g/dL (12.0-16.0); LYMPHOCYTES # (AUTO) 0.6 (1.0-3.2); LYMPHOCYTES % 4.1 % (18.0-39.1); MEAN CORPUSCULAR HEMOGLOBIN 27.8 pg (28-32); MEAN CORPUSCULAR HGB CONC 32.1 g/dL (31-35); MEAN CORPUSCULAR VOLUME 86.7 fL (81-99); MONOCYTES # (AUTO) 0.3 (0.2-0.8); MONOCYTES % 2.3 % (4.4-11.3); NEUTROPHILS # (AUTO) 13.3 (2.1-6.9); NEUTROPHILS % 93.1 % (38.7-80.0); PLATELET COUNT 383 x10e3/uL (140-360); RED BLOOD COUNT 4.13 x10e6/uL (3.6-5.1); RED CELL DISTRIBUTION WIDTH 19.9 % (11.7-14.4)
[2022-02-21] MEDS: VENLAFAXINE HCL 75 MG CAPCR PO SCH (08:52)
[2022-02-21] MEDS: FERROUS SULFATE 325 MG TAB PO SCH (08:53)
[2022-02-21] MEDS: GABAPENTIN 300 MG CAP PO SCH ×3 (08:53→20:37)
[2022-02-21] MEDS: METOPROLOL SUCCINATE 25 MG TAB XL PO SCH ×2 (08:54→17:05)
[2022-02-21] MEDS: PANTOPRAZOLE SOD 40 MG TABEC PO SCH (08:54)
[2022-02-21] MEDS: AMLODIPINE BESYLATE 10 MG TAB PO SCH (08:54)
[2022-02-21] MEDS: ASCORBIC ACID 500 MG TAB PO SCH (08:55)
[2022-02-21] MEDS ORDERED: DICYCLOMINE HCL 20 MG TAB PO SCH (09:00)
[2022-02-21] MEDS ORDERED: BUPROPION HCL 150 MG TABCR PO SCH (09:00)
[2022-02-21] MEDS ORDERED: POTASSIUM CHLORIDE 16 MEQ PO SCH (09:00)
[2022-02-21] MEDS ORDERED: RALOXIFENE HCL 60 MG TAB PO SCH (09:00)
[2022-02-21] MEDS ORDERED: ESCITALOPRAM OXALATE 10 MG TAB PO SCH (09:00)
[2022-02-21] MEDS ORDERED: DOCUSATE SODIUM 100 MG CAP PO SCH (09:00)
[2022-02-21] MEDS ORDERED: SUCRALFATE 1 GM TAB PO SCH (09:00)
[2022-02-21 09:01] LABS: ANION GAP 14.2 mmol/L (8-16); CALCIUM 9.1 mg/dL (8.4-10.2); CREATININE, SERUM 0.98 mg/dL (0.57-1.11); POTASSIUM 4.2 mmol/L (3.5-5.1)
[2022-02-21] MEDS ORDERED: ZIPRASIDONE 20 MG VIAL IM PRN (09:30)
[2022-02-21] MEDS: ALBUTEROL/IPRATROPIUM 3 ML NEB NEB SCH ×3 (09:30→19:52)
[2022-02-21] MEDS ORDERED: ALBUTEROL/IPRATROPIUM 3 ML NEB NEB PRN (09:30)
[2022-02-21] MEDS ORDERED: HYDRALAZINE HCL 25 MG TAB PO PRN (09:30)
[2022-02-21] MEDS: DOCUSATE SODIUM 100 MG CAP PO SCH ×2 (10:00→17:04)
[2022-02-21] MEDS: DICYCLOMINE HCL 20 MG TAB PO SCH ×2 (11:30→15:33)
[2022-02-21] MEDS ORDERED: ENOXAPARIN SOD INJ 40 MG/0.4 ML SYR SC SCH (17:00)
[2022-02-21] MEDS: QUETIAPINE FUMARATE 25 MG TAB PO SCH (20:37)
[2022-02-21] MEDS: ROPINIROLE HCL 1 MG TAB PO SCH (20:37)
[2022-02-21] MEDS: DONEPEZIL HCL 5 MG TAB PO SCH (21:00)
[2022-02-22] MEDS: ALBUTEROL/IPRATROPIUM 3 ML NEB NEB SCH ×4 (01:00→19:12)
[2022-02-22 04:00] VITALS: BP 122/66
[2022-02-22] MEDS: LEVOTHYROXINE SODIUM 112 MCG TAB PO SCH (05:10)
[2022-02-22] MEDS: TRAMADOL HCL 50 MG TAB PO PRN ×2 (05:11→21:45)
[2022-02-22 05:49] LABS: BASOPHILS % 0.3 % (0.0-1.0); EOSINOPHILS # (AUTO) 0.1 (0.0-0.4); EOSINOPHILS % 0.6 % (0.0-6.0); HEMOGLOBIN 12.1 g/dL (12.0-16.0); LYMPHOCYTES # (AUTO) 1.4 (1.0-3.2); LYMPHOCYTES % 9.4 % (18.0-39.1); MEAN CORPUSCULAR HEMOGLOBIN 27.8 pg (28-32); MEAN CORPUSCULAR HGB CONC 31.8 g/dL (31-35); MEAN CORPUSCULAR VOLUME 87.2 fL (81-99); MONOCYTES # (AUTO) 0.7 (0.2-0.8); MONOCYTES % 4.5 % (4.4-11.3); NEUTROPHILS # (AUTO) 12.6 (2.1-6.9); NEUTROPHILS % 84.5 % (38.7-80.0); PLATELET COUNT 471 x10e3/uL (140-360); RED BLOOD COUNT 4.36 x10e6/uL (3.6-5.1); RED CELL DISTRIBUTION WIDTH 19.9 % (11.7-14.4)
[2022-02-22 06:25] LABS: ANION GAP 13.9 mmol/L (8-16); CALCIUM 9.2 mg/dL (8.4-10.2); CREATININE, SERUM 0.87 mg/dL (0.57-1.11); POTASSIUM 3.9 mmol/L (3.5-5.1)
[2022-02-22 07:46] VITALS: BP 129/76
[2022-02-22 07:56] VITALS: BP 129/76
[2022-02-22] MEDS: DOCUSATE SODIUM 100 MG CAP PO SCH ×2 (08:31→17:44)
[2022-02-22] MEDS: VENLAFAXINE HCL 75 MG CAPCR PO SCH (08:31)
[2022-02-22] MEDS: DICYCLOMINE HCL 20 MG TAB PO SCH ×3 (08:31→16:30)
[2022-02-22] MEDS: GABAPENTIN 300 MG CAP PO SCH ×3 (08:32→21:45)
[2022-02-22] MEDS: FERROUS SULFATE 325 MG TAB PO SCH (08:32)
[2022-02-22] MEDS: AMLODIPINE BESYLATE 10 MG TAB PO SCH (08:32)
[2022-02-22] MEDS: METOPROLOL SUCCINATE 25 MG TAB XL PO SCH ×2 (08:33→17:44)
[2022-02-22] MEDS: ASCORBIC ACID 500 MG TAB PO SCH (08:33)
[2022-02-22] MEDS: PANTOPRAZOLE SOD 40 MG TABEC PO SCH (08:33)
[2022-02-22 11:34] VITALS: BP 111/60
[2022-02-22 15:25] VITALS: BP 126/75
[2022-02-22 20:00] VITALS: BP 115/69
[2022-02-22] MEDS: ROPINIROLE HCL 1 MG TAB PO SCH (21:45)
[2022-02-22] MEDS: DONEPEZIL HCL 5 MG TAB PO SCH (21:45)
[2022-02-22] MEDS: ACETAMINOPHEN 325 MG TAB PO PRN (21:45)
[2022-02-22] MEDS: PRAVASTATIN 20 MG TAB PO SCH (21:45)
[2022-02-22] MEDS: QUETIAPINE FUMARATE 25 MG TAB PO SCH (21:45)
[2022-02-23] MEDS: ALBUTEROL/IPRATROPIUM 3 ML NEB NEB SCH ×5 (00:58→23:40)
[2022-02-23] MEDS: LEVOTHYROXINE SODIUM 112 MCG TAB PO SCH (06:01)
[2022-02-23 07:47] VITALS: BP 115/69
[2022-02-23] MEDS: AMLODIPINE BESYLATE 10 MG TAB PO SCH (08:17)
[2022-02-23] MEDS: PANTOPRAZOLE SOD 40 MG TABEC PO SCH (08:17)
[2022-02-23] MEDS: DOCUSATE SODIUM 100 MG CAP PO SCH ×2 (08:17→17:04)
[2022-02-23] MEDS: GABAPENTIN 300 MG CAP PO SCH ×3 (08:17→21:42)
[2022-02-23] MEDS: METOPROLOL SUCCINATE 25 MG TAB XL PO SCH ×2 (08:17→17:04)
[2022-02-23] MEDS: DICYCLOMINE HCL 20 MG TAB PO SCH ×3 (08:17→17:04)
[2022-02-23] MEDS: FERROUS SULFATE 325 MG TAB PO SCH (08:17)
[2022-02-23] MEDS: VENLAFAXINE HCL 75 MG CAPCR PO SCH (08:17)
[2022-02-23] MEDS: ASCORBIC ACID 500 MG TAB PO SCH (08:18)
[2022-02-23 08:58] VITALS: BP 119/78
[2022-02-23 09:32] VITALS: BP 119/78
[2022-02-23 12:32] VITALS: BP 107/51
[2022-02-23 20:00] VITALS: BP 108/63
[2022-02-23] MEDS: PRAVASTATIN 20 MG TAB PO SCH (21:42)
[2022-02-23] MEDS: QUETIAPINE FUMARATE 25 MG TAB PO SCH (21:42)
[2022-02-23] MEDS: ROPINIROLE HCL 1 MG TAB PO SCH (21:42)
[2022-02-23] MEDS: DONEPEZIL HCL 5 MG TAB PO SCH (21:42)
[2022-02-23] MEDS: ACETAMINOPHEN 325 MG TAB PO PRN (21:42)
[2022-02-24] VITALS: BP 92/48
[2022-02-24 04:00] VITALS: BP 118/95
[2022-02-24] MEDS: LEVOTHYROXINE SODIUM 112 MCG TAB PO SCH (06:24)
[2022-02-24] MEDS: ALBUTEROL/IPRATROPIUM 3 ML NEB NEB SCH ×2 (07:10→13:22)
[2022-02-24] MEDS: DICYCLOMINE HCL 20 MG TAB PO SCH ×2 (07:52→12:07)
[2022-02-24] MEDS: ASCORBIC ACID 500 MG TAB PO SCH (08:05)
[2022-02-24] MEDS: GABAPENTIN 300 MG CAP PO SCH (08:05)
[2022-02-24] MEDS: FERROUS SULFATE 325 MG TAB PO SCH (08:05)
[2022-02-24] MEDS: PANTOPRAZOLE SOD 40 MG TABEC PO SCH (08:05)
[2022-02-24] MEDS: DOCUSATE SODIUM 100 MG CAP PO SCH (08:05)
[2022-02-24] MEDS: VENLAFAXINE HCL 75 MG CAPCR PO SCH (08:05)
[2022-02-24 08:48] VITALS: BP 118/95
[2022-02-24] MEDS: AMLODIPINE BESYLATE 10 MG TAB PO SCH (08:49)
[2022-02-24] MEDS: METOPROLOL SUCCINATE 25 MG TAB XL PO SCH (08:50)
[2022-02-24 09:01] VITALS: BP 122/71
[2022-02-24] MEDS ORDERED: CLINDAMYCIN HCL 150 MG CAP PO ONE (11:30)
[2022-02-24 12:44] VITALS: BP 106/63
== END 2022-02-24 13:41 | disposition home health service (06) | DRG 871 ==
LOC: FSED 17:30 → ERHOLD 19:10 → MED/SURG3 21:29 → OBSVTOIN 02-21 09:20
PROVIDERS: ADMIT Internal Medicine; ATTEND Internal Medicine
DX: A41.9 Sepsis, unspecified organism (principal); J18.9 Pneumonia, unspecified organism; F05 Delirium due to known physiological condition; L03.211 Cellulitis of face; R09.02 Hypoxemia; S00.03XA Contusion of scalp, initial encounter; S00.81XA Abrasion of other part of head, initial encounter; Q27.39 Arteriovenous malformation, other site; W19.XXXA Unspecified fall, initial encounter; R29.6 Repeated falls; I10 Essential (primary) hypertension; E03.9 Hypothyroidism, unspecified; G40.909 Epilepsy, unspecified, not intractable, without status epilepticus; K21.9 Gastro-esophageal reflux disease without esophagitis; Z96.651 Presence of right artificial knee joint; Z90.49 Acquired absence of other specified parts of digestive tract; Z88.5 Allergy status to narcotic agent; G30.9 Alzheimer's disease, unspecified; F02.80 Dementia in other diseases classified elsewhere, unspecified severity, without behavioral disturbance, psychotic disturbance, mood disturbance, and anxiety; D64.9 Anemia, unspecified; F32.9 Major depressive disorder, single episode, unspecified; F41.9 Anxiety disorder, unspecified; G47.00 Insomnia, unspecified; Z20.822 Contact with and (suspected) exposure to COVID-19; D46.9 Myelodysplastic syndrome, unspecified; R26.9 Unspecified abnormalities of gait and mobility
CPT/HCPCS: 36415; 70450; 71045; 71250; 80048; 80053; 81003; 82553; 83605; 83880; 84484; 85025; 87040; 87400; 93005; 94640; 94799; 96374; 96375; 97139; 99251; 99284; G0378; J1100; J1885; J2405; J2543; J3370; J7050; Q0162; U0002

== ENCOUNTER 2022-05-21 18:03 | Emergency (ER) | payer MEDICARE, BC ==
[~2022-05-21] VITALS: Ht 144.8 cm; Wt 65.8 kg
[2022-05-21] MEDS ORDERED: ALBUTEROL/IPRATROPIUM 3 ML NEB NEB ONE (18:30)
[2022-05-21] MEDS ORDERED: SODIUM CHLORIDE 0.9% 1000ML 1,000 ML IV ONE (18:30)
[2022-05-21] MEDS ORDERED: METHYLPREDNISOLONE SOD SUCC 125 MG/2ML VIAL IV ONE (18:30)
[2022-05-21 18:58] LABS: BASOPHILS % 0.4 % (0.0-1.0); EOSINOPHILS # (AUTO) 0.2 (0.0-0.4); EOSINOPHILS % 1.4 % (0.0-6.0); HEMATOCRIT 39.9 % (34.2-44.1); HEMOGLOBIN 13.2 g/dL (12.0-16.0); LYMPHOCYTES # (AUTO) 0.7 (1.0-3.2); LYMPHOCYTES % 6.4 % (18.0-39.1); MEAN CORPUSCULAR HEMOGLOBIN 29.9 pg (28-32); MEAN CORPUSCULAR HGB CONC 33.1 g/dL (31-35); MEAN CORPUSCULAR VOLUME 90.5 fL (81-99); MONOCYTES # (AUTO) 0.4 (0.2-0.8); MONOCYTES % 4.1 % (4.4-11.3); NEUTROPHILS # (AUTO) 9.3 (2.1-6.9); NEUTROPHILS % 87.3 % (38.7-80.0); PLATELET COUNT 558 x10e3/uL (140-360); RED BLOOD COUNT 4.41 x10e6/uL (3.6-5.1); RED CELL DISTRIBUTION WIDTH 15.5 % (11.7-14.4)
[2022-05-21 19:10] LABS: CLARITY,URINE HAZY (CLEAR); COLOR,URINE YELLOW (YELLOW); LEUKOCYTE ESTERASE ,URINE NEGATIVE (NEGATIVE); NITRITE,URINE NEGATIVE (NEGATIVE)
[2022-05-21 19:11] LABS: KETONES,URINE NEGATIVE (NEGATIVE); PROTEIN,URINE DIPSTICK NEGATIVE (NEGATIVE); URINE UROBILINOGEN 0.2 mg/dL (0.2 - 1)
[2022-05-21 19:12] LABS: BACTERIA,URINE FEW /HPF; EPITHELIAL CELLS,URINE FEW /LPF; RBC,URINE 0-5 /HPF (0-5); WBC,URINE (MAN) 0-5 /HPF (0-5)
[2022-05-21 19:19] LABS: ALANINE AMINOTRANSFERASE 18 IU/L (0-55); ALBUMIN 3.3 g/dL (3.5-5.0); ALBUMIN/GLOBULIN RATIO 0.9 (0.8-2.0); ALKALINE PHOSPHATASE 59 IU/L (40-150); ANION GAP 13.8 mmol/L (8-16); BLOOD UREA NITROGEN 19 mg/dL (7-26); BUN/CREATININE RATIO 21 (6-25); CALCIUM 8.5 mg/dL (8.4-10.2); CARBON DIOXIDE 27 mmol/L (22-29); CHLORIDE 97 mmol/L (98-107); CREATINE KINASE 74 IU/L (29-168); CREATININE, SERUM 0.92 mg/dL (0.57-1.11); GLUCOSE 97 mg/dL (74-118); POTASSIUM 4.8 mmol/L (3.5-5.1); SODIUM 133 mmol/L (136-145)
[2022-05-21] MEDS ORDERED: ACETAMINOPHEN 325 MG TAB PO ONE (23:15)
[2022-05-21] MEDS ORDERED: ACETAMINOPHEN 325 MG TAB ONE (23:28)
== END 2022-05-21 23:38 | disposition home or self-care (01) ==
LOC: ER 18:15
DX: R06.02 Shortness of breath (principal); J44.1 Chronic obstructive pulmonary disease with (acute) exacerbation; J40 Bronchitis, not specified as acute or chronic; R05.9 Cough, unspecified; I10 Essential (primary) hypertension; E78.5 Hyperlipidemia, unspecified; G40.909 Epilepsy, unspecified, not intractable, without status epilepticus; Z20.822 Contact with and (suspected) exposure to COVID-19
CPT/HCPCS: 36415; 71045; 80053; 81001; 82550; 82553; 83605; 84484; 85025; 87040; 93005; 94640; 94799; 99284; J0696; J2930; J7030; U0002

== ENCOUNTER 2024-08-05 01:18 | Emergency (ER) | payer MEDICARE, BC ==
[~2024-08-05] VITALS: Ht 152.4 cm; Wt 65.8 kg
[~2024-08-05 01:18] MED LIST changes: +ACETAMINOPHEN325 M1 PO; +ACIDOPHILUS LA1 EAC1 PO; +ARTIFICIAL TEA1 EACH OU; +CEFDINIR300 MG PO; +CEFUROXIME250 MG PO; +LOPERAMIDE2 MG PO; +MONTELUKAST SOD10 MG PO; +NAMENDA5 MG PO; +ONDANSETRON ODT4 MG SL; +XYZAL5 MG
[2024-08-05 01:28] VITALS: PULSE 81; RESP 17; TEMP 98.3
[2024-08-05] MEDS ORDERED: SODIUM CHLORIDE 0.9% 1000ML 2,000 ML ONE (01:31)
[2024-08-05] MEDS: SODIUM CHLORIDE 0.9% 1000ML 2,000 ML IV STA (01:39)
[2024-08-05 02:02] LABS: BASOPHILS # (AUTO) 0.1 (0.0-0.1); BASOPHILS % 0.5 % (0.0-1.0); EOSINOPHILS # (AUTO) 0.2 (0.0-0.4); HEMATOCRIT 43.2 % (34.2-44.1); HEMOGLOBIN 13.6 g/dL (12.0-16.0); LYMPHOCYTES # (AUTO) 1.5 (1.0-3.2); LYMPHOCYTES % 14.9 % (18.0-39.1); MEAN CORPUSCULAR HEMOGLOBIN 30.2 pg (28-32); MEAN CORPUSCULAR HGB CONC 31.5 g/dL (31-35); MONOCYTES # (AUTO) 0.7 (0.2-0.8); MONOCYTES % 7.2 % (4.4-11.3); NEUTROPHILS # (AUTO) 7.5 (2.1-6.9); NEUTROPHILS % 75.1 % (38.7-80.0); PLATELET COUNT 470 x10e3/uL (140-360); WHITE BLOOD COUNT 9.94 x10e3/uL (4.8-10.8)
[2024-08-05 02:17] LABS: ALBUMIN 3.1 g/dL (3.5-5.0); ALBUMIN/GLOBULIN RATIO 0.8 (0.8-2.0); ANION GAP 15.5 mmol/L (8-16); BILIRUBIN,TOTAL 0.2 mg/dL (0.2-1.2); CALCIUM 9.4 mg/dL (8.4-10.2); CREATININE, SERUM 0.84 mg/dL (0.57-1.11); POTASSIUM 4.5 mmol/L (3.5-5.1); TOTAL PROTEIN 7.2 g/dL (6.5-8.1)
[2024-08-05] MEDS ORDERED: IOPAMIDOL 370 MG/ML 100 ML INFUS..BTL INJ ONE (02:44)
[2024-08-05 03:37] VITALS: BP 130/79; PULSE 78; RESP 17; TEMP 98.4; O2SAT 98
== END 2024-08-05 03:35 | disposition home or self-care (01) ==
LOC: ER 01:22
DX: R19.7 Diarrhea, unspecified (principal); I10 Essential (primary) hypertension; J44.9 Chronic obstructive pulmonary disease, unspecified; J45.909 Unspecified asthma, uncomplicated; E03.9 Hypothyroidism, unspecified; G40.909 Epilepsy, unspecified, not intractable, without status epilepticus; D64.9 Anemia, unspecified; E78.5 Hyperlipidemia, unspecified; K21.9 Gastro-esophageal reflux disease without esophagitis; F41.9 Anxiety disorder, unspecified; F32.A Depression, unspecified; Z96.651 Presence of right artificial knee joint
CPT/HCPCS: 36415; 80053; 83690; 85025; 99283; J7030; Q9967

== ENCOUNTER 2024-12-21 12:27 | Inpatient (IN) | payer MEDICARE, BC ==
[~2024-12-21] VITALS: Ht 157.5 cm; Wt 54.9 kg
[~2024-12-21 12:27] MED LIST changes: -XYZAL5 MG; +XYZAL5 MG PO
[2024-12-21] MEDS: SODIUM CHLORIDE 0.9% 1000ML 1,000 ML IV SCH ×2 (14:00→22:15)
[2024-12-21 14:10] LABS: BILIRUBIN,URINE SMALL (NEGATIVE); CLARITY,URINE CLEAR (CLEAR); COLOR,URINE YELLOW (YELLOW); GLUCOSE, URINE NEGATIVE (NEGATIVE); KETONES,URINE TRACE (NEGATIVE); LEUKOCYTE ESTERASE ,URINE NEGATIVE (NEGATIVE); NITRITE,URINE NEGATIVE (NEGATIVE); PH,URINE 6.5 (5 - 7); PROTEIN,URINE DIPSTICK NEGATIVE (NEGATIVE); URINE UROBILINOGEN 0.2 mg/dL (0.2 - 1)
[2024-12-21 14:18] LABS: CORONAVIRUS COVID-19 AG NEGATIVE (NEGATIVE); INFLUENZA A AG NEGATIVE (NEGATIVE); INFLUENZA B AG NEGATIVE (NEGATIVE)
[2024-12-21 14:25] LABS: EPITHELIAL CELLS,URINE FEW /LPF; RBC,URINE 0-5 /HPF (0-5)
[2024-12-21 14:26] LABS: BASOPHILS % 0.4 % (0.0-1.0); EOSINOPHILS # (AUTO) 0.1 (0.0-0.4); EOSINOPHILS % 1.2 % (0.0-6.0); HEMATOCRIT 42.2 % (34.2-44.1); LYMPHOCYTES # (AUTO) 1.1 (1.0-3.2); LYMPHOCYTES % 10.5 % (18.0-39.1); MEAN CORPUSCULAR HEMOGLOBIN 29.7 pg (28-32); MEAN CORPUSCULAR HGB CONC 33.2 g/dL (31-35); MEAN CORPUSCULAR VOLUME 89.4 fL (81-99); MONOCYTES # (AUTO) 0.7 (0.2-0.8); MONOCYTES % 6.7 % (4.4-11.3); NEUTROPHILS # (AUTO) 8.3 (2.1-6.9); NEUTROPHILS % 80.5 % (38.7-80.0); PLATELET COUNT 638 x10e3/uL (140-360); RED BLOOD COUNT 4.72 x10e6/uL (3.6-5.1); RED CELL DISTRIBUTION WIDTH 14.1 % (11.7-14.4); WHITE BLOOD COUNT 10.34 x10e3/uL (4.8-10.8)
[2024-12-21 14:40] LABS: ALBUMIN 3.2 g/dL (3.5-5.0); ALBUMIN/GLOBULIN RATIO 0.9 (0.8-2.0); ANION GAP 16.2 mmol/L (8-16); BILIRUBIN,TOTAL 0.4 mg/dL (0.2-1.2); CALCIUM 9.1 mg/dL (8.4-10.2); CREATININE, SERUM 1.09 mg/dL (0.57-1.11); POTASSIUM 4.2 mmol/L (3.5-5.1); TOTAL PROTEIN 6.7 g/dL (6.5-8.1)
[2024-12-21 14:47] LABS: TROPONIN I 0.002 ng/mL (0-0.300)
[2024-12-21] MEDS ORDERED: ALBUTEROL/IPRATROPIUM 3 ML NEB NEB PRN (15:45)
[2024-12-21] MEDS ORDERED: ONDANSETRON HCL INJ 2MG/ML 2ML 2 MG/ML VIAL IV PRN (15:45)
[2024-12-21 16:11] LABS: AMPHETAMINES SCREEN,URINE NEGATIVE (NEGATIVE); BENZODIAZEPINES SCREEN,URINE POSITIVE (NEGATIVE); CANNABINOIDS SCREEN,URINE NEGATIVE (NEGATIVE); COCAINE SCREEN,URINE NEGATIVE (NEGATIVE); METHADONE SCREEN, URINE NEGATIVE (NEGATIVE); OPIATES SCREEN,URINE NEGATIVE (NEGATIVE); PHENCYCLIDINE SCREEN,URINE NEGATIVE (NEGATIVE)
[2024-12-21] MEDS ORDERED: ZIPRASIDONE 20 MG VIAL IM ONE (16:43)
[2024-12-21] MEDS ORDERED: LORAZEPAM INJ 2 MG/ML VIAL ONE (16:43)
[2024-12-21] MEDS: ZIPRASIDONE 20 MG VIAL IM PRN (17:02)
[2024-12-21] MEDS: LORAZEPAM INJ 2 MG/ML VIAL IV ONE (17:02)
[2024-12-21 20:00] VITALS: PULSE 95; RESP 16; TEMP 97.3
[2024-12-21] MEDS ORDERED: RISPERIDONE0.5 MG PO (22:11)
[2024-12-21] MEDS ORDERED: ONDANSETRON ODT8 MG PO (22:11)
[2024-12-21] MEDS ORDERED: LOPERAMIDE2 MG PO (22:11)
[2024-12-21] MEDS ORDERED: HALOPERIDOL1 MG PO (22:11)
[2024-12-21] MEDS ORDERED: ATIVAN1 MG PO (22:11)
[2024-12-21] MEDS ORDERED: VILAZODONE HCL20 MG PO (22:11)
[2024-12-21 22:30] VITALS: BP 104/61; PULSE 109; RESP 18; TEMP 97.6; O2SAT 96
[2024-12-21 22:49] VITALS: BP 104/61; PULSE 109; RESP 18; TEMP 97.6; O2SAT 96
[2024-12-22] MEDS ORDERED: HALOPERIDOL 1 MG TAB PO PRN
[2024-12-22] MEDS ORDERED: POLYETHYLENE GLYCOL 3350 17 GM PACK PO PRN (00:15)
[2024-12-22] MEDS ORDERED: METOPROLOL TARTRATE INJ 1 MG/ML VIAL IV PRN (00:15)
[2024-12-22] MEDS: LORAZEPAM 1 MG TAB PO PRN (01:17)
[2024-12-22 06:22] LABS: BASOPHILS % 0.3 % (0.0-1.0); EOSINOPHILS # (AUTO) 0.1 (0.0-0.4); EOSINOPHILS % 0.6 % (0.0-6.0); HEMOGLOBIN 12.6 g/dL (12.0-16.0); LYMPHOCYTES # (AUTO) 1.3 (1.0-3.2); LYMPHOCYTES % 11.3 % (18.0-39.1); MEAN CORPUSCULAR HEMOGLOBIN 29.7 pg (28-32); MEAN CORPUSCULAR HGB CONC 33.2 g/dL (31-35); MEAN CORPUSCULAR VOLUME 89.6 fL (81-99); MONOCYTES # (AUTO) 0.8 (0.2-0.8); MONOCYTES % 6.6 % (4.4-11.3); NEUTROPHILS # (AUTO) 9.5 (2.1-6.9); NEUTROPHILS % 80.8 % (38.7-80.0); PLATELET COUNT 685 x10e3/uL (140-360); RED BLOOD COUNT 4.24 x10e6/uL (3.6-5.1); RED CELL DISTRIBUTION WIDTH 14.3 % (11.7-14.4); WHITE BLOOD COUNT 11.74 x10e3/uL (4.8-10.8)
[2024-12-22] MEDS: ACETAMINOPHEN 325 MG TAB PO PRN (06:33)
[2024-12-22] MEDS: LEVOTHYROXINE SODIUM 112 MCG TAB PO SCH (06:34)
[2024-12-22] MEDS: PANTOPRAZOLE SOD 40 MG TABEC PO SCH (06:34)
[2024-12-22 07:00] LABS: ALBUMIN 3.2 g/dL (3.5-5.0); ALBUMIN/GLOBULIN RATIO 0.9 (0.8-2.0); ANION GAP 16.3 mmol/L (8-16); BILIRUBIN,TOTAL 0.4 mg/dL (0.2-1.2); CALCIUM 8.8 mg/dL (8.4-10.2); CREATININE, SERUM 1.58 mg/dL (0.57-1.11); POTASSIUM 4.3 mmol/L (3.5-5.1); TOTAL PROTEIN 6.6 g/dL (6.5-8.1)
[2024-12-22 08:00] VITALS: BP 104/65; PULSE 75; RESP 19; TEMP 98; O2SAT 100
[2024-12-22] MEDS ORDERED: RISPERIDONE 0.5 MG TAB PO SCH (09:00)
[2024-12-22 09:06] VITALS: BP 104/65; PULSE 75; RESP 19; TEMP 98; O2SAT 100
[2024-12-22] MEDS: BUPROPION HCL 150 MG TABCR PO SCH (10:01)
[2024-12-22] MEDS: DOCUSATE SODIUM 100 MG CAP PO SCH (10:02)
[2024-12-22] MEDS: MONTELUKAST SODIUM 10 MG TAB PO SCH (10:02)
[2024-12-22] MEDS: VENLAFAXINE HCL 75 MG CAPCR PO SCH (10:02)
[2024-12-22] MEDS: LACTOBACILLUS ACIDOPHILUS CAPSULE PO SCH (10:02)
[2024-12-22] MEDS: LOPERAMIDE HCL 2 MG CAP PO SCH (10:02)
[2024-12-22] MEDS: DICYCLOMINE HCL 20 MG TAB PO SCH (10:03)
[2024-12-22] MEDS: METOPROLOL SUCCINATE 25 MG TAB XL PO SCH (10:03)
[2024-12-22] MEDS: SIMETHICONE 80 MG CHEW PO PRN (11:43)
[2024-12-22] MEDS: RISPERIDONE 0.5 MG TAB PO SCH (11:44)
[2024-12-22 12:00] VITALS: BP_SYST 112; BP_SYST 89; BP_DIAS 58; BP_DIAS 78; PULSE 90; PULSE 99; RESP 17; RESP 20; TEMP 97.8; TEMP 97.9; O2SAT 100; O2SAT 98
[2024-12-22 15:20] LABS: CDIFF AG QUIK CHEK **POSITIVE** (NEGATIVE); CDIFF TOX QUIK CHEK NEGATIVE (NEGATIVE)
[2024-12-22 16:00] VITALS: BP 94/50; PULSE 78; RESP 16; TEMP 97.3; O2SAT 100
[2024-12-22] MEDS: VANCOMYCIN HCL 125 MG CAPSULE PO SCH (17:15)
[2024-12-22 20:16] VITALS: BP 94/50; PULSE 78; RESP 16; TEMP 97.3; O2SAT 100
[2024-12-22] MEDS: LORATADINE 10 MG TAB PO SCH (20:42)
[2024-12-22] MEDS: QUETIAPINE FUMARATE 25 MG TAB PO SCH (20:42)
[2024-12-22] MEDS: ACETAMIN/BUTALBITAL/CAFFEINE TAB PO PRN (20:43)
[2024-12-22] MEDS: MEMANTINE 10 MG TAB PO SCH (21:14)
[2024-12-22] MEDS: DONEPEZIL HCL 5 MG TAB PO SCH (21:15)
[2024-12-22] MEDS: ROPINIROLE HCL 0.25 MG TAB PO SCH (21:16)
[2024-12-23] VITALS (7 sets, daily range): BP systolic 94–150; BP diastolic 50–84; PULSE 75–89; RESP 16–19; TEMP 97.3–98; O2SAT 95–100
[2024-12-23 08:59] LABS: BASOPHILS % 0.4 % (0.0-1.0); EOSINOPHILS # (AUTO) 0.2 (0.0-0.4); EOSINOPHILS % 2.2 % (0.0-6.0); HEMATOCRIT 35.8 % (34.2-44.1); HEMOGLOBIN 11.6 g/dL (12.0-16.0); LYMPHOCYTES # (AUTO) 1.4 (1.0-3.2); LYMPHOCYTES % 15.9 % (18.0-39.1); MEAN CORPUSCULAR HEMOGLOBIN 29.4 pg (28-32); MEAN CORPUSCULAR HGB CONC 32.4 g/dL (31-35); MEAN CORPUSCULAR VOLUME 90.9 fL (81-99); MONOCYTES # (AUTO) 0.7 (0.2-0.8); MONOCYTES % 7.9 % (4.4-11.3); NEUTROPHILS # (AUTO) 6.7 (2.1-6.9); NEUTROPHILS % 73.3 % (38.7-80.0); PLATELET COUNT 582 x10e3/uL (140-360); RED BLOOD COUNT 3.94 x10e6/uL (3.6-5.1); RED CELL DISTRIBUTION WIDTH 14.2 % (11.7-14.4); WHITE BLOOD COUNT 9.08 x10e3/uL (4.8-10.8)
[2024-12-23 09:32] LABS: ANION GAP 13.8 mmol/L (8-16); CALCIUM 8.7 mg/dL (8.4-10.2); POTASSIUM 3.8 mmol/L (3.5-5.1)
[2024-12-24 08:57] VITALS: BP 135/68; PULSE 76; RESP 18; TEMP 98; O2SAT 99
[2024-12-24 09:00] VITALS: BP 135/68; PULSE 76; RESP 18; TEMP 98; O2SAT 99
[2024-12-24 12:12] VITALS: BP 128/81; PULSE 92; RESP 18; TEMP 98; O2SAT 100
[2024-12-24 16:50] VITALS: BP 161/97; PULSE 83; RESP 18; TEMP 97.9; O2SAT 100
[2024-12-24 20:00] VITALS: BP_SYST 150; BP_SYST 163; BP_DIAS 74; BP_DIAS 79; PULSE 73; PULSE 89; RESP 18; TEMP 98; TEMP 98.2; O2SAT 100; O2SAT 97
[2024-12-25] VITALS (10 sets, daily range): BP systolic 137–187; BP diastolic 70–98; PULSE 84–101; RESP 18–21; TEMP 97.2–98.1; O2SAT 99–100
[2024-12-25 06:17] LABS: BASOPHILS # (AUTO) 0.1 (0.0-0.1); BASOPHILS % 0.5 % (0.0-1.0); EOSINOPHILS # (AUTO) 0.3 (0.0-0.4); HEMATOCRIT 37.7 % (34.2-44.1); HEMOGLOBIN 12.1 g/dL (12.0-16.0); LYMPHOCYTES # (AUTO) 1.6 (1.0-3.2); LYMPHOCYTES % 16.5 % (18.0-39.1); MEAN CORPUSCULAR HEMOGLOBIN 30.3 pg (28-32); MEAN CORPUSCULAR HGB CONC 32.1 g/dL (31-35); MEAN CORPUSCULAR VOLUME 94.3 fL (81-99); MONOCYTES # (AUTO) 0.6 (0.2-0.8); MONOCYTES % 6.1 % (4.4-11.3); NEUTROPHILS % 73.5 % (38.7-80.0); PLATELET COUNT 495 x10e3/uL (140-360); RED CELL DISTRIBUTION WIDTH 14.3 % (11.7-14.4); WHITE BLOOD COUNT 9.55 x10e3/uL (4.8-10.8)
[2024-12-25 06:42] LABS: ANION GAP 11.2 mmol/L (8-16); CALCIUM 9.1 mg/dL (8.4-10.2); CREATININE, SERUM 0.91 mg/dL (0.57-1.11); POTASSIUM 4.2 mmol/L (3.5-5.1)
[2024-12-25] MEDS ORDERED: CEFUROXIME250 MG PO (12:54)
[2024-12-25] MEDS ORDERED: VANCOCIN HCL250 MG PO (14:11)
[2024-12-25] MEDS ORDERED: IMODIUM A-D2 M2 PO (14:11)
[2024-12-26] VITALS (11 sets, daily range): BP systolic 113–161; BP diastolic 48–87; PULSE 54–110; RESP 18–20; TEMP 97.3–98.7; O2SAT 96–100
[2024-12-26] MEDS: DICYCLOMINE HCL 20 MG TAB PO SCH (06:00)
[2024-12-26 06:40] LABS: BASOPHILS # (AUTO) 0.1 (0.0-0.1); BASOPHILS % 0.5 % (0.0-1.0); EOSINOPHILS # (AUTO) 0.3 (0.0-0.4); EOSINOPHILS % 2.3 % (0.0-6.0); HEMOGLOBIN 12.4 g/dL (12.0-16.0); LYMPHOCYTES # (AUTO) 1.6 (1.0-3.2); LYMPHOCYTES % 11.8 % (18.0-39.1); MEAN CORPUSCULAR HEMOGLOBIN 29.8 pg (28-32); MEAN CORPUSCULAR HGB CONC 32.6 g/dL (31-35); MEAN CORPUSCULAR VOLUME 91.3 fL (81-99); MONOCYTES # (AUTO) 0.8 (0.2-0.8); MONOCYTES % 6.1 % (4.4-11.3); NEUTROPHILS # (AUTO) 10.5 (2.1-6.9); NEUTROPHILS % 78.9 % (38.7-80.0); PLATELET COUNT 443 x10e3/uL (140-360); RED BLOOD COUNT 4.16 x10e6/uL (3.6-5.1); RED CELL DISTRIBUTION WIDTH 14.1 % (11.7-14.4); WHITE BLOOD COUNT 13.26 x10e3/uL (4.8-10.8)
[2024-12-26 07:07] LABS: CALCIUM 9.1 mg/dL (8.4-10.2); CREATININE, SERUM 0.89 mg/dL (0.57-1.11)
[2024-12-26] MEDS: CHOLESTYRAMINE 4 GM PACKET PO SCH (20:20)
[2024-12-26] MEDS: CITRATE OF MAGNESIA 300ML BOTTLE PO ONE (23:27)
[2024-12-27] VITALS (9 sets, daily range): BP systolic 121–165; BP diastolic 58–83; PULSE 80–108; RESP 18–21; TEMP 97.4–98.2; O2SAT 96–100
[2024-12-27] MEDS: CITRATE OF MAGNESIA 300ML BOTTLE PO ONE (00:41)
[2024-12-27] MEDS: BISACODYL 5 MG TAB EC PO ONE ×2 (05:43→07:31)
[2024-12-27 07:19] LABS: BASOPHILS # (AUTO) 0.1 (0.0-0.1); BASOPHILS % 0.8 % (0.0-1.0); EOSINOPHILS # (AUTO) 0.2 (0.0-0.4); EOSINOPHILS % 2.1 % (0.0-6.0); HEMATOCRIT 40.1 % (34.2-44.1); HEMOGLOBIN 12.8 g/dL (12.0-16.0); LYMPHOCYTES # (AUTO) 1.6 (1.0-3.2); LYMPHOCYTES % 15.8 % (18.0-39.1); MEAN CORPUSCULAR HEMOGLOBIN 29.8 pg (28-32); MEAN CORPUSCULAR HGB CONC 31.9 g/dL (31-35); MEAN CORPUSCULAR VOLUME 93.3 fL (81-99); MONOCYTES # (AUTO) 0.6 (0.2-0.8); MONOCYTES % 5.7 % (4.4-11.3); NEUTROPHILS # (AUTO) 7.4 (2.1-6.9); NEUTROPHILS % 75.2 % (38.7-80.0); PLATELET COUNT 506 x10e3/uL (140-360); RED CELL DISTRIBUTION WIDTH 14.6 % (11.7-14.4); WHITE BLOOD COUNT 9.83 x10e3/uL (4.8-10.8)
[2024-12-27 07:45] LABS: ANION GAP 14.6 mmol/L (8-16); CALCIUM 8.9 mg/dL (8.4-10.2); CREATININE, SERUM 0.85 mg/dL (0.57-1.11); POTASSIUM 4.6 mmol/L (3.5-5.1)
[2024-12-27] MEDS: METRONIDAZOLE 500 MG TAB PO SCH (20:15)
[2024-12-27] MEDS: LORAZEPAM 1 MG TAB PO PRN (21:44)
[2024-12-28] VITALS (9 sets, daily range): BP systolic 110–189; BP diastolic 56–90; PULSE 78–105; RESP 17–20; TEMP 97.2–98.7; O2SAT 95–100
[2024-12-28] MEDS: ONDANSETRON HCL INJ 2MG/ML 2ML 2 MG/ML VIAL IV PRN (07:44)
[2024-12-28 08:37] LABS: ANION GAP 17.1 mmol/L (8-16); CALCIUM 9.1 mg/dL (8.4-10.2); CREATININE, SERUM 0.8 mg/dL (0.57-1.11); POTASSIUM 4.1 mmol/L (3.5-5.1)
[2024-12-28] MEDS: METOCLOPRAMIDE HCL 10 MG/2ML VIAL IV SCH (08:48)
[2024-12-28] MEDS ORDERED: LIDOCAINE HCL 2% LOCAL INJ 5 ML SDV VIAL INJ ONE (12:15)
[2024-12-28] MEDS ORDERED: FENTANYL CITRATE/PF 100MCG/2 ML INJ ONE (12:15)
[2024-12-28] MEDS ORDERED: PROPOFOL IV EMULSION 10 MG/ML 20 ML VIAL ONE ×2 (12:15→12:19)
[2024-12-29] VITALS (8 sets, daily range): BP systolic 98–155; BP diastolic 65–92; PULSE 80–102; RESP 17–22; TEMP 97.7–98.7; O2SAT 95–100
[2024-12-29 06:50] LABS: BASOPHILS % 0.3 % (0.0-1.0); EOSINOPHILS # (AUTO) 0.2 (0.0-0.4); HEMATOCRIT 37.4 % (34.2-44.1); LYMPHOCYTES # (AUTO) 1.4 (1.0-3.2); LYMPHOCYTES % 9.4 % (18.0-39.1); MEAN CORPUSCULAR HEMOGLOBIN 29.6 pg (28-32); MEAN CORPUSCULAR HGB CONC 32.1 g/dL (31-35); MEAN CORPUSCULAR VOLUME 92.3 fL (81-99); MONOCYTES # (AUTO) 0.9 (0.2-0.8); MONOCYTES % 6.2 % (4.4-11.3); NEUTROPHILS # (AUTO) 12.1 (2.1-6.9); NEUTROPHILS % 82.7 % (38.7-80.0); PLATELET COUNT 281 x10e3/uL (140-360); RED BLOOD COUNT 4.05 x10e6/uL (3.6-5.1); RED CELL DISTRIBUTION WIDTH 13.5 % (11.7-14.4); WHITE BLOOD COUNT 14.67 x10e3/uL (4.8-10.8)
[2024-12-29 07:27] LABS: ANION GAP 14.7 mmol/L (8-16); CREATININE, SERUM 0.76 mg/dL (0.57-1.11); POTASSIUM 3.7 mmol/L (3.5-5.1)
== END 2024-12-29 17:36 | disposition home or self-care (01) | DRG 689 ==
LOC: ER 12:49 → ERHOLD 15:45 → MED/SURG3 20:57
PROVIDERS: ADMIT Internal Medicine; ATTEND Internal Medicine
PROC: 0DB78ZX Excision of Stomach, Pylorus, Via Natural or Artificial Opening Endoscopic, Diagnostic (ICD-10-PCS; principal; 2024-12-28 12:28)
DX: N39.0 Urinary tract infection, site not specified (principal); G93.41 Metabolic encephalopathy; K22.10 Ulcer of esophagus without bleeding; F03.911 Unspecified dementia, unspecified severity, with agitation; N17.9 Acute kidney failure, unspecified; E87.1 Hypo-osmolality and hyponatremia; F03.94 Unspecified dementia, unspecified severity, with anxiety; F03.93 Unspecified dementia, unspecified severity, with mood disturbance; F03.918 Unspecified dementia, unspecified severity, with other behavioral disturbance; Z66 Do not resuscitate; Z99.81 Dependence on supplemental oxygen; I10 Essential (primary) hypertension; Z11.52 Encounter for screening for COVID-19; J44.9 Chronic obstructive pulmonary disease, unspecified; E03.9 Hypothyroidism, unspecified; K21.9 Gastro-esophageal reflux disease without esophagitis; E78.5 Hyperlipidemia, unspecified; M54.9 Dorsalgia, unspecified; G40.909 Epilepsy, unspecified, not intractable, without status epilepticus; R19.7 Diarrhea, unspecified; K29.70 Gastritis, unspecified, without bleeding; K44.9 Diaphragmatic hernia without obstruction or gangrene; R53.81 Other malaise; R15.9 Full incontinence of feces; R29.6 Repeated falls; Z22.1 Carrier of other intestinal infectious diseases; Z91.148 Patient's other noncompliance with medication regimen for other reason; Z59.9 Problem related to housing and economic circumstances, unspecified; Z79.890 Hormone replacement therapy; Z79.51 Long term (current) use of inhaled steroids; Z86.73 Personal history of transient ischemic attack (TIA), and cerebral infarction without residual deficits; Z90.49 Acquired absence of other specified parts of digestive tract; Z88.5 Allergy status to narcotic agent; Z88.8 Allergy status to other drugs, medicaments and biological substances
CPT/HCPCS: 36415; 43239; 71045; 80048; 80053; 80307; 81001; 82948; 83630; 83735; 83993; 84100; 84484; 85025; 87045; 87086; 87177; 87324; 87449; 88305; 94799; 99252; 99285; J0696; J2003; J2060; J2405; J2470; J2765; J3486; J7030